=== PATIENT | female | born 1935 | race Caucasian/White ===

== ENCOUNTER 2018-05-09 17:30 | Emergency (ER) | payer OTHER ==
[2018-05-09] MEDS ORDERED: LIDOCAINE 1% MPF 5 ML VIAL ONE (18:18)
--- NOTE | 2018-05-09 18:25 | RAD REPORT ---
EXAM DESCRIPTION: CT - CTHCSPWOC - 05/09/2018 6:15 pm CLINICAL HISTORY: Trauma, head and neck injury. Fall injury;Pain COMPARISON: <Comparisons> TECHNIQUE: Axial 5 mm thick images of the head were obtained. Axial 2 mm thick images of the cervical spine were obtained with sagittal and coronal reconstruction images generated and reviewed. All CT scans are performed using dose optimization technique as appropriate and may include automated exposure control or mA/KV adjustment according to patient size. FINDINGS: CT HEAD WITHOUT CONTRAST: No acute hemorrhage, hydrocephalus or extra-axial collection is identified.Mild generalized brain atr ophy is present with mild periventricular and deep white matter chronic microvascular ischemic change s.No areas of brain edema or midline shift. The paranasal sinuses and mastoids are clear.The calvarium is intact. CT CERVICAL SPINE WITHOUT CONTRAST: No fracture or subluxation.No prevertebral soft tissues swelling is identified. IMPRESSION: No acute intracranial or cervical spine findings.
--- NOTE | 2018-05-09 18:26 | RAD REPORT ---
EXAM DESCRIPTION: CT - CTFB CLINICAL HISTORY: FACIAL PAIN Trauma, facial injury COMPARISON: None TECHNIQUE: Axial 2 mm thick images of the face were obtained with sagittal and coronal reconstructio n images. All CT scans are performed using dose optimization technique as appropriate and may include automated exposure control or mA/KV adjustment according to patient size. FINDINGS: No acute facial bone fracture is seen.The mandible is intact. The globes and orbital contents are grossly unremarkable.The paranasal sinuses and mastoids are clear . IMPRESSION: Negative for facial bone fracture.
[2018-05-09] MEDS ORDERED: TETANUS & DIPHTHERIA TOX,ADULT 0.5 ML VIAL ONE (18:41)
--- NOTE | 2018-05-09 18:54 | EDPHYS ---
Physician Documentation [facility] Name: Yarelis Payton Age: 82 yrs Sex: Female : 1935 Arrival Date: 05/09/2018 Time: 17:33 Bed 14 Private MD: Ye Self R ED Physician Luis Enriquez HPI: 05/09 18:10 This 82 yrs old Female presents to ER via Wheelchair with complaints of [place]. 18:10 Trauma demographics: Location of Injury: [place]. Mechanism of pm1 injury: Fall: and struck sand, [place] and stepped in hole in the sand. Associated injuries: The patient sustained injury to the head, abrasion, contusion, to bridge of nose, right hand, laceration. Onset: The symptoms/episode began/occurred just prior to arrival. The patient has not experienced similar symptoms in the past. The patient has not recently seen a physician. [place] and [place] stepped in a hole causing her to trip and land on her face and right hand on the sand. Patient had a bloody nose right after the fall that was controlled with pressure. Patient with laceration to right hand. Historical: - Allergies: 17:47 Bactrim; aj1 17:47 Codeine; aj1 17:47 Iodine; aj1 17:47 PENICILLINS; aj1 17:47 Sudafed; aj1 17:47 Talwin; aj1 17:47 trovafloxacin mesylate; aj1 - Home Meds: 17:47 glyburide-metformin 5-500 mg Oral tab 2 tabs 2 times per day [Active]; Humulin 70/30 aj1 100 unit/mL (70-30) Sub-Q susp 25 units twice a day [Active]; Lipitor 10 mg Oral tab 1 tab once daily [Active]; metoprolol tartrate 50 mg Oral tab 1 tab 2 times per day [Active]; ramipril 2.5 mg Oral cap 1 cap once daily [Active]; Symbicort 80-4.5 mcg/actuation inhalation HFAA 2 puffs daily [Active]; venlafaxine 75 mg Oral tr24 1 tab once daily [Active]; Xarelto 20 mg Oral tab 1 tab once daily [Active]; - PMHx: 17:47 Atrial Fib; COPD; Diabetes - IDDM; Hypertension; aj1 - Immunization history:: Flu vaccine is up to date. - Social history:: Smoking status: Patient/guardian denies using tobacco, the patient reports quitting approximately 20 years ago. - Ebola Screening: : Patient denies travel to an Ebola-affected area in the 21 days before illness onset. ROS: 18:10 Constitutional: Negative for fever, chills, and weight loss, Eyes: Negative for injury, pm1 pain, redness, and discharge. 18:10 Neck: Negative for injury, pain, and swelling, Cardiovascular: Negative for chest pain, palpitations, and edema, Respiratory: Negative for shortness of breath, cough, wheezing, and pleuritic chest pain, Abdomen/GI: Negative for abdominal pain, nausea, vomiting, diarrhea, and constipation, Back: Negative for injury and pain. 18:10 : Negative for injury, bleeding, discharge, and swelling. 18:10 Neuro: Negative for headache, weakness, numbness, tingling, and seizure. 18:10 ENT: Positive for Nose bleed that has resolved, Negative for drainage from ear(s), ear pain, sore throat. 18:10 MS/extremity: Positive for laceration, of the medial aspect of proximal phalanx of right little finger, Negative for decreased range of motion, deformity. 18:10 Skin: Positive for laceration(s), as noted above. abrasion to bridge of nose. Exam: 18:10 Constitutional: This is a well developed, well nourished patient who is awake, alert, pm1 and in no acute distress. 18:10 Eyes: Pupils equal round and reactive to light, extra-ocular motions intact. Lids and lashes normal. Conjunctiva and sclera are non-icteric and not injected. Cornea within normal limits. Periorbital areas with no swelling, redness, or edema. ENT: Nares patent. No nasal discharge, no septal abnormalities noted. Tympanic membranes are normal and external auditory canals are clear. Oropharynx with no redness, swelling, or masses, exudates, or evidence of obstruction, uvula midline. Mucous membranes moist. Neck: Trachea midline, no thyromegaly or masses palpated, and no cervical lymphadenopathy. Supple, full range of motion without nuchal rigidity, or vertebral point tenderness. No Meningismus. Chest/axilla: Normal chest wall appearance and motion. Nontender with no deformity. No lesions are appreciated. Cardiovascular: Regular rate and rhythm with a normal S1 and S2. No gallops, murmurs, or rubs. Normal PMI, no JVD. No pulse deficits. Respiratory: Lungs have equal breath sounds bilaterally, clear to auscultation and percussion. No rales, rhonchi or wheezes noted. No increased work of breathing, no retractions or nasal flaring. Abdomen/GI: Soft, non-tender, with normal bowel sounds. No distension or tympany. No guarding or rebound. No evidence of tenderness throughout. Back: No spinal tenderness. No costovertebral tenderness. Full range of motion. 18:10 Head/face: Noted is no obvious of injury or deformity except abrasion(s), of the bridge of nose, contusion, that is superficial, of the nose. 18:10 Skin: Appearance: normal except for affected area, injury, 2 cm skin tear to medial aspect of right 5th proximal phalanx . 18:10 Neuro: Orientation: is normal, Mentation: is normal, Cranial nerves: CN II- XII are normal as tested, Cerebellar function: normal finger to nose testing, Motor: moves all fours, strength is normal, strength is 5/5 in all extremities, Sensation: is normal, no obvious gross deficits, Gait: is steady, at a normal pace, without difficulty. Vital Signs: 17:49 BP 139 / 70; Pulse 64; Resp 18; Temp 97.9(O); Pulse Ox 95% on R/A; Weight 84.37 kg (R); aj1 Height 5 ft. 2 in. (157.48 cm) (R); Pain 3/10; 19:19 BP 134 / 66; Pulse 66; Resp 18; Pulse Ox 97% on R/A; kr2 17:49 Body Mass Index 34.02 (84.37 kg, 157.48 cm) aj1 MDM: 17:52 Patient medically screened. pm1 18:51 Data reviewed: vital signs. Data interpreted: Pulse oximetry: on room air is 95 %. pm1 Interpretation: normal. Counseling: I had a detailed discussion with the patient and/or guardian regarding: the historical points, exam findings, and any diagnostic results supporting the discharge/admit diagnosis, radiology results, the need for outpatient follow up, to return to the emergency department if symptoms worsen or persist or if there are any questions or concerns that arise at home. 18:58 ED course: No tenderness or pain present to right 1st digit or metacarpal. pm1 19:00 ED course: Dermabond and suturing not performed due to skin tear's small size and pm1 possible saltwater exposure. Will dress the wound and cover the patient with doxycycline . 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 Exp: kr2 06/17/2020. Lot #: [id number]. } Route: IM; Site: right deltoid; 19:17 Follow up: Response: No adverse reaction kr2 18:49 Not Given (Physician Discretion; Skin tear, no laceration): Lidocaine (1 %) 55 ml 5 ml pm1 Infiltration once; to bedside Disposition: 05/10 07:11 Co-signature as Attending Physician, Luis Enriquez MD. rn Disposition: 05/09/18 18:53 Discharged to Home. Impression: Abrasion of nose, Contusion of nose, Unspecified superficial injury of right hand - skin tear. - Condition is Stable. - Discharge Instructions: Abrasion, Contusion, Head Injury, Adult, Skin Tear Care. - Prescriptions for Doxycycline Hyclate 100 mg Oral Tablet - take 1 tablet by ORAL route every 12 hours; 20 tablet. - Medication Reconciliation Form, Thank You Letter, Antibiotic Education form. - Follow up: Emergency Department; When: As needed; Reason: Worsening of condition. Follow up: Ye Self MD; When: 2 - 3 days; Reason: Recheck today's complaints, Continuance of care, Re-evaluation by your physician. - Problem is new. - Symptoms have improved. Signatures: Dispatcher [employer] EDJeniffer Sandoval, RN RN aj1 Luis Enriquez MD MD rn Marinas, Patrick, JUNIOR RECRUITER JUNIOR RECRUITER pm1 Gila Dumont RN RN kr2 Corrections: (The following items were deleted from the chart) 05/09 18:53 18:50 Dermabond ordered. pm1 pm1 19:18 18:05 Sutures, Prolene ordered. pm1 kr2 19:23 18:53 05/09/2018 18:53 Discharged to Home. Impression: Abrasion of nose; Contusion of kr2 nose; Unspecified superficial injury of right hand - skin tear. Condition is Stable. Forms are Medication Reconciliation Form, Thank You Letter, Antibiotic Education, Prescription Opioid Use. Follow up: Emergency Department; When: As needed; Reason: Worsening of condition. Follow up: Ye Self; When: 2 - 3 days; Reason: Recheck today's complaints, Continuance of care, Re-evaluation by your physician. Problem is new. Symptoms have improved. pm1
--- NOTE | 2018-05-09 18:54 | ER ---
Nurse's Notes [facility] Name: Yarelis Payton Age: 82 yrs Sex: Female : 1935 Arrival Date: 05/09/2018 Time: 17:33 Bed 14 Private MD: Ye Self R Diagnosis: Abrasion of nose;Contusion of nose;Unspecified superficial injury of right hand-skin tear Presentation: 05/09 17:41 Presenting complaint: Patient states: "I was walking out to the water to yell at my aj1 grandson and I fell in a hole and hit the ground" Reports pain to nose and right hand. Denies LOC, denies vomiting. States that her nose was bleeding after her fall, but it has stopped now. Abrasion noted to bridge of patient's nose. Laceration noted to right hand Patient takes Xarelto and aspirin for her heart. Transition of care: patient was not received from another setting of care. Onset of symptoms was May 09, 2018. Risk Assessment: Do you want to hurt yourself or someone else? Patient reports no desire to harm self or others. Initial Sepsis Screen: Does the patient meet any 2 criteria? No. Patient's initial sepsis screen is negative. Does the patient have a suspected source of infection? No. Patient's initial sepsis screen is negative. Care prior to arrival: None. 17:41 Method Of Arrival: Wheelchair aj1 17:41 Acuity: FROY 3 aj1 Triage Assessment: 17:47 General: Appears in no apparent distress. uncomfortable, Behavior is calm, cooperative, aj1 appropriate for age. Pain: Complains of pain in nose and right hand Pain currently is 3 out of 10 on a pain scale. EENT: Reports nose bleed that has now resolved. Neuro: Level of Consciousness is awake, alert, obeys commands. Cardiovascular: Patient's skin is warm and dry. Respiratory: Airway is patent Respiratory effort is even, unlabored, Respiratory pattern is regular, symmetrical. GI: No signs and/or symptoms were reported involving the gastrointestinal system. Derm: Skin is pink, warm \\T\\ dry. normal. Injury Description: Abrasion sustained to nose Laceration sustained to right hand. Historical: - Allergies: 17:47 Bactrim; aj1 17:47 Codeine; aj1 17:47 Iodine; aj1 17:47 PENICILLINS; aj1 17:47 Sudafed; aj1 17:47 Talwin; aj1 17:47 trovafloxacin mesylate; aj1 - Home Meds: 17:47 glyburide-metformin 5-500 mg Oral tab 2 tabs 2 times per day [Active]; Humulin 70/30 aj1 100 unit/mL (70-30) Sub-Q susp 25 units twice a day [Active]; Lipitor 10 mg Oral tab 1 tab once daily [Active]; metoprolol tartrate 50 mg Oral tab 1 tab 2 times per day [Active]; ramipril 2.5 mg Oral cap 1 cap once daily [Active]; Symbicort 80-4.5 mcg/actuation inhalation HFAA 2 puffs daily [Active]; venlafaxine 75 mg Oral tr24 1 tab once daily [Active]; Xarelto 20 mg Oral tab 1 tab once daily [Active]; - PMHx: 17:47 Atrial Fib; COPD; Diabetes - IDDM; Hypertension; aj1 - Immunization history:: Flu vaccine is up to date. - Social history:: Smoking status: Patient/guardian denies using tobacco, the patient reports quitting approximately 20 years ago. - Ebola Screening: : Patient denies travel to an Ebola-affected area in the 21 days before illness onset. Screenin:57 Abuse screen: Denies threats or abuse. Denies injuries from another. Nutritional kr2 screening: No deficits noted. Tuberculosis screening: No symptoms or risk factors identified. Fall Risk None identified. Assessment: 18:40 General: Appears in no apparent distress. comfortable, well groomed, well developed, kr2 well nourished, Behavior is calm, cooperative, appropriate for age. Pain: Complains of pain in right hand and face and nose Pain does not radiate. Pain currently is 2 out of 10 on a pain scale. Quality of pain is described as aching, tender. Neuro: Level of Consciousness is awake, alert, obeys commands, Oriented to person, place, time, situation, Appropriate for age. Cardiovascular: Capillary refill < 3 seconds in bilateral fingers Patient's skin is warm and dry. Respiratory: Airway is patent Respiratory effort is even, unlabored, Respiratory pattern is regular, symmetrical. GI: Abdomen is flat, non-distended. EENT: Oral mucosa is moist. Derm: Skin is healthy with good turgor. Musculoskeletal: Circulation, motion, and sensation intact. Injury Description: skin tear to right hand, cleansed with Hibiclens and normal saline, dried, left open to air for provider to evaluate. 19:15 Reassessment: Patient appears in no apparent distress at this time. Patient and/or kr2 family updated on plan of care and expected duration. Pain level reassessed. Patient is alert, oriented x 3, equal unlabored respirations, skin warm/dry/pink. Antibiotic ointment applied to skin tear to right hand, covered with bandage Patient denies pain at this time. Vital Signs: 17:49 BP 139 / 70; Pulse 64; Resp 18; Temp 97.9(O); Pulse Ox 95% on R/A; Weight 84.37 kg (R); aj1 Height 5 ft. 2 in. (157.48 cm) (R); Pain 3/10; 19:19 BP 134 / 66; Pulse 66; Resp 18; Pulse Ox 97% on R/A; kr2 17:49 Body Mass Index 34.02 (84.37 kg, 157.48 cm) aj1 ED Course: 17:33 Patient arrived in ED. sb2 17:34 Ye Self MD is Private Physician. sb2 17:46 Triage completed. aj1 17:49 Arm band placed on Patient placed in an exam room. aj1 17:52 Sp Robledo NP is PHCP. pm1 17:52 Luis Enriquez MD is Attending Physician. pm1 18:05 Gila Dumont, [place] is Primary Nurse. kr2 18:15 CT Facial Bones W/O Con: No contrast In Process Unspecified. EDMS 18:15 CT Head C Spine In Process Unspecified. EDMS 18:17 CT completed. Patient tolerated procedure well. Patient moved back from CT. bq 18:26 Hand Right 3 View XRAY In Process Unspecified. EDMS 18:40 Patient has correct armband on for positive identification. Bed in low position. Call kr2 light in reach. Side rails up X 1. Pulse ox on. NIBP on. Door closed. Warm blanket given. Head of bed elevated. 18:51 Ye Self MD is Referral Physician. pm1 18:59 No provider procedures requiring assistance completed. Patient did not have IV access kr2 during this emergency room visit. 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 Exp: kr2 06/17/2020. Lot #: [id number]. } Route: IM; Site: right deltoid; 19:17 Follow up: Response: No adverse reaction kr2 18:49 Not Given (Physician Discretion; Skin tear, no laceration): Lidocaine (1 %) 55 ml 5 ml pm1 Infiltration once; to bedside Outcome: 18:53 Discharge ordered by MD. pm1 19:18 Discharged to home via wheelchair, with family. kr2 19:18 Condition: good 19:18 Discharge instructions given to patient, family, Instructed on discharge instructions, follow up and referral plans. medication usage, wound care, Demonstrated understanding of instructions, follow-up care, medications, wound care, Prescriptions given X 1. 19:23 Patient left the ED. kr2 Signatures: Dispatcher [employer] EDMS Jeniffer Stewart RN RN aj1 Martina Castro Patrick, PIPE LINE WALKER PIPE LINE WALKER pm1 Gila Dumont RN RN kr2 Radha Daily sb2 Corrections: (The following items were deleted from the chart) 17:50 17:41 Presenting complaint: Patient states: "I was walking out to the water to yell at aj1 my grandson and I fell in a hole and hit the ground" Reports pain to nose and right hand. Denies LOC, denies vomiting. States that her nose was bleeding after her fall, but it has stopped now. Abrasion noted to bridge of patient's nose. Patient takes Xarelto and aspirin for her heart. aj1 19:22 19:18 Discharge instructions given to patient, family, Instructed on discharge kr2 instructions, follow up and referral plans. medication usage, Demonstrated understanding of instructions, follow-up care, medications, Prescriptions given X 1, kr2
--- NOTE | 2018-05-09 18:55 | RAD REPORT ---
EXAM DESCRIPTION: RAD - Hand Right 3 View - 05/09/2018 6:26 pm CLINICAL HISTORY: laceration;Pain Trauma, fall COMPARISON: None FINDINGS: Diffuse osteopenia is seen. Soft tissue laceration is seen along the fifth metacarpal. Que stionable areas of cortical irregularity involving the base of the distal phalanx of the first digit noted which could indicate subtle fracture. Correlation with clinical point tenderness in this locati on is advised.
[2018-05-09 19:31] VITALS: TEMP 97.9
[2018-05-09 19:32] VITALS: BP 134/66; O2SAT 97
== END 2018-05-09 19:23 | disposition home or self-care (01) ==
LOC: ER 17:30
DX: S00.31XA Abrasion of nose, initial encounter (principal); W01.0XXA Fall on same level from slipping, tripping and stumbling without subsequent striking against object, initial encounter; Y93.01 Activity, walking, marching and hiking; Y92.832 Beach as the place of occurrence of the external cause; S00.33XA Contusion of nose, initial encounter; S61.411A Laceration without foreign body of right hand, initial encounter; Z88.6 Allergy status to analgesic agent; Z88.0 Allergy status to penicillin; Z88.8 Allergy status to other drugs, medicaments and biological substances; Z91.048 Other nonmedicinal substance allergy status; I48.91 Unspecified atrial fibrillation; Z79.01 Long term (current) use of anticoagulants; E11.9 Type 2 diabetes mellitus without complications; Z79.4 Long term (current) use of insulin; I10 Essential (primary) hypertension; Z23 Encounter for immunization
CPT/HCPCS: 70450; 70486; 72125; 76377; 90714; 99284

== ENCOUNTER 2019-09-13 15:15 | Emergency (ER) | payer OTHER ==
[2019-09-13] MEDS ORDERED: DERMABOND SKIN ADHESIVE TOP ONE (15:56)
[2019-09-13] MEDS ORDERED: TETANUS & DIPHTHERIA TOX,ADULT 0.5 ML VIAL ONE (16:07)
--- NOTE | 2019-09-13 16:54 | RAD REPORT ---
EXAM DESCRIPTION: CT - Head C Spine Cap Wo Con - 09/13/2019 4:33 pm TECHNIQUE: Computed axial tomography of the head and cervical spine was obtained. Coronal and sagitt al reconstruction was performed Computed axial tomography of the chest, abdomen and pelvis was obtained. Contrast was not requested. All CT scans are performed using dose optimization technique as appropriate and may include automated exposure control or mA/KV adjustment according to patient size. CLINICAL HISTORY: Head and neck injury with chest and abdominal pain status post fall COMPARISON: 2018 CT head and neck FINDINGS: An intracranial bleed is not seen. The ventricles are normal in caliber. An extra-axial fluid collection is not noted. . Fluid within the sinuses/mastoids is not seen. A cervical fracture is not seen. No dislocation is noted. The evaluation of mediastinum, laurence, vessels, solid organs and bowel are limited secondary to the lac k of contrast administration. A mediastinal hematoma is not noted. A pleural effusion is not seen. A lung contusion is not present. The liver,spleen, pancreas, adrenals,kidneys and bladder do not demonstrate a traumatic injury A 5 centimeter cystic mass is present within the region of the left kidney. Normal appearing left agata al tissue is not noted. Small right renal cystic masses are nonspecific without IV contrast. Small lucency within the right aspect of the manubrium nonspecific An umbilical hernia contains fat IMPRESSION: 1. No acute intracranial abnormality is seen. 2. A cervical fracture is not visualized. If the patient continues have symptoms to suggest intracran ial/spinal cord pathology MRI be recommended 3. No traumatic abnormality involving the chest/abdomen/pelvis.
--- NOTE | 2019-09-13 17:31 | EDPHYS ---
Physician Documentation [facility] Name: Yarelis Payton Age: 84 yrs Sex: Female : 1935 Arrival Date: 09/13/2019 Time: 15:19 Bed 20 Private MD: Ye Self R ED Physician Huber Valero HPI: 09/13 16:24 This 84 yrs old Female presents to ER via Ambulatory with complaints of Fall pm1 Injury. 16:48 Details of fall: The patient fell from a height, Step stool, patient's foot was 1 foot pm1 off the ground, and struck wooden furniture, a potato bin. Onset: The symptoms/episode began/occurred 1 hour(s) ago. Associated injuries: The patient sustained left hand, skin tears, right flank, abrasion, contusion, neck, pain. Patient was getting down from changing a light bulb and was stepping down a step stool. Lost her balance and fell on the right side of her back. Denies hitting her head. No headache. No nausea or vomiting. Has left sided neck pain to trapezius present. . Historical: - Allergies: 15:34 Bactrim; hb 15:34 Codeine; hb 15:34 Iodine; hb 15:34 PENICILLINS; hb 15:34 Sudafed; hb 15:34 Talwin; hb 15:34 trovafloxacin mesylate; hb - PMHx: 15:34 Atrial Fib; COPD; Diabetes - IDDM; Hypertension; hb - Immunization history:: Adult Immunizations up to date. - Social history:: Smoking status: Patient/guardian denies using tobacco. - Immunization history: Last tetanus immunization: < 5 years ago. - Ebola Screening: : No symptoms or risks identified at this time. ROS: 16:24 Constitutional: Negative for fever, chills, and weight loss, Eyes: Negative for injury, pm1 pain, redness, and discharge, ENT: Negative for injury, pain, and discharge, Cardiovascular: Negative for chest pain, palpitations, and edema. 16:24 Respiratory: Negative for shortness of breath, cough, wheezing, and pleuritic chest pain, Abdomen/GI: Negative for abdominal pain, nausea, vomiting, diarrhea, and constipation. 16:24 : Negative for injury, bleeding, discharge, and swelling, MS/Extremity: Negative for injury and deformity. 16:24 Neuro: Negative for headache, weakness, numbness, tingling, and seizure. 16:24 Neck: Positive for of the left trapezius, Negative for bony tenderness. 16:24 Back: Positive for flank pain, on the right. 16:24 Skin: Positive for skin tear to left hand. Exam: 16:24 Constitutional: This is a well developed, well nourished patient who is awake, alert, pm1 and in no acute distress. Head/Face: Normocephalic, atraumatic. Eyes: Pupils equal round and reactive to light, extra-ocular motions intact. Lids and lashes normal. Conjunctiva and sclera are non-icteric and not injected. Cornea within normal limits. Periorbital areas with no swelling, redness, or edema. ENT: Nares patent. No nasal discharge, no septal abnormalities noted. Tympanic membranes are normal and external auditory canals are clear. Oropharynx with no redness, swelling, or masses, exudates, or evidence of obstruction, uvula midline. Mucous membranes moist. 16:24 Chest/axilla: Normal chest wall appearance and motion. Nontender with no deformity. No lesions are appreciated. Cardiovascular: Regular rate and rhythm with a normal S1 and S2. No gallops, murmurs, or rubs. Normal PMI, no JVD. No pulse deficits. Respiratory: Lungs have equal breath sounds bilaterally, clear to auscultation and percussion. No rales, rhonchi or wheezes noted. No increased work of breathing, no retractions or nasal flaring. Abdomen/GI: Soft, non-tender, with normal bowel sounds. No distension or tympany. No guarding or rebound. No evidence of tenderness throughout. 16:24 Neck: External neck: tenderness, of the left trapezius, C-spine: vertebral tenderness, is not appreciated, Lymph nodes: no appreciated lymphadenopathy. 16:24 Back: normal spinal alignment noted, vertebral tenderness, is not appreciated, focal tenderness and abrasions to right posterior lower rib. 16:24 Skin: Appearance: normal except for affected area, abrasion to right lower back and skin tear to left hand, medial aspect . 16:24 Neuro: Orientation: is normal, Motor: is normal, moves all fours, Sensation: is normal, no obvious gross deficits, Gait: is steady, at a normal pace, without difficulty. Vital Signs: 15:34 BP 154 / 56; Pulse 63; Resp 16; Temp 97.8; Pulse Ox 100% on R/A; Weight 90.72 kg; hb Height 5 ft. 2 in. (157.48 cm); Pain 6/10; 17:47 BP 149 / 65; Pulse 64; Resp 17 S; Pulse Ox 100% on R/A; ca1 15:34 Body Mass Index 36.58 (90.72 kg, 157.48 cm) hb Kevin Coma Score: 15:45 Eye Response: spontaneous(4). Verbal Response: oriented(5). Motor Response: obeys ca1 commands(6). Total: 15. Trauma Score (Adult): 15:45 Eye Response: spontaneous(1); Verbal Response: oriented(1); Motor Response: obeys ca1 commands(2); Systolic BP: > 89 mm Hg(4); Respiratory Rate: 10 to 29 per min(4); Johnson Score: 15; Trauma Score: 12 Laceration: 16:23 Wound Repair of 5cm ( 2.0in ) subcutaneous laceration to Left hand. Skin tear. Distal pm1 neuro/vascular/tendon intact. Wound prep: Extensive cleansing with hibiclenz by me, Wound irrigation with saline by me, Wound explored extensively, Copious irrigation. Skin closed with thin layer Adhesive skin closure using Dermabond. Dressed with 4x4's. Patient tolerated well. MDM: 15:42 Patient medically screened. pm1 17:14 Data reviewed: vital signs. Data interpreted: Pulse oximetry: on room air is 100 %. pm1 Interpretation: normal. 17:25 Counseling: I had a detailed discussion with the patient and/or guardian regarding: the pm1 historical points, exam findings, and any diagnostic results supporting the discharge/admit diagnosis, radiology results, the need for outpatient follow up, to return to the emergency department if symptoms worsen or persist or if there are any questions or concerns that arise at home. 17:25 ED course: Patient offered pain medications in ER and for prescription. 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 Exp: ca1 03/04/2021. Lot #: [id number]. } Route: IM; Site: left deltoid; Disposition: 18:49 Co-signature as Attending Physician, Huber Valero MD I agree with the assessment and barber plan of care. Disposition: 09/13/19 17:27 Discharged to Home. Impression: Contusion of right back wall of thorax, Laceration without foreign body of left hand, Strain of muscle, fascia and tendon at neck level, Abrasion of right back wall of thorax, Abrasion of lower back and pelvis, Slipping, tripping and stumbling without falling due to stepping from one level to another. - Condition is Stable. - Discharge Instructions: Abrasion, Contusion, Tissue Adhesive Wound Care, Fall Prevention in the Home. - Medication Reconciliation Form, Thank You Letter, Antibiotic Education, Prescription Opioid Use form. - Follow up: Emergency Department; When: As needed; Reason: Worsening of condition. Follow up: Private Physician; When: 2 - 3 days; Reason: Recheck today's complaints, Continuance of care, Re-evaluation by your physician. - Problem is new. - Symptoms have improved. Signatures: Dispatcher [employer] EDMS Huber Valero MD MD cha Marinas, Patrick, CAPACITY PLANNER CAPACITY PLANNER pm1 Mayelin Anderson, [place] RN Marquita Don RN RN ca1 Corrections: (The following items were deleted from the chart) 17:48 17:27 09/13/2019 17:27 Discharged to Home. Impression: Contusion of right back wall of ca1 thorax; Laceration without foreign body of left hand; Strain of muscle, fascia and tendon at neck level; Abrasion of right back wall of thorax; Abrasion of lower back and pelvis; Slipping, tripping and stumbling without falling due to stepping from one level to another. Condition is Stable. Forms are Medication Reconciliation Form, Thank You Letter, Antibiotic Education, Prescription Opioid Use. Follow up: Emergency Department; When: As needed; Reason: Worsening of condition. Follow up: Private Physician; When: 2 - 3 days; Reason: Recheck today's complaints, Continuance of care, Re-evaluation by your physician. Problem is new. Symptoms have improved. pm1
--- NOTE | 2019-09-13 17:31 | ER ---
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 Abrasion noted to right mid back, skin tear to left palm. No active bleeding noted. Denies other injuries. Negative LOC. Care prior to arrival: None. 15:31 Method Of Arrival: Ambulatory hb 15:31 Acuity: FROY 3 ca1 15:45 Mechanism of Injury: Fall from ladder approximately 2 feet. Trauma event details: ca1 Injury occurred in the [facility], Injury occurred: at home. Injury occurred: September 13, 2019 Injury occurred at: 14:30. 15:45 Risk Assessment: Do you want to hurt yourself or someone else? Patient reports no ca1 desire to harm self or others. 15:45 Transition of care: patient was not received from another setting of care. Onset of ca1 symptoms was September 13, 2019. Initial Sepsis Screen: Does the patient meet any 2 criteria? No. Patient's initial sepsis screen is negative. Does the patient have a suspected source of infection? No. Patient's initial sepsis screen is negative. Trauma Activation: Not Applicable Physician: ED Physician; Name: ; Notified At: ; Arrived At: Physician: General Surgeon; Name: ; Notified At: ; Arrived At: Physician: Radiology; Name: ; Notified At: ; Arrived At: Physician: Respiratory; Name: ; Notified At: ; Arrived At: Physician: Lab; Name: ; Notified At: ; Arrived At: Historical: - Allergies: 15:34 Bactrim; hb 15:34 Codeine; hb 15:34 Iodine; hb 15:34 PENICILLINS; hb 15:34 Sudafed; hb 15:34 Talwin; hb 15:34 trovafloxacin mesylate; hb - PMHx: 15:34 Atrial Fib; COPD; Diabetes - IDDM; Hypertension; hb - Immunization history:: Adult Immunizations up to date. - Social history:: Smoking status: Patient/guardian denies using tobacco. - Immunization history: Last tetanus immunization: < 5 years ago. - Ebola Screening: : No symptoms or risks identified at this time. Screenin:45 Abuse screen: Denies threats or abuse. Denies injuries from another. Nutritional ca1 screening: No deficits noted. Tuberculosis screening: No symptoms or risk factors identified. Fall Risk Fall in past 12 months (25 points). Ambulatory Aid- Crutches/Cane/Walker (15 pts). Mental Status- Overestimates/Forgets Limitations (15 pts.). Total Posada Fall Scale indicates High Risk Score (45 or more points). Fall prevention measures have been instituted. Side Rails Up X 2 Family Present and informed to notify staff if the need to leave the bedside As available patient and family educated on Fall Prevention Program and Strategies. Primary Survey: 15:45 NO uncontrolled hemorrhage observed. A: Breathing/Chest: Respiratory pattern: regular, ca1 Respiratory effort: spontaneous, unlabored, Breath sounds: clear, bilaterally. Chest inspection: symmetrical rise and fall of the chest. Circulation: Heart tones present. Pulses: palpable bilateral radial, brachial, femoral, popliteal, posterior tibial and and dorsalis pedis arteries.. Skin color: pink, Skin temperature: warm, dry. Disability Alert. Exposure/Environment: All clothing and personal items were removed. Exposure/Environment: All clothing and personal items were removed. Forensic evidence collection is not deemed to be indicated at this time. Items placed in patient belonging bag. There is no evidence of uncontrolled external bleeding. No obvious injuries are noted at this time. A warming method has been applied: A warm blanket has been provided to the patient. 17:11 Reassessment Airway Airway Patent Breathing/Chest Respiratory pattern Regular ca1 Respiratory effort Spontaneous Unlabored Breath sounds Clear Chest inspection Symmetrical Circulation Heart tones Present Pulses Palpable Color [place] Temperature Warm Dry Disability Alert. Assessment: 15:45 General: Appears in no apparent distress. comfortable, Behavior is calm, cooperative, ca1 appropriate for age. Pain: Complains of pain in left hand Pain currently is 5 out of 10 on a pain scale. Neuro: Level of Consciousness is awake, alert, obeys commands, Oriented to person, place, time, Appropriate for age none Gait is steady. Cardiovascular: Heart tones S1 S2 present Capillary refill < 3 seconds Patient's skin is warm and dry. Respiratory: Airway is patent Respiratory effort is even, unlabored, Respiratory pattern is regular, symmetrical, Breath sounds are clear bilaterally. GI: Abdomen is round non-distended, Bowel sounds present X 4 quads. Abd is soft and non tender X 4 quads. : No deficits noted. No signs and/or symptoms were reported regarding the genitourinary system. EENT: No signs and/or symptoms were reported regarding the EENT system. Derm: Skin is fragile, Skin is pink, warm \T\ dry. Musculoskeletal: Circulation, motion, and sensation intact. Capillary refill < 3 seconds, Range of motion: intact in all extremities. Injury Description: Laceration sustained to medial aspect of left hand is clean, superficial, 2.6 to 7.5 cm long, not bleeding, was sustained 30-60 minutes ago. a small amount of bleeding noted at this time. 16:30 Reassessment: Patient appears in no apparent distress at this time. Patient is alert, ca1 oriented x 3, equal unlabored respirations, skin warm/dry/pink. 17:47 Reassessment: Patient appears in no apparent distress at this time. Patient is alert, ca1 oriented x 3, equal unlabored respirations, skin warm/dry/pink. Vital Signs: 15:34 BP 154 / 56; Pulse 63; Resp 16; Temp 97.8; Pulse Ox 100% on R/A; Weight 90.72 kg; hb Height 5 ft. 2 in. (157.48 cm); Pain 6/10; 17:47 BP 149 / 65; Pulse 64; Resp 17 S; Pulse Ox 100% on R/A; ca1 15:34 Body Mass Index 36.58 (90.72 kg, 157.48 cm) hb [place] Coma Score: 15:45 Eye Response: spontaneous(4). Verbal Response: oriented(5). Motor Response: obeys ca1 commands(6). Total: 15. Trauma Score (Adult): 15:45 Eye Response: spontaneous(1); Verbal Response: oriented(1); Motor Response: obeys ca1 commands(2); Systolic BP: > 89 mm Hg(4); Respiratory Rate: 10 to 29 per min(4); Kevin Score: 15; Trauma Score: 12 ED Course: 15:19 Patient arrived in ED. mr 15:20 Ye Self MD is Private Physician. mr 15:34 Triage completed. hb 15:34 Arm band placed on. hb 15:39 Marquita Don RN is Primary Nurse. ca1 15:40 Sp Robledo NP is PHCP. pm1 15:40 Huber Valero MD is Attending Physician. pm1 15:45 Patient has correct armband on for positive identification. Bed in low position. Call ca1 light in reach. Side rails up X 1. Pulse ox on. NIBP on. Warm blanket given. 15:45 Patient maintains SpO2 saturation greater than 95% on room air. ca1 15:45 Thermoregulation: warm blanket given to patient. ca1 16:30 Assist provider with laceration repair on medial aspect of left hand that was between ca1 2.6 to 7.5 cm using Dermabond. Set up tray. Performed by Sp Robledo NP Patient tolerated well. 17:48 Patient did not have IV access during this emergency room visit. ca1 Administered Medications: 16:13 Drug: Tetanus-Diphtheria Toxoid Adult 0.5 ml {Health Therapist: [employer] Exp: ca1 03/04/2021. Lot #: [id number]. } Route: IM; Site: left deltoid; Output: 17:10 Urine: 0ml; Total: 0ml. ca1 Outcome: 17:27 Discharge ordered by MD. pm1 17:48 Discharged to home ambulatory, with significant other. ca1 17:48 Condition: stable 17:48 Discharge instructions given to patient, Instructed on discharge instructions, follow up and referral plans. wound care, Demonstrated understanding of instructions, follow-up care, wound care. 17:48 Patient's length of stay was not longer than 2 hours. ca1 17:48 Patient left the ED. ca1 Signatures: Suzi Liriano Sp Robledo, PIOTR TERRA COTTA SETTER pm1 Mayelin Anderson RN RN Marquita Don RN RN ca1 Corrections: (The following items were deleted from the chart) 16:04 15:31 Acuity: FROY 4 hb ca1
[2019-09-13 18:34] VITALS: TEMP 97.8; O2SAT 100
[2019-09-13 18:36] VITALS: BP 149/65
== END 2019-09-13 17:48 | disposition home or self-care (01) ==
LOC: ER 15:15
PROC: 0JQK0ZZ Repair Left Hand Subcutaneous Tissue and Fascia, Open Approach (ICD-10-PCS; principal; 2019-09-13)
DX: S61.412A Laceration without foreign body of left hand, initial encounter (principal); S16.1XXA Strain of muscle, fascia and tendon at neck level, initial encounter; S30.810A Abrasion of lower back and pelvis, initial encounter; W17.89XA Other fall from one level to another, initial encounter; Y93.89 Activity, other specified; Y92.9 Unspecified place or not applicable; I10 Essential (primary) hypertension; Z23 Encounter for immunization; Z88.0 Allergy status to penicillin; Z88.1 Allergy status to other antibiotic agents; Z88.5 Allergy status to narcotic agent; Z88.8 Allergy status to other drugs, medicaments and biological substances
CPT/HCPCS: 70450; 71250; 72125; 90471; 90714; 99284

== ENCOUNTER 2020-10-05 13:44 | Observation (INO) | payer OTHER ==
--- NOTE | 2020-10-05 14:27 | RAD REPORT ---
EXAM DESCRIPTION: CT - Head C Spine Mpr Wo Con - 10/05/2020 1:59 pm CLINICAL HISTORY: Head and neck injury status post fall. Head and neck pain COMPARISON: 2018 TECHNIQUE: Computed axial tomography of the head and cervical spine was obtained. Sagittal and coronal reconstruction was performed. All CT scans are performed using dose optimization technique as appropriate and may include automated exposure control or mA/KV adjustment according to patient size. FINDINGS: Left frontal scalp hematoma. No underlying skull fracture An intracranial bleed is not seen. The ventricles are normal in caliber. An extra-axial fluid collect ion is not noted.Fluid within the visualized sinuses and mastoids is not seen A cervical fracture is not visualized. No dislocation is noted. IMPRESSION: No acute intracranial abnormality is seen. A cervical fracture is not visualized. If the patient continues to have symptoms to suggest intracra nial /spinal cord pathology then MRI would be recommended
--- NOTE | 2020-10-05 14:30 | RAD REPORT ---
EXAM DESCRIPTION: RAD -Hand Left 3 View - 10/05/2020 2:02 pm CLINICAL HISTORY: Left hand pain status post injury FINDINGS: No fracture or dislocation is seen. Laceration involves the region of the metacarpals. A 6 by 1 millimeter radiopaque structure within th e dorsal soft tissue may represent a foreign body
--- NOTE | 2020-10-05 15:14 | ER ---
Nurse's Notes [facility] Name: Yarelis Payton Age: 85 yrs Sex: Female : 1935 Arrival Date: 10/05/2020 Time: 13:49 Bed 16 Private MD: Diagnosis: Laceration of extensor muscle, fascia and tendon of left middle finger at wrist and hand level Presentation: 10/05 13:49 Chief complaint: Patient states: tripped and fell. Pt states "My feet just got caught aa5 and I fell onto my knees and hit my forehead on the floor, I also had a glass jar on my left hand". Pt c/o pain to forehead and left hand. Pt takes Xarelto. 13:49 Care prior to arrival: Dressing to left hand. Mechanism of Injury: Fall from standing aa5 position. Trauma event details: Injury occurred in the [facility], Injury occurred: at home. Injury occurred: October 05, 2020. 13:49 Acuity: FROY 2 aa5 13:49 Method Of Arrival: EMS: [facility] aa5 13:49 Onset of symptoms was October 05, 2020. aa5 13:49 Coronavirus screen: Client denies travel out of the [place] in the last 14 days. At this aa5 time, the client does not indicate any symptoms associated with coronavirus-19. Ebola Screen: Patient negative for fever greater than or equal to 101.5 degrees Fahrenheit, and additional compatible Ebola Virus Disease symptoms. Initial Sepsis Screen: Does the patient meet any 2 criteria? No. Patient's initial sepsis screen is negative. Does the patient have a suspected source of infection? No. Patient's initial sepsis screen is negative. Risk Assessment: Do you want to hurt yourself or someone else? Patient reports no desire to harm self or others. Trauma Activation: Alert Physician: ED Physician; Name: ; Notified At: ; Arrived At: Physician: General Surgeon; Name: ; Notified At: ; Arrived At: Physician: Radiology; Name: ; Notified At: ; Arrived At: Physician: Respiratory; Name: ; Notified At: ; Arrived At: Physician: Lab; Name: ; Notified At: ; Arrived At: Historical: - Allergies: 13:50 Bactrim; aa5 13:50 Codeine; aa5 13:50 Iodine; aa5 13:50 PENICILLINS; aa5 13:50 Sudafed; aa5 13:50 Talwin; aa5 13:50 trovafloxacin mesylate; aa5 - PMHx: 13:50 Atrial Fib; COPD; Diabetes - IDDM; Hypertension; aa5 - Immunization history:: Last tetanus immunization: unknown. - Social history:: Smoking status: Patient denies any tobacco usage or history of. Screenin:30 Abuse screen: Denies threats or abuse. Nutritional screening: No deficits noted. aa5 Tuberculosis screening: No symptoms or risk factors identified. 15:00 Fall Risk Fall in past 12 months (25 points). IV access (20 points). Total [place] Fall aa5 Scale indicates High Risk Score (45 or more points). Fall prevention measures have been instituted. Side Rails Up X 2 Placed Close to Nursing Station. Primary Survey: 13:49 NO uncontrolled hemorrhage observed. aa5 13:49 A: The patient is alert. Airway: patent. Breathing/Chest: Chest inspection: symmetrical aa5 rise and fall of the chest. Circulation: Skin color: pink. Disability Alert. Exposure/Environment: A warming method has been applied: A warm blanket has been provided to the patient. 14:10 Reassessment Airway Airway Patent Breathing/Chest Respiratory pattern Regular aa5 Respiratory effort Spontaneous Unlabored Chest inspection Symmetrical Circulation Color [place] Disability Alert. Assessment: 14:00 General: Appears comfortable, Behavior is calm, cooperative. Pain: Complains of pain in aa5 left hand and forehead Pain currently is 8 out of 10 on a pain scale. Neuro: Level of Consciousness is awake, alert, obeys commands, Oriented to person, place, time, situation. Cardiovascular: Patient's skin is warm and dry. Respiratory: Airway is patent Respiratory effort is even, unlabored, Respiratory pattern is regular, symmetrical. GI: Abdomen is round non-distended, Abd is soft and non tender X 4 quads. : No signs and/or symptoms were reported regarding the genitourinary system. EENT: No signs and/or symptoms were reported regarding the EENT system. Derm: Skin is pink, warm \\T\\ dry. Musculoskeletal: no range of motion noted to left middle finger secondary to extensor tendon laceration (per PA). Laceration that is approximately 2 in long noted to top of hand, 2 other superficial laceration that are 1in each noted to top of hand. 15:00 Reassessment: Patient is alert, oriented x 3, equal unlabored respirations, skin aa5 warm/dry/pink. 15:45 Reassessment: Dr. Hutton (hospitalist) at bedside. . aa5 15:45 Reassessment: Patient is alert, oriented x 3, equal unlabored respirations, skin aa5 warm/dry/pink. 16:00 Reassessment: FB from left hand removed by PA. aa5 16:30 Reassessment: Patient is alert, oriented x 3, equal unlabored respirations, skin aa5 warm/dry/pink. 17:30 Reassessment: Pt resting in bed with eyes closed, respirations even and unlabored. . aa5 18:00 Reassessment: Moderate bleeding noted to laceration to top of left hand, dressing aa5 changed with gauze, Kerlix, and coban. PA was notified of findings. . 18:30 Reassessment: Patient is alert, oriented x 3, equal unlabored respirations, skin aa5 warm/dry/pink. Pt assisted to restroom, pt voided without difficulties. . Vital Signs: 13:49 BP 161 / 57; Pulse 75; Resp 16 S; Temp 98.4(O); Pulse Ox 97% on R/A; Pain 8/10; aa5 14:00 BP 162 / 63; Pulse 60; Resp 16 S; Pulse Ox 98% on R/A; aa5 15:00 BP 160 / 64; Pulse 60; Resp 16 S; Temp 97.8(O); Pulse Ox 97% on R/A; aa5 16:00 BP 161 / 61; Pulse 63; Resp 16 S; Pulse Ox 96% on R/A; aa5 17:00 BP 170 / 57; Pulse 65; Resp 16 S; Pulse Ox 96% on R/A; aa5 18:00 BP 158 / 66; Pulse 65; Resp 18; Temp 98.0(O); Pulse Ox 96% on R/A; aa5 [place] Coma Score: 18:00 Eye Response: spontaneous(4). Verbal Response: oriented(5). Motor Response: obeys aa5 commands(6). Total: 15. Trauma Score (Adult): 14:00 Eye Response: spontaneous(1); Verbal Response: oriented(1); Motor Response: obeys aa5 commands(2); Systolic BP: > 89 mm Hg(4); Respiratory Rate: 10 to 29 per min(4); Kevin Score: 15; Trauma Score: 12 15:00 Eye Response: spontaneous(1); Verbal Response: oriented(1); Motor Response: obeys aa5 commands(2); Systolic BP: > 89 mm Hg(4); Respiratory Rate: 10 to 29 per min(4); [place] Score: 15; Trauma Score: 12 16:00 Eye Response: spontaneous(1); Verbal Response: oriented(1); Motor Response: obeys aa5 commands(2); Systolic BP: > 89 mm Hg(4); Respiratory Rate: 10 to 29 per min(4); [place] Score: 15; Trauma Score: 12 17:00 Eye Response: spontaneous(1); Verbal Response: oriented(1); Motor Response: obeys aa5 commands(2); Systolic BP: > 89 mm Hg(4); Respiratory Rate: 10 to 29 per min(4); [place] Score: 15; Trauma Score: 12 18:00 Eye Response: spontaneous(1); Verbal Response: oriented(1); Motor Response: obeys aa5 commands(2); Systolic BP: > 89 mm Hg(4); Respiratory Rate: 10 to 29 per min(4); Kevin Score: 15; Trauma Score: 12 ED Course: 13:49 Patient arrived in ED. aa5 13:49 Arm band placed on. aa5 13:49 Patient has correct armband on for positive identification. aa5 13:50 Michael Gallego PA is PHCP. jr8 13:50 Luc Danielle MD is Attending Physician. jr8 13:53 Triage completed. aa5 13:54 Miracle Collazo, [place] is Primary Nurse. aa5 13:55 Patient maintains SpO2 saturation greater than 95% on room air. Thermoregulation: warm aa5 blanket given to patient. 13:59 CT Head C Spine In Process Unspecified. EDMS 14:03 Hand Left 3 View XRAY In Process Unspecified. EDMS 15:00 Initial lab(s) drawn, by me, sent to lab. Inserted saline lock: 20 gauge in right dh3 antecubital area, using aseptic technique. Blood collected. 15:12 Nicolas Hutton DO is Hospitalizing Provider. jr8 19:05 Report given to MO Logan. 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 Exp: aa5 01/13/2022. Lot #: [id number]. } Route: IM; Site: right deltoid; 15:30 Follow up: Response: No adverse reaction aa5 15:40 Drug: Ancef 1 grams Route: IVPB; Site: right antecubital; aa5 16:00 Follow up: Response: No adverse reaction aa5 16:00 Drug: Lidocaine (1 %) 5 mg {Note: administered to left hand by PA for FB removal.} aa5 Route: Infiltration; Outcome: 15:13 Decision to Hospitalize by Provider. jr8 23:01 Admitted to Med/surg accompanied by tech, family with patient, room 212, with chart, sg Report called to MO Cleary 23:01 Condition: stable 23:01 Instructed on the need for admit, safety practices, Demonstrated understanding of instructions. 23:29 Patient left the ED. sg Signatures: Dispatcher [employer] EDMS Tommie Brown RN RN sg Miracle Collazo RN RN aa5 Michael Gallego PA PA 8 Serena Gonzales 3 Corrections: (The following items were deleted from the chart) 20:03 14:00 Musculoskeletal: no range of motion noted to left middle finger secondary to aa5 extensor tendon laceration (per PA). aa5 20:04 14:30 Fall Risk Fall in past 12 months (25 points). IV access (20 points). Total [place] aa5 Fall Scale indicates High Risk Score (45 or more points). Fall prevention measures have been instituted. Side Rails Up X 2 Placed Close to Nursing Station aa5
--- NOTE | 2020-10-05 15:15 | EDPHYS ---
Physician Documentation [facility] Name: Yarelis Payton Age: 85 yrs Sex: Female : 1935 Arrival Date: 10/05/2020 Time: 13:49 Bed 16 Private MD: ED Physician Luc Danielle HPI: 10/05 14:18 This 85 yrs old Female presents to ER via EMS with complaints of Fall Injury. jr8 14:18 Details of fall: The patient fell from an upright position, while standing. Onset: The jr8 symptoms/episode began/occurred acutely, today. Associated injuries: The patient sustained injury to the head, left hand, right leg and left leg. Severity of symptoms: At their worst the symptoms were moderate, in the emergency department the symptoms are unchanged. The patient has not experienced similar symptoms in the past. The patient has not recently seen a physician. Patient stated that she was holding a glass jar and tripped while walking. Landed on both knees and hit head on floor. Denies LOC. Stated that the glass broke causing laceration to dorsal hand left side resulting in inability to extend third digit . Historical: - Allergies: 13:50 Bactrim; aa5 13:50 Codeine; aa5 13:50 Iodine; aa5 13:50 PENICILLINS; aa5 13:50 Sudafed; aa5 13:50 Talwin; aa5 13:50 trovafloxacin mesylate; aa5 - PMHx: 13:50 Atrial Fib; COPD; Diabetes - IDDM; Hypertension; aa5 - Immunization history:: Last tetanus immunization: unknown. - Social history:: Smoking status: Patient denies any tobacco usage or history of. ROS: 14:18 Eyes: Negative for injury, pain, redness, and discharge, ENT: Negative for injury, jr8 pain, and discharge, Neck: Negative for injury, pain, and swelling, Cardiovascular: Negative for chest pain, palpitations, and edema, Respiratory: Negative for shortness of breath, cough, wheezing, and pleuritic chest pain, Abdomen/GI: Negative for abdominal pain, nausea, vomiting, diarrhea, and constipation, Back: Negative for injury and pain, Neuro: Negative for headache, weakness, numbness, tingling, and seizure. 14:18 MS/extremity: Positive for laceration, pain, of the left hand, positive for bruising to bilateral knees. 14:18 Skin: Positive for ecchymosis, hematoma, of the forehead. Exam: 14:18 Constitutional: This is a well developed, well nourished patient who is awake, alert, jr8 and in no acute distress. 14:18 Eyes: Pupils equal round and reactive to light, extra-ocular motions intact. Lids and lashes normal. Conjunctiva and sclera are non-icteric and not injected. Cornea within normal limits. Periorbital areas with no swelling, redness, or edema. ENT: Nares patent. No nasal discharge, no septal abnormalities noted. Tympanic membranes are normal and external auditory canals are clear. Oropharynx with no redness, swelling, or masses, exudates, or evidence of obstruction, uvula midline. Mucous membranes moist. Neck: Trachea midline, no thyromegaly or masses palpated, and no cervical lymphadenopathy. Supple, full range of motion without nuchal rigidity, or vertebral point tenderness. No Meningismus. Chest/axilla: Normal chest wall appearance and motion. Nontender with no deformity. No lesions are appreciated. Cardiovascular: Regular rate and rhythm with a normal S1 and S2. No gallops, murmurs, or rubs. Normal PMI, no JVD. No pulse deficits. Respiratory: Lungs have equal breath sounds bilaterally, clear to auscultation and percussion. No rales, rhonchi or wheezes noted. No increased work of breathing, no retractions or nasal flaring. Abdomen/GI: Soft, non-tender, with normal bowel sounds. No distension or tympany. No guarding or rebound. No evidence of tenderness throughout. Back: No spinal tenderness. No costovertebral tenderness. Full range of motion. Skin: Warm, dry with normal turgor. Normal color with no rashes, no lesions, and no evidence of cellulitis. Neuro: Awake and alert, GCS 15, oriented to person, place, time, and situation. Cranial nerves II-XII grossly intact. Motor strength 5/5 in all extremities. Sensory grossly intact. 14:18 Head/face: Noted is hematoma, that is moderate, of the left forehead. 14:18 Musculoskeletal/extremity: Extremities: grossly normal except: noted in the left hand: patient has approximately 5 cm laceration to dorsal hand over third metacarpal region. Tendon exposed. Patient unable to passively extend third digit, noted in the right knee: ecchymosis, negative for d/c ROM, noted in the left knee: ecchymosis, negative for decreased ROM . Vital Signs: 13:49 BP 161 / 57; Pulse 75; Resp 16 S; Temp 98.4(O); Pulse Ox 97% on R/A; Pain 8/10; aa5 14:00 BP 162 / 63; Pulse 60; Resp 16 S; Pulse Ox 98% on R/A; aa5 15:00 BP 160 / 64; Pulse 60; Resp 16 S; Temp 97.8(O); Pulse Ox 97% on R/A; aa5 16:00 BP 161 / 61; Pulse 63; Resp 16 S; Pulse Ox 96% on R/A; aa5 17:00 BP 170 / 57; Pulse 65; Resp 16 S; Pulse Ox 96% on R/A; aa5 18:00 BP 158 / 66; Pulse 65; Resp 18; Temp 98.0(O); Pulse Ox 96% on R/A; aa5 [place] Coma Score: 18:00 Eye Response: spontaneous(4). Verbal Response: oriented(5). Motor Response: obeys aa5 commands(6). Total: 15. Trauma Score (Adult): 14:00 Eye Response: spontaneous(1); Verbal Response: oriented(1); Motor Response: obeys aa5 commands(2); Systolic BP: > 89 mm Hg(4); Respiratory Rate: 10 to 29 per min(4); Kevin Score: 15; Trauma Score: 12 15:00 Eye Response: spontaneous(1); Verbal Response: oriented(1); Motor Response: obeys aa5 commands(2); Systolic BP: > 89 mm Hg(4); Respiratory Rate: 10 to 29 per min(4); Kevin Score: 15; Trauma Score: 12 16:00 Eye Response: spontaneous(1); Verbal Response: oriented(1); Motor Response: obeys aa5 commands(2); Systolic BP: > 89 mm Hg(4); Respiratory Rate: 10 to 29 per min(4); Kevin Score: 15; Trauma Score: 12 17:00 Eye Response: spontaneous(1); Verbal Response: oriented(1); Motor Response: obeys aa5 commands(2); Systolic BP: > 89 mm Hg(4); Respiratory Rate: 10 to 29 per min(4); [place] Score: 15; Trauma Score: 12 18:00 Eye Response: spontaneous(1); Verbal Response: oriented(1); Motor Response: obeys aa5 commands(2); Systolic BP: > 89 mm Hg(4); Respiratory Rate: 10 to 29 per min(4); Kevin Score: 15; Trauma Score: 12 MDM: 13:51 Patient medically screened. [facility] 15:10 Data reviewed: vital signs, nurses notes, lab test result(s), radiologic studies, CT jr scan, plain films. Data interpreted: Pulse oximetry: on room air is 97 %. Interpretation: normal. Counseling: I had a detailed discussion with the patient and/or guardian regarding: the historical points, exam findings, and any diagnostic results supporting the discharge/admit diagnosis, lab results, radiology results, the need for further work-up and treatment in the hospital. ED course: spoke with Dr. Harris about patients injury. Wants to bring her to surgery in the AM for wash out and tendon repair. 10/05 14:38 Order name: CBC with Diff; Complete Time: 15:32 [facility] 10/05 14:38 Order name: Basic Metabolic Panel; Complete Time: 15:32 [facility] 10/05 14:38 Order name: Protime (+inr); Complete Time: 15:32 [facility] 10/05 14:38 Order name: Ptt, Activated; Complete Time: 15:32 [facility] 10/05 19:16 Order name: Glucose, Ancillary Testing; Complete Time: 19:31 [facility] 10/05 13:50 Order name: Hand Left 3 View XRAY; Complete Time: 14:31 [facility] 10/05 13:54 Order name: CT Head C Spine; Complete Time: 14:30 8 10/05 21:15 Order name: [facility] 10/05 22:21 Order name: SARS-COV-2 RT PCR; Complete Time: 16:41 [facility] 10/05 14:38 Order name: IV; Complete Time: 15:03 Administered Medications: 15:10 Drug: Tetanus-Diphtheria Toxoid Adult 0.5 ml {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 Exp: aa5 01/13/2022. Lot #: [id number]. } Route: IM; Site: right deltoid; 15:30 Follow up: Response: No adverse reaction aa5 15:40 Drug: Ancef 1 grams Route: IVPB; Site: right antecubital; aa5 16:00 Follow up: Response: No adverse reaction aa5 16:00 Drug: Lidocaine (1 %) 5 mg {Note: administered to left hand by PA for FB removal.} aa5 Route: Infiltration; Disposition: 10/06 06:11 Co-signature as Attending Physician, Luc Danielle MD I agree with the assessment and kdr plan of care. Disposition: 10/05/20 15:13 Hospitalization ordered by Nicolas Hutton for Observation. Preliminary diagnosis is Laceration of extensor muscle, fascia and tendon of left middle finger at wrist and hand level. - Bed requested for Telemetry/MedSurg (observation). - Status is Observation. sg - Condition is Stable. - Problem is new. - Symptoms have improved. Signatures: Dispatcher [employer] EDNJ Tommie Brown, RN RN Luc Danielle MD MD [facility] Miracle Collazo RN RN [facility] Michael Gallego PA PA jr8 Elisa Machado, RN RN cg Corrections: (The following items were deleted from the chart) 10/05 13:57 13:51 C Spine Wo Con+CT.RAD.BRZ ordered. EDNJ EDNJ 20:22 15:13 Hospitalization Ordered by Nicolas Hutton DO for Observation. Preliminary cg diagnosis is Laceration of extensor muscle, fascia and tendon of left middle finger at wrist and hand level. Bed requested for Telemetry/MedSurg (observation). Status is Observation. Condition is Stable. Problem is new. Symptoms have improved. jr8 23:29 20:22 10/05/2020 15:13 Hospitalization Ordered by Nicolas Hutton DO for Observation. sg Preliminary diagnosis is Laceration of extensor muscle, fascia and tendon of left middle finger at wrist and hand level. Bed requested for Telemetry/MedSurg (observation). Status is Observation. Condition is Stable. Problem is new. Symptoms have improved. cg
[2020-10-05 15:18] LABS: Absolute Lymphocytes (CBC) 2.5 K/uL (0.7-4.9); Basophils % 0.4 % (0-1.3); Hematocrit 45.4 % (36.0-45.0); Lymphocytes % 20.8 % (15.3-44.8); MPV 8.4 fL (7.6-11.3); RBC Red Blood Cell Count 4.91 M/uL (3.86-4.86)
[2020-10-05] MEDS ORDERED: LIDOCAINE 1% MPF 5 ML VIAL ONE (15:21)
[2020-10-05 15:22] LABS: Protime INR 1.59
[2020-10-05] MEDS ORDERED: TETANUS & DIPHTHERIA TOX,ADULT 0.5 ML VIAL ONE (15:22)
[2020-10-05 15:29] LABS: Potassium 4.4 mmol/L (3.5-5.1)
[2020-10-05] MEDS ORDERED: CEFAZOLIN/SWI 1gm 1 GM/10 ML SYR ONE (15:59)
--- NOTE | 2020-10-05 16:13 | P.HP ---
Certification for Inpatient Patient admitted to: Observation With expected LOS: <2 Midnights Patient will require the following post-hospital care: None Practitioner: I am a practitioner with admitting privileges, knowledge of patient current condition, hospital course, and medical plan of care. Services: Services provided to patient in accordance with Admission requirements found in Title 42 Section 412.3 of the Code of Federal Regulations Patient History Date of Service: 10/05/20 Primary Care Provider: Dr. Self Reason for admission: Fall History of Present Illness: 85-year-old female with history of AFib on chronic anti coagulation therapy, diabetes, hypertension and COPD. Patient presented after a fall. She was walking in her home when she slipped. Apparently her slippers got caught on the floor. She landed and hit her head. She also suffered the laceration to the left hand. Patient denies any syncopal episode, chest pain or shortness of breath prior to the fall. Patient came to the ER for further evaluation. In the ER patient was evaluated. White count 12.12, hemoglobin 15. INR 1.5. Sodium 143, potassium 4.4. BN of 17, creatinine 0.9 with a GFR 58. Glucose 189. CT head shows a left frontal scalp hematoma. No fracture noted. X-ray of the hand shows a laceration to the region of the metacarpals. 6 x 1 mm form body noted to the dorsal soft tissue area. Patient was stabilize in the emergency room. Patient admitted for further evaluation. ER physician spoke to plastic surgery who will see the patient. Patient appears stable. No pain noted. Patient takes Xarelto for atrial fibrillation. Allergies amoxicillin trihydrate [From Amoxil] Allergy (Mild, Verified 08/09/13 17:51) Hives/Rash codeine Allergy (Mild, Verified 08/09/13 17:51) Hives/Rash iodine Allergy (Mild, Verified 08/09/13 17:51) Hives sulfamethoxazole [From Bactrim] Allergy (Mild, Verified 08/09/13 17:51) Hives/Rash trimethoprim [From Bactrim] Allergy (Mild, Verified 08/09/13 17:51) Hives/Rash alatrofloxacin mesylate [From Trovan] Allergy (Unknown, Verified 08/09/13 17:51) unknown pseudoephedrine HCl [From Actifed] Allergy (Unknown, Verified 08/09/13 17:51) unknown triprolidine HCl [From Actifed] Allergy (Unknown, Verified 08/09/13 17:51) unknown trovafloxacin mesylate [From Trovan] Allergy (Unknown, Verified 08/09/13 17:51) unknown Penicillins Allergy (Verified 06/05/17 22:23) Itching pentazocine lactate [From Talwin] Allergy (Verified 06/05/17 21:27) Unknown Actifed Cold-Mark Allergy (Uncoded 11/03/15 16:40) Unknown codeine sulfate Allergy (Uncoded 11/03/15 16:40) Unknown Iodine-Iodine Con Allergy (Uncoded 11/03/15 16:40) Unknown sulfam Allergy (Uncoded 01/01/17 15:31) Unknown Home Medications: Venlafaxine HCl *Xr* [Effexor XR*] 75 mg PO DAILY 08/09/13 Atorvastatin Calcium [Lipitor*] 10 mg PO DAILY 06/05/17 Budesonide/Formoterol Fumarate [Symbicort 80-4.5 Mcg Inhaler] 2 puff IH DAILY 06/05/17 Metoprolol Tartrate [Lopressor*] 50 mg PO BID 06/05/17 Rivaroxaban [Xarelto] 20 mg PO DAILY 06/05/17 ramipriL [Altace*] 2.5 mg PO DAILY 06/05/17 Ciprofloxacin HCl [Cipro 500 MG Tablet] 500 mg PO BID #14 tab 06/06/17 Insulin 70/30 NPH/Reg Human [Novolin 70/30*] 20 unit SQ BID #1 ml 06/06/17 - Past Medical/Surgical History Diabetic: Yes -: HTN -: DM -: Depression -: Atrial fibrillation Chronic anti coagulation therapy -: COPD -: Cholecystectomy -: Left Thoracotomy x3 secondary to fungal infection Psychosocial/ Personal History: Patient is - Family History Family History: Reviewed- Non-Contributory - Social History Smoking Status: Never smoker Alcohol use: No CD- Drugs: No Caffeine use: Yes Place of Residence: Home Review of Systems General: As per HPI Eyes: Unremarkable ENT: Unremarkable Respiratory: Unremarkable Cardiovascular: Unremarkable Gastrointestinal: Unremarkable Genitourinary: Unremarkable Musculoskeletal: As per HPI Integumentary: As per HPI Neurological: Unremarkable Lymphatics: Unremarkable Physical Examination - Physical Exam General: Alert, In no apparent distress, Oriented x3, Cooperative HEENT: Other (Patient has a large hematoma to the left frontal region.) Neck: Supple Respiratory: Clear to auscultation bilaterally, Normal air movement Cardiovascular: Normal pulses, Regular rate/rhythm Gastrointestinal: Normal bowel sounds, Soft and benign, Non-distended, No masses, No rebound, No guarding Integumentary: Other (Laceration noted to the left hand. 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 ER physician spoke to plastic surgery who plans for surgery tomorrow. I and D with closure with tendon repair is planned. Will keep the patient NPO after midnight. Will hold Xarelto at this time. Will provide SCD for DVT prophylaxis. A restart home medication. Will provide medication for pain. Anticipate discharge within the next 24-48 hr pending plastic surgery evaluation and treatment. Left frontal scalp hematoma: No fracture noted. Will apply ice as needed Atrial fibrillation on chronic anti coagulation therapy: Hold Xarelto. Restart rate control medication. Hypertension: Obtain and restart home medication Diabetes mellitus type 2: Obtain and restart home medication. Sliding scale in place. Monitor Accu-Cheks. COPD: Obtain and restart home medication Discharge Plan: Home Plan to discharge in: 48 Hours - Advance Directives Does patient have a Living Will: No Does patient have a Durable POA for Healthcare: No - Code Status/Comfort Care Code Status Assessed: Yes (Patient is full code) Time Spent Managing Pts Care (In Minutes): 55
[2020-10-05] MEDS ORDERED: ACETAMINOPHEN 500 MG TAB PO PRN (20:42)
[2020-10-05] MEDS ORDERED: IPRATROPIUM 200 PUFF/12.9 GM INH IH PRN (20:42)
[2020-10-05] MEDS ORDERED: TRAMADOL HCL 50 MG TAB PO PRN (20:42)
[2020-10-05] MEDS ORDERED: ONDANSETRON 4 MG/2 ML VIAL IV PRN (20:42)
[2020-10-05] MEDS: DULERA 100/5 (MOMETASONE/FORMOTEROL) INHALER IH SCH (21:00)
[2020-10-05] MEDS: INSULIN -REGULAR HUMAN 50 UNIT/0.5 ML ML SQ SCH (21:00)
[2020-10-06] MEDS: METOPROLOL TAR 25 MG TAB PO SCH ×2 (00:06→05:17)
[2020-10-06] MEDS: INSULIN -REGULAR HUMAN 50 UNIT/0.5 ML ML SQ SCH ×4 (00:07→16:30)
[2020-10-06 01:23] VITALS: BMI 29.9
[2020-10-06 06:06] LABS: Absolute Lymphocytes (CBC) 4.5 K/uL (0.7-4.9); Basophils % 0.7 % (0-1.3); Hematocrit 41.3 % (36.0-45.0); Lymphocytes % 35.5 % (15.3-44.8); MPV 8.6 fL (7.6-11.3); RBC Red Blood Cell Count 4.39 M/uL (3.86-4.86)
[2020-10-06 06:15] LABS: Magnesium 2.2 mg/dL (1.8-2.4); Potassium 4.1 mmol/L (3.5-5.1)
[2020-10-06] MEDS ORDERED: NA CHLORIDE 0.9% 1,000 ML ONE ×2 (08:27→11:43)
[2020-10-06] MEDS ORDERED: INSULIN -REGULAR HUMAN 50 UNIT/0.5 ML ML ONE (08:37)
[2020-10-06] MEDS: DULERA 100/5 (MOMETASONE/FORMOTEROL) INHALER IH SCH (09:00)
[2020-10-06] MEDS ORDERED: propofoL 200 MG/20 ML VIAL IV ONE (10:17)
[2020-10-06] MEDS ORDERED: FENTANYL CITR 100 MCG/2 ML ONE (10:17)
[2020-10-06] MEDS ORDERED: LIDOCAINE 2% MPF 5 ML VIAL ONE (10:18)
[2020-10-06] MEDS ORDERED: ONDANSETRON 4 MG/2 ML VIAL ONE (10:19)
[2020-10-06] MEDS ORDERED: CLINDAMYCIN INJ 150 MG in NA CHLORIDE 0.9% 50 ML IV ONE (10:30)
[2020-10-06] MEDS ORDERED: EPHEDRINE SULF 50 MG/ML VIAL ONE (11:01)
[2020-10-06] MEDS ORDERED: D50W 25 GM/50 ML SYRINGE IV PRN (11:05)
[2020-10-06] MEDS ORDERED: GLUCAGON 1 MG/VIAL IM PRN (11:05)
--- NOTE | 2020-10-06 11:05 | P.PN ---
Subjective Date of Service: 10/06/20 Primary Care Provider: Dr. Self Chief Complaint: Fall Subjective: Improving Physical Examination - Vital Signs Temperature: 98 F Blood Pressure: 164/72 Pulse: 89 Respirations: 20 Pulse Ox (%): 97 - Physical Exam General: Alert HEENT: Other (Ecchymoses to the face noted. Left frontal hematoma) Respiratory: Clear to auscultation bilaterally Cardiovascular: Normal pulses, Regular rate/rhythm Gastrointestinal: Normal bowel sounds Integumentary: Other (Bandage to the left hand noted) Neurological: Normal speech, Normal strength at 5/5 x4 extr, Normal tone - Studies Laboratory Data (last 24 hrs) 10/05/20 15:00: PT 18.6 H, INR 1.59, APTT 34.6 10/05/20 15:00: Sodium 143, Potassium 4.4, BUN 17, Creatinine 0.92, Glucose 189 H 10/05/20 15:00: WBC 12.2 H, Hgb 15.0, Hct 45.4 H, Plt Count 292 Medications List Reviewed: Yes Assessment & Plan Discharge Plan: Home Plan to discharge in: 24 Hours Physician Review Additional Text: Impression: Fall leading to left hand laceration with records administrator tendon involvement of the 3rd finger with foreign body to the dorsal aspect of soft tissue Left frontal scalp hematoma Atrial fibrillation on chronic anti coagulation therapy Hypertension Diabetes mellitus type 2 COPD Plan: Fall leading to left hand laceration with records administrator tendon involvement of the 3rd finger with foreign body to the dorsal aspect of soft tissue: Await evaluation by surgery. Await recommendations. Possible discharge today if area cleaned and closed. Will reassess after surgery. Left frontal scalp hematoma: No fracture noted. Will apply ice as needed Atrial fibrillation on chronic anti coagulation therapy: Hold Xarelto. Restart rate control medication. Hypertension: Restart home medication Diabetes mellitus type 2: Sliding scale in place. Monitor Accu-Cheks. COPD: Restart home medication Time Spent Managing Pts Care (In Minutes): 55
[2020-10-06] MEDS: MORPHINE 4 MG/ML SYR ONE ×2 (11:43→11:48)
[2020-10-06] MEDS: FENTANYL CITR 100 MCG/2 ML ONE ×4 (12:00→12:18)
[2020-10-06] MEDS ORDERED: MORPHINE 4 MG/ML SYR ONE (12:08)
--- NOTE | 2020-10-06 12:17 | OP ---
Surgeon: Kirk Harris MD Preoperative Diagnosis: Open wound of the left hand. Postoperative Diagnoses: Open wound of the left hand with laceration of extensor tendons, index and middle. Procedure Performed: Debridement of skin and subcutaneous tissue, simple closure, 4 cm and 8 cm wound, repair of the middle and index splint. Anesthesia: General. Procedure In Detail: After satisfactory induction of general anesthesia, the arm was prepped with Hibiclens, dry sterile drapes applied in usual manner. The arm was elevated, exsanguinated with an Esmarch. Tourniquet was inflated to 250 mmHg. Hand was placed on the Roto Lock table. The patient had a laceration over the middle finger, index finger metacarpal dorsally and was extended distally. The laceration was completely transected and extensor tendon at the MCP joint. There was also laceration of the tendon to the index as well. This was 90%. The patient also has 2 laceration over the thenar first metacarpal area. Those two incision made in the dorsum. The wound was explored. There was no significant pathology to the tendon. Then, the patient underwent core tendon repair with 4-0 Prolene. Core sutures were placed in each tendon and then epitendon repair of 4-0 Prolene. After this was done, tourniquet released. Electrocautery used for hemostasis. The wound had been lavaged with 1 L of Betadine solution. Closed with vertical mattress simple sutures of 4-0 Prolene. Dressed with Xeroform, 2 inch Jewels, Kerlix, and a splint holding the wrist in 10 degrees of dorsiflexion, MCP, PIP, and DIP 0. The patient tolerated the procedure well and returned to Recovery. MAYA/MERLE Voice ID: [id number] Report ID: [id number] JULISSA
[2020-10-06] MEDS: METOPROLOL TAR 50 MG TAB PO SCH ×2 (13:47→17:08)
--- NOTE | 2020-10-06 16:20 | P.DS ---
Admission Date: 10/05/20 Discharge Date: 10/06/20 Primary Care Provider: Dr. Self Disposition: ROUTINE DISCHARGE Discharge Condition: GOOD Reason for Admission: Fall Consultations: Plastic surgery-Dr. Harris Procedures: Surgery: Surgeon: Kirk Harris MD Preoperative Diagnosis: Open wound of the left hand. Postoperative Diagnoses: Open wound of the left hand with laceration of extensor tendons, index and middle. Procedure Performed: Debridement of skin and subcutaneous tissue, simple closure, 4 cm and 8 cm wound, repair of the middle and index splint. Impression: Fall leading to left hand laceration with facilities specialist tendon involvement of the 3rd finger with foreign body to the dorsal aspect of soft tissue, status post debridement of skin/subcutaneous tissue, simple closure, 4 cm x 8 cm wound, repair of index/middle tendon Left frontal scalp hematoma Atrial fibrillation on chronic anti coagulation therapy Hypertension Diabetes mellitus type 2 COPD Brief History of Present Illness: 85-year-old female with history of AFib on chronic anti coagulation therapy, diabetes, hypertension and COPD. Patient presented after a fall. She was walking in her home when she slipped. Apparently her slippers got caught on the floor. She landed and hit her head. She also suffered the laceration to the left hand. Patient denies any syncopal episode, chest pain or shortness of breath prior to the fall. Patient came to the ER for further evaluation. In the ER patient was evaluated. White count 12.12, hemoglobin 15. INR 1.5. Sodium 143, potassium 4.4. BN of 17, creatinine 0.9 with a GFR 58. Glucose 189. CT head shows a left frontal scalp hematoma. No fracture noted. X-ray of the hand shows a laceration to the region of the metacarpals. 6 x 1 mm form body noted to the dorsal soft tissue area. Patient was stabilize in the emergency room. Patient admitted for further evaluation. ER physician spoke to plastic surgery who will see the patient. Patient appears stable. No pain noted. Patient takes Xarelto for atrial fibrillation. Hospital Course: Patient presented with a fall leading to left hand laceration with facilities specialist tendon involvement of the 3rd finger with foreign body to the dorsal aspect of soft tissue. Patient was seen and evaluated by plastic surgery. Plastic surgery performed debridement of skin/subcutaneous tissue, simple closure, 4 cm x 8 cm wound, repair of index/middle tendon. Patient currently in a splint. Patient tolerated procedure well. Patient will be discharged home. Patient will continue with antibiotic therapy-clindamycin as recommended by plastic surgery. Patient will follow up with plastic surgery on Friday to follow up her care. Patient with left frontal scalp hematoma. This appears stable. Patient may apply ice to help with swelling. Patient with history of atrial fibrillation on chronic anti coagulation therapy, hypertension, diabetes mellitus type 2, and COPD. At discharge she will continue with her home medications. This includes metoprolol, lisinopril, and Xarelto. Recommend follow up with her PCP in 1 week to follow up this hospitalization. Vital Signs/Physical Exam: Temp Pulse Resp BP Pulse Ox 97.5 F 136 H 20 120/65 94 10/06/20 13:00 10/06/20 13:00 10/06/20 13:00 10/06/20 13:00 10/06/20 13:00 General: Alert, In no apparent distress, Oriented x3, Cooperative HEENT: Atraumatic Neck: Supple Respiratory: Clear to auscultation bilaterally, Normal air movement Cardiovascular: Normal pulses, Regular rate/rhythm Gastrointestinal: Normal bowel sounds, Soft and benign, Non-distended Integumentary: Other (Splint to the left hand. ecchymoses to the face) Neurological: Normal speech, Normal strength at 5/5 x4 extr, Normal tone Laboratory Data at Discharge: WBC 12.5 K/uL (4.3-10.9) H 10/06/20 05:04 Hgb 13.6 g/dL (12.0-15.0) 10/06/20 05:04 Hct 41.3 % (36.0-45.0) 10/06/20 05:04 Plt Count 268 K/uL (152-406) 10/06/20 05:04 PT 18.6 SECONDS (9.5-12.5) H 10/05/20 15:00 INR 1.59 10/05/20 15:00 APTT 34.6 SECONDS (24.3-36.9) 10/05/20 15:00 Sodium 141 mmol/L (136-145) 10/06/20 05:04 Potassium 4.1 mmol/L (3.5-5.1) 10/06/20 05:04 BUN 15 mg/dL (7-18) 10/06/20 05:04 Creatinine 0.87 mg/dL (0.55-1.3) 10/06/20 05:04 Glucose 261 mg/dL (74-106) H 10/06/20 05:04 Magnesium 2.2 mg/dL (1.8-2.4) 10/06/20 05:04 Home Medications: Atorvastatin Calcium 10 mg PO BEDTIME 10/06/20 Insulin 70/30 NPH/Reg Human [Novolin 70/30*] 23 unit SQ BID 10/06/20 Metoprolol Tartrate 50 mg PO BID 10/06/20 Rivaroxaban [Xarelto] 20 mg PO DAILY 10/06/20 Venlafaxine HCl [Venlafaxine HCl ER] 75 mg PO DAILY 10/06/20 lisinopriL [Lisinopril] 5 mg PO DAILY 10/06/20 Patient Discharge Instructions: Patient presented with a fall leading to left hand laceration with facilities specialist tendon involvement of the 3rd finger with foreign body to the dorsal aspect of soft tissue. Patient was seen and evaluated by plastic surgery. Plastic surgery performed debridement of skin/subcutaneous tissue, simple closure, 4 cm x 8 cm wound, repair of index/middle tendon. Patient currently in a splint. Patient tolerated procedure well. Patient will be discharged home. Patient will continue with antibiotic therapy-clindamycin as recommended by plastic surgery. Patient will follow up with plastic surgery on Friday to follow up her care. Patient with left frontal scalp hematoma. This appears stable. Patient may apply ice to help with swelling. Patient with history of atrial fibrillation on chronic anti coagulation therapy, hypertension, diabetes mellitus type 2, and COPD. At discharge she will continue with her home medications. Recommend follow up with her PCP in 1 week to follow up this hospitalization. Diet: ADA Activity: Fall precautions Followup: Ye Self MD [Primary Care Provider] - Time spent managing pt's care (in minutes): 55
[2020-10-06 17:41] VITALS: O2SAT 92
[2020-10-06] MEDS ORDERED: D50W 25 GM/50 ML VIAL IV PRN (18:00)
[2020-10-06 18:02] VITALS: BP 128/56; TEMP 98.5
[2020-10-06] MEDS ORDERED: ATORVASTATIN 10 MG TAB PO SCH (21:00)
[2020-10-06] MEDS ORDERED: INSULIN 70/30 100 UNITS/ML SQ SCH (21:00)
[2020-10-07] MEDS ORDERED: VENLAFAXINE HCL XR 75 MG CAP PO SCH (09:00)
[2020-10-07] MEDS ORDERED: lisinopriL 5 MG TAB PO SCH (09:00)
--- NOTE | 2020-10-09 11:30 | EKG ---
Test Date: 2020-10-06 Test Time: 08:08:45 [facility] Room Service Supervisor: JARRED MEASUREMENT RESULTS: Intervals: Rate: 71 IA: 146 QRSD: 106 QT: 410 QTc: 445 Thornton: P: 61 IA: 146 QRS: -12 T: 86 INTERPRETIVE STATEMENTS: Sinus rhythm with premature atrial complexes Incomplete left bundle branch block Borderline ECG Compared to ECG 06/05/2017 06:38:57 Atrial premature complex(es) now present Electronically Signed On 10-09-20 11:27:31 EXECUTIVE DIRECTOR OF NURSING by Dewey Gerard
== END 2020-10-06 18:31 | disposition home or self-care (01) ==
LOC: ER 13:44 → ERHOLD 16:01 → 2ND 20:53
PROVIDERS: ADMIT Family Medicine; ATTEND Family Medicine
PROC: 0HQGXZZ Repair Left Hand Skin, External Approach (ICD-10-PCS; principal; 2020-10-05)
PROC: 0LQ80ZZ Repair Left Hand Tendon, Open Approach (ICD-10-PCS; 2020-10-05)
PROC: 0LQ80ZZ Repair Left Hand Tendon, Open Approach (ICD-10-PCS; 2020-10-05)
DX: S61.422A Laceration with foreign body of left hand, initial encounter (principal); S66.323A Laceration of extensor muscle, fascia and tendon of left middle finger at wrist and hand level, initial encounter; S00.83XA Contusion of other part of head, initial encounter; W01.0XXA Fall on same level from slipping, tripping and stumbling without subsequent striking against object, initial encounter; Y92.009 Unspecified place in unspecified non-institutional (private) residence as the place of occurrence of the external cause; Z20.822 Contact with and (suspected) exposure to COVID-19; I48.91 Unspecified atrial fibrillation; Z79.01 Long term (current) use of anticoagulants; I10 Essential (primary) hypertension; E11.9 Type 2 diabetes mellitus without complications; J44.9 Chronic obstructive pulmonary disease, unspecified; Z23 Encounter for immunization; F32.9 Major depressive disorder, single episode, unspecified
CPT/HCPCS: 85025 ×2; 80048 ×2; 36415; 83735; 85610; 82947 ×7; 85730; 70450; 72125; 73130; 90471; 90714; 96374; 99285; 12004; 26410 ×2; U0003; J2704; J3010 ×2; J0690; J7030 ×2; J2405 ×2; 93005; G0378; G0390; J7606

== ENCOUNTER 2020-10-12 07:56 | Day surgery (SDC) | payer OTHER ==
[2020-10-11 15:52] LABS: Basophils % 0.7 % (0-1.3); Hematocrit 38.5 % (36.0-45.0); Lymphocytes % 29.8 % (15.3-44.8); MPV 8.2 fL (7.6-11.3); RBC Red Blood Cell Count 4.15 M/uL (3.86-4.86)
[2020-10-12] MEDS ORDERED: propofoL 200 MG/20 ML VIAL IV ONE (08:24)
[2020-10-12] MEDS ORDERED: FENTANYL CITR 100 MCG/2 ML ONE (08:24)
[2020-10-12] MEDS ORDERED: LIDOCAINE 2% MPF 5 ML VIAL ONE (08:25)
[2020-10-12] MEDS ORDERED: ONDANSETRON 4 MG/2 ML VIAL ONE (08:25)
[2020-10-12] MEDS ORDERED: NA CHLORIDE 0.9% 1,000 ML ONE (08:36)
[2020-10-12] MEDS ORDERED: BSS OPTHALMIC SOL 15 ML BOT OPTH ONE (09:21)
[2020-10-12] MEDS: CLINDAMYCIN INJ 300 MG in NA CHLORIDE 0.9% 50 ML IV ONE ×2 (09:22→09:41)
[2020-10-12] MEDS ORDERED: LIDOCAINE 1% W/EPI 1:100,000 10 ML VIAL ONE (09:22)
[2020-10-12] MEDS ORDERED: EPHEDRINE SULF 50 MG/ML VIAL ONE (09:26)
[2020-10-12 10:17] VITALS: TEMP 97.2
[2020-10-12] MEDS ORDERED: ACETAMINOPHEN 325 MG TABLET ONE (10:45)
[2020-10-12 12:07] VITALS: BP 139/53; O2SAT 95
--- NOTE | 2020-10-16 07:40 | OP ---
Surgeon: Kirk Harris MD Preoperative Diagnosis: Hematoma of the left forehead. Postoperative Diagnosis: Hematoma of the left forehead. Procedure Performed: Evacuation of hematoma. Anesthesia: General. Description Of Procedure: After satisfactory induction of general anesthesia, 1% lidocaine with epin ephrine was used to infiltrate the left forehead hematoma and face. Dry sterile drapes were applied in the usual manner. A scalpel was used to make incision transversely and hematoma was evacuated and curette was used, irrigated with saline solution. Electrocautery was used for hemostasis. There we re really no significant bleeders at this time. The wound was closed with 4-0 Prolene vertical mattr esses that extended down to the soft tissue to close the space. Dressed with Xeroform, 4 x 4 ta pe. The patient tolerated procedure well and returned to recovery. MAYA/MERLE Voice ID: [id number] Report ID: [id number]
== END 2020-10-12 11:24 | disposition home health service (06) ==
LOC: OR 07:56
PROVIDERS: ATTEND Specialist
PROC: 0J910ZZ Drainage of Face Subcutaneous Tissue and Fascia, Open Approach (ICD-10-PCS; principal; 2020-10-12 09:00)
DX: S00.83XA Contusion of other part of head, initial encounter (principal)
CPT/HCPCS: 85025; 36415; 82947 ×2; 10140; J2704; J3010; J7030; J2405

== ENCOUNTER 2021-04-28 17:27 | Emergency (ER) | payer OTHER ==
--- NOTE | 2021-04-28 19:59 | ER ---
Nurse's Notes [facility] Name: Yarelis Payton Age: 85 yrs Sex: Female : 1935 Arrival Date: 04/28/2021 Time: 17:29 Bed 28 Private MD: Ye Self R Diagnosis: Dermatitis, unspecified;Impetigo Presentation: 04/28 18:24 Chief complaint: Patient states: Right sided facial rash, left arm, right abdomen rash iw fri. Coronavirus screen: Client denies travel out of the [place] in the last 14 days. At this time, the client does not indicate any symptoms associated with coronavirus-19. Ebola Screen: No symptoms or risks identified at this time. Risk Assessment: Do you want to hurt yourself or someone else? Patient reports no desire to harm self or others. Onset of symptoms was April 25, 2021. 18:24 Method Of Arrival: Wheelchair iw 18:24 Acuity: FROY 3 iw 18:25 Initial Sepsis Screen: Does the patient meet any 2 criteria? No. Patient's initial iw sepsis screen is negative. Does the patient have a suspected source of infection? No. Patient's initial sepsis screen is negative. Triage Assessment: 20:00 General: Appears in no apparent distress. Behavior is calm, cooperative, appropriate ea for age. Pain: Denies pain. Neuro: Level of Consciousness is awake, alert, obeys commands, Oriented to person, place, time. Cardiovascular: Patient's skin is warm and dry. Respiratory: Airway is patent Respiratory effort is even, unlabored, Respiratory pattern is regular, symmetrical. Derm: Skin is pink, warm \T\ dry. Rash noted that is on left eye and nose and right eye and left arm and abdomen and face. Historical: - Allergies: 18:25 Bactrim; iw 18:25 Codeine; iw 18:25 Iodine; iw 18:25 PENICILLINS; iw 18:25 Sudafed; iw 18:25 Talwin; iw 18:25 trovafloxacin mesylate; iw - PMHx: 18:25 Atrial Fib; Hypertension; Diabetes - IDDM; COPD; iw - Immunization history:: Client reports having NOT received the Covid vaccine. - Social history:: Smoking status: Patient denies any tobacco usage or history of. - Family history:: not pertinent. Screenin:44 Abuse screen: Denies threats or abuse. Nutritional screening: No deficits noted. ea Tuberculosis screening: No symptoms or risk factors identified. Fall Risk None identified. Vital Signs: 18:25 BP 101 / 59; Pulse 65; Resp 16; Temp 98; Pulse Ox 98% ; Height 5 ft. 2 in. (157.48 cm); ED Course: 17:29 Patient arrived in ED. mr 17:29 Ye Self MD is Private Physician. mr 18:25 Triage completed. iw 18:25 Arm band placed on. iw 19:37 Huber Valero MD is Attending Physician. barber 19:44 Wandy Gunn, [place] is Primary Nurse. ea 19:44 Patient has correct armband on for positive identification. ea 19:58 Ye Self MD is Referral Physician. barber 20:20 No provider procedures requiring assistance completed. Patient did not have IV access ea during this emergency room visit. Administered Medications: 20:19 Drug: Benadryl (diphenhydrAMINE) 50 mg Route: PO; ea 20:21 Follow up: Response: No adverse reaction ea 20:19 Drug: Pepcid (famotidine) 40 mg Route: PO; ea 20:22 Follow up: Response: No adverse reaction ea 20:19 Drug: predniSONE 60 mg Route: PO; ea 20:22 Follow up: Response: No adverse reaction ea 20:19 Drug: Bactroban (mupirocin) Ointment 2 % 1 application Route: Topical; Site: affected ea area; 20:22 Follow up: Response: No adverse reaction ea 20:19 Drug: KeFLEX (cephalexin) 500 mg Route: PO; ea 20:22 Follow up: Response: No adverse reaction ea Outcome: 19:59 Discharge ordered by . barber 20:20 Discharged to home ambulatory, with family. ea 20:20 Condition: stable 20:20 Discharge instructions given to patient, Instructed on discharge instructions, follow up and referral plans. medication usage, Demonstrated understanding of instructions, follow-up care, medications, Prescriptions given X 4. 20:22 Patient left the ED. ea Signatures: Huber Valero MD MD cha Rivera, Mary mr Williams, Irene, RN RN Wandy Gunn RN RN ea Corrections: (The following items were deleted from the chart) 18:26 18:24 Acuity: FROY 4 iw iw
--- NOTE | 2021-04-28 19:59 | EDPHYS ---
Physician Documentation [facility] Name: Yarelis Payton Age: 85 yrs Sex: Female : 1935 Arrival Date: 04/28/2021 Time: 17:29 Bed 28 Private MD: Ye Self R ED Physician Huber Valero HPI: 04/28 19:50 This 85 yrs old Female presents to ER via Wheelchair with complaints of Rash, barber Facial Swelling. 19:50 The patient's rash thought to be caused by Dermatitis Contact allergy. The rash is barber located on the face, abdomen and left arm. The rash can be described as diffuse, erythematous. Onset: The symptoms/episode began/occurred 1 week(s) ago. Associated signs and symptoms: Pertinent positives: burning sensation, itching, Pain. Severity of symptoms: At their worst the symptoms were mild in the emergency department the symptoms are unchanged. The patient has not experienced similar symptoms in the past. Historical: - Allergies: 18:25 Bactrim; iw 18:25 Codeine; iw 18:25 Iodine; iw 18:25 PENICILLINS; iw 18:25 Sudafed; iw 18:25 Talwin; iw 18:25 trovafloxacin mesylate; iw - PMHx: 18:25 Atrial Fib; Hypertension; Diabetes - IDDM; COPD; iw - Immunization history:: Client reports having NOT received the Covid vaccine. - Social history:: Smoking status: Patient denies any tobacco usage or history of. - Family history:: not pertinent. ROS: 19:50 Constitutional: Negative for fever, chills, and weight loss, Eyes: Negative for injury, barber pain, redness, and discharge, ENT: Negative for injury, pain, and discharge, Neck: Negative for injury, pain, and swelling, Cardiovascular: Negative for chest pain, palpitations, and edema, Respiratory: Negative for shortness of breath, cough, wheezing, and pleuritic chest pain, Abdomen/GI: Negative for abdominal pain, nausea, vomiting, diarrhea, and constipation, Back: Negative for injury and pain, : Negative for injury, bleeding, discharge, and swelling, Neuro: Negative for headache, weakness, numbness, tingling, and seizure, Psych: Negative for depression, anxiety, suicide ideation, homicidal ideation, and hallucinations, Allergy/Immunology: Negative for hives, rash, and allergies, Endocrine: Negative for neck swelling, polydipsia, polyuria, polyphagia, and marked weight changes, Hematologic/Lymphatic: Negative for swollen nodes, abnormal bleeding, and unusual bruising. 19:50 MS/extremity: Positive for erythema, pain, rash, swelling, tenderness, of the face, abdomen and left arm. Exam: 19:50 Constitutional: This is a well developed, well nourished patient who is awake, alert, barber and in no acute distress. Eyes: Pupils equal round and reactive to light, extra-ocular motions intact. Lids and lashes normal. Conjunctiva and sclera are non-icteric and not injected. Cornea within normal limits. Periorbital areas with no swelling, redness, or edema. ENT: Nares patent. No nasal discharge, no septal abnormalities noted. Tympanic membranes are normal and external auditory canals are clear. Oropharynx with no redness, swelling, or masses, exudates, or evidence of obstruction, uvula midline. Mucous membranes moist. Neck: Trachea midline, no thyromegaly or masses palpated, and no cervical lymphadenopathy. Supple, full range of motion without nuchal rigidity, or vertebral point tenderness. No Meningismus. Chest/axilla: Normal chest wall appearance and motion. Nontender with no deformity. No lesions are appreciated. Cardiovascular: Regular rate and rhythm with a normal S1 and S2. No gallops, murmurs, or rubs. Normal PMI, no JVD. No pulse deficits. Respiratory: Lungs have equal breath sounds bilaterally, clear to auscultation and percussion. No rales, rhonchi or wheezes noted. No increased work of breathing, no retractions or nasal flaring. Abdomen/GI: Soft, non-tender, with normal bowel sounds. No distension or tympany. No guarding or rebound. No evidence of tenderness throughout. Back: No spinal tenderness. No costovertebral tenderness. Full range of motion. Female : Normal external genitalia. MS/ Extremity: Pulses equal, no cyanosis. Neurovascular intact. Full, normal range of motion. Neuro: Awake and alert, GCS 15, oriented to person, place, time, and situation. Cranial nerves II-XII grossly intact. Motor strength 5/5 in all extremities. Sensory grossly intact. Cerebellar exam normal. Normal gait. Psych: Awake, alert, with orientation to person, place and time. Behavior, mood, and affect are within normal limits. 19:50 Head/face: Noted is rash, swelling, tenderness, that is moderate, of the right eye, nose and left eye. 19:50 Musculoskeletal/extremity: ROM: no acute changes, intact in all extremities, full active range of motion, full passive range of motion, Circulation is intact in all extremities. Sensation intact. Compartment Syndrome exam of affected extremity: is normal. no pain, no numbness, no tingling, no sensation deficit, no palor, no weak pulses, DVT Exam: negative Homans' sign noted on exam, no appreciated bluish discoloration, pain, swelling, tenderness, erythema, increased warmth, that is mild, of the face, abdomen and left arm. Vital Signs: 18:25 BP 101 / 59; Pulse 65; Resp 16; Temp 98; Pulse Ox 98% ; Height 5 ft. 2 in. (157.48 cm); iw MDM: 19:37 Patient medically screened. [facility] 19:56 Differential diagnosis: impetigo, allergic reaction. Data reviewed: vital signs, nurses barber notes. Data interpreted: monitoring engineer: rate is 65 beats/min, rhythm is regular, Pulse oximetry: on room air is 98 %. Counseling: I had a detailed discussion with the patient and/or guardian regarding: the historical points, exam findings, and any diagnostic results supporting the discharge/admit diagnosis, lab results. 04/28 19:49 Order name: Ice pack; Complete Time: 20:22 barber Administered Medications: 20:19 Drug: Benadryl (diphenhydrAMINE) 50 mg Route: PO; ea 20:21 Follow up: Response: No adverse reaction ea 20:19 Drug: Pepcid (famotidine) 40 mg Route: PO; ea 20:22 Follow up: Response: No adverse reaction ea 20:19 Drug: predniSONE 60 mg Route: PO; ea 20:22 Follow up: Response: No adverse reaction ea 20:19 Drug: Bactroban (mupirocin) Ointment 2 % 1 application Route: Topical; Site: affected ea area; 20:22 Follow up: Response: No adverse reaction ea 20:19 Drug: KeFLEX (cephalexin) 500 mg Route: PO; ea 20:22 Follow up: Response: No adverse reaction ea Disposition Summary: 04/28/21 19:59 Discharge Ordered Location: Home [facility] Problem: new [facility] Symptoms: have improved [facility] Condition: Stable [facility] Diagnosis - Dermatitis, unspecified barber - Impetigo barber Followup: [facility] - With: Ye Self MD - When: 2 - 3 days - Reason: Recheck today's complaints, Continuance of care, Re-evaluation by your physician Discharge Instructions: - Discharge Summary Sheet [facility] - Contact Dermatitis barber - Rash, Adult barber - Rash, Adult, [id number] barber - Contact Dermatitis, [id number]-nl-[id number] barber - Impetigo, Adult [facility] Forms: - Medication Reconciliation Form [facility] - Thank You Letter [facility] - Antibiotic Education [facility] - Prescription Opioid Use [facility] Prescriptions: - Centany 2 % Topical ointment - apply 1 application by TOPICAL route 3 times per day; 30 gram; Refills: 0, [facility] Product Selection Permitted - Benadryl 25 mg Oral Capsule - take 2 capsule by ORAL route every 6 hours As needed; 40 tablet; Refills: 0, [facility] Product Selection Permitted - Pepcid 20 mg Oral Tablet - take 1 tablet by ORAL route every 12 hours for 10 days; 20 tablet; Refills: 0, [facility] Product Selection Permitted - Prednisone 20 mg Oral Tablet - take 2 tablets by ORAL route once daily for 5 days; 10 tablet; Refills: 0, [facility] Product Selection Permitted Signatures: Huber Valero MD MD cha Williams, Irene, RN RN Wandy Mora RN RN vera
[2021-04-28 20:27] VITALS: BP 101/59; TEMP 98; O2SAT 98
[2021-04-28] MEDS ORDERED: DIPHENHYDRAMINE 25 MG TAB/CAP ONE (20:28)
[2021-04-28] MEDS ORDERED: CEPHALEXIN 250 MG CAP ONE (20:29)
[2021-04-28] MEDS ORDERED: MUPIROCIN 2% OINT 22GM TUBE TOP ONE (20:29)
[2021-04-28] MEDS ORDERED: FAMOTIDINE 20 MG TAB ONE (20:29)
== END 2021-04-28 20:22 | disposition home or self-care (01) ==
LOC: ER 17:27
DX: L30.9 Dermatitis, unspecified (principal); L01.00 Impetigo, unspecified; I10 Essential (primary) hypertension; E11.9 Type 2 diabetes mellitus without complications; I48.91 Unspecified atrial fibrillation; Z88.0 Allergy status to penicillin; Z88.1 Allergy status to other antibiotic agents; Z88.5 Allergy status to narcotic agent; Z88.8 Allergy status to other drugs, medicaments and biological substances; Z91.048 Other nonmedicinal substance allergy status
CPT/HCPCS: 99283

== ENCOUNTER 2021-06-05 22:27 | Emergency (ER) | payer OTHER ==
--- NOTE | 2021-06-05 22:45 | ER ---
Nurse's Notes [facility] [place] [place] Name: Yarelis Payton Age: 85 yrs Sex: Female : 1935 Arrival Date: 06/05/2021 Time: 22:31 Bed Waiting Private MD: Diagnosis: Bitten by cat;Cellulitis of right upper limb-Hand Presentation: 06/05 22:41 Chief complaint: Patient states: Right hand pain. Pt was bit by her cat. Coronavirus kg screen: Vaccine status: Patient reports receiving the 1st dose of the Covid vaccine. Date December 31, 2020 Terry \Jan Stewart Client denies travel out of the [place] in the last 14 days. At this time, the client does not indicate any symptoms associated with coronavirus-19. Ebola Screen: Patient negative for fever greater than or equal to 101.5 degrees Fahrenheit, and additional compatible Ebola Virus Disease symptoms Patient denies exposure to infectious person. Patient denies travel to an Ebola-affected area in the 21 days before illness onset. Initial Sepsis Screen: Does the patient meet any 2 criteria? No. Patient's initial sepsis screen is negative. Does the patient have a suspected source of infection? No. Patient's initial sepsis screen is negative. Risk Assessment: Do you want to hurt yourself or someone else? Patient reports no desire to harm self or others. Onset of symptoms was June 04, 2021. 22:41 Method Of Arrival: Ambulatory kg 22:41 Acuity: FROY 4 kg Triage Assessment: 22:44 Bite description: bite sustained to left arm by a cat, animal information: Appearance: kg appeared well, is from animal, vaccination(s) is current, was sustained 2 days ago. Animal status: known and can be quarantined. General: Appears in no apparent distress. Behavior is calm, cooperative, appropriate for age, quiet. Pain: Complains of pain in right wrist and right hand. Historical: - Allergies: 22:44 Bactrim; kg 22:44 Codeine; kg 22:44 Iodine; kg 22:44 PENICILLINS; kg 22:44 Sudafed; kg 22:44 Talwin; kg 22:44 trovafloxacin mesylate; kg - Home Meds: 22:44 metoprolol tartrate 50 mg Oral tab 1 tab 2 times per day [Active]; Humulin 70/30 100 kg unit/mL (70-30) Sub-Q susp 25 units twice a day [Active]; venlafaxine 75 mg Oral tr24 1 tab once daily [Active]; Lipitor 10 mg Oral tab 1 tab once daily [Active]; Xarelto 20 mg Oral tab 1 tab once daily [Active]; lisinopril 5 mg Oral tab 1 tab once daily [Active]; - PMHx: 22:44 Atrial Fib; COPD; Diabetes - IDDM; Hypertension; kg - PSHx: 22:44 Cholecystectomy; kg - Immunization history:: Adult Immunizations up to date, Client reports receiving the Terry \T\ Terry single-dose vaccine. Date received December 31, 2020. - Social history:: Smoking status: Patient denies any tobacco usage or history of. - Family history:: not pertinent. - Hospitalizations: : No recent hospitalization is reported. Screenin:49 Abuse screen: Denies threats or abuse. Denies injuries from another. Nutritional kg screening: No deficits noted. Tuberculosis screening: No symptoms or risk factors identified. Fall Risk None identified. Assessment: 22:50 Derm: Skin is intact, is thin, Skin is red. kg Vital Signs: 22:41 BP 129 / 79; Pulse 103; Resp 20; Temp 98.3(O); Pulse Ox 96% on R/A; Pain 6/10; kg ED Course: 22:31 Patient arrived in ED. wm 22:32 Luis Enriquez MD is Attending Physician. rn 22:44 Triage completed. kg 22:44 Arm band placed on left wrist. kg 22:49 Patient has correct armband on for positive identification. kg 22:49 No provider procedures requiring assistance completed. Patient did not have IV access kg during this emergency room visit. Administered Medications: 22:55 Drug: Doxycycline 100 mg Route: PO; kg 22:57 Follow up: Response: No adverse reaction kg 22:56 Drug: Clindamycin 300 mg Route: PO; kg 22:58 Follow up: Response: No adverse reaction kg Outcome: 22:45 Discharge ordered by . rn 22:49 Discharged to home ambulatory. kg 22:49 Condition: good 22:49 Discharge instructions given to patient, family, Instructed on discharge instructions, follow up and referral plans. Demonstrated understanding of instructions, follow-up care, medications, Prescriptions given X 2. 22:58 Patient left the ED. kg Signatures: Luis Enriquez MD MD rn Graham, Kristen, RN RN Abi Salter
--- NOTE | 2021-06-05 22:45 | EDPHYS ---
Physician Documentation [facility] Name: Yarelis Payton Age: 85 yrs Sex: Female : 1935 Arrival Date: 06/05/2021 Time: 22:31 Bed Waiting Private MD: ED Physician Luis Enriquez HPI: 06/05 22:40 This 85 yrs old Female presents to ER via Unassigned with complaints of Cat rn Bite. 22:40 by a cat, while playing, at home. Onset: The symptoms/episode began/occurred yesterday. rn Animal information: Animal's vaccinations are up to date. Secondary to the bite the patient reports multiple puncture wounds. Associated signs and symptoms: Pertinent positives: erythema at site, tenderness, Pertinent negatives: fever, fluctuance, motor deficit, numbness distal to wound. Severity of symptoms: At their worst the symptoms were mild, in the emergency department the symptoms are unchanged. The patient has not experienced similar symptoms in the past. The patient has not recently seen a physician. Patient reports bitten by own cat last night. Reports redness and warmth to the location of the bite. Does not feel any foreign bodies. Location of bite is right hypothenar eminence. Historical: - Allergies: 22:44 Bactrim; kg 22:44 Codeine; kg 22:44 Iodine; kg 22:44 PENICILLINS; kg 22:44 Sudafed; kg 22:44 Talwin; kg 22:44 trovafloxacin mesylate; kg - Home Meds: 22:44 metoprolol tartrate 50 mg Oral tab 1 tab 2 times per day [Active]; Humulin 70/30 100 kg unit/mL (70-30) Sub-Q susp 25 units twice a day [Active]; venlafaxine 75 mg Oral tr24 1 tab once daily [Active]; Lipitor 10 mg Oral tab 1 tab once daily [Active]; Xarelto 20 mg Oral tab 1 tab once daily [Active]; lisinopril 5 mg Oral tab 1 tab once daily [Active]; - PMHx: 22:44 Atrial Fib; COPD; Diabetes - IDDM; Hypertension; kg - PSHx: 22:44 Cholecystectomy; kg - Immunization history:: Adult Immunizations up to date, Client reports receiving the Terry \T\ Terry single-dose vaccine. Date received December 31, 2020. - Social history:: Smoking status: Patient denies any tobacco usage or history of. - Family history:: not pertinent. - Hospitalizations: : No recent hospitalization is reported. ROS: 22:40 Constitutional: Negative for fever, chills, and weight loss, Cardiovascular: Negative rn for chest pain, palpitations, and edema, Respiratory: Negative for shortness of breath, cough, wheezing, and pleuritic chest pain, MS/Extremity: Positive for cat bite to right hand Skin: Positive redness at location of bite on right hand Exam: 22:40 Constitutional: This is a well developed, well nourished patient who is awake, alert, rn and in no acute distress. Cardiovascular: Regular rate and rhythm. No pulse deficits. MS/ Extremity: Pulses equal, no cyanosis. Neurovascular intact. Full, normal range of motion. Equal circumference. Right hypothenar eminence with erythema and warmth surrounding multiple puncture wounds. No fluctuance. Erythema reaches level of wrist. No signs of lymphangitis or proximal erythema/tenderness. No drainage from puncture wounds. No lacerations. Vital Signs: 22:41 BP 129 / 79; Pulse 103; Resp 20; Temp 98.3(O); Pulse Ox 96% on R/A; Pain 6/10; kg MDM: 22:40 Differential diagnosis: cellulitis, Puncture wound with secondary signs of cellulitis. rn Data reviewed: vital signs, nurses notes, and as a result, I will discharge patient. Counseling: I had a detailed discussion with the patient and/or guardian regarding: the historical points, exam findings, and any diagnostic results supporting the discharge/admit diagnosis, the need for outpatient follow up, to return to the emergency department if symptoms worsen or persist or if there are any questions or concerns that arise at home. Special discussion: I discussed with the patient/guardian in detail that at this point there is no indication for admission to the hospital. It is understood, however, that if the symptoms persist or worsen the patient needs to return immediately for re-evaluation. 22:40 Special discussion: Based on the history and exam findings, there is no indication for rn further emergent testing or inpatient evaluation. I discussed with the patient/guardian the need to see the primary care provider for further evaluation of the symptoms. 22:45 Patient medically screened. rn 22:48 ED course: Patient with allergy to penicillins as well as Bactrim.. rn Administered Medications: 22:55 Drug: Doxycycline 100 mg Route: PO; kg 22:57 Follow up: Response: No adverse reaction kg 22:56 Drug: Clindamycin 300 mg Route: PO; kg 22:58 Follow up: Response: No adverse reaction kg Disposition Summary: 06/05/21 22:45 Discharge Ordered Location: Home rn Problem: new rn Symptoms: are unchanged rn Condition: Stable rn Diagnosis - Bitten by cat rn - Cellulitis of right upper limb - Hand rn Followup: rn - With: Private Physician - When: 2 - 3 days - Reason: Recheck today's complaints, Re-evaluation by your physician Discharge Instructions: - Discharge Summary Sheet rn - Cellulitis, Adult rn - Animal Bite, Adult rn Forms: - Medication Reconciliation Form rn - Thank You Letter rn - 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
[2021-06-05 23:13] VITALS: BP 129/79; TEMP 98.3; O2SAT 96
[2021-06-05] MEDS ORDERED: DOXYCYCLINE 100 MG CAP PO ONE (23:18)
== END 2021-06-05 22:58 | disposition home or self-care (01) ==
LOC: ER 22:27
DX: L03.113 Cellulitis of right upper limb (principal); W55.01XA Bitten by cat, initial encounter; Y93.89 Activity, other specified; Y92.009 Unspecified place in unspecified non-institutional (private) residence as the place of occurrence of the external cause; Z79.01 Long term (current) use of anticoagulants; Z79.4 Long term (current) use of insulin; Z88.0 Allergy status to penicillin; Z88.1 Allergy status to other antibiotic agents; Z88.5 Allergy status to narcotic agent; Z88.8 Allergy status to other drugs, medicaments and biological substances; E11.9 Type 2 diabetes mellitus without complications; I10 Essential (primary) hypertension; I48.91 Unspecified atrial fibrillation
CPT/HCPCS: 99283

== ENCOUNTER 2021-11-14 09:43 | Inpatient (IN) | payer OTHER ==
[2021-11-14 10:19] LABS: Absolute Lymphocytes (CBC) 4.3 K/uL (0.7-4.9); Hematocrit 50.2 % (36.0-45.0); Lymphocytes % 37.6 % (15.3-44.8); MPV 7.9 fL (7.6-11.3); RBC Red Blood Cell Count 5.36 M/uL (3.86-4.86)
[2021-11-14 10:25] LABS: Protime INR 0.93
[2021-11-14 10:51] LABS: Albumin 3.1 g/dL (3.4-5.0); Bilirubin Direct 0.3 mg/dL (0-0.2); Bilirubin Total 0.8 mg/dL (0.2-1.0); Magnesium 2.2 mg/dL (1.8-2.4); Potassium 4.3 mmol/L (3.5-5.1); Protein, Total 7.8 g/dL (6.4-8.2); Troponin High Sensitivity 40.9 pg/mL (<58.9)
[2021-11-14] MEDS ORDERED: NA CHLORIDE 0.9% 1,000 ML ONE (11:13)
[2021-11-14] MEDS ORDERED: INSULIN -REGULAR HUMAN 50 UNIT/0.5 ML ML ONE (11:13)
--- NOTE | 2021-11-14 11:20 | EDPHYS ---
Physician Documentation [facility] Name: Yarelis Payton Age: 86 yrs Sex: Female : 1935 Arrival Date: 11/14/2021 Time: 09:46 Bed 14 Private MD: ED Physician Luc Danielle HPI: 11/14 10:06 This 86 yrs old Female presents to ER via EMS with complaints of General Weakness. kdr 10:06 The patient was found down on the floor in his home this morning by his oceanic sciences professor. Is kdr unknown how long the patient had been there. He was noted to be unresponsive. He remains unresponsive in the ED however he resists eye opening symmetrically. There may be a small contusion to the left frontal area. He may also have a small skin tear on his right elbow. There is no other evidence of trauma at this time.. Onset: The symptoms/episode began/occurred at an unknown time. Severity of symptoms: At their worst the symptoms were incapacitating in the emergency department the symptoms are unchanged. It is unknown whether or not the patient has had similar symptoms in the past. The patient has not recently seen a physician. Historical: - Allergies: 09:48 Bactrim; ll1 09:48 Codeine; ll1 09:48 Iodine; ll1 09:48 PENICILLINS; ll1 09:48 Sudafed; ll1 09:48 Talwin; ll1 09:48 trovafloxacin mesylate; ll1 - PMHx: 09:48 Atrial Fib; Diabetes - IDDM; COPD; Hypertension; bladder CA; Myocardial infarction; ll1 - PSHx: 09:48 Cholecystectomy; ll1 - Immunization history:: Client reports receiving the 1st dose of the Covid vaccine. - Social history:: Smoking status: Patient/guardian denies using tobacco, the patient reports quitting approximately 20 years ago. ROS: 10:06 Constitutional: Patient's poorly responsive and unable to give a history or review of kdr system Eyes: Negative for injury, pain, redness, and discharge. 10:06 Unable to obtain ROS due to altered mental status, baseline dementia, patient being uncooperative. Exam: 10:05 ECG was reviewed by the Attending Physician. kdr 10:06 Constitutional: This is a well developed, well nourished patient who is awake, alert, kdr and in no acute distress. Head/Face: Normocephalic, atraumatic. 10:06 Eyes: The patient resists eye opening. 10:06 Neck: Exam negative for 10:06 Chest/axilla: Exam negative for 10:06 Cardiovascular: Heart sounds: murmur, systolic, grade 3 over 6. 10:06 Respiratory: Exam negative for 10:06 Abdomen/GI: Exam negative for 10:06 Musculoskeletal/extremity: Extremities: Swelling to both lower extremities from the knee down. It appears chronic. Vital Signs: 09:46 BP 125 / 66; Pulse 119; Resp 16; Temp 97.0; Pulse Ox 98% on R/A; Pain 0/10; ll1 10:08 Pulse 106; ll1 11:00 BP 123 / 81; Pulse 99; Resp 18; Pulse Ox 99% ; ll1 11:53 Weight 61.5 kg; ll1 12:36 BP 134 / 63; Pulse 87; Resp 17; Pulse Ox 96% on R/A; ll1 13:08 BP 111 / 63; Pulse 106; Resp 16; Temp 97.6; Pulse Ox 95% ; ll1 MDM: 10:06 Data reviewed: vital signs, nurses notes, lab test result(s), radiologic studies. kdr 11:19 Patient medically screened. kdr 11/14 09:56 Order name: Basic Metabolic Panel [facility] 11/14 09:56 Order name: CBC with Diff; Complete Time: 11:03 [facility] 11/14 09:56 Order name: LFT's 1 11/14 09:56 Order name: Magnesium 1 11/14 09:56 Order name: NT PRO-BNP [facility] 11/14 09:56 Order name: PT-INR; Complete Time: 11:03 [facility] 11/14 09:56 Order name: Troponin HS; Complete Time: 11:03 [facility] 11/14 09:56 Order name: Basic Metabolic Panel; Complete Time: 11:03 [facility] 11/14 09:56 Order name: Liver (Hepatic) Function; Complete Time: 11:03 [facility] 11/14 09:56 Order name: Magnesium; Complete Time: 11:03 [facility] 11/14 09:56 Order name: NT PRO-BNP; Complete Time: 11:03 [facility] 11/14 11:11 Order name: SARS-COV-2 RT PCR (Document "Date of Onset" if Symptomatic) 11/14 11:12 Order name: SARS-COV-2 RT PCR [facility] 11/14 12:43 Order name: Basic Metabolic Panel [facility] 11/14 12:43 Order name: Basic Metabolic Panel [facility] 11/14 12:43 Order name: Basic Metabolic Panel [facility] 11/14 12:43 Order name: Basic Metabolic Panel [facility] 11/14 12:43 Order name: Comprehensive Metabolic Panel [facility] 11/14 12:43 Order name: Comprehensive Metabolic Panel [facility] 11/14 12:43 Order name: Magnesium [facility] 11/14 12:43 Order name: Magnesium [facility] 11/14 12:43 Order name: Magnesium [facility] 11/14 12:43 Order name: CBC with Automated Diff [facility] 11/14 12:43 Order name: CBC with Automated Diff [facility] 11/14 12:43 Order name: Magnesium [facility] 11/14 12:45 Order name: Urinalysis W/Microscopic [facility] 11/14 12:45 Order name: UR CREAT [facility] 11/14 12:45 Order name: UR SODIUM [facility] 11/14 12:52 Order name: Glucose, Ancillary Testing [facility] 11/14 13:41 Order name: Glucose, Ancillary Testing [facility] 11/14 09:56 Order name: XRAY Chest (1 view); Complete Time: 12:29 11/14 09:56 Order name: EKG; Complete Time: 09:56 [facility] 11/14 09:56 Order name: Cardiac monitoring; Complete Time: 10:08 [facility] 11/14 09:56 Order name: EKG - Nurse/Tech; Complete Time: 10:08 11/14 09:56 Order name: IV Saline Lock; Complete Time: 09:56 11/14 09:56 Order name: Labs collected and sent; Complete Time: 09:56 [facility] 11/14 09:56 Order name: O2 Per Protocol; Complete Time: 09:56 [facility] 11/14 09:56 Order name: O2 Sat Monitoring; Complete Time: 09:56 [facility] 11/14 12:43 Order name: 60g Consistent Carbohydrate (ADA 1800/1999) [facility] 11/14 12:45 Order name: CONS Physician Consult [facility] 11/14 12:51 Order name: Occupational Therapy Consult [facility] 11/14 12:51 Order name: Physical Therapy Consult [facility] EC:05 Rate is 105 beats/min. Rhythm is regular, Sinus tachycardia with No ectopy. Left axis kdr deviation noted. SC interval is normal. QRS interval is normal. QT interval is normal. No Q waves. Clinical impression: NSR w/ Non-specific ST/T Changes and Sinus tachycardia. Administered Medications: 11:18 Drug: Insulin Regular Human 10 units {Co-Signature: cb5 (Effie Leonard RN).} Route: ll1 IVP; Site: left antecubital; 13:13 Follow up: Response: No adverse reaction [facility] 11:19 Drug: NS 0.9% 1000 ml Route: IV; Rate: 125 ml/hr; Site: left antecubital; [facility] 13:17 Follow up: IV Status: Infusion continued upon admission; IV Intake: 200ml [facility] 11:36 Drug: Insulin Drip - (Insulin Regular Human 100 units, NS 0.9% 100 ml) {Co-Signature: 1 cb5 (Effie Leonard RN).} Route: IV; Rate: calculated rate; Site: left antecubital; 13:18 Follow up: Response: No adverse reaction; IV Status: Infusion continued upon admission; [facility] IV Intake: 12ml 11:44 Drug: Zofran (Ondansetron) 4 mg Route: IVP; Site: left antecubital; [facility] 13:16 Follow up: Response: No adverse reaction [facility] Disposition Summary: 11/14/21 11:19 Hospitalization Ordered Hospitalization Status: Inpatient Admission kdr Provider: Della Puentes Location: Intensive Care Unit kdr Condition: Fair kdr Problem: new kdr Symptoms: have improved kdr Bed/Room Type: Standard kdr Room Assignment: 5-(11/14/21 13:05) bd Diagnosis - Diabetic ketoacidosis, weakness, weight loss, hyperglycemia kdr Forms: - Medication Reconciliation Form kdr - SBAR form kdr Signatures: Dispatcher [employer] EDMS Bea Leon bd Luc Danielle MD MD kdr Meera Sanders RN RN ll1 Effie Leonard RN cb5 Corrections: (The following items were deleted from the chart) 13:05 11:19 kdr bd
--- NOTE | 2021-11-14 11:20 | ER ---
Nurse's Notes [facility] Name: Yarelis Payton Age: 86 yrs Sex: Female : 1935 Arrival Date: 11/14/2021 Time: 09:46 Bed 14 Private MD: Diagnosis: Diabetic ketoacidosis, weakness, weight loss, hyperglycemia Presentation: 11/14 09:46 Chief complaint: Patient states: Weak, tired, fatigue, no appetite for 3 days. No ll1 fever. Noticed blood in her urine today. EMS states: Fingerstick 431, HR 131-110. Coronavirus screen: Client denies travel out of the [place] in the last 14 days. fatigue, Client presents with at least one sign or symptom that may indicate coronavirus-19. Standard/surgical mask placed on the client. Ebola Screen: Patient denies travel to an Ebola-affected area in the 21 days before illness onset. Initial Sepsis Screen: Does the patient meet any 2 criteria? HR > 90 bpm. No. Patient's initial sepsis screen is negative. Does the patient have a suspected source of infection? No. Patient's initial sepsis screen is negative. Risk Assessment: Do you want to hurt yourself or someone else? Patient reports no desire to harm self or others. Onset of symptoms was November 12, 2021. 09:46 Method Of Arrival: EMS: [facility] ll1 09:46 Acuity: FROY 3 ll1 Triage Assessment: 09:50 General: Appears ill, Behavior is calm, cooperative, appropriate for age. Pain: Denies ll1 pain. Neuro: Reports weakness. : Reports blood in urine. Historical: - Allergies: 09:48 Bactrim; ll1 09:48 Codeine; ll1 09:48 Iodine; ll1 09:48 PENICILLINS; ll1 09:48 Sudafed; ll1 09:48 Talwin; ll1 09:48 trovafloxacin mesylate; ll1 - PMHx: 09:48 Atrial Fib; Diabetes - IDDM; COPD; Hypertension; bladder CA; Myocardial infarction; ll1 - PSHx: 09:48 Cholecystectomy; ll1 - Immunization history:: Client reports receiving the 1st dose of the Covid vaccine. - Social history:: Smoking status: Patient/guardian denies using tobacco, the patient reports quitting approximately 20 years ago. Screenin:31 Abuse screen: Denies threats or abuse. Nutritional screening: No deficits noted. ll1 Tuberculosis screening: No symptoms or risk factors identified. Fall Risk IV access (20 points). Gait- Weak (10 pts.). Total Posada Fall Scale indicates Low Risk Score (25-44 pts). Fall prevention measures have been instituted. Side Rails Up X 2 Placed close to Nursing Station Frequent Obs/Assesments occuring Family Present and informed to notify staff if they need to leave bedside As available Patient and Family Educated on Fall Prevention Program and strategies. Assessment: 10:50 Reassessment: No changes from previously documented assessment. Patient and/or family ll1 updated on plan of care and expected duration. Pain level reassessed. Patient is alert, oriented x 3, equal unlabored respirations, skin warm/dry/pink. 11:50 Reassessment: No changes from previously documented assessment. Patient and/or family ll1 updated on plan of care and expected duration. Pain level reassessed. Patient is alert, oriented x 3, equal unlabored respirations, skin warm/dry/pink. 12:50 Reassessment: No changes from previously documented assessment. Patient and/or family ll1 updated on plan of care and expected duration. Pain level reassessed. Patient is alert, oriented x 3, equal unlabored respirations, skin warm/dry/pink. Vital Signs: 09:46 BP 125 / 66; Pulse 119; Resp 16; Temp 97.0; Pulse Ox 98% on R/A; Pain 0/10; ll1 10:08 Pulse 106; ll1 11:00 BP 123 / 81; Pulse 99; Resp 18; Pulse Ox 99% ; ll1 11:53 Weight 61.5 kg; ll1 12:36 BP 134 / 63; Pulse 87; Resp 17; Pulse Ox 96% on R/A; ll1 13:08 BP 111 / 63; Pulse 106; Resp 16; Temp 97.6; Pulse Ox 95% ; ll1 ED Course: 09:46 Patient arrived in ED. ll1 09:48 Triage completed. ll1 09:50 Arm band placed on Patient placed in an exam room, on a stretcher. ll1 09:58 Luc Danielle MD is Attending Physician. kdr 10:08 Meera Sanders RN is Primary Nurse. ll1 10:09 EKG completed in triage. Results shown to MD. ll1 10:25 Initial lab(s) drawn, by me, sent to lab. EKG done, by ED staff. Inserted saline lock: kv1 20 gauge in left antecubital area, using aseptic technique. 10:31 Patient has correct armband on for positive identification. Bed in low position. Call 1 light in reach. Side rails up X 1. radiation monitor on. Pulse ox on. NIBP on. 10:48 XRAY Chest (1 view) In Process Unspecified. EDMS 10:53 Notified ED physician of a critical lab result(s). CO2 12, glucose 443. ll1 11:18 Della Puentes MD is Hospitalizing Provider. kdr 12:40 Fingerstick 284. Insulin drip decreased by half to 3 units/hr. ll1 13:14 No provider procedures requiring assistance completed. Patient admitted, IV remains in ll1 place. 13:43 Fingerstick 204. Insulin decreased to 1.5 units/hr. ll1 Administered Medications: 11:18 Drug: Insulin Regular Human 10 units {Co-Signature: [email or web address] (Effie Leonard RN).} Route: ll1 IVP; Site: left antecubital; 13:13 Follow up: Response: No adverse reaction [facility] 11:19 Drug: NS 0.9% 1000 ml Route: IV; Rate: 125 ml/hr; Site: left antecubital; 1 13:17 Follow up: IV Status: Infusion continued upon admission; IV Intake: 200ml [facility] 11:36 Drug: Insulin Drip - (Insulin Regular Human 100 units, NS 0.9% 100 ml) {Co-Signature: [facility] cb5 (Effie Leonard RN).} Route: IV; Rate: calculated rate; Site: left antecubital; 13:18 Follow up: Response: No adverse reaction; IV Status: Infusion continued upon admission; [facility] IV Intake: 12ml 11:44 Drug: Zofran (Ondansetron) 4 mg Route: IVP; Site: left antecubital; [facility] 13:16 Follow up: Response: No adverse reaction [facility] Intake: 13:17 IV: 200ml; Total: 200ml. 1 13:18 IV: 12ml; Total: 212ml. [facility] Outcome: 11:19 Decision to Hospitalize by Provider. kdr 13:15 Admitted to ICU accompanied by nurse, family with patient, via stretcher, room ICU 5, ll1 Report called to MO Stacy in ICU 13:15 Condition: stable 13:15 Instructed on the need for admit. 14:10 Patient left the ED. ll1 Signatures: Dispatcher [employer] EDMS Luc Danielle MD MD kdr Meera Sanders RN RN ll1 Curtis Oh RN cb5
[2021-11-14] MEDS ORDERED: ONDANSETRON 4 MG/2 ML VIAL ONE (11:43)
[2021-11-14] MEDS ORDERED: INSULIN -REGULAR HUMAN 100 UNIT in NA CHLORIDE 0.9% 100 ML IV SCH ×2 (12:00→12:45)
--- NOTE | 2021-11-14 12:22 | RAD REPORT ---
EXAM DESCRIPTION: Landy Single View11/14/2021 10:48 am CLINICAL HISTORY: Weakness COMPARISON: 2017 FINDINGS: Mild haziness lateral right upper lobe. Main lungs appear clear of acute infiltrate. Heart is normal size IMPRESSION: Mild haziness lateral right upper lobe. This may represent confluence of ribs and vessel s or a mild infiltrate. PA and lateral chest series recommended
[2021-11-14] MEDS ORDERED: MORPHINE 2 MG/ML SYR IV PRN (12:37)
[2021-11-14] MEDS ORDERED: ALBUTEROL 2.5 MG/3 ML NEB SOL NEB PRN (12:37)
[2021-11-14] MEDS ORDERED: ONDANSETRON 4 MG/2 ML VIAL IV PRN (12:37)
--- NOTE | 2021-11-14 12:51 | P.HP ---
Certification for Inpatient With expected LOS: >2 Midnights Patient will require the following post-hospital care: None Practitioner: I am a practitioner with admitting privileges, knowledge of patient current condition, hospital course, and medical plan of care. Services: Services provided to patient in accordance with Admission requirements found in Title 42 Section 412.3 of the Code of Federal Regulations Patient History Date of Service: 11/14/21 Reason for admission: Weakness History of Present Illness: 86-year-old female with past medical history of hypertension, diabetes mellituspresumed type I, atrial fibrillation on chronic anticoagulation with Xarelto, presented after being brought in by son and spouse due to patient poor responsiveness since the last 3 days. Patient was reported to be lethargic since the last 3 days. Patient initially on arrival in the ED was poorly responsive. She was noted with elevated glucose of 443 with anion gap. She has been admitted for DKA. Patient was started on insulin drip with IV fluid boluses. Her mental status has significantly improved now. She is able to recall history. She states she has been getting progressively weak and tired and has been sleeping mainly for the last 3 days. She states she has not been able to tolerate any p.o. intake. She denies any nausea vomiting prior to arrival in the ED and states she only vomiting the ED after she was swabbed for Covid. She states she has received 1 dose of anti-Covid vaccine. She denies any cough fever or chills. She denies any abdominal pain or diarrhea. She is unable to tell what dose of insulin she takes or what type of insulin. She states she does not check her sugar regularly but spouse have checked her sugar prior to ER visit and it was greater than 400. Allergies amoxicillin trihydrate [From Amoxil] Allergy (Mild, Verified 10/12/20 08:58) Hives/Rash codeine Allergy (Mild, Verified 10/12/20 08:58) Hives/Rash iodine Allergy (Mild, Verified 10/12/20 08:58) Hives sulfamethoxazole [From Bactrim] Allergy (Mild, Verified 10/12/20 08:58) Hives/Rash trimethoprim [From Bactrim] Allergy (Mild, Verified 10/12/20 08:58) Hives/Rash alatrofloxacin mesylate [From Trovan] Allergy (Unknown, Verified 10/12/20 08:58) unknown pseudoephedrine HCl [From Actifed] Allergy (Unknown, Verified 10/12/20 08:58) unknown triprolidine HCl [From Actifed] Allergy (Unknown, Verified 10/12/20 08:58) unknown trovafloxacin mesylate [From Trovan] Allergy (Unknown, Verified 10/12/20 08:58) unknown adhesive tape Allergy (Verified 10/12/20 08:58) Rash Penicillins Allergy (Verified 10/12/20 08:58) Itching pentazocine lactate [From Talwin] Allergy (Verified 10/12/20 08:58) Hives Home Medications: Atorvastatin Calcium 10 mg PO BEDTIME 10/06/20 Insulin 70/30 NPH/Reg Human [Novolin 70/30*] 23 unit SQ BID 10/06/20 Metoprolol Tartrate 50 mg PO BID 10/06/20 Rivaroxaban [Xarelto] 20 mg PO DAILY 10/06/20 Venlafaxine HCl [Venlafaxine HCl ER] 75 mg PO DAILY 10/06/20 lisinopriL [Lisinopril] 5 mg PO DAILY 10/06/20 - Past Medical/Surgical History Diabetic: Yes -: HTN -: DM -: Depression -: Atrial fibrillation Chronic anti coagulation therapy -: COPD -: Cholecystectomy -: Left Thoracotomy x3 secondary to fungal infection Psychosocial/ Personal History: Patient is - Social History Smoking Status: Former smoker Smoking therapy provided: No Patient receptive to therapy: No Alcohol use: No CD- Drugs: No Caffeine use: Yes Place of Residence: Home Review of Systems 10-point ROS is otherwise unremarkable Physical Examination - Physical Exam General: Alert, In no apparent distress, Oriented x3, Cooperative, Other HEENT: Atraumatic, Normocephalic, PERRLA Neck: 2+ carotid pulse no bruit, JVD not distended Respiratory: Clear to auscultation bilaterally, Normal air movement Cardiovascular: Regular rate/rhythm, Normal S1 S2, Edema Gastrointestinal: Normal bowel sounds, Soft and benign, Non-distended Musculoskeletal: No clubbing, No swelling Neurological: Normal speech, Normal strength at 5/5 x4 extr, Normal tone - Studies Laboratory Data (last 24 hrs) 11/14/21 10:01: PT 10.7, INR 0.93 11/14/21 10:01: WBC 11.50 H, Hgb 16.4 H, Hct 50.2 H, Plt Count 442 H 11/14/21 10:01: Sodium 130 L, Potassium 4.3, BUN 27 H, Creatinine 1.67 H, Glucose 443 H*, Magnesium 2.2, Total Bilirubin 0.8, AST 12 L, ALT 13, Alkaline Phosphatase 118 H Assessment and Plan - Advance Directives Does patient have a Living Will: No Does patient have a Durable POA for Healthcare: No Physician Review: Patient Assessed, Agree with Above Assessment and Plan Physician Review Additional Text: EKG shows sinus tachycardia at 150 bpm, Impression/plan DKA History of atrial fibrillationin sinus rhythm now Chronic anticoagulation Hypertension Diabetes mellitus History of COPD History of bladder cancer Plan We will admit to the ICU We will initiate DKA protocol Obtain UA to rule out associated UTI Follow COVID screen Unclear etiology of acute DKA onset, suspect medication nonadherence If negative infectious work-up, will readdress need for insulin adherence again Follow BMP Q 40 anion gap closed Will need to start patient on long-acting insulin after anion gap closes DVT prophylaxis with Xarelto Advance directivefull code Time Spent Managing Pts Care (In Minutes): 65
[2021-11-14] MEDS: NACHLORIDE 0.45% 1,000 ML IV SCH ×2 (13:00→23:00)
[2021-11-14 14:04] LABS: Potassium 4.6 mmol/L (3.5-5.1)
[2021-11-14 14:21] VITALS: O2SAT 95
[2021-11-14] MEDS: D5.45NS W/KCL 20MEQ 1,000 ML IV SCH ×3 (16:07→23:36)
[2021-11-14 19:45] LABS: Potassium 4.2 mmol/L (3.5-5.1)
[2021-11-14] MEDS: ATORVASTATIN 10 MG TAB PO SCH (21:00)
[2021-11-14] MEDS: METOPROLOL TAR 50 MG TAB PO SCH (21:00)
[2021-11-14 21:29] LABS: Potassium 4.5 mmol/L (3.5-5.1)
[2021-11-14] MEDS ORDERED: D50W 25 GM/50 ML SYRINGE IV PRN (23:59)
[2021-11-14] MEDS ORDERED: GLUCAGON 1 MG/VIAL IM PRN (23:59)
[2021-11-15] MEDS: INSULIN 70/30 100 UNITS/ML SQ SCH ×3 (00:37→16:27)
[2021-11-15] MEDS ORDERED: NA CHLORIDE 0.9% 1,000 ML IV SCH (01:00)
[2021-11-15 05:02] LABS: Absolute Lymphocytes (CBC) 3.9 K/uL (0.7-4.9); Hematocrit 44.9 % (36.0-45.0); Lymphocytes % 34.6 % (15.3-44.8); MPV 7.5 fL (7.6-11.3); RBC Red Blood Cell Count 4.88 M/uL (3.86-4.86)
[2021-11-15 05:20] LABS: Albumin 2.7 g/dL (3.4-5.0); Bilirubin Total 0.5 mg/dL (0.2-1.0); Magnesium 2.1 mg/dL (1.8-2.4); Potassium 4.4 mmol/L (3.5-5.1); Protein, Total 6.6 g/dL (6.4-8.2)
--- NOTE | 2021-11-15 05:58 | P.CNS ---
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 She was noted to be lethargic w/ poor po intake over the past 3 days. Found to be in DKA, admitted to the ICU & received IV fluids & insulin. She is referred to Nephrology for BAKARI. Allergies amoxicillin trihydrate [From Amoxil] Allergy (Mild, Verified 10/12/20 08:58) Hives/Rash codeine Allergy (Mild, Verified 10/12/20 08:58) Hives/Rash iodine Allergy (Mild, Verified 10/12/20 08:58) Hives sulfamethoxazole [From Bactrim] Allergy (Mild, Verified 10/12/20 08:58) Hives/Rash trimethoprim [From Bactrim] Allergy (Mild, Verified 10/12/20 08:58) Hives/Rash alatrofloxacin mesylate [From Trovan] Allergy (Unknown, Verified 10/12/20 08:58) unknown pseudoephedrine HCl [From Actifed] Allergy (Unknown, Verified 10/12/20 08:58) unknown triprolidine HCl [From Actifed] Allergy (Unknown, Verified 10/12/20 08:58) unknown trovafloxacin mesylate [From Trovan] Allergy (Unknown, Verified 10/12/20 08:58) unknown adhesive tape Allergy (Verified 10/12/20 08:58) Rash Penicillins Allergy (Verified 10/12/20 08:58) Itching pentazocine lactate [From Talwin] Allergy (Verified 10/12/20 08:58) Hives Home Medications: Atorvastatin Calcium 10 mg PO BEDTIME 10/06/20 Insulin 70/30 NPH/Reg Human [Novolin 70/30*] 23 unit SQ BID 10/06/20 Metoprolol Tartrate 50 mg PO BID 10/06/20 Rivaroxaban [Xarelto] 20 mg PO DAILY 10/06/20 Venlafaxine HCl [Venlafaxine HCl ER] 75 mg PO DAILY 10/06/20 lisinopriL [Lisinopril] 5 mg PO DAILY 10/06/20 - Past Medical/Surgical History Diabetic: Yes -: HTN -: DM -: Depression -: Atrial fibrillation Chronic anti coagulation therapy -: COPD -: Cholecystectomy -: Left Thoracotomy x3 secondary to fungal infection Psychosocial/ Personal History: Patient is - Social History Smoking Status: Never smoker Alcohol use: No CD- Drugs: No Caffeine use: Yes Place of Residence: Home Review of Systems General: Weakness Eyes: Unremarkable ENT: Unremarkable Respiratory: Unremarkable Cardiovascular: Unremarkable Gastrointestinal: Other (poor po intake) Genitourinary: Unremarkable Musculoskeletal: Unremarkable Integumentary: Unremarkable Neurological: Weakness, Unremarkable (Lethargy) Lymphatics: Unremarkable Physical Examination Temp Pulse Resp BP Pulse Ox 97.6 F 85 15 112/48 L 95 11/15/21 04:00 11/15/21 05:00 11/15/21 05:00 11/15/21 05:00 11/15/21 05:00 General: In no apparent distress, Other (chronically ill-appearing) HEENT: Atraumatic, Normocephalic Neck: Supple, JVD not distended Respiratory: Normal air movement, Other (symmetric chest expansion) Cardiovascular: No rubs, No murmurs Gastrointestinal: Soft and benign, No guarding Musculoskeletal: No clubbing Integumentary: No warmth Neurological: Normal speech, Normal tone Lymphatics: No axilla or inguinal lymphadenopathy Urinary: Other (no bladder distention) External genitalia: Deferred Rectal: Deferred Laboratory Data (last 24 hrs) 11/14/21 10:01: PT 10.7, INR 0.93 11/14/21 10:01: WBC 11.50 H, Hgb 16.4 H, Hct 50.2 H, Plt Count 442 H 11/14/21 10:01: Sodium 130 L, Potassium 4.3, BUN 27 H, Creatinine 1.67 H, Glucose 443 H*, Magnesium 2.2, Total Bilirubin 0.8, AST 12 L, ALT 13, Alkaline Phosphatase 118 H 11/14/21 06:00: Sodium Cancelled, Potassium Cancelled, BUN Cancelled, Creatinine Cancelled, Glucose Cancelled Conclusions/Impression: # BAKARI 2/2 prerenal state SCr 1.7 on adm, improved to 1.4 today F/u urinalysis, urine chem, random UPCR Monitor renal panel # 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
[2021-11-15 06:20] LABS: Phosphorus 1.9 mg/dL (2.5-4.9)
[2021-11-15] MEDS: INSULIN -REGULAR HUMAN 50 UNIT/0.5 ML ML SQ SCH ×4 (08:49→20:12)
[2021-11-15] MEDS: VENLAFAXINE HCL XR 75 MG CAP PO SCH (08:50)
[2021-11-15] MEDS: lisinopriL 5 MG TAB PO SCH (08:50)
[2021-11-15] MEDS: METOPROLOL TAR 50 MG TAB PO SCH ×2 (08:51→20:11)
[2021-11-15] MEDS: RIVAROXABAN 20 MG TABLET PO SCH (08:51)
--- NOTE | 2021-11-15 09:23 | P.PN ---
Subjective Date of Service: 11/15/21 Chief Complaint: Weakness Subjective: No new changes, No C/O voiced (Still feels weak Anion gap is closed Awaiting on dose of insulin Elevated globin A1c of 12.4 noted) Physical Examination - Vital Signs Temperature: 97.6 F Blood Pressure: 117/50 Pulse: 101 Respirations: 17 Pulse Ox (%): 96 - Studies Laboratory Data (last 24 hrs) 11/14/21 10:01: PT 10.7, INR 0.93 11/14/21 10:01: WBC 11.50 H, Hgb 16.4 H, Hct 50.2 H, Plt Count 442 H 11/14/21 10:01: Sodium 130 L, Potassium 4.3, BUN 27 H, Creatinine 1.67 H, Glucose 443 H*, Magnesium 2.2, Total Bilirubin 0.8, AST 12 L, ALT 13, Alkaline Phosphatase 118 H 11/14/21 06:00: Sodium Cancelled, Potassium Cancelled, BUN Cancelled, Creatinine Cancelled, Glucose Cancelled Assessment And Plan Plan to discharge in: 24 Hours - Code Status/Comfort Care Code Status: Full Code Physician Review: Patient Assessed, Agree with Above Assessment and Plan Physician Review Additional Text: Physical examination Elderly female, calm, conversant HEENTpinprick reactive to light struck extraocular motor movement intact Neckno JVD no carotid bruit Respiratorygood air entry, no crepitation CardiovascularS1-S2 rate and rhythm regular, nontachycardic GIfull abdomen, bowel sounds positive Extremitiesno pedal edema no calf tenderness Neuropatient is alert oriented and conversant Impression/plan DKA History of atrial fibrillationin sinus rhythm now Chronic anticoagulation Hypertension Diabetes mellitus History of COPD History of bladder cancer Plan Resolved DKA with close anion gap now Restarted on insulin 70/30 15 units twice daily We will adjust insulin when patient able to bring home medications Randell elevated hemoglobin A1c of 12.4 suggest patient was likely not adherent with her insulin doses sent recurrent DKA Need for medication adherence discussed Patient still with acute, we consult PT and OT Transfer to regular floor today We will consult case management for possible need for rehab DVT prophylaxis with Xarelto Advance directivefull code 11/15/21 09:21
[2021-11-15] MEDS: POTASS/SODIUM PHOSPHATE 1 PKT POWD.PACK PO SCH ×2 (11:16→14:39)
[2021-11-15 13:20] LABS: Urine Appearance TURBID (Clear); Urine Blood 1+ (Negative); Urine Color YELLOW (Yellow); Urine Glucose 3+ (Negative); Urine Protein TRACE (Negative); Urine Protein/Creatinine Ratio 1.23 ratio (<0.15)
[2021-11-15 13:41] LABS: Urine Bilirubin NEGATIVE (Negative)
[2021-11-15 13:45] LABS: Urine Bacteria LOADED /HPF (<20)
[2021-11-15] MEDS ORDERED: PROMETHAZINE INJ 25 MG/ML AMP IM PRN (15:53)
[2021-11-15] MEDS ORDERED: ALBUTEROL 2.5 MG/3 ML NEB SOL NEB PRN (18:00)
[2021-11-15] MEDS: ATORVASTATIN 10 MG TAB PO SCH (20:17)
[2021-11-16 05:37] LABS: Magnesium 2.2 mg/dL (1.8-2.4)
--- NOTE | 2021-11-16 06:11 | P.PN ---
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
[2021-11-16 06:35] VITALS: BMI 24.6
[2021-11-16] MEDS: INSULIN 70/30 100 UNITS/ML SQ SCH (07:51)
[2021-11-16] MEDS: INSULIN -REGULAR HUMAN 50 UNIT/0.5 ML ML SQ SCH ×2 (07:52→11:52)
[2021-11-16] MEDS: RIVAROXABAN 20 MG TABLET PO SCH (08:00)
[2021-11-16] MEDS: METOPROLOL TAR 50 MG TAB PO SCH (08:04)
[2021-11-16] MEDS: lisinopriL 5 MG TAB PO SCH (08:05)
[2021-11-16] MEDS: VENLAFAXINE HCL XR 75 MG CAP PO SCH (08:05)
[2021-11-16] MEDS ORDERED: SIMETHICONE 80 MG TAB PO ONE (09:45)
[2021-11-16] MEDS ORDERED: NA CHLORIDE 0.9% 1,000 ML IV SCH (11:25)
--- NOTE | 2021-11-16 12:02 | P.DS ---
Admission Date: 11/14/21 Discharge Date: 11/16/21 Disposition: TRANSFER TO INPATIENT REHAB Discharge Condition: FAIR Reason for Admission: Weakness Brief History of Present Illness: 86-year-old female with past medical history of hypertension, diabetes mellituspresumed type I, atrial fibrillation on chronic anticoagulation with Xarelto, presented after being brought in by son and spouse due to patient poor responsiveness since the last 3 days. Patient was reported to be lethargic since the last 3 days. Patient initially on arrival in the ED was poorly responsive. She was noted with elevated glucose of 443 with anion gap. She has been admitted for DKA. Patient was started on insulin drip with IV fluid boluses. Her mental status has significantly improved now. She is able to recall history. She states she has been getting progressively weak and tired and has been sleeping mainly for the last 3 days. She states she has not been able to tolerate any p.o. intake. She denies any nausea vomiting prior to arrival in the ED and states she only vomiting the ED after she was swabbed for Covid. She states she has received 1 dose of anti-Covid vaccine. She denies any cough fever or chills. She denies any abdominal pain or diarrhea. She is unable to tell what dose of insulin she takes or what type of insulin. She states she does not check her sugar regularly but spouse have checked her sugar prior to ER visit and it was greater than 400. Hospital Course: Patient was admitted with DKA and profound weakness. She was also noted with acute kidney injury which resolved. She was treated in the ICU with initial insulin drip but anion gap quickly resolved within a few hours of admission. Glucose level remained controlled with insulin 70/30 50 units twice daily. Her hemoglobin A1c was noted elevated at 12.4. Patient inability to know her type of insulin already to [facility] even though she states she admits that it is a safe as well as hemoglobin A A1c level suggests noncompliance with her insulin 70/30 23 units twice daily. Patient was noted with borderline low blood pressure i with restart of her metoprolol and her metoprolol lisinopril has been held. She was also noted to be markedly free. She was evaluated by physical therapy and agreeable to go to acute rehab for now. Continue her glucose checks. An insulin home dosage has been restarted. We restart her metoprolol at a lower than home dose if elevated blood pressure in the future Physical examination Elderly female, calm, conversant HEENT sarah,eomi Neckno JVD no carotid bruit Respiratorygood air entry, no crepitation CardiovascularS1-S2 rate and rhythm regular, nontachycardic GIfull abdomen, bowel sounds positive Extremitiesno pedal edema no calf tenderness Neuropatient is alert oriented and conversant Vital Signs/Physical Exam: Temp Pulse Resp BP Pulse Ox 96.9 F 69 15 115/43 L 98 11/16/21 11:25 11/16/21 11:25 11/16/21 11:25 11/16/21 11:25 11/16/21 11:25 Laboratory Data at Discharge: WBC 11.30 K/uL (4.3-10.9) H 11/15/21 04:49 Hgb 15.1 g/dL (12.0-15.0) H 11/15/21 04:49 Hct 44.9 % (36.0-45.0) 11/15/21 04:49 Plt Count 387 K/uL (152-406) 11/15/21 04:49 PT 10.7 SECONDS (9.5-12.5) 11/14/21 10:01 INR 0.93 11/14/21 10:01 Sodium 136 mmol/L (136-145) 11/16/21 04:40 Potassium 4.0 mmol/L (3.5-5.1) 11/16/21 04:40 BUN 18 mg/dL (7-18) 11/16/21 04:40 Creatinine 1.18 mg/dL (0.55-1.3) 11/16/21 04:40 Glucose 257 mg/dL (74-106) H 11/16/21 04:40 Phosphorus Cancelled 11/15/21 06:08 Magnesium 2.2 mg/dL (1.8-2.4) 11/16/21 04:40 Total Bilirubin 0.5 mg/dL (0.2-1.0) 11/15/21 04:49 AST 15 U/L (15-37) 11/15/21 04:49 ALT 12 U/L (12-78) 11/15/21 04:49 Alkaline Phosphatase 103 U/L (45-117) 11/15/21 04:49 Home Medications: Atorvastatin Calcium 10 mg PO BEDTIME 10/06/20 Insulin 70/30 NPH/Reg Human [Novolin 70/30*] 23 unit SQ BID 10/06/20 Rivaroxaban [Xarelto] 20 mg PO DAILY 10/06/20 Venlafaxine HCl [Venlafaxine HCl ER] 75 mg PO DAILY 10/06/20 Simethicone 80 mg PO TID 4 Days #12 tab.chew 11/16/21 New Medications: Simethicone 80 mg PO TID 4 Days #12 tab.chew Diet: ADA Activity: Ad pawan Followup: NONE,NONE [Primary Care Provider] - 1 Week (PCP) Physician Review: Patient Assessed, Agree with Above Assessment and Plan Time spent managing pt's care (in minutes): 35
[2021-11-16 17:50] VITALS: BP 115/43; TEMP 96.9
== END 2021-11-16 04:40 | DRG 638 ==
LOC: ER 09:43 → ERHOLD 12:40 → 3RD-ICU 13:15
PROVIDERS: ADMIT Internal Medicine; ATTEND Internal Medicine
DX: E10.10 Type 1 diabetes mellitus with ketoacidosis without coma (principal); N17.9 Acute kidney failure, unspecified; I48.91 Unspecified atrial fibrillation; I12.9 Hypertensive chronic kidney disease with stage 1 through stage 4 chronic kidney disease, or unspecified chronic kidney disease; N18.31 Chronic kidney disease, stage 3a; E10.22 Type 1 diabetes mellitus with diabetic chronic kidney disease; E83.39 Other disorders of phosphorus metabolism; I95.1 Orthostatic hypotension; J44.9 Chronic obstructive pulmonary disease, unspecified; S00.83XA Contusion of other part of head, initial encounter; S51.011A Laceration without foreign body of right elbow, initial encounter; I25.2 Old myocardial infarction; W18.30XA Fall on same level, unspecified, initial encounter; Z88.5 Allergy status to narcotic agent; Z79.4 Long term (current) use of insulin; Z88.0 Allergy status to penicillin; Z88.1 Allergy status to other antibiotic agents; Z88.8 Allergy status to other drugs, medicaments and biological substances; Z85.51 Personal history of malignant neoplasm of bladder; Z90.49 Acquired absence of other specified parts of digestive tract; Z79.899 Other long term (current) drug therapy; Z87.891 Personal history of nicotine dependence; Z79.01 Long term (current) use of anticoagulants; Z20.822 Contact with and (suspected) exposure to COVID-19
CPT/HCPCS: 36415; 71045; 80048; 80053; 80076; 81001; 82570; 82947; 83036; 83735; 83880; 83935; 84100; 84132; 84156; 84300; 84484; 85025; 85610; 87077; 87086; 87088; 87186; 93005; 96365; 96366; 96375; 97112; 97116; 97161; 97165; 97530; 99285; J1815; J2405; J7030; U0003

== ENCOUNTER 2021-11-16 11:03 | Inpatient (IN) | payer OTHER ==
--- NOTE | 2021-11-16 13:57 | R.PREADM ---
PRE-ADMISSION SCREENING FORM SCREENING DATE AND TIME 11/16/2021 11:17 (HOTEL CASINO FLOORPERSON) ANTICIPATED REHAB ADMISSION DATE 11/18/2021 REFERRING FACILITY Acute care hospital REFERRAL DATE AND TIME 11/15/2021 11:17 (HOTEL CASINO FLOORPERSON) REFERRAL OFFICE PHONE REFERRAL ROOM# ICU ACUTE ADMIT DATE 11/14/2021 Previous Rehabilitation(s): No. 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 Reyes Kuo M.D. MR# [id number] NAME JOJO PLATT ADDRESS [phone] PHONE [facility] [id number] DATE OF 1935 AGE 86 SSN# [id number] GENDER female MARITAL STATUS PREF. LANGUAGE (IF NON-MONGOLIAN) Ivorian ADMIT FROM 02 - [facility] PRE-HOSPITAL LIVING SETTING 01 - Home (private home/apt. board/care, assisted living, chcf, transitional living) HOME TYPE AND DETAILS Type of home: single family house # of steps to enter the residence: 0 # of levels in the residence: 1 # of steps within the residence: 0 PRE-HOSPITAL LIVING WITH Family/Relatives FAMILY SUPPORT Yes PRIMARY FAMILY CONTACT NAME RYAN PLATT PRIMARY FAMILY CONTACT PHONE PRIMARY FAMILY CONTACT RELATIONSHIP Spouse PHONE PRIMARY FAMILY CONTACT ON ADM.? no IS PRIMARY FAMILY CONTACT AUTH. REP.? no 1ST EMERGENCY CONTACT RYAN PLATT 1ST CONTACT PHONE 1ST CONTACT RELATIONSHIP Spouse PHONE 1ST CONTACT ON ADM. no IS 1ST CONTACT AUTH. REP.? no PHONE 2ND CONTACT ON ADM.? no PATIENT EMPLOYMENT STATUS Retired (for age) PATIENT EMPLOYER No Employer PAYOR INFORMATION: 1ST PAYOR NAME MEDICARE 1ST PAYOR PHONE 1ST PAYOR INJURY/ILLNESS DUE TO ACCIDENT? No ANOTHER DEMOCRAT RESPONSIBLE? No PRIMARY REHAB/ACUTE DIAGNOSIS: DKA, WEAKNESS ONSET DATE 11/14/2021 REHAB IMPAIRMENT CATEGORY (FARHEEN): 20 Miscellaneous (Misc) does NOT meet 60% rule PRIMARY DIAGNOSIS-RELATED SURGERIES: N/A INTERVENTIONS: - A-Fib monitor for complications Vitals will be monitored regularly and medications administered as indicated by Physician - HYPERTENSION Blood pressure will be regularly assessed and medications administered as per physician recommendatio ns. - COPD Educate pt on use of incentive spirometer and deep breathing exercises Monitory O2 saturation and other vitals Supplemental O2 as inidicated - Diabetes Monitor blood glucose levels and administer medication as indicated by Physician Diet will be customized to manage diabetic needs. - Weakness Daily therapy services to enhance patient's functional strength and abilities. RISK FOR COMPLICATIONS: - HYPERTENSION WEAKNESS - DIABETIC COMPLICATIONS Regular monitoring and management of blood glucose levels. DKA pt will receive a specialized diet to help manage blood glucose levels - UTI Monitor for frequency, burning, discomfort, or incontinence Physician medical management as warranted - DVT Medications will be administered as per MD PTT and INR will be monitored to effectively mitigate risk for development of DVT or PE while here. Mobility training and regular exercise - Skin Breakdown Nursing will assess skin daily using assessment tool and will place on Skin Breakdown Precautions as Indicated per protocol - Falls Patient will be evaluated for Fall Precautions and will be placed on Fall Precautions as indicated pe r protocol. Educated pt on fall prevention strategies to reduce/eliminate fall risk - Pneumonia pt will be instructed on use of and be encouraged to use incentive spirometry regular OOB activity and exercise to reduce risk SUMMARY OF ACUTE HOSPITALIZATION: Pt. is a 86 yo Right-handed female. On 11/14/2021 she was admitted to Acute care hospital with diagnosis DKA, WEAKNESS. Her impairment category is Debility 16 - Debility (16). Pre-morbidly, Pt. was independent/mod-I in Locomotion, Safety Awareness, Social Cognition, and Balanc e; and she had good Transfers Control, Sphincter Control, Self-Care, and Communication. Currently, she has deficits of Locomotion, Safety Awareness, Social Cognition, Balance, Transfers Con trol, Sphincter Control, Self-Care, Communication, and Endurance. Pt. is now referred to [facility] for acute in-patient rehabilitation in order to maximize patient's functional independence in activities of daily living, strength, ROM, and mobi lity. Patient has realistic goal of being discharged at assistance level 7-Ind to reside at Home with Fami ly/Relatives. PAST MEDICAL HISTORY HTN DM DEPRESSION AFIB COPD PAST SURGICAL HISTORY: CHOLECYSTECTOMY left thoracotomy x3 secondary to fungal infection MEDICATION ALLERGIES: AMOXICILLIN CODEINE Iodine sulfamethoxazole trimethoprim alatroflozacin pseudoephedrine triprolidine trovafloxacin adhesive tape pentazocine lactate ENVIRONMENTAL ALLERGIES: - Substance Allergies None Known - Other Allergies None Known CODE STATUS: Full code WEIGHT/HEIGHT/BMI: WEIGHT 134 lbs HEIGHT 5' 2" BMI 24.5 DIET: - Diet Type Regular - Diet - Solid Texture Regular - Diet - Liquid Texture Regular - Tube Feed N/A REVIEW OF SYSTEMS: - Gen Alert and awake Lying in bed No apparent distress Oriented to: person, time, and place - Vital Signs Temperature: 96.9 F SBP/DBP: 127/49 Pulse: 73 Resp: 19 Vital signs stable, afebrile - CVS RRR VITAL SIGNS Temperature: 96.9 F (11/16/21) SBP/DBP: 127/49 Pulse: 73 Resp: 19 Vital signs stable, afebrile MEDICATIONS/TREATMENT: Other- See attached MAR (Medication Administration Record). CURRENT SPHINCTER CONTROL: Pre-hospital bladder status: unspecified # of bladder accidents in the last 7 days prior to screenin Pre-hospital bowel status: unspecified # of bowel accidents in the last 7 days prior to screenin Last Bowel Movement Date: 11/16/2021 CURRENT LOCOMOTION STATUS: distance walked gait w/fww 50 feet DETAILED CURRENT FUNCTIONAL STATUS: - Bladder accident frequency: 7-Ind - No accidents in the past 7 days - Bowel accident frequency: 7-Ind - No accidents in the past 7 days - Walking score based on distance walked: 0(N/A) - Wheelchair score based on distance traveled: 0(N/A) QI SCORES: - Self-Care A. Eating 04-Supervision or touching assistance B. Oral hygiene 03-Partial/moderate assistance C. Toileting hygiene 03-Partial/moderate assistance E. Shower/bathe self 03-Partial/moderate assistance F. Upper body dressing 03-Partial/moderate assistance G. Lower body dressing 03-Partial/moderate assistance H. Putting on/taking off footwear 88-Not attempted due to medical condition or safety concerns - Mobility A. Roll left and right 03-Partial/moderate assistance B. Sit to lying 03-Partial/moderate assistance C. Lying to sitting on side of bed 03-Partial/moderate assistance D. Sit to stand 03-Partial/moderate assistance E. Chair/otg-gf-ctxgt transfer 03-Partial/moderate assistance F. Toilet transfer 03-Partial/moderate assistance G. Car transfer 88-Not attempted due to medical condition or safety concerns I. Walk 10 feet 03-Partial/moderate assistance J. Walk 50 feet with two turns 88-Not attempted due to medical condition or safety concerns K. Walk 150 feet 88-Not attempted due to medical condition or safety concerns L. Walking 10 feet on uneven surfaces 88-Not attempted due to medical condition or safety concerns M. 1 step (curb) 88-Not attempted due to medical condition or safety concerns N. 4 steps 88-Not attempted due to medical condition or safety concerns O. 12 steps 88-Not attempted due to medical condition or safety concerns P. Picking up object 88-Not attempted due to medical condition or safety concerns R. Wheel 50 feet with two turns S. Wheel 150 feet 88-Not attempted due to medical condition or safety concerns - Bladder and Bowel Bladder continence Bowel continence - Endurance Fair - Balance Fair - Safety Awareness Fair CURRENT FUNC. DEFICITS: Self-Care, Mobility, Endurance, Balance, and Safety Awareness CURRENT / PREVIOUS ASSISTIVE DEVICES: Rolling Walker HISTORY OF FALLS. HAS THE PATIENT HAD TWO OR MORE FALLS IN THE PAST YEAR OR ANY FALL WITH INJURY IN T HE PAST YEAR?: No PRIOR SURGERY. DID THE PATIENT HAVE MAJOR SURGERY DURING THE 100 DAYS PRIOR TO ADMISSION?: No THERAPY NOTES FROM ACUTE CARE: Attached. SPECIAL NEEDS: - Safety Concerns Skin breakdown precautions needed due to skin breakdown risk PATIENT NEEDS ACTIVE AND ONGOING THERAPEUTIC INTERVENTION OF MULTIPLE THERAPY DISCIPLINES, INCLUDING: - Dietary and Nutrition Adequate Nutrition. Nutritional Education. Evaluate and Treat. Nutritional Supplements. - Occupational Therapy Cognitive Retraining. Visual Perceptual Training. Evaluate and Treat. ADL Training. Safety Awareness. Patient/Family Education. Transfer Training. - Speech Therapy Cognitive Training. Expressive Language Skills. Memory Strategies. Receptive Language Skills. Speech Intelligibility Training. Evaluate and Treat. - Physical Therapy Mobility Training. Evaluate and Treat. LE Strengthening. Safety Awareness. Gait Training. Transfer Tr aikim. Balance Training. Patient/Family Education. PATIENT NEEDS CLOSE MEDICAL SUPERVISION BY A REHABILITATION PHYSICIAN FOR: Coordination of Treatment Team Medical and Co-Morbidity Management Pain Management Diabetes Management DVT Management PATIENT REQUIRES 24X7 REHAB NURSING FOR MEDICAL AND FUNCTIONAL MGT. OF THE FOLLOWING DEFICITS: Disease Management Medication Management Patient/Family Education Providing Safe Environment ADL's Ambulation Communication Pain Management Bowel and Bladder Management Skin Integrity PATIENT REQUIRES INTENSIVE, COORDINATED INTERDISCIPLINARY APPROACH TO REHAB: Arranging Home Equipment/Services Discharge Planning Family Intervention/Training Fisheries Technician/Case Management PATIENT REHAB POTENTIAL: Harriett PLATT is able and expected to receive 3 hours of individualized therapy daily on at least 5 of elias ry 7 days Harriett Christine prognosis for significant practical improvement within a reasonable period of time appears Good Expected level of measurable improvement will be of a practical value to Harriett GEORGEs functional capaci ty or adaptations to impairments Has a viable Discharge Plan Medically appropriate; condition is sufficiently stable to participate in intensive rehab program DISCHARGE PLAN: - Estimated Length of Stay (days) 13. - Consensus on plan Discharge plan has been discussed with primary caregiver. Patient/Family is in agreement with the gilson n. Primary caregiver is in agreement with the plan. - Patient/Family Goals Return home independently. - Planned Living Setting Upon Discharge Home, to live with Family/Relatives. Transitional Living. RECOMMENDED CARE LEVEL: IRF RECOMMENDATION DETAILS: Recommended Admission to Comprehensive Rehabilitation Program to Increase Functional [place] SCREENER'S COMPLETENESS CONFIRMATION: - Screening Confirmation The patient data collection on this preadmission screening form is finished PHYSICIANS REVIEW AND ADMISSION DETERMINATION Admit - Based on my review of the Pre-Admission Screening results, in my medical judgment and experie nce, I concur with the findings and recommend admission to [facility], as this patient requires an IRF level of care. SIGNATURE PANEL: Rat Exterminator - [electronically] signed by Marie Herman on 11/16/2021 at 12:04 (HOTEL CASINO FLOORPERSON) Rat Exterminator - [electronically] signed by Bereket Aranda PT on 11/16/2021 at 13:53 (HOTEL CASINO FLOORPERSON) Physician Reviewer - [electronically] signed by Dr. Reyes Kuo M.D. on 11/16/2021 at 13:56 (HOTEL CASINO FLOORPERSON )
[2021-11-16] MEDS ORDERED: GLUCAGON 1 MG/VIAL IM PRN ×2 (17:40→17:42)
[2021-11-16] MEDS ORDERED: D50W 25 GM/50 ML SYRINGE IV PRN ×2 (17:40→17:42)
[2021-11-16] MEDS ORDERED: LORAZEPAM 0.5 MG TABLET PO PRN (18:17)
--- NOTE | 2021-11-16 18:19 | PAPE ---
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 Reyes Kuo M.D. ADMISSION DIAGNOSIS: DKA, WEAKNESS with mild confusion and sundowning ONSET DATE 11/14/2021 POST-ADMISSION FUNCTIONAL/MEDICAL STATUS: - Bladder Same accident frequency: 7-Ind - No accidents in the past 7 days - Bowel Same accident frequency: 7-Ind - No accidents in the past 7 days - Walking Same score based on distance walked: 0(N/A) - Wheelchair Same score based on distance traveled: 0(N/A) STATUS CHANGE EVALUATION: No change in Functional or Medical Status is identified compared with Pre-Admission screening. PATIENT NEEDS CLOSE MEDICAL SUPERVISION BY A REHABILITATION PHYSICIAN FOR: Coordination of Treatment Team Medical and Co-Morbidity Management Pain Management Diabetes Management DVT Management PATIENT REQUIRES 24X7 REHAB NURSING FOR MEDICAL AND FUNCTIONAL MGT. OF THE FOLLOWING DEFICITS: Disease Management Medication Management Patient/Family Education Providing Safe Environment ADL's Ambulation Communication Pain Management Bowel and Bladder Management Skin Integrity PATIENT REQUIRES INTENSIVE, COORDINATED INTERDISCIPLINARY APPROACH TO REHAB: Arranging Home Equipment/Services Discharge Planning Family Intervention/Training Director Of Email Marketing/Case Management LIST OF IDENTIFIED AND POTENTIAL PROBLEMS: Alteration in leisure activities Bladder, Incontinence Bowel, Incontinence Infection, Actual or Potential Mobility Impaired Pain, Alteration in Comfort Self Care Deficit Skin Integrity, Actual or Potential Urinary Tract Infection (UTI), Actual or Potential RISK FOR COMPLICATIONS - HYPERTENSION WEAKNESS. - DIABETIC COMPLICATIONS Regular monitoring and management of blood glucose levels. DKA. pt will receive a specialized diet to help manage blood glucose levels. - UTI Monitor for frequency, burning, discomfort, or incontinence. Physician medical management as warrante d. - DVT Medications will be administered as per MD. PTT and INR will be monitored to effectively mitigate ris k for development of DVT or PE while here. Mobility training and regular exercise. - Skin Breakdown Nursing will assess skin daily using assessment tool and will place on Skin Breakdown Precautions as Indicated per protocol. - Falls Patient will be evaluated for Fall Precautions and will be placed on Fall Precautions as indicated pe r protocol. Educated pt on fall prevention strategies to reduce/eliminate fall risk. - Pneumonia pt will be instructed on use of and be encouraged to use incentive spirometry. regular OOB activity a nd exercise to reduce risk. INTERVENTIONS - A-Fib monitor for complications. Vitals will be monitored regularly and medications administered as indicat ed by Physician. - HYPERTENSION Blood pressure will be regularly assessed and medications administered as per physician recommendatio ns. - COPD Educate pt on use of incentive spirometer and deep breathing exercises. Monitory O2 saturation and ot her vitals. Supplemental O2 as inidicated. - Diabetes Monitor blood glucose levels and administer medication as indicated by Physician. Diet will be custom ized to manage diabetic needs. - Weakness Daily therapy services to enhance patient's functional strength and abilities. PATIENT COULD BE AT RISK FOR COMPLICATIONS FROM ADVERSE MEDICAL CONDITIONS DUE TO HIS/HER COMORBIDITI ES AND THE RIGORS OF THE INTENSIVE REHABILLITATION PROGRAM. METHODS OR INTERVENTIONS TO AVOID COMPLIC ATIONS INCLUDE: - Deep Vein Thrombosis (DVT) Prophylaxis therapy for prevention . Sequential Compression Device (SCD). TE D Hose. - Infection Clinical staff to assess and manage the signs and symptoms of infection including fever, redness, war mth, etc. - Urinary Tract Infection - Falls Patient will be evaluated for Fall Precautions and will be placed on Fall Precautions as indicated pe r protocol. - Skin Breakdown Nursing will assess skin daily using assessment tool and will place on Skin Breakdown Precautions as indicated per protocol. - Pain Clinical staff may employ non-medication methods such as massage, distraction, decrease stimulus, etc . as needed. Clinical staff will assess patient's pain level every shift per protocol to assess and e nsure pain management effectiveness. Medications will be given and the pain level re-assessed. PRELIMINARY PLAN OF CARE: - Physical Therapy Patient needs Physical Therapy for a daily minimum of 1.5 hours at least 5 out of 7 days, to improve: Mobility, Strengthening, Transfers, Stretching, ROM, Endurance, Ability to manage stairs, Gait, and Balance. - Speech Therapy Patient needs Speech Therapy for a daily minimum of 0.5 hours at least 5 out of 7 days, to improve: S wallowing, Cognition, Language Skills, and Compensatory Strategies. - Rehabilitation Nursing Patient requires 24x7 Rehabilitation Nursing for: Pain Issues, Identifying and preventing risk factor s, Monitoring and reporting current medical conditions, Assisting with ambulation and transfer, Ashley ting with all ADL-s, Teaching patients about disease process and medications, Family teaching, Provid ing safe environment, Bowel and Bladder Issues, Skin Integrity, and Medication Management. Patient needs Director Of Email Marketing and/or Case Management for: Discharge Planning, Arranging Home Equipmen t or Services, and Family Interventions. - Dietary and Nutrition Services Patient needs Dietary and Nutrition Services for: Adequate Nutrition, Nutritional Supplements, and Nu tritional Education. - Occupational Therapy Patient needs Occupational Therapy for a daily minimum of 1.5 hours at least 5 out of 7 days, to impr ove Activities of Daily Living, including: Eating, Grooming, Bathing, Dressing, Toileting, Toilet Tra nsfers, Community Reintegration, Higher functional activities, Adaptive Equipment, Splinting, Househo ld Tasks, and Other activities as determined. QI SCORES: - Self-Care A. Eating 04-Supervision or touching assistance B. Oral hygiene 03-Partial/moderate assistance C. Toileting hygiene 03-Partial/moderate assistance E. Shower/bathe self 03-Partial/moderate assistance F. Upper body dressing 03-Partial/moderate assistance G. Lower body dressing 03-Partial/moderate assistance H. Putting on/taking off footwear 88-Not attempted due to medical condition or safety concerns - Mobility A. Roll left and right 03-Partial/moderate assistance B. Sit to lying 03-Partial/moderate assistance C. Lying to sitting on side of bed 03-Partial/moderate assistance D. Sit to stand 03-Partial/moderate assistance E. Chair/lpt-sp-zspdj transfer 03-Partial/moderate assistance F. Toilet transfer 03-Partial/moderate assistance G. Car transfer 88-Not attempted due to medical condition or safety concerns I. Walk 10 feet 03-Partial/moderate assistance J. Walk 50 feet with two turns 88-Not attempted due to medical condition or safety concerns K. Walk 150 feet 88-Not attempted due to medical condition or safety concerns L. Walking 10 feet on uneven surfaces 88-Not attempted due to medical condition or safety concerns M. 1 step (curb) 88-Not attempted due to medical condition or safety concerns N. 4 steps 88-Not attempted due to medical condition or safety concerns O. 12 steps 88-Not attempted due to medical condition or safety concerns P. Picking up object 88-Not attempted due to medical condition or safety concerns R. Wheel 50 feet with two turns S. Wheel 150 feet 88-Not attempted due to medical condition or safety concerns - Bladder and Bowel Bladder continence Bowel continence - Endurance Fair - Balance Fair - Safety Awareness Fair POTENTIAL FUNCTIONAL GOALS FOR PATIENT TO ACHIEVE BY DISCHARGE: - Safety Precaution Patient will remain free from falls or injury at time of discharge. - Bed Mobility Patient will perform bed mobility at 4-Aarti level of assistance. - Transfers Patient will complete transfers from bed to chair at 4-Aarti level of assistance. - Mobility Patient will ambulate 150 ft with 4-Aarti level of assistance with RW. PATIENT REHAB POTENTIAL Harriett PLATT is able and expected to receive 3 hours of individualized therapy daily on at least 5 of elias ry 7 days Harriett Christine prognosis for significant practical improvement within a reasonable period of time appears Good Expected level of measurable improvement will be of a practical value to Harriett PLATT's functional capaci ty or adaptations to impairments Has a viable Discharge Plan Medically appropriate; condition is sufficiently stable to participate in intensive rehab program DISCHARGE PLAN: - Estimated Length of Stay (days) 13. - Consensus on plan Discharge plan has been discussed with primary caregiver. Patient/Family is in agreement with the gilson n. Primary caregiver is in agreement with the plan. - Patient/Family Goals Return home independently. - Planned Living Setting Upon Discharge Home, to live with Family/Relatives. Transitional Living. CONCLUSION ON REHABILITATION NECESSITY: I have evaluated patient's pre-admission functional status and, comparing it to the patient's post-ad mission functional status now, I conclude that the pre-admission assessment was accurate. Patient's c ondition on admission supports the medical necessity of admission to IRF. It is safe to proceed with patient's therapy program. Xarelto 20 mg daily. 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
[2021-11-16 18:25] VITALS: BMI 26.1
[2021-11-16] MEDS ORDERED: ONDANSETRON 4 MG (ODT) TAB PO PRN (18:25)
[2021-11-16] MEDS: ATORVASTATIN 10 MG TAB PO SCH ×2 (19:52→21:00)
[2021-11-16] MEDS: DOCUSATE NA/SENNA CONC 1 TAB PO PRN (19:52)
[2021-11-16] MEDS: SODIUM CHLORIDE 0.9% 10ML INJ IV SCH (19:52)
[2021-11-16] MEDS: SIMETHICONE 80 MG TAB PO SCH ×2 (19:52→21:00)
[2021-11-16] MEDS: MELATONIN 3 MG TABLET PO PRN (19:53)
[2021-11-16 20:36] LABS: Urine Appearance TURBID (Clear); Urine Bilirubin NEGATIVE (Negative); Urine Blood 2+ (Negative); Urine Color YELLOW (Yellow); Urine Glucose TRACE (Negative); Urine Protein 1+ (Negative); Urine Specific Gravity 1.015 (1.005-1.030)
[2021-11-16 20:43] LABS: Urine Bacteria >50 /HPF (<20); Urine Mucus 2+ /HPF (NONE SEEN); Urine RBC TNTC /HPF (NONE SEEN)
[2021-11-16] MEDS: INSULIN -REGULAR HUMAN 50 UNIT/0.5 ML ML SQ SCH (21:00)
[2021-11-17 04:14] LABS: Absolute Lymphocytes (CBC) 3.3 K/uL (0.7-4.9); Hematocrit 43.9 % (36.0-45.0); MPV 7.9 fL (7.6-11.3); RBC Red Blood Cell Count 4.72 M/uL (3.86-4.86)
[2021-11-17 04:37] LABS: Albumin 2.7 g/dL (3.4-5.0); Potassium 3.8 mmol/L (3.5-5.1); Prealbumin 12.8 mg/dL (20-40)
[2021-11-17] MEDS ORDERED: INSULIN 70/30 100 UNITS/ML SQ SCH (07:30)
[2021-11-17] MEDS: SODIUM CHLORIDE 0.9% 10ML INJ IV SCH ×2 (08:00→20:00)
[2021-11-17] MEDS: VENLAFAXINE HCL XR 75 MG CAP PO SCH (08:24)
[2021-11-17] MEDS: SIMETHICONE 80 MG TAB PO SCH ×3 (08:24→20:09)
[2021-11-17] MEDS: INSULIN -REGULAR HUMAN 50 UNIT/0.5 ML ML SQ SCH ×4 (08:25→20:11)
[2021-11-17] MEDS ORDERED: D50W 25 GM/50 ML SYRINGE IV PRN (16:19)
[2021-11-17] MEDS ORDERED: GLUCAGON 1 MG/VIAL IM PRN (16:19)
[2021-11-17] MEDS: RIVAROXABAN 20 MG TABLET PO SCH (16:32)
[2021-11-17] MEDS: TRAMADOL HCL 50 MG TAB PO PRN ×2 (16:32→23:42)
[2021-11-17] MEDS ORDERED: HUMALOG MIX 75/25 100 UNITS/ML SQ SCH ×2 (17:00)
[2021-11-17] MEDS: ATORVASTATIN 10 MG TAB PO SCH (20:09)
[2021-11-17] MEDS: CRANBERRY FRUIT EXTRACT 400 MG CAP PO SCH (20:09)
--- NOTE | 2021-11-18 02:35 | PN ---
Date of Progress Note: 11/17/2021 Chief Complaint: Acute kidney injury on chronic kidney,, severe deconditioning. History Of Present Illness: The patient was transferred to rehab floor. The patient has been follow ed for acute kidney injury due to prerenal state. Renal function has gradually improved in response to adequate hydration. Blood pressure has been stable. The patient has underlying history of chroni c kidney disease stage 2 + 3a with history of bladder cancer. Baseline serum creatinine level is 0.8 -1.0, GFR ranging from 53-73. The patient has history of orthostatic hypotension and diuretics were stopped and vasodilators were stopped as well. Review of Systems: The patient is feeling better today. Physical Examination: Lungs: Diminished breath sounds at bases. Heart: S1, S2. Abdomen: Soft, benign. Extremities: Slight edema. Impression And Plan: 1.Wwmnb-yx-ucxspiy kidney injury. Monitor electrolytes and renal panel. Monitor urine output. Ced id nephrotoxic medication. The patient cannot take nonsteroidal antiinflammatory medication. 2.Chronic kidney disease stage 2 + 3a and history of bladder cancer. The patient may need a Urology followup. Monitor urine output. 3.Orthostatic hypotension. The patient may be a candidate for midodrine. Avoid vasodilators. Brooke tor blood pressure closely. 4.Diabetes mellitus with renal manifestation. Monitor proteinuria. The patient has history of hypo albuminemia and plan is to check serum protein electrophoresis and urine protein electrophoresis. 5.Hypophosphatemia. Advance diet. Recommend Dietary consult. Continue to replete as needed. EB/MODL Voice ID: [id number] Report ID: [id number]
[2021-11-18 04:21] LABS: Albumin 2.4 g/dL (3.4-5.0); Potassium 3.7 mmol/L (3.5-5.1)
[2021-11-18] MEDS ORDERED: HUMALOG MIX 75/25 100 UNITS/ML SQ SCH (08:00)
[2021-11-18] MEDS: VENLAFAXINE HCL XR 75 MG CAP PO SCH (08:05)
[2021-11-18] MEDS: INSULIN -REGULAR HUMAN 50 UNIT/0.5 ML ML SQ SCH ×4 (08:05→19:16)
[2021-11-18] MEDS: SIMETHICONE 80 MG TAB PO SCH ×3 (08:07→19:16)
[2021-11-18] MEDS: CRANBERRY FRUIT EXTRACT 400 MG CAP PO SCH ×2 (08:07→19:16)
[2021-11-18] MEDS: SODIUM CHLORIDE 0.9% 10ML INJ IV SCH (08:07)
--- NOTE | 2021-11-18 10:08 | RAD REPORT ---
EXAM DESCRIPTION: US - Renal Ultrasound-Complete - 11/18/2021 7:56 am CLINICAL HISTORY: Acute renal insufficiency COMPARISON: 2016 ct FINDINGS: The right kidney measures cm with a borderline increased echotexture. Several cysts. The largest measures 1.7 centimeters. No hydronephrosis Left kidney is markedly atrophic. Normal tissue is not visualized. 5.2 x 1.9 centimeter isoechoic structure is present within the posterior aspect of the bladder IMPRESSION: Small right renal cysts Atrophic left kidney 5.2 x 1.9 centimeter isoechoic structure within the bladder. A similar abnormality is present on the 2016 cat scan. This could indicate that this represents a benign mass. Another consideration is that this represented a blood clot on the prior exam and a mass on the current exam. Direct visualization may be helpful for further evaluation
[2021-11-18] MEDS: HUMALOG MIX 75/25 100 UNITS/ML SQ SCH (16:51)
[2021-11-18] MEDS: RIVAROXABAN 20 MG TABLET PO SCH (17:27)
[2021-11-18] MEDS: ATORVASTATIN 10 MG TAB PO SCH (19:16)
--- NOTE | 2021-11-19 00:06 | PN ---
Date of Progress Note: 11/18/2021 Chief Complaint: Acute on chronic kidney injury, severe deconditioning. History Of Present Illness: The patient was transferred to the rehab floor. The patient has been fo llowed for acute kidney injury due to prerenal state. Renal function has gradually improved in respo nse to adequate hydration. Blood pressure has been stable. The patient has underlying chronic kidne y disease stage 2/3A, with history of bladder cancer. Baseline creatinine level is 0.8 to 1.0. The patient has history of orthostatic hypotension, and diuretics were stopped and vasodilators were stop ped because of orthostatic hypotension. Review of Systems: The patient denies chest pain, palpitation. Physical Examination: Lungs: Diminished breath sounds at bases. Heart: S1, S2. Abdomen: Soft, benign. Extremities: Slight edema. Impression And Plan: 1.Acute on chronic kidney injury. Monitor electrolytes and renal panel. Monitor urine output. Ced id nephrotoxic medication. The patient will have Urology consultation. The patient was found to hav e bladder mass, and she has history of bladder cancer. I discussed at length with daughter at the [facility], the patient will follow up with urologist. During this hospitalization, I will request Urolog y consultation. 2.Chronic kidney disease stage 2/3 with history of bladder cancer. Urology consultation is requeste d. 3.Orthostatic hypotension. The patient may be a candidate for midodrine. Monitor blood pressure. 4.Diabetes mellitus with renal manifestation. Re-evaluate. 5.Proteinuria. The patient has history of hypoalbuminemia. Plan is to check serum protein electrop horesis and urine protein electrophoresis. 6.Hypophosphatemia. Advance p.o. intake and continue replacement as needed. EB/MODL Voice ID: [id number] Report ID: [id number]
[2021-11-19] MEDS: INSULIN -REGULAR HUMAN 50 UNIT/0.5 ML ML SQ SCH ×4 (07:01→19:24)
[2021-11-19 07:17] LABS: Albumin 2.2 g/dL (3.4-5.0); Phosphorus 2.7 mg/dL (2.5-4.9); Potassium 3.7 mmol/L (3.5-5.1)
[2021-11-19] MEDS: VENLAFAXINE HCL XR 75 MG CAP PO SCH (08:26)
[2021-11-19] MEDS: CRANBERRY FRUIT EXTRACT 400 MG CAP PO SCH ×2 (08:26→19:23)
[2021-11-19] MEDS: SIMETHICONE 80 MG TAB PO SCH ×2 (08:26→14:00)
[2021-11-19] MEDS: HUMALOG MIX 75/25 100 UNITS/ML SQ SCH ×2 (09:05→17:37)
[2021-11-19] MEDS ORDERED: SIMETHICONE 80 MG TAB PO PRN (14:17)
[2021-11-19] MEDS: RIVAROXABAN 20 MG TABLET PO SCH (17:09)
--- NOTE | 2021-11-19 18:21 | R.PN ---
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 SUBJECTIVE: Pt denied any depression. Pt denied any Shortness of Breath. CBC with differential is normal. Glucose 203 to 392, prelabumin 12.8. Covid-19 testing is negative. U A is 3+ esterase, bacteria > 50, 3+ esterase. VITAL SIGNS Temperature: 97.4 F SBP/DBP: 135/62 Pulse: 84 Resp: 18 MEDICATION ALLERGIES: AMOXICILLIN CODEINE Iodine sulfamethoxazole trimethoprim alatroflozacin pseudoephedrine triprolidine trovafloxacin adhesive tape pentazocine lactate ENVIRONMENTAL ALLERGIES: - Substance Allergies None Known - Other Allergies None Known NURSING: - Shower allowing shower ACTIVITIES OOB only with supervision THERAPIES: - Dietary and Nutrition Adequate Nutrition. Nutritional Education. Evaluate and Treat. Nutritional Supplements. - Occupational Therapy Cognitive Retraining. Visual Perceptual Training. Evaluate and Treat. ADL Training. Safety Awareness. Patient/Family Education. Transfer Training. - Speech Therapy Cognitive Training. Expressive Language Skills. Memory Strategies. Receptive Language Skills. Speech Intelligibility Training. Evaluate and Treat. - Physical Therapy Mobility Training. Evaluate and Treat. LE Strengthening. Safety Awareness. Gait Training. Transfer Tr aining. Balance Training. Patient/Family Education. PHYSICAL EXAM - Gen Alert and awake Lying in bed No apparent distress Oriented to: person, time, and place - Skin No skin breakdown. Normacephalic - Eyes No abnormalities - ENMT No abnormalities - Neck No abnormalities - CVS RRR - Chest No abnormalities - Resp Clear to auscultation - Abd + bowel sounds - GI Soft No abnormalities - No abnormalities - Ext Mild bilateral lower extremity edema. - MSK 4/5 weakness in both lower extremities. - Neuro No focal deficits ASSESSMENT: Pt. is a 86 yo Right-handed female.On 11/14/2021 she was admitted to Acute care hospital with diagnos is DKA, WEAKNESS with mild confusion and sundowning.Her impairment category is Debility 16 - Debilit y (16).Pre-morbidly, Pt. was independent/mod-I in Locomotion, Safety Awareness, Social Cognition, and Balance; and she had good Transfers Control, Sphincter Control, Self-Care, and Communication.Current ly, she has deficits of Locomotion, Safety Awareness, Social Cognition, Balance, Transfers Control, S phincter Control, Self-Care, Communication, and Endurance.Pt. is now [facility] to [facility] for acute in-patient rehabilitation in order to maximize patient's functional independe nce in activities of daily living, strength, ROM, and mobility.- Rehab Goal Patient has realistic goal of being discharged at assistance level 7-Ind to reside at Home with Fami ly/Relatives. She is mildly confused on arrival to the unit, consistent with sundowning. My had Ativan 0.5 mg as ne eded.MDM/PLAN: - Physical Therapy Weakness - to improve, our physical therapists will perform initial evaluation of pt's status upon ad mission and devise an individualized program for Aquatic Therapy, Neuromuscular Reeducation, and Stre ngthening Poor balance - to improve, our physical therapists will perform initial evaluation of pt's status upo n admission and devise an individualized program for Balance Training Inability to transfer - to improve, our physical therapists will perform initial evaluation of pt's s tatus upon admission and devise an individualized program for Bed mobility Need in caregiver upon discharge - to improve, our physical therapists will perform initial evaluatio n of pt's status upon admission and devise an individualized program for Caregiver Training Poor endurance - to improve, our physical therapists will perform initial evaluation of pt's status u robert admission and devise an individualized program for Endurance Training Gait dysfunction - to improve, our physical therapists will perform initial evaluation of pt's status upon admission and devise an individualized program for Gait Training, and Wheel Chair mobility Need for home safety evaluation - to improve, our physical therapists will perform initial evaluation of pt's status upon admission and devise an individualized program for Home Evaluation New precaution - to improve, our physical therapists will perform initial evaluation of pt's status u robert admission and devise an individualized program for Patient precaution education Edema - to improve, our physical therapists will perform initial evaluation of pt's status upon admis jayesh and devise an individualized program for Elevation Training, and Lymphedema Therapy - Occupational Therapy Weakness - to improve, our occupation therapists will perform initial evaluation of pt's status upon admission and devise an individualized program for Aquatic Therapy, Balance, Endurance, UE ROM, and U E strengthening ADL deficits - to improve, our occupation therapists will perform initial evaluation of pt's status u robert admission and devise an individualized program for Bathing, Bed mobility, Community Reintegration , Cooking, Dressing, Eating, Fine Motor Skills, Grooming, Homemaking, Kitchen Mobility, Laundry, Kirsty ent Education, Safety Awareness, Splinting - Positioning, Transfers(Toilet, Tub, Shower), and Wheel C hair Management Need for dog daycare provider - to improve, our occupation therapists will perform initial evaluation of pt's s tatus upon admission and devise an individualized program for Caregiver Training Cognitive deficits - to improve, our occupation therapists will perform initial evaluation of pt's st atus upon admission and devise an individualized program for Cognition - orientation - Other See attached MAR (Medication Administration Record) - Diet Type Continue Regular - Diet - Liquid Texture Continue Regular - Tube Feed Continue N/A - Diet - Solid Texture Continue Regular - Shower allowing shower - Balance for Weakness - Bed mobility for ADL deficits FUNCTIONAL STATUS: UPDATED AT WEEKLY TEAM CONFERENCE - Bladder Same accident frequency: 7-Ind - No accidents in the past 7 days - Bowel Same accident frequency: 7-Ind - No accidents in the past 7 days - Walking Same score based on distance walked: 0(N/A) - Wheelchair Same score based on distance traveled: 0(N/A) FUNCTIONAL STATUS: - Self-Care A. Eating Ind B. Grooming sup C. Bathing Aarti D. Dressing - Upper sup E. Dressing - Lower Aarti F. Toileting iN - Sphincter Control G. Bladder control Ind H. Bowel control Ni - Transfers Control I. Bed/Chair/Wheelchair Aarti J. Toilet Aarti K. Tub/Shower modA - Locomotion L. Walk/Wheelchair (B) Aarti M. Stairs modA - Communication N. Comprehension (B) Ind O. Expression (B) sup - Social Cognition P. Social Interaction Ind Q. Problem Solving sup R. Memory sup - Endurance Fair - Balance Good - Safety Awareness Fair QI SCORES: - Self-Care A. Eating 04-Supervision or touching assistance B. Oral hygiene 03-Partial/moderate assistance C. Toileting hygiene 03-Partial/moderate assistance E. Shower/bathe self 03-Partial/moderate assistance F. Upper body dressing 03-Partial/moderate assistance G. Lower body dressing 03-Partial/moderate assistance H. Putting on/taking off footwear 88-Not attempted due to medical condition or safety concerns - Mobility A. Roll left and right 03-Partial/moderate assistance B. Sit to lying 03-Partial/moderate assistance C. Lying to sitting on side of bed 03-Partial/moderate assistance D. Sit to stand 03-Partial/moderate assistance E. Chair/ovs-dk-qhczb transfer 03-Partial/moderate assistance F. Toilet transfer 03-Partial/moderate assistance G. Car transfer 88-Not attempted due to medical condition or safety concerns I. Walk 10 feet 03-Partial/moderate assistance J. Walk 50 feet with two turns 88-Not attempted due to medical condition or safety concerns K. Walk 150 feet 88-Not attempted due to medical condition or safety concerns L. Walking 10 feet on uneven surfaces 88-Not attempted due to medical condition or safety concerns M. 1 step (curb) 88-Not attempted due to medical condition or safety concerns N. 4 steps 88-Not attempted due to medical condition or safety concerns O. 12 steps 88-Not attempted due to medical condition or safety concerns P. Picking up object 88-Not attempted due to medical condition or safety concerns R. Wheel 50 feet with two turns S. Wheel 150 feet 88-Not attempted due to medical condition or safety concerns - Bladder and Bowel Bladder continence Bowel continence - Endurance Fair - Balance Fair - Safety Awareness Fair CURRENT [facility]. 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
--- NOTE | 2021-11-19 18:35 | R.HP ---
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 board/care, assisted living, intermediate, transitional living) PRE-HOSPITAL LIVING WITH Family/Relatives ENCOUNTER PHYSICIAN: Dr. Reyes Kuo M.D. 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 is a 86 yo Right-handed female. On 11/14/2021 she was [facility] with diagnosis DKA, WEAKNESS with mild confusio n and sundowning. Her impairment category is Debility 16 - Debility (16). Pre-morbidly, Pt. was independent/mod-I in Locomotion, Safety Awareness, Social Cognition, and Balanc e; and she had good Transfers Control, Sphincter Control, Self-Care, and Communication. Currently, she has deficits of Locomotion, Safety Awareness, Social Cognition, Balance, Transfers Con trol, Sphincter Control, Self-Care, Communication, and Endurance. Pt. is now referred to [facility] for acute in-patient rehabilitation in order to maximize patient's functional independence in activities of daily living, strength, ROM, and mobi lity. Patient has realistic goal of being discharged at assistance level 7-Ind to reside at Home with Fami ly/Relatives. She is mildly confused on arrival to the unit, consistent with sundowning. My had Ativan 0.5 mg as ne eded. MEDICATION ALLERGIES: AMOXICILLIN CODEINE Iodine sulfamethoxazole trimethoprim alatroflozacin pseudoephedrine triprolidine trovafloxacin adhesive tape pentazocine lactate ENVIRONMENTAL ALLERGIES: - Substance Allergies None Known - Other Allergies None Known PAST MEDICAL HISTORY: HTN DM DEPRESSION AFIB COPD PAST SURGICAL HISTORY: CHOLECYSTECTOMY left thoracotomy x3 secondary to fungal infection SOCIAL HISTORY: - Home Living Family/Relatives REVIEW OF SYSTEMS: - Gen No Chills Fatigue No Fever - Eyes No Double Vision No itchiness - ENMT No Difficulty Swallowing - CVS No Chest Discomfort No Chest Pain Fatigue No Weight Gain - Resp No Cough No Shortness of Breath - GI Continent No Abdominal Pain No Constipation No Diarrhea - Continent No Kidney Pain No Painful Urination No Urinary Urgency - MSK No Joint Pain Muscle Cramps Stiffness - Skin No Itching No Rash No Suspicious Lesions - Neuro Coordination Difficulty Difficulty with Concentration Memory Loss No Seizures Weakness - Psych No Anxiety No Depression No HIV Exposure No Persistent Infections No Seasonal Allergies - Endo No Cold/Heat Intolerance No Excessive Hunger No Excessive Thirst No Excessive Urination PHYSICAL EXAM - Gen Alert and awake Lying in bed No apparent distress Oriented to: person, time, and place - Skin No skin breakdown. Normacephalic - Eyes No abnormalities - ENMT No abnormalities - Neck No abnormalities - CVS RRR - Chest No abnormalities - Resp Clear to auscultation - Abd + bowel sounds - GI Soft No abnormalities - No abnormalities - Ext Mild bilateral lower extremity edema. - MSK 4/5 weakness in both lower extremities. - Neuro No focal deficits VITAL SIGNS Temperature: 96.9 F (11/16/21) SBP/DBP: 127/49 Pulse: 73 Resp: 19 NURSING: - Shower allowing shower ACTIVITIES OOB only with supervision QI SCORES: - Self-Care A. Eating 04-Supervision or touching assistance B. Oral hygiene 03-Partial/moderate assistance C. Toileting hygiene 03-Partial/moderate assistance E. Shower/bathe self 03-Partial/moderate assistance F. Upper body dressing 03-Partial/moderate assistance G. Lower body dressing 03-Partial/moderate assistance H. Putting on/taking off footwear 88-Not attempted due to medical condition or safety concerns - Mobility A. Roll left and right 03-Partial/moderate assistance B. Sit to lying 03-Partial/moderate assistance C. Lying to sitting on side of bed 03-Partial/moderate assistance D. Sit to stand 03-Partial/moderate assistance E. Chair/kij-gt-qnwnn transfer 03-Partial/moderate assistance F. Toilet transfer 03-Partial/moderate assistance G. Car transfer 88-Not attempted due to medical condition or safety concerns I. Walk 10 feet 03-Partial/moderate assistance J. Walk 50 feet with two turns 88-Not attempted due to medical condition or safety concerns K. Walk 150 feet 88-Not attempted due to medical condition or safety concerns L. Walking 10 feet on uneven surfaces 88-Not attempted due to medical condition or safety concerns M. 1 step (curb) 88-Not attempted due to medical condition or safety concerns N. 4 steps 88-Not attempted due to medical condition or safety concerns O. 12 steps 88-Not attempted due to medical condition or safety concerns P. Picking up object 88-Not attempted due to medical condition or safety concerns R. Wheel 50 feet with two turns S. Wheel 150 feet 88-Not attempted due to medical condition or safety concerns - Bladder and Bowel Bladder continence Bowel continence - Endurance Fair - Balance Fair - Safety Awareness Fair CURRENT FUNC. DEFICITS: Self-Care, Mobility, Endurance, Balance, and Safety Awareness MEDICATIONS: - Other See attached MAR (Medication Administration Record) ASSESSMENT: Pt. is a 86 yo Right-handed female.On 11/14/2021 she was admitted to [facility] hospital with diagnos is DKA, WEAKNESS with mild confusion and sundowning.Her impairment category is Debility 16 - Debilit y (16).Pre-morbidly, Pt. was independent/mod-I in Locomotion, Safety Awareness, Social Cognition, and Balance; and she had good Transfers Control, Sphincter Control, Self-Care, and Communication.Current ly, she has deficits of Locomotion, Safety Awareness, Social Cognition, Balance, Transfers Control, S phincter Control, Self-Care, Communication, and Endurance.Pt. is now referred to [facility] for acute in-patient rehabilitation in order to maximize patient's functional independe nce in activities of daily living, strength, ROM, and mobility.- Rehab Goal Patient has realistic goal of being discharged at assistance level 7-Ind to reside at Home with Fami ly/Relatives. - Physical Therapy Weakness - to improve, our physical therapists will perform initial evaluation of pt's status upon a dmission and devise an individualized program for Aquatic Therapy, Neuromuscular Reeducation, and Str engthening Poor balance - to improve, our physical therapists will perform initial evaluation of pt's status up on admission and devise an individualized program for Balance Training Inability to transfer - to improve, our physical therapists will perform initial evaluation of pt's status upon admission and devise an individualized program for Bed mobility Need in caregiver upon discharge - to improve, our physical therapists will perform initial evaluati on of pt's status upon admission and devise an individualized program for Caregiver Training Poor endurance - to improve, our physical therapists will perform initial evaluation of pt's status upon admission and devise an individualized program for Endurance Training Gait dysfunction - to improve, our physical therapists will perform initial evaluation of pt's statu s upon admission and devise an individualized program for Gait Training, and Wheel Chair mobility Need for home safety evaluation - to improve, our physical therapists will perform initial evaluatio n of pt's status upon admission and devise an individualized program for Home Evaluation New precaution - to improve, our physical therapists will perform initial evaluation of pt's status upon admission and devise an individualized program for Patient precaution education Edema - to improve, our physical therapists will perform initial evaluation of pt's status upon admi ssion and devise an individualized program for Elevation Training, and Lymphedema Therapy - Occupational Therapy Weakness - to improve, our occupation therapists will perform initial evaluation of pt's status upon admission and devise an individualized program for Aquatic Therapy, Balance, Endurance, UE ROM, and UE strengthening ADL deficits - to improve, our occupation therapists will perform initial evaluation of pt's status upon admission and devise an individualized program for Bathing, Bed mobility, Community Reintegratio n, Cooking, Dressing, Eating, Fine Motor Skills, Grooming, Homemaking, Kitchen Mobility, Laundry, Pat ient Education, Safety Awareness, Splinting - Positioning, Transfers(Toilet, Tub, Shower), and Wheel Chair Management Need for patient care provider - to improve, our occupation therapists will perform initial evaluation of pt's status upon admission and devise an individualized program for Caregiver Training Cognitive deficits - to improve, our occupation therapists will perform initial evaluation of pt's s tatus upon admission and devise an individualized program for Cognition - orientation - Balance for Weakness - Bed mobility for ADL deficits MEDICAL PLAN: - Diet Type Start Regular - Diet - Liquid Texture Start Regular - Tube Feed Start N/A - Other See attached MAR (Medication Administration Record) - Diet - Solid Texture Regular - Shower shower DISCHARGE PLAN: - Estimated Length of Stay (days) 13. - Consensus on plan Discharge plan has been discussed with primary caregiver. Patient/Family is in agreement with the gilson n. Primary caregiver is in agreement with the plan. - Patient/Family Goals Return home independently. - Planned Living Setting Upon Discharge Home, to live with Family/Relatives. Transitional Living. 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
[2021-11-19] MEDS: ATORVASTATIN 10 MG TAB PO SCH (19:23)
[2021-11-19] MEDS: DOCUSATE NA/SENNA CONC 1 TAB PO PRN (19:23)
[2021-11-19] MEDS: MELATONIN 3 MG TABLET PO PRN (19:24)
--- NOTE | 2021-11-20 03:11 | PN ---
Date of Progress Note: 11/19/2021 Chief Complaint: Gmghj-ji-ktfczvq kidney injury, severe that is transitioning. History Of Present Illness: The patient was transferred to the rehab. The patient has been followed for acute kidney injury due to prerenal state and nonoliguric ATN. Renal function has gradually imp roved with hydration. Blood pressure has been stable. 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 Baseline creatinine level is from 0.8-1.0. The stacy ent has history of orthostatic hypotension and all diuretics and vasodilators were stopped in view of orthostatic hypotension. Review of Systems: Denies fever and chills. Physical Examination: Lungs: Clear to auscultation bilaterally. Heart: S1, S2. Abdomen: Soft, benign. Extremities: Slight edema. Impression And Plan: 1.Rfjye-xz-kthihnz kidney injury. Monitor electrolytes and renal panel. Monitor urine output. Ced id nephrotoxic medication. The patient will have Urology consultation. The patient was found to hav e bladder mass. She has a history of bladder cancer. I discussed with the patient and with her damaria g hter. Urology consultation requested will be made during this admission. Urologist will see the pat ient tomorrow. 2.Orthostatic hypotension. The patient may be a candidate for midodrine. Monitor blood pressure. 3.Diabetes mellitus with renal manifestation. Re-evaluate proteinuria and angiotensin receptor emanuel when blood pressure is stable and renal function is at b aseline. MARTITA/MERLE Voice ID: [id number] Report ID: [id number]
[2021-11-20] MEDS: INSULIN -REGULAR HUMAN 50 UNIT/0.5 ML ML SQ SCH ×4 (07:30→20:04)
[2021-11-20] MEDS: CRANBERRY FRUIT EXTRACT 400 MG CAP PO SCH ×2 (08:10→20:03)
[2021-11-20] MEDS: VENLAFAXINE HCL XR 75 MG CAP PO SCH (08:11)
[2021-11-20] MEDS: HUMALOG MIX 75/25 100 UNITS/ML SQ SCH ×2 (08:52→17:24)
[2021-11-20] MEDS ORDERED: GLUCAGON 1 MG/VIAL IM PRN ×2 (13:50→13:58)
[2021-11-20] MEDS ORDERED: D50W 25 GM/50 ML SYRINGE IV PRN ×2 (13:50→13:58)
[2021-11-20] MEDS ORDERED: INSULIN LISPRO 100 UNIT/1 ML SQ SCH (17:00)
[2021-11-20] MEDS: RIVAROXABAN 20 MG TABLET PO SCH (17:19)
[2021-11-20] MEDS: INSULIN LISPRO 100 UNIT/1 ML SQ SCH (17:22)
--- NOTE | 2021-11-20 17:44 | R.PN ---
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 SUBJECTIVE: Pt denied any depression. Pt denied any Shortness of Breath. CBC with differential is normal. Glucose 319 to 398. Added Humalog 6 units TID with meals. prelabumin 12.8. Covid-19 testing is negative. UA is 3+ esterase, bacteria > 50, 3+ esterase. Ambulated 500' with modified independence using a rolling walker. Up and down 15 steps using bilatera l handrails and supervision. Speech/language/swallowing education was given. VITAL SIGNS Temperature: 97.8 F SBP/DBP: 127/56 Pulse: 87 Resp: 16 MEDICATION ALLERGIES: AMOXICILLIN CODEINE Iodine sulfamethoxazole trimethoprim alatroflozacin pseudoephedrine triprolidine trovafloxacin adhesive tape pentazocine lactate ENVIRONMENTAL ALLERGIES: - Substance Allergies None Known - Other Allergies None Known NURSING: - Shower allowing shower ACTIVITIES OOB only with supervision THERAPIES: - Dietary and Nutrition Adequate Nutrition. Nutritional Education. Evaluate and Treat. Nutritional Supplements. - Occupational Therapy Cognitive Retraining. Visual Perceptual Training. Evaluate and Treat. ADL Training. Safety Awareness. Patient/Family Education. Transfer Training. - Speech Therapy Cognitive Training. Expressive Language Skills. Memory Strategies. Receptive Language Skills. Speech Intelligibility Training. Evaluate and Treat. - Physical Therapy Mobility Training. Evaluate and Treat. LE Strengthening. Safety Awareness. Gait Training. Transfer Tr narendra. Balance Training. Patient/Family Education. PHYSICAL EXAM - Gen Alert and awake Lying in bed No apparent distress Oriented to: person, time, and place - Skin No skin breakdown. Normacephalic - Eyes No abnormalities - ENMT No abnormalities - Neck No abnormalities - CVS RRR - Chest No abnormalities - Resp Clear to auscultation - Abd + bowel sounds - GI Soft No abnormalities - No abnormalities - Ext Mild bilateral lower extremity edema. - MSK 4/5 weakness in both lower extremities. - Neuro No focal deficits ASSESSMENT: Pt. is a 86 yo Right-handed female.On 11/14/2021 she was admitted to Acute care hospital with diagnos is DKA, WEAKNESS with mild confusion and sundowning.Her impairment category is Debility 16 - Debilit y (16).Pre-morbidly, Pt. was independent/mod-I in Locomotion, Safety Awareness, Social Cognition, and Balance; and she had good Transfers Control, Sphincter Control, Self-Care, and Communication.Current ly, she has deficits of Locomotion, Safety Awareness, Social Cognition, Balance, Transfers Control, S phincter Control, Self-Care, Communication, and Endurance.Pt. is now referred to [facility] for acute in-patient rehabilitation in order to maximize patient's functional independe nce in activities of daily living, strength, ROM, and mobility.- Rehab Goal Patient has realistic goal of being discharged at assistance level 7-Ind to reside at Home with Fami ly/Relatives. She is mildly confused on arrival to the unit, consistent with sundowning. My had Ativan 0.5 mg as ne eded.MDM/PLAN: - Physical Therapy Weakness - to improve, our physical therapists will perform initial evaluation of pt's status upon a dmission and devise an individualized program for Aquatic Therapy, Neuromuscular Reeducation, and Str engthening Poor balance - to improve, our physical therapists will perform initial evaluation of pt's status up on admission and devise an individualized program for Balance Training Inability to transfer - to improve, our physical therapists will perform initial evaluation of pt's status upon admission and devise an individualized program for Bed mobility Need in caregiver upon discharge - to improve, our physical therapists will perform initial evaluati on of pt's status upon admission and devise an individualized program for Caregiver Training Poor endurance - to improve, our physical therapists will perform initial evaluation of pt's status upon admission and devise an individualized program for Endurance Training Gait dysfunction - to improve, our physical therapists will perform initial evaluation of pt's statu s upon admission and devise an individualized program for Gait Training, and Wheel Chair mobility Need for home safety evaluation - to improve, our physical therapists will perform initial evaluatio n of pt's status upon admission and devise an individualized program for Home Evaluation New precaution - to improve, our physical therapists will perform initial evaluation of pt's status upon admission and devise an individualized program for Patient precaution education Edema - to improve, our physical therapists will perform initial evaluation of pt's status upon admi ssion and devise an individualized program for Elevation Training, and Lymphedema Therapy - Occupational Therapy Weakness - to improve, our occupation therapists will perform initial evaluation of pt's status upon admission and devise an individualized program for Aquatic Therapy, Balance, Endurance, UE ROM, and UE strengthening ADL deficits - to improve, our occupation therapists will perform initial evaluation of pt's status upon admission and devise an individualized program for Bathing, Bed mobility, Community Reintegratio n, Cooking, Dressing, Eating, Fine Motor Skills, Grooming, Homemaking, Kitchen Mobility, Laundry, Pat ient Education, Safety Awareness, Splinting - Positioning, Transfers(Toilet, Tub, Shower), and Wheel Chair Management 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 - to improve, our occupation therapists will perform initial evaluation of pt's status upon admission and devise an individualized program for Caregiver Training Cognitive deficits - to improve, our occupation therapists will perform initial evaluation of pt's s tatus upon admission and devise an individualized program for Cognition - orientation - Other See attached MAR (Medication Administration Record) - Diet Type Continue Regular - Diet - Liquid Texture Continue Regular - Tube Feed Continue N/A - Diet - Solid Texture Continue Regular - Shower allowing shower - Balance for Weakness - Bed mobility for ADL deficits FUNCTIONAL STATUS: UPDATED AT WEEKLY TEAM CONFERENCE - Bladder Same accident frequency: 7-Ind - No accidents in the past 7 days - Bowel Same accident frequency: 7-Ind - No accidents in the past 7 days - Walking Same score based on distance walked: 0(N/A) - Wheelchair Same score based on distance traveled: 0(N/A) FUNCTIONAL STATUS: - Self-Care A. Eating Ind B. Grooming sup C. Bathing Aarti D. Dressing - Upper sup E. Dressing - Lower Aarti F. Toileting Ni - Sphincter Control G. Bladder control Ind H. Bowel control Ni - Transfers Control I. Bed/Chair/Wheelchair Aarti J. Toilet Aarti K. Tub/Shower modA - Locomotion L. Walk/Wheelchair (B) Aarti M. Stairs modA - Communication N. Comprehension (B) Ind O. Expression (B) sup - Social Cognition P. Social Interaction Ind Q. Problem Solving sup R. Memory sup - Endurance Fair - Balance Good - Safety Awareness Fair QI SCORES: - Self-Care A. Eating 04-Supervision or touching assistance B. Oral hygiene 03-Partial/moderate assistance C. Toileting hygiene 03-Partial/moderate assistance E. Shower/bathe self 03-Partial/moderate assistance F. Upper body dressing 03-Partial/moderate assistance G. Lower body dressing 03-Partial/moderate assistance H. Putting on/taking off footwear 88-Not attempted due to medical condition or safety concerns - Mobility A. Roll left and right 03-Partial/moderate assistance B. Sit to lying 03-Partial/moderate assistance C. Lying to sitting on side of bed 03-Partial/moderate assistance D. Sit to stand 03-Partial/moderate assistance E. Chair/pjk-nl-xsoum transfer 03-Partial/moderate assistance F. Toilet transfer 03-Partial/moderate assistance G. Car transfer 88-Not attempted due to medical condition or safety concerns I. Walk 10 feet 03-Partial/moderate assistance J. Walk 50 feet with two turns 88-Not attempted due to medical condition or safety concerns K. Walk 150 feet 88-Not attempted due to medical condition or safety concerns L. Walking 10 feet on uneven surfaces 88-Not attempted due to medical condition or safety concerns M. 1 step (curb) 88-Not attempted due to medical condition or safety concerns N. 4 steps 88-Not attempted due to medical condition or safety concerns O. 12 steps 88-Not attempted due to medical condition or safety concerns P. Picking up object 88-Not attempted due to medical condition or safety concerns R. Wheel 50 feet with two turns S. Wheel 150 feet 88-Not attempted due to medical condition or safety concerns - Bladder and Bowel Bladder continence Bowel continence - Endurance Fair - Balance Fair - Safety Awareness Fair CURRENT [facility]. 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
[2021-11-20] MEDS: ATORVASTATIN 10 MG TAB PO SCH (20:03)
[2021-11-21 04:45] LABS: Absolute Lymphocytes (CBC) 3.5 K/uL (0.7-4.9); Hematocrit 38.1 % (36.0-45.0); Lymphocytes % 33.8 % (15.3-44.8); MPV 7.2 fL (7.6-11.3); RBC Red Blood Cell Count 4.19 M/uL (3.86-4.86)
[2021-11-21] MEDS: CRANBERRY FRUIT EXTRACT 400 MG CAP PO SCH ×2 (08:16→19:28)
[2021-11-21] MEDS: VENLAFAXINE HCL XR 75 MG CAP PO SCH (08:16)
[2021-11-21] MEDS: INSULIN LISPRO 100 UNIT/1 ML SQ SCH ×3 (08:17→17:02)
[2021-11-21] MEDS: INSULIN -REGULAR HUMAN 50 UNIT/0.5 ML ML SQ SCH ×4 (08:17→20:08)
[2021-11-21] MEDS: HUMALOG MIX 75/25 100 UNITS/ML SQ SCH ×2 (08:18→17:00)
--- NOTE | 2021-11-21 11:50 | PN ---
Date of Progress Note: 11/21/2021 Subjective: The patient was admitted with deconditioning, acute kidney injury. Kidney function has been normalized. Physical Examination: Vital Signs: Blood pressure 131/74, pulse of 65, afebrile. Chest: Clear to auscultation. Heart: S1, S2. Regular. Abdomen: Soft, nontender. Extremity: No edema. Neurologic: Alert. No focality. Laboratory Data: Sodium 142, potassium 3.7, bicarb 30, BUN 15, creatinine 0.7, calcium 8.7, phosphor us 2.7, albumin 2.2. H and H 13.1/38.1. Current Medications: The patient on include atorvastatin, Xarelto, Zofran, simethicone, insulin, nena atonin, tramadol. Assessment And Plan: 1.Acute kidney injury secondary to prerenal, recovered, resolved. 2.Bladder mass with history of bladder cancer. We will follow up with Urology. 3.Orthostatic hypotension, resolved. 4.Diabetes, stable. TOM/MERLE Voice ID: [id number] Report ID: [id number]
[2021-11-21] MEDS ORDERED: BENZONATATE 100 MG CAP PO PRN (13:35)
[2021-11-21] MEDS ORDERED: GUAIFENESIN/DM 5 ML UCUP PO PRN (13:36)
--- NOTE | 2021-11-21 14:30 | RAD REPORT ---
EXAM DESCRIPTION: RAD - Chest Single View - 11/21/2021 2:24 pm CLINICAL HISTORY: Comparison from the chest xray done on 11/14/21 Chest pain. COMPARISON: Chest Single View dated 11/14/2021; Chest Single View dated 06/05/2017; Chest Pa And Lat (2 Views) dated 02/20/2017; CHEST SINGLE VIEW dated 11/03/2015 FINDINGS: Portable technique limits examination quality. The lungs are mildly emphysematous but grossly clear. The heart is normal in size. No displaced fract ures. IMPRESSION: Mild COPD.
[2021-11-21] MEDS: RIVAROXABAN 20 MG TABLET PO SCH (17:01)
--- NOTE | 2021-11-21 19:24 | R.PN ---
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 SUBJECTIVE: Pt denied any depression. Pt denied any Shortness of Breath. CBC with differential is normal. Glucose 209 to 291. Added Humalog 6 units TID with meals. prelabumin 12.8. Covid-19 testing is negative. UA is 3+ esterase, bacteria > 50, 3+ esterase. Ambulated 500' with modified independence using a rolling walker. Up and down 15 steps using bilatera l handrails and modified independence. Short term memory tasks done with 85% accuracy. Chest x-ray today shows mild COPD. VITAL SIGNS Temperature: 97.4 F SBP/DBP: 90 to 131/52 to 74 Pulse: 65 to 101 Resp: 15 MEDICATION ALLERGIES: AMOXICILLIN CODEINE Iodine sulfamethoxazole trimethoprim alatroflozacin pseudoephedrine triprolidine trovafloxacin adhesive tape pentazocine lactate ENVIRONMENTAL ALLERGIES: - Substance Allergies None Known - Other Allergies None Known NURSING: - Shower allowing shower ACTIVITIES OOB only with supervision THERAPIES: - Dietary and Nutrition Adequate Nutrition. Nutritional Education. Evaluate and Treat. Nutritional Supplements. - Occupational Therapy Cognitive Retraining. Visual Perceptual Training. Evaluate and Treat. ADL Training. Safety Awareness. Patient/Family Education. Transfer Training. - Speech Therapy Cognitive Training. Expressive Language Skills. Memory Strategies. Receptive Language Skills. Speech Intelligibility Training. Evaluate and Treat. - Physical Therapy Mobility Training. Evaluate and Treat. LE Strengthening. Safety Awareness. Gait Training. Transfer Tr aining. Balance Training. Patient/Family Education. PHYSICAL EXAM - Gen Alert and awake Lying in bed No apparent distress Oriented to: person, time, and place - Skin No skin breakdown. Normacephalic - Eyes No abnormalities - ENMT No abnormalities - Neck No abnormalities - CVS RRR - Chest No abnormalities - Resp Clear to auscultation - Abd + bowel sounds - GI Soft No abnormalities - No abnormalities - Ext Mild bilateral lower extremity edema. - MSK 4/5 weakness in both lower extremities. - Neuro No focal deficits ASSESSMENT: Pt. is a 86 yo Right-handed female.On 11/14/2021 she was admitted to [facility] with diagnos is DKA, WEAKNESS with mild confusion and sundowning.Her impairment category is Debility 16 - Debilit y (16).Pre-morbidly, Pt. was independent/mod-I in Locomotion, Safety Awareness, Social Cognition, and Balance; and she had good Transfers Control, Sphincter Control, Self-Care, and Communication.Current ly, she has deficits of Locomotion, Safety Awareness, Social Cognition, Balance, Transfers Control, S phincter Control, Self-Care, Communication, and Endurance.Pt. is now referred to [facility] for acute in-patient rehabilitation in order to maximize patient's functional independe nce in activities of daily living, strength, ROM, and mobility.- Rehab Goal Patient has realistic goal of being discharged at assistance level 7-Ind to reside at Home with Fami ly/Relatives. She is mildly confused on arrival to the unit, consistent with sundowning. My had Ativan 0.5 mg as ne eded.MDM/PLAN: - Physical Therapy Weakness - to improve, our physical therapists will perform initial evaluation of pt's status upon a dmission and devise an individualized program for Aquatic Therapy, Neuromuscular Reeducation, and Str engthening Poor balance - to improve, our physical therapists will perform initial evaluation of pt's status up on admission and devise an individualized program for Balance Training Inability to transfer - to improve, our physical therapists will perform initial evaluation of pt's status upon admission and devise an individualized program for Bed mobility Need in caregiver upon discharge - to improve, our physical therapists will perform initial evaluati on of pt's status upon admission and devise an individualized program for Caregiver Training Poor endurance - to improve, our physical therapists will perform initial evaluation of pt's status upon admission and devise an individualized program for Endurance Training Gait dysfunction - to improve, our physical therapists will perform initial evaluation of pt's statu s upon admission and devise an individualized program for Gait Training, and Wheel Chair mobility Need for home safety evaluation - to improve, our physical therapists will perform initial evaluatio n of pt's status upon admission and devise an individualized program for Home Evaluation New precaution - to improve, our physical therapists will perform initial evaluation of pt's status upon admission and devise an individualized program for Patient precaution education Edema - to improve, our physical therapists will perform initial evaluation of pt's status upon admi ssion and devise an individualized program for Elevation Training, and Lymphedema Therapy - Occupational Therapy Weakness - to improve, our occupation therapists will perform initial evaluation of pt's status upon admission and devise an individualized program for Aquatic Therapy, Balance, Endurance, UE ROM, and UE strengthening ADL deficits - to improve, our occupation therapists will perform initial evaluation of pt's status upon admission and devise an individualized program for Bathing, Bed mobility, Community Reintegratio n, Cooking, Dressing, Eating, Fine Motor Skills, Grooming, Homemaking, Kitchen Mobility, Laundry, Pat ient Education, Safety Awareness, Splinting - Positioning, Transfers(Toilet, Tub, Shower), and Wheel Chair Management Need for customer care specialist - to improve, our occupation therapists will perform initial evaluation of pt's status upon admission and devise an individualized program for Caregiver Training Cognitive deficits - to improve, our occupation therapists will perform initial evaluation of pt's s tatus upon admission and devise an individualized program for Cognition - orientation - Other See attached MAR (Medication Administration Record) - Diet Type Continue Regular - Diet - Liquid Texture Continue Regular - Tube Feed Continue N/A - Diet - Solid Texture Continue Regular - Shower allowing shower - Balance for Weakness - Bed mobility for ADL deficits FUNCTIONAL STATUS: UPDATED AT WEEKLY TEAM CONFERENCE - Bladder Same accident frequency: 7-Ind - No accidents in the past 7 days - Bowel Same accident frequency: 7-Ind - No accidents in the past 7 days - Walking Same score based on distance walked: 0(N/A) - Wheelchair Same score based on distance traveled: 0(N/A) FUNCTIONAL STATUS: - Self-Care A. Eating Ind B. Grooming sup C. Bathing Aarti D. Dressing - Upper sup E. Dressing - Lower Aarti F. Toileting Ni - Sphincter Control G. Bladder control Ind H. Bowel control Ni - Transfers Control I. Bed/Chair/Wheelchair Aarti J. Toilet Aarti K. Tub/Shower modA - Locomotion L. Walk/Wheelchair (B) Aarti M. Stairs modA - Communication N. Comprehension (B) Ind O. Expression (B) sup - Social Cognition P. Social Interaction Ind Q. Problem Solving sup R. Memory sup - Endurance Fair - Balance Good - Safety Awareness Fair QI SCORES: - Self-Care A. Eating 04-Supervision or touching assistance B. Oral hygiene 03-Partial/moderate assistance C. Toileting hygiene 03-Partial/moderate assistance E. Shower/bathe self 03-Partial/moderate assistance F. Upper body dressing 03-Partial/moderate assistance G. Lower body dressing 03-Partial/moderate assistance H. Putting on/taking off footwear 88-Not attempted due to medical condition or safety concerns - Mobility A. Roll left and right 03-Partial/moderate assistance B. Sit to lying 03-Partial/moderate assistance C. Lying to sitting on side of bed 03-Partial/moderate assistance D. Sit to stand 03-Partial/moderate assistance E. Chair/[id number]-hr-[id number] transfer 03-Partial/moderate assistance F. Toilet transfer 03-Partial/moderate assistance G. Car transfer 88-Not attempted due to medical condition or safety concerns I. Walk 10 feet 03-Partial/moderate assistance J. Walk 50 feet with two turns 88-Not attempted due to medical condition or safety concerns K. Walk 150 feet 88-Not attempted due to medical condition or safety concerns L. Walking 10 feet on uneven surfaces 88-Not attempted due to medical condition or safety concerns M. 1 step (curb) 88-Not attempted due to medical condition or safety concerns N. 4 steps 88-Not attempted due to medical condition or safety concerns O. 12 steps 88-Not attempted due to medical condition or safety concerns P. Picking up object 88-Not attempted due to medical condition or safety concerns R. Wheel 50 feet with two turns S. Wheel 150 feet 88-Not attempted due to medical condition or safety concerns - Bladder and Bowel Bladder continence Bowel continence - Endurance Fair - Balance Fair - Safety Awareness Fair [facility]IC[facility]: Self-Care, Mobility, Endurance, Balance, and Safety Awareness SIGNATURE PANEL: (ANESTHESIOLOGIST ASSISTANT CERTIFIED)
[2021-11-21] MEDS: ATORVASTATIN 10 MG TAB PO SCH (19:28)
[2021-11-21 22:44] LABS: Albumin, (SPE) 2.9 g/dL (3.8-4.8); Alpha-1-Globulins 0.3 g/dL (0.2-0.3); Alpha-2-Globulins 0.9 g/dL (0.5-0.9); Gamma Globulins 0.8 g/dL (0.8-1.7); INTERPRETATION REPORT
[2021-11-22 06:50] LABS: Hematocrit 39.4 % (36.0-45.0); Lymphocytes % 39.2 % (15.3-44.8); MPV 7.3 fL (7.6-11.3); RBC Red Blood Cell Count 4.19 M/uL (3.86-4.86)
[2021-11-22 07:10] LABS: Albumin 2.4 g/dL (3.4-5.0); Magnesium 2.1 mg/dL (1.8-2.4); Phosphorus 2.9 mg/dL (2.5-4.9); Potassium 3.9 mmol/L (3.5-5.1); Prealbumin 12.8 mg/dL (20-40)
[2021-11-22] MEDS: INSULIN -REGULAR HUMAN 50 UNIT/0.5 ML ML SQ SCH ×4 (07:59→18:59)
[2021-11-22] MEDS: HUMALOG MIX 75/25 100 UNITS/ML SQ SCH ×2 (08:00→17:11)
[2021-11-22] MEDS: INSULIN LISPRO 100 UNIT/1 ML SQ SCH ×3 (08:01→17:07)
[2021-11-22] MEDS: CRANBERRY FRUIT EXTRACT 400 MG CAP PO SCH ×2 (08:18→18:59)
[2021-11-22] MEDS: VENLAFAXINE HCL XR 75 MG CAP PO SCH (08:18)
[2021-11-22] MEDS: RIVAROXABAN 20 MG TABLET PO SCH (17:07)
--- NOTE | 2021-11-22 18:04 | R.PN ---
PROGRESS NOTES ENCOUNTER DATE AND TIME: 11/22/2021 17:57 (PRESS SHOP SUPERVISOR) NAME JOJO PLATT DATE OF : 1935 DATE OF ADMISSION: 11/16/2021 18:10 (PRESS SHOP SUPERVISOR) DKA, WEAKNESS with mild confusion and sundowningCHIEF COMPLAINT: DKA, debility and mild confusion. SUBJECTIVE: Pt denied any depression. Pt denied any Shortness of Breath. CBC with differential is essential normal. Glucose 126 to 340. Added Humalog 6 units TID with meals. prelabumin 12.8. Covid-19 testing is negative. UA is 3+ esterase, bacteria > 50, 3+ esterase. Ambulated 1000' with modified independence using a rolling walker. Up and down 20 steps using bilater al handrails and modified independence. Short term memory tasks done with 75% accuracy. Chest x-ray today shows mild COPD. VITAL SIGNS Temperature: 97.0 F SBP/DBP: 98 to 141/56 to 63 Pulse: 72 to 111 Resp: 15 MEDICATION ALLERGIES: AMOXICILLIN CODEINE Iodine sulfamethoxazole trimethoprim alatroflozacin pseudoephedrine triprolidine trovafloxacin adhesive tape pentazocine lactate ENVIRONMENTAL ALLERGIES: - Substance Allergies None Known - Other Allergies None Known NURSING: - Shower allowing shower ACTIVITIES OOB only with supervision THERAPIES: - Dietary and Nutrition Adequate Nutrition. Nutritional Education. Evaluate and Treat. Nutritional Supplements. - Occupational Therapy Cognitive Retraining. Visual Perceptual Training. Evaluate and Treat. ADL Training. Safety Awareness. Patient/Family Education. Transfer Training. - Speech Therapy Cognitive Training. Expressive Language Skills. Memory Strategies. Receptive Language Skills. Speech Intelligibility Training. Evaluate and Treat. - Physical Therapy Mobility Training. Evaluate and Treat. LE Strengthening. Safety Awareness. Gait Training. Transfer Tr aining. Balance Training. Patient/Family Education. PHYSICAL EXAM - Gen Alert and awake Lying in bed No apparent distress Oriented to: person, time, and place - Skin No skin breakdown. Normacephalic - Eyes No abnormalities - ENMT No abnormalities - Neck No abnormalities - CVS RRR - Chest No abnormalities - Resp Clear to auscultation - Abd + bowel sounds - GI Soft No abnormalities - No abnormalities - Ext Mild bilateral lower extremity edema. - MSK 4/5 weakness in both lower extremities. - Neuro No focal deficits ASSESSMENT: Pt. is a 86 yo Right-handed female.On 11/14/2021 she was admitted to [facility] with diagnos is DKA, WEAKNESS with mild confusion and sundowning.Her impairment category is Debility 16 - Debilit y (16).Pre-morbidly, Pt. was independent/mod-I in Locomotion, Safety Awareness, Social Cognition, and Balance; and she had good Transfers Control, Sphincter Control, Self-Care, and Communication.Current ly, she has deficits of Locomotion, Safety Awareness, Social Cognition, Balance, Transfers Control, S phincter Control, Self-Care, Communication, and Endurance.Pt. is now referred to [facility] for acute in-patient rehabilitation in order to maximize patient's functional independe nce in activities of daily living, strength, ROM, and mobility.- Rehab Goal Patient has realistic goal of being discharged at assistance level 7-Ind to reside at Home with Fami ly/Relatives. She is mildly confused on arrival to the unit, consistent with sundowning. My had Ativan 0.5 mg as ne eded.MDM/PLAN: - Physical Therapy Weakness - to improve, our physical therapists will perform initial evaluation of pt's status upon a dmission and devise an individualized program for Aquatic Therapy, Neuromuscular Reeducation, and Str engthening Poor balance - to improve, our physical therapists will perform initial evaluation of pt's status up on admission and devise an individualized program for Balance Training Inability to transfer - to improve, our physical therapists will perform initial evaluation of pt's status upon admission and devise an individualized program for Bed mobility Need in caregiver upon discharge - to improve, our physical therapists will perform initial evaluati on of pt's status upon admission and devise an individualized program for Caregiver Training Poor endurance - to improve, our physical therapists will perform initial evaluation of pt's status upon admission and devise an individualized program for Endurance Training Gait dysfunction - to improve, our physical therapists will perform initial evaluation of pt's statu s upon admission and devise an individualized program for Gait Training, and Wheel Chair mobility Need for home safety evaluation - to improve, our physical therapists will perform initial evaluatio n of pt's status upon admission and devise an individualized program for Home Evaluation New precaution - to improve, our physical therapists will perform initial evaluation of pt's status upon admission and devise an individualized program for Patient precaution education Edema - to improve, our physical therapists will perform initial evaluation of pt's status upon admi ssion and devise an individualized program for Elevation Training, and Lymphedema Therapy - Occupational Therapy Weakness - to improve, our occupation therapists will perform initial evaluation of pt's status upon admission and devise an individualized program for Aquatic Therapy, Balance, Endurance, UE ROM, and UE strengthening ADL deficits - to improve, our occupation therapists will perform initial evaluation of pt's status upon admission and devise an individualized program for Bathing, Bed mobility, Community Reintegratio n, Cooking, Dressing, Eating, Fine Motor Skills, Grooming, Homemaking, Kitchen Mobility, Laundry, Pat ient Education, Safety Awareness, Splinting - Positioning, Transfers(Toilet, Tub, Shower), and Wheel Chair Management Need for career resource specialist - to improve, our occupation therapists will perform initial evaluation of pt's status upon admission and devise an individualized program for Caregiver Training Cognitive deficits - to improve, our occupation therapists will perform initial evaluation of pt's s tatus upon admission and devise an individualized program for Cognition - orientation - Other See attached MAR (Medication Administration Record) - Diet Type Continue Regular - Diet - Liquid Texture Continue Regular - Tube Feed Continue N/A - Diet - Solid Texture Continue Regular - Shower allowing shower - Balance for Weakness - Bed mobility for ADL deficits FUNCTIONAL STATUS: UPDATED AT WEEKLY TEAM CONFERENCE - Bladder Same accident frequency: 7-Ind - No accidents in the past 7 days - Bowel Same accident frequency: 7-Ind - No accidents in the past 7 days - Walking Same score based on distance walked: 0(N/A) - Wheelchair Same score based on distance traveled: 0(N/A) FUNCTIONAL STATUS: - Self-Care A. Eating Ind B. Grooming sup C. Bathing Aarti D. Dressing - Upper sup E. Dressing - Lower Aarti F. Toileting Ni - Sphincter Control G. Bladder control Ind H. Bowel control Ni - Transfers Control I. Bed/Chair/Wheelchair Aarti J. Toilet Aarti K. Tub/Shower modA - Locomotion L. Walk/Wheelchair (B) Aarti M. Stairs modA - Communication N. Comprehension (B) Ind O. Expression (B) sup - Social Cognition P. Social Interaction Ind Q. Problem Solving sup R. Memory sup - Endurance Fair - Balance Good - Safety Awareness Fair QI SCORES: - Self-Care A. Eating 04-Supervision or touching assistance B. Oral hygiene 03-Partial/moderate assistance C. Toileting hygiene 03-Partial/moderate assistance E. Shower/bathe self 03-Partial/moderate assistance F. Upper body dressing 03-Partial/moderate assistance G. Lower body dressing 03-Partial/moderate assistance H. Putting on/taking off footwear 88-Not attempted due to medical condition or safety concerns - Mobility A. Roll left and right 03-Partial/moderate assistance B. Sit to lying 03-Partial/moderate assistance C. Lying to sitting on side of bed 03-Partial/moderate assistance D. Sit to stand 03-Partial/moderate assistance E. Chair/[id number]-[id number] transfer 03-Partial/moderate assistance F. Toilet transfer 03-Partial/moderate assistance G. Car transfer 88-Not attempted due to medical condition or safety concerns I. Walk 10 feet 03-Partial/moderate assistance J. Walk 50 feet with two turns 88-Not attempted due to medical condition or safety concerns K. Walk 150 feet 88-Not attempted due to medical condition or safety concerns L. Walking 10 feet on uneven surfaces 88-Not attempted due to medical condition or safety concerns M. 1 step (curb) 88-Not attempted due to medical condition or safety concerns N. 4 steps 88-Not attempted due to medical condition or safety concerns O. 12 steps 88-Not attempted due to medical condition or safety concerns P. Picking up object 88-Not attempted due to medical condition or safety concerns R. Wheel 50 feet with two turns S. Wheel 150 feet 88-Not attempted due to medical condition or safety concerns - Bladder and Bowel Bladder continence Bowel continence - Endurance Fair - Balance Fair - Safety Awareness Fair [facility] DEFICITS: Self-Care, Mobility, Endurance, Balance, and Safety Awareness SIGNATURE PANEL: (PRESS [employer] SUPERVISOR)
[2021-11-22] MEDS: ATORVASTATIN 10 MG TAB PO SCH (18:59)
--- NOTE | 2021-11-23 06:15 | P.PN ---
Subjective Date of Service: 11/24/21 Subjective: Other (no new complaints.) Physical Examination - Vital Signs Temperature: 97.6 F Blood Pressure: 120/62 Pulse: 85 Respirations: 18 Pulse Ox (%): 98 - Physical Exam General: Alert, In no apparent distress HEENT: Atraumatic, Normocephalic Neck: Supple, JVD not distended Respiratory: Other (Symmetric chest expansion) Cardiovascular: No rubs, No murmurs Gastrointestinal: Soft and benign, No guarding Musculoskeletal: No clubbing Integumentary: No warmth Neurological: Normal speech, Normal tone Urinary: Other (nno bladder distention) External genitalia: Deferred Rectal: Deferred - Studies Laboratory Data (last 24 hrs) 11/22/21 06:13: Sodium 139, Potassium 3.9, BUN 15, Creatinine 0.96, Glucose 340 H, Phosphorus 2.9, Magnesium 2.1 11/22/21 06:13: WBC 7.50 D, Hgb 13.1, Hct 39.4, Plt Count 374 Assessment And Plan - Plan # 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 F/u w/ Urology as outpt. Baseline SCr 0.8-1.0 (equiv eGFR 53-73 ml/min) as of Sep 2020 Monitor renal panel # Orthostatic hypotension 2/2 hypovolemia Resolved, monitor # DM1 c/b DKA DKA resolved Insulin dosing per primary team # Parker Parada # Dispo For dc to home on 11/25
[2021-11-23] MEDS: CRANBERRY FRUIT EXTRACT 400 MG CAP PO SCH ×2 (08:43→20:15)
[2021-11-23] MEDS: VENLAFAXINE HCL XR 75 MG CAP PO SCH (08:43)
[2021-11-23] MEDS: INSULIN LISPRO 100 UNIT/1 ML SQ SCH ×3 (08:44→18:27)
[2021-11-23] MEDS: INSULIN -REGULAR HUMAN 50 UNIT/0.5 ML ML SQ SCH ×4 (08:46→20:26)
[2021-11-23] MEDS: HUMALOG MIX 75/25 100 UNITS/ML SQ SCH ×2 (08:48→18:28)
--- NOTE | 2021-11-23 09:46 | P.RH.PN ---
Estimated Length of Stay: 9 Expected Discharge Date: 11/25/21 Discharge Disposition Plan: Home Family Support: Yes Shampoo Assistant Goal: Mobility, Transfers, Self Care Vital Signs: Last Vital Signs Temp 97.6 F 11/23/21 07:39 Pulse 76 11/23/21 07:39 Resp 16 11/23/21 07:39 BP 115/58 L 11/23/21 07:39 Pulse Ox 93 11/23/21 07:39 Laboratory: Laboratory Last Values WBC 7.50 K/uL (4.3-10.9) D 11/22/21 06:13 RBC 4.19 M/uL (3.86-4.86) 11/22/21 06:13 Hgb 13.1 g/dL (12.0-15.0) 11/22/21 06:13 Hct 39.4 % (36.0-45.0) 11/22/21 06:13 MCV 93.9 fL (80-100) D 11/22/21 06:13 MCH 31.3 pg (27.0-35.0) 11/22/21 06:13 MCHC 33.4 g/dL (32.0-36.0) 11/22/21 06:13 RDW 14.4 % (12.1-15.2) 11/22/21 06:13 Plt Count 374 K/uL (152-406) 11/22/21 06:13 MPV 7.3 fL (7.6-11.3) L 11/22/21 06:13 Neutrophils % 42.5 % (41.7-73.7) 11/22/21 06:13 Lymphocytes % 39.2 % (15.3-44.8) 11/22/21 06:13 Monocytes % 14.7 % (3.3-12.3) H 11/22/21 06:13 Eosinophils % 3.0 % (0-4.4) 11/22/21 06:13 Basophils % 0.6 % (0-1.3) 11/22/21 06:13 Absolute Neutrophils 3.2 K/uL (1.8-8.0) 11/22/21 06:13 Absolute Lymphocytes 3.0 K/uL (0.7-4.9) 11/22/21 06:13 Absolute Monocytes 1.1 K/uL (0.1-1.3) 11/22/21 06:13 Absolute Eosinophils 0.2 K/uL (0-0.5) 11/22/21 06:13 Absolute Basophils 0.0 K/uL (0-0.5) 11/22/21 06:13 Sodium 139 mmol/L (136-145) 11/22/21 06:13 Potassium 3.9 mmol/L (3.5-5.1) 11/22/21 06:13 Chloride 105 mmol/L (98-107) 11/22/21 06:13 Carbon Dioxide 32 mmol/L (21-32) 11/22/21 06:13 BUN 15 mg/dL (7-18) 11/22/21 06:13 Creatinine 0.96 mg/dL (0.55-1.3) 11/22/21 06:13 Estimated GFR 55 mL/min (=/>90) L 11/22/21 06:13 Glucose 340 mg/dL (74-106) H 11/22/21 06:13 POC Glucose 336 mg/dL (65-120) H 11/23/21 07:26 Calcium 8.9 mg/dL (8.5-10.1) 11/22/21 06:13 Phosphorus 2.9 mg/dL (2.5-4.9) 11/22/21 06:13 Magnesium 2.1 mg/dL (1.8-2.4) 11/22/21 06:13 Total Protein 5.6 g/dL (6.1-8.1) L 11/18/21 03:17 Albumin 2.4 g/dL (3.4-5.0) L 11/22/21 06:13 Prealbumin 12.8 mg/dL (20-40) L 11/22/21 06:13 Lmmgz-8-Tuwhqpzaa 0.3 g/dL (0.2-0.3) 11/18/21 03:17 Rajqv-2-Zvjtggcky 0.9 g/dL (0.5-0.9) 11/18/21 03:17 Gamma Globulins 0.8 g/dL (0.8-1.7) 11/18/21 03:17 M-Blaise Report 11/18/21 03:17 M-Blaise 2 KEY FILER 11/18/21 03:17 Abnorm Protein Band 3 KEY FILER 11/18/21 03:17 PEP Interpretation Report H 11/18/21 03:17 Urine Color Yellow (Yellow) 11/16/21 19:30 Urine Appearance Turbid (Clear) 11/16/21 19: Urine pH 6.0 (5.0-7.0) 11/16/21 19:30 Ur Specific [place] 1.015 (1.005-1.030) 11/16/21 19:30 Glucose (UA)(Auto) Trace (Negative) 11/16/21 19: Urine Ketones Negative (Negative) 11/16/21 19: Urine Blood 2+ (Negative) H 11/16/21 19: Urine Nitrite Negative (Negative) 11/16/21: Urine Bilirubin Negative (Negative) 11/16/21: Urine Urobilinogen 1.0 mg/dL (0.2-1.0) 11/16/21 19:30 Ur Leukocyte Esterase 3+ (Negative) H 11/16/21 19:30 Urine RBC Tntc /HPF (NONE SEEN) H 11/16/21 19:30 Urine WBC Tntc /HPF (<5) H 11/16/21 19:30 Ur Squamous Epith Cells 5-10 /HPF (NONE SEEN) H 11/16/21 19:30 Urine Bacteria >50 /HPF (<20) H 11/16/21 19:30 Urine Mucus 2+ /HPF (NONE SEEN) 11/16/21 19:30 Urine Culture Reflexed Not needed 11/16/21 19:30 Urine Total Protein 1+ (Negative) H 11/16/21 19:30 SARS-CoV-2 Rap RNA(RT-PCR) Cancelled 11/23/21 06:15 SARS-CoV-2 Rap RNA(RT-PCR) Negative (NEGATIVE) 11/23/21 06:15 Weight: 142 lb 11.2 oz Wound Present: No Closed Surgical Incision Present: No Negative Pressure Wound Therapy Present: No Physician Update: Labs reviewed and are stable. She is independent with trans fers and up and down 20 steps with independence. She will be discharged home on friday. Functional Improvement: Patient presents with excellent motivation towards therapy and always strives to push herself further than the pervious day. Patient has met all short/ intermediate goals with the exception of car transfers. Summary: Patient's care plan and intermediate goals have been reviewed and revised as necessary. Please see the Rehabilitation Signature page for all necessary signatures.
[2021-11-23] MEDS: RIVAROXABAN 20 MG TABLET PO SCH (17:07)
[2021-11-23] MEDS: ATORVASTATIN 10 MG TAB PO SCH (20:15)
[2021-11-23] MEDS: MELATONIN 3 MG TABLET PO PRN (20:15)
[2021-11-23] MEDS: DOCUSATE NA/SENNA CONC 1 TAB PO PRN (20:16)
[2021-11-24 06:14] LABS: MPV 6.9 fL (7.6-11.3); RBC Red Blood Cell Count 4.07 M/uL (3.86-4.86)
[2021-11-24 06:21] LABS: Albumin 2.3 g/dL (3.4-5.0); Magnesium 2.2 mg/dL (1.8-2.4); Phosphorus 3.9 mg/dL (2.5-4.9)
[2021-11-24 07:08] LABS: Blood Morphology Comment NOT SEEN (NOT SEEN); Platelet Estimate ADEQ; Platelets, Giant FEW; Toxic Granulation 2+
[2021-11-24] MEDS: CRANBERRY FRUIT EXTRACT 400 MG CAP PO SCH ×2 (07:49→18:48)
[2021-11-24] MEDS: VENLAFAXINE HCL XR 75 MG CAP PO SCH (07:49)
[2021-11-24] MEDS: INSULIN LISPRO 100 UNIT/1 ML SQ SCH ×3 (07:50→16:53)
[2021-11-24] MEDS: INSULIN -REGULAR HUMAN 50 UNIT/0.5 ML ML SQ SCH ×4 (07:51→19:59)
[2021-11-24] MEDS: HUMALOG MIX 75/25 100 UNITS/ML SQ SCH ×2 (07:54→16:52)
[2021-11-24] MEDS: RIVAROXABAN 20 MG TABLET PO SCH (16:54)
[2021-11-24] MEDS: ATORVASTATIN 10 MG TAB PO SCH (18:48)
[2021-11-25 07:26] VITALS: BP 138/71; TEMP 98
[2021-11-25] MEDS: HUMALOG MIX 75/25 100 UNITS/ML SQ SCH (08:00)
[2021-11-25] MEDS: CRANBERRY FRUIT EXTRACT 400 MG CAP PO SCH (08:40)
[2021-11-25] MEDS: INSULIN -REGULAR HUMAN 50 UNIT/0.5 ML ML SQ SCH (08:41)
[2021-11-25] MEDS: INSULIN LISPRO 100 UNIT/1 ML SQ SCH (08:41)
[2021-11-25] MEDS: VENLAFAXINE HCL XR 75 MG CAP PO SCH (08:41)
== END 2021-11-25 10:00 | disposition home health service (06) | DRG 948 ==
LOC: 5TH 16:35
PROVIDERS: ADMIT Psychiatry & Neurology Neurology with Special Qualifications in Child Neurology; ATTEND Psychiatry & Neurology Neurology with Special Qualifications in Child Neurology
DX: R53.81 Other malaise (principal); N17.9 Acute kidney failure, unspecified; I12.9 Hypertensive chronic kidney disease with stage 1 through stage 4 chronic kidney disease, or unspecified chronic kidney disease; E10.22 Type 1 diabetes mellitus with diabetic chronic kidney disease; N18.31 Chronic kidney disease, stage 3a; N32.89 Other specified disorders of bladder; I95.1 Orthostatic hypotension; Z85.51 Personal history of malignant neoplasm of bladder; Z20.822 Contact with and (suspected) exposure to COVID-19
CPT/HCPCS: 36415; 71045; 76770; 80048; 80069; 81001; 82040; 82947; 83735; 84100; 84134; 84165; 85025; 87077; 87086; 87088; 87186; 92523; 97110; 97116; 97161; 97165; 97530; 97542; J1815; U0003

== ENCOUNTER 2022-06-05 12:28 | Emergency (ER) | payer OTHER ==
[2022-06-05 13:12] LABS: Urine Blood Trace-intact (Negative); Urine Glucose Negative (Negative); Urine Protein Negative (Negative); Urine Specific Gravity <=1.005 (1.005-1.030); Urine pH 5.5 (5.0-7.0)
[2022-06-05] MEDS ORDERED: NA CHLORIDE 0.9% 500 ML ONE (13:16)
[2022-06-05 13:43] LABS: Absolute Lymphocytes (CBC) 3.2 K/uL (0.7-4.9); Hematocrit 44.4 % (36.0-45.0); Lymphocytes % 30.5 % (15.3-44.8); MCV 89.9 fL (80-100); MPV 7.8 fL (7.6-11.3); RBC Red Blood Cell Count 4.94 M/uL (3.86-4.86)
[2022-06-05 14:00] LABS: Albumin 3.3 g/dL (3.4-5.0); Bilirubin Total 0.5 mg/dL (0.2-1.0); Potassium 4.1 mmol/L (3.5-5.1); Protein, Total 6.9 g/dL (6.4-8.2); Troponin High Sensitivity 14.5 pg/mL (<58.9)
[2022-06-05] MEDS ORDERED: INSULIN -REGULAR HUMAN 50 UNIT/0.5 ML ML ONE (14:42)
[2022-06-05 17:54] LABS: Potassium 3.9 mmol/L (3.5-5.1)
--- NOTE | 2022-06-05 17:55 | RAD REPORT ---
EXAM DESCRIPTION: CT - Head Brain Wo Cont - 06/05/2022 5:43 pm CLINICAL HISTORY: ams Headache, drowsiness COMPARISON: Facial Bones W/ Mpr dated 05/09/2018; Head Brain Wo Cont dated 06/05/2017 TECHNIQUE: All CT scans are performed using dose optimization technique as appropriate and may inclu de automated exposure control or mA/KV adjustment according to patient size. FINDINGS: No intracranial hemorrhage, hydrocephalus or extra-axial fluid collection.Mild periventric ular chronic microvascular ischemic changes are present.No areas of brain edema or evidence of midlin e shift. The paranasal sinuses and mastoids are clear. The calvarium is intact. IMPRESSION: No acute intracranial abnormality.
--- NOTE | 2022-06-05 18:17 | EDPHYS ---
Physician Documentation [facility] Name: Yarelis Payton Age: 86 yrs Sex: Female : 1935 Arrival Date: 06/05/2022 Time: 12:32 Bed 26 Private MD: ED Physician Jaya Beltrán HPI: 06/05 18:15 This 86 yrs old Female presents to ER via EMS with complaints of HYPERGLYCEMIA. jmm 18:15 Onset: The symptoms/episode began/occurred gradually. This is an 86-year-old female jmm with history of atrial fibrillation, bladder cancer, COPD, diabetes mellitus, hypertension that presents emergency department with complaints of increased urinary frequency over the past week. Patient measured her blood glucose earlier today and stated that it was high. Patient also states having hallucination in which she saw 5 dogs in her kitchen. Patient denies vomiting, abdominal pain, chest pain, shortness of breath.. Historical: - Allergies: 12:42 Bactrim; eh3 12:42 Codeine; eh3 12:42 Iodine; eh3 12:42 PENICILLINS; eh3 12:42 Sudafed; eh3 12:42 Talwin; eh3 12:42 trovafloxacin mesylate; eh3 - Home Meds: 12:42 glyburide-metformin 5-500 mg Oral tab 2 tabs 2 times per day [Active]; Humulin 70/30 eh3 100 unit/mL (70-30) Sub-Q susp 25 units twice a day [Active]; Lipitor 10 mg Oral tab 1 tab once daily [Active]; lisinopril 5 mg Oral tab 1 tab once daily [Active]; metoprolol tartrate 50 mg Oral tab 1 tab 2 times per day [Active]; ramipril 2.5 mg Oral cap 1 cap once daily [Active]; Symbicort 80-4.5 mcg/actuation inhalation HFAA 2 puffs daily [Active]; venlafaxine 75 mg Oral tr24 1 tab once daily [Active]; Xarelto 20 mg Oral tab 1 tab once daily [Active]; - PMHx: 12:42 Atrial Fib; Bladder CA; COPD; Diabetes - IDDM; Hypertension; Myocardial infarction; eh3 - PSHx: 12:42 Cholecystectomy; eh3 - Immunization history:: Adult Immunizations up to date. - Social history:: Smoking status: Patient denies any tobacco usage or history of. Patient/guardian denies using alcohol. ROS: 18:15 Constitutional: Negative for fever, chills, and weight loss, Cardiovascular: Negative [facility] for chest pain, palpitations, and edema, Respiratory: Negative for shortness of breath, cough, wheezing, and pleuritic chest pain. 18:15 : Positive for urinary symptoms. 18:15 All other systems are negative. Exam: 18:15 Constitutional: This is a well developed, well nourished patient who is awake, alert, jmm and in no acute distress. Head/Face: atraumatic. Eyes: EOMI, no conjunctival erythema appreciated ENT: Moist Mucus Membranes Neck: Trachea midline, Supple Chest/axilla: Normal chest wall appearance and motion. Cardiovascular: Regular rate and rhythm. No edema appreciated Respiratory: Normal respirations, no respiratory distress appreciated Abdomen/GI: Non distended Back: Normal ROM Skin: General appearance color normal MS/ Extremity: Moves all extremities, no obvious deformities appreciated, no edema noted to the lower extremities Neuro: Awake and alert Psych: Behavior is normal, Mood is normal, Patient is cooperative and pleasant Vital Signs: 12:33 BP 132 / 66; Pulse 92; Resp 18; Pulse Ox 92% on R/A; Weight 64.86 kg; Height 5 ft. 3 eh3 in. (160.02 cm); Pain 0/10; 13:30 BP 133 / 67; Pulse 81; Resp 20; Pulse Ox 93% on R/A; Pain 0/10; eh3 14:30 BP 121 / 84; Pulse 88; Resp 18; Pulse Ox 93% on R/A; Pain 0/10; eh3 15:30 BP 153 / 77; Pulse 95; Resp 20; Pulse Ox 94% on R/A; Pain 0/10; eh3 16:30 BP 135 / 53; Pulse 87; Resp 21; Pulse Ox 94% on R/A; Pain 0/10; eh3 12:33 Body Mass Index 25.33 (64.86 kg, 160.02 cm) eh3 MDM: 12:38 Patient medically screened. [facility] 18:13 Data reviewed: vital signs, nurses notes. Counseling: I had a detailed discussion with [facility] the patient and/or guardian regarding: the historical points, exam findings, and any diagnostic results supporting the discharge/admit diagnosis, lab results, radiology results, the need for outpatient follow up, to return to the emergency department if symptoms worsen or persist or if there are any questions or concerns that arise at home. 06/05 12:34 Order name: CBC with Diff; Complete Time: 14:02 [facility] 06/05 12:34 Order name: CMP; Complete Time: 14:02 [facility] 06/05 12:34 Order name: Lipase; Complete Time: 14:02 [facility] 06/05 12:34 Order name: Troponin High Sensitivity; Complete Time: 14:02 [facility] 06/05 12:44 Order name: Glucose, Ancillary Testing; Complete Time: 12:44 [facility] 06/05 13:12 Order name: Urine Dipstick-Ancillary; Complete Time: 13:12 [facility] 06/05 12:34 Order name: IV Saline Lock; Complete Time: 13:24 [facility] 06/05 12:34 Order name: Labs collected and sent; Complete Time: 13:25 [facility] 06/05 16:25 Order name: BMP; Complete Time: 18:29 [facility] 06/05 16:52 Order name: Glucose, Ancillary Testing; Complete Time: 16:57 [facility] 06/05 16:56 Order name: Head Brain Wo Cont; Complete Time: 18:00 [facility] 06/05 12:34 Order name: Urine Dipstick-Ancillary (obtain specimen); Complete Time: 13:10 [facility] 06/05 17:05 Order name: Labs - recollect needed: recollect green top; Complete Time: 17:33 bd Administered Medications: 13:25 Drug: NS 0.9% 500 ml Route: IV; Rate: bolus; Site: left antecubital; 3 16:10 Follow up: IV Status: Completed infusion; IV Intake: 500ml [place] 14:30 Drug: Insulin Regular Human 10 units {Co-Signature: ld1 (Sarah Enciso RN).} Route: eh3 IVP; Site: left antecubital; 18:30 Follow up: Response: Marked relief of symptoms; Blood sugar is lowered 3 Disposition: 23:07 Co-signature as Attending Physician, Jaya Beltrán DO I agree with the assessment and ms3 plan of care. Disposition Summary: 06/05/22 18:16 Discharge Ordered Location: Home [facility] Condition: Stable [facility] Diagnosis - UTI/ Urinary tract infection, site not specified jmm - Hyperglycemia, unspecified [facility] Followup: m - With: Private Physician - When: 1 - 2 days - Reason: Recheck today's complaints, Continuance of care, Re-evaluation by your physician Discharge Instructions: - Discharge Summary Sheet jmm - Dysuria jmm - Hyperglycemia jmm - Urinary Tract Infection, Adult [facility] Forms: - Medication Reconciliation Form [facility] - Thank You Letter jmm - Antibiotic Education jmm - Prescription Opioid Use [facility] Prescriptions: - Macrobid 100 mg Oral Capsule - take 1 capsule by ORAL route every 12 hours for 7 days; 14 capsule; Refills: 0, jmm Product Selection Permitted Signatures: Dispatcher [employer] Bea Arreaga Joel, PA PA m Jaya Beltrán DO DO ms3 Luz Maria Caldwell, RN RN eh3 Sarah Enciso RN ld1
--- NOTE | 2022-06-05 18:17 | ER ---
Nurse's Notes [facility] Name: Yarelis Payton Age: 86 yrs Sex: Female : 1935 Arrival Date: 06/05/2022 Time: 12:32 Bed 26 Private MD: Diagnosis: UTI/ Urinary tract infection, site not specified;Hyperglycemia, unspecified Presentation: 06/05 12:33 Chief complaint: EMS states: blood glucose read HIGH this morning, also HIGH for EMS. eh3 Coronavirus screen: Vaccine status: Patient reports receiving the 2nd dose of the covid vaccine. Ebola Screen: No symptoms or risks identified at this time. Initial Sepsis Screen: Does the patient meet any 2 criteria? No. Patient's initial sepsis screen is negative. Does the patient have a suspected source of infection? No. Patient's initial sepsis screen is negative. Risk Assessment: Do you want to hurt yourself or someone else? Patient reports no desire to harm self or others. Onset of symptoms was June 05, 2022. 12:33 Method Of Arrival: EMS: [facility] 12:33 Acuity: FROY 3 eh3 Triage Assessment: 12:42 General: Appears in no apparent distress. comfortable, Behavior is calm, cooperative, eh3 appropriate for age. Pain: Denies pain. Neuro: Level of Consciousness is awake, alert, obeys commands, Oriented to person, place, time, situation. Cardiovascular: Capillary refill < 3 seconds Patient's skin is warm and dry. Respiratory: Airway is patent Respiratory effort is even, unlabored. GI: No signs and/or symptoms were reported involving the gastrointestinal system. : No signs and/or symptoms were reported regarding the genitourinary system. Derm: No signs and/or symptoms reported regarding the dermatologic system. Musculoskeletal: Circulation, motion, and sensation intact. Range of motion: intact in all extremities. Historical: - Allergies: 12:42 Bactrim; eh3 12:42 Codeine; eh3 12:42 Iodine; eh3 12:42 PENICILLINS; eh3 12:42 Sudafed; eh3 12:42 Talwin; eh3 12:42 trovafloxacin mesylate; eh3 - Home Meds: 12:42 glyburide-metformin 5-500 mg Oral tab 2 tabs 2 times per day [Active]; Humulin 70/30 eh3 100 unit/mL (70-30) Sub-Q susp 25 units twice a day [Active]; Lipitor 10 mg Oral tab 1 tab once daily [Active]; lisinopril 5 mg Oral tab 1 tab once daily [Active]; metoprolol tartrate 50 mg Oral tab 1 tab 2 times per day [Active]; ramipril 2.5 mg Oral cap 1 cap once daily [Active]; Symbicort 80-4.5 mcg/actuation inhalation HFAA 2 puffs daily [Active]; venlafaxine 75 mg Oral tr24 1 tab once daily [Active]; Xarelto 20 mg Oral tab 1 tab once daily [Active]; - PMHx: 12:42 Atrial Fib; Bladder CA; COPD; Diabetes - IDDM; Hypertension; Myocardial infarction; eh3 - PSHx: 12:42 Cholecystectomy; eh3 - Immunization history:: Adult Immunizations up to date. - Social history:: Smoking status: Patient denies any tobacco usage or history of. Patient/guardian denies using alcohol. Screenin:26 Abuse screen: Denies threats or abuse. Denies injuries from another. Nutritional eh3 screening: No deficits noted. Tuberculosis screening: No symptoms or risk factors identified. Fall Risk Secondary diagnosis (15 points) IV access (20 points). Ambulatory Aid- None/Bed Rest/Nurse Assist (0 pts). Gait- Normal/Bed Rest/Wheelchair (0 pts) Mental Status- Total Posada Fall Scale indicates Low Risk Score (25-44 pts). Fall prevention measures have been instituted. Side Rails Up X 2 Placed close to Nursing Station Frequent Obs/Assesments occuring Family Present and informed to notify staff if they need to leave bedside As available Patient and Family Educated on Fall Prevention Program and strategies. Assessment: 13:26 Reassessment: No changes from previously documented assessment. Patient is alert, eh3 oriented x 3, equal unlabored respirations, skin warm/dry/pink. See triage assessment. 14:30 Reassessment: Patient and/or family updated on plan of care and expected duration. Pain eh3 level reassessed. Patient is alert, oriented x 3, equal unlabored respirations, skin warm/dry/pink. Patient denies pain at this time. 14:58 Reassessment: - Dominguez Payton - phone number: [phone]. . ld1 15:30 Reassessment: Patient and/or family updated on plan of care and expected duration. Pain eh3 level reassessed. Patient is alert, oriented x 3, equal unlabored respirations, skin warm/dry/pink. 16:30 Reassessment: Patient and/or family updated on plan of care and expected duration. Pain eh3 level reassessed. Patient is alert, oriented x 3, equal unlabored respirations, skin warm/dry/pink. Pt mentioned seeing a little girl outside of the room. Pt describes a little girl wearing a purple dress with long brown hair; also describes seeing a green thread hanging from corner of doorway, moving around in the wind. Reoriented that there is not a little girl or a green thread visible in this area. Vital Signs: 12:33 BP 132 / 66; Pulse 92; Resp 18; Pulse Ox 92% on R/A; Weight 64.86 kg; Height 5 ft. 3 eh3 in. (160.02 cm); Pain 0/10; 13:30 BP 133 / 67; Pulse 81; Resp 20; Pulse Ox 93% on R/A; Pain 0/10; eh3 14:30 BP 121 / 84; Pulse 88; Resp 18; Pulse Ox 93% on R/A; Pain 0/10; eh3 15:30 BP 153 / 77; Pulse 95; Resp 20; Pulse Ox 94% on R/A; Pain 0/10; eh3 16:30 BP 135 / 53; Pulse 87; Resp 21; Pulse Ox 94% on R/A; Pain 0/10; eh3 12:33 Body Mass Index 25.33 (64.86 kg, 160.02 cm) 3 ED Course: 12:32 Patient arrived in ED. 3 12:33 Luz Maria aCldwell, [place] is Primary Nurse. 3 12:34 Jack Celaya PA is PHCP. [facility] 12:34 Jaya Beltrán DO is Attending Physician. [facility] 12:42 Triage completed. 3 12:42 Arm band placed on left wrist. eh3 13:26 Patient has correct armband on for positive identification. Bed in low position. Call [facility] light in reach. Side rails up X2. Client placed on continuous cardiac and pulse oximetry monitoring. NIBP monitoring applied. Door closed. Noise minimized. Lights dimmed. Warm blanket given. 13:26 Inserted saline lock: 22 gauge in left antecubital area, using aseptic technique. Blood eh3 collected. 17:34 No provider procedures requiring assistance completed. IV discontinued, intact, eh3 bleeding controlled, No redness/swelling at site. Pressure dressing applied. 17:45 Head Brain Wo Cont In Process Unspecified. EDMS Administered Medications: 13:25 Drug: NS 0.9% 500 ml Route: IV; Rate: bolus; Site: left antecubital; eh3 16:10 Follow up: IV Status: Completed infusion; IV Intake: 500ml eh3 14:30 Drug: Insulin Regular Human 10 units {Co-Signature: ld1 (Sarah Enciso RN).} Route: eh3 IVP; Site: left antecubital; 18:30 Follow up: Response: Marked relief of symptoms; Blood sugar is lowered eh3 Medication: 13:26 VIS not applicable for this client. eh3 Intake: 16:10 IV: 500ml; Total: 500ml. eh3 Outcome: 18:16 Discharge ordered by . [facility] 18:31 Discharged to home ambulatory, with significant other. eh3 18:31 Condition: stable 18:31 Discharge instructions given to patient, Instructed on discharge instructions, follow up and referral plans. medication usage, Demonstrated understanding of instructions, follow-up care, medications. 18:40 Patient left the ED. eh3 Signatures: Dispatcher [employer] EDMS Jack Celaya PA PA jmm Dibbern, Lauren, RN RN ld1 Luz Maria Caldwell RN RN 3 Sarah Enciso RN ld1 Corrections: (The following items were deleted from the chart) 17:35 17:30 BP 115 / 69; Pulse 60bpm; Resp 18bpm; Pulse Ox 100% RA; Pain 0/10; eh3 eh3
[2022-06-05 19:44] VITALS: O2SAT 94
[2022-06-05 19:46] VITALS: BP 135/53
== END 2022-06-05 18:40 | disposition home or self-care (01) ==
LOC: ER 12:28
DX: N39.0 Urinary tract infection, site not specified (principal); E11.65 Type 2 diabetes mellitus with hyperglycemia; I10 Essential (primary) hypertension; I48.91 Unspecified atrial fibrillation; Z79.4 Long term (current) use of insulin; Z79.01 Long term (current) use of anticoagulants; Z85.51 Personal history of malignant neoplasm of bladder
CPT/HCPCS: 96361; 85025; 80048; 36415; 82947 ×2; 81003; 84484; 83690; 80053; 70450; 96374; 99284; J1815; J7040

== ENCOUNTER 2022-06-26 14:11 | Inpatient (IN) | payer OTHER ==
[2022-06-26] MEDS ORDERED: LEVALBUTEROL 1.25 MG/3 ML NEB ONE (14:20)
[2022-06-26] MEDS ORDERED: MAGNESIUM SULFATE 1 gm IVPB 1 GM/100 ML BAG IV ONE (14:20)
[2022-06-26] MEDS ORDERED: METHYLPREDNISOLONE 125 MG INJ ONE (14:20)
[2022-06-26 14:38] LABS: Hematocrit 45.9 % (36.0-45.0); MCV 92.6 fL (80-100); MPV 7.3 fL (7.6-11.3); RBC Red Blood Cell Count 4.95 M/uL (3.86-4.86)
[2022-06-26 14:42] LABS: Protime INR 0.96
[2022-06-26 14:55] LABS: Albumin 3.3 g/dL (3.4-5.0); Bilirubin Total 0.4 mg/dL (0.2-1.0); Potassium 4.1 mmol/L (3.5-5.1); Protein, Total 7.6 g/dL (6.4-8.2)
[2022-06-26] MEDS ORDERED: NA CHLORIDE 0.9% 250 ML ONE (15:21)
[2022-06-26] MEDS ORDERED: AZITHROMYCIN 500 MG INJ IVPB ONE (15:21)
[2022-06-26] MEDS ORDERED: CEFTRIAXONE 1000 MG/VIAL ONE (15:21)
[2022-06-26] MEDS ORDERED: NA CHLORIDE 0.9% 50 ML ONE (15:21)
--- NOTE | 2022-06-26 15:23 | RAD REPORT ---
EXAM DESCRIPTION: [place] Single View06/26/2022 3:03 pm CLINICAL HISTORY: Shortness of breath COMPARISON: October 2021 FINDINGS: The lungs appear clear of acute infiltrate. The heart is normal size IMPRESSION: No acute abnormalities displayed
[2022-06-26] MEDS ORDERED: NA CHLORIDE 0.9% 1,000 ML ONE (16:17)
--- NOTE | 2022-06-26 16:18 | ER ---
Nurse's Notes [facility] Name: Yarelis Payton Age: 86 yrs Sex: Female : 1935 Arrival Date: 06/26/2022 Time: 14:15 Bed 2 Private MD: Diagnosis: COPD/ Chronic obstructive pulmonary disease with (acute) exacerbation;Hypoxemia;Dehydration Presentation: 06/26 14:10 Chief complaint: Patient states: SOB and Chest pain that started at 11am this morning. mb8 Coronavirus screen: Vaccine status: Patient reports receiving the 2nd dose of the covid vaccine. Ebola Screen: Patient negative for fever greater than or equal to 101.5 degrees Fahrenheit, and additional compatible Ebola Virus Disease symptoms Patient denies exposure to infectious person. Patient denies travel to an Ebola-affected area in the 21 days before illness onset. Initial Sepsis Screen: Does the patient meet any 2 criteria? RR > 20 per min. HR > 90 bpm. Does the patient have a suspected source of infection? No. Patient's initial sepsis screen is negative. Risk Assessment: Do you want to hurt yourself or someone else? Patient reports no desire to harm self or others. Onset of symptoms was June 26, 2022 at 11:00. 14:10 Method Of Arrival: EMS mb8 14:10 Acuity: FROY 2 mb8 Triage Assessment: 20:06 General: Appears in no apparent distress. Behavior is calm, cooperative. Neuro: Level kd3 of Consciousness is awake, alert, obeys commands, Oriented to person, place, time, situation. Respiratory: Airway is patent Trachea midline Respiratory effort is even, unlabored, Respiratory pattern is regular, symmetrical. Historical: - Allergies: 14:37 Bactrim; mb8 14:37 Codeine; mb8 14:37 Iodine; mb8 14:37 PENICILLINS; mb8 14:37 Sudafed; mb8 14:37 Talwin; mb8 14:37 trovafloxacin mesylate; mb8 - Home Meds: 20:07 Xarelto 20 mg Oral tab 1 tab once daily [Active]; Lipitor 10 mg Oral tab 1 tab once kd3 daily [Active]; lisinopril 5 mg Oral tab 1 tab once daily [Active]; glyburide-metformin 5-500 mg Oral tab 2 tabs 2 times per day [Active]; ramipril 2.5 mg Oral cap 1 cap once daily [Active]; Humulin 70/30 100 unit/mL (70-30) Sub-Q susp 25 units twice a day [Active]; metoprolol tartrate 50 mg Oral tab 1 tab 2 times per day [Active]; Symbicort 80-4.5 mcg/actuation inhalation HFAA 2 puffs daily [Active]; venlafaxine 75 mg Oral tr24 1 tab once daily [Active]; - PMHx: 14:37 Atrial Fib; Bladder CA; COPD; Diabetes - IDDM; Hypertension; Myocardial infarction; mb8 - PSHx: 14:37 Cholecystectomy; mb8 - Immunization history:: Adult Immunizations up to date. - Social history:: Smoking status: Patient/guardian denies using tobacco. - Family history:: not pertinent. - Hospitalizations: : No recent hospitalization is reported. Screenin:40 Abuse screen: Denies threats or abuse. Denies injuries from another. Nutritional mb8 screening: No deficits noted. Tuberculosis screening: No symptoms or risk factors identified. Fall Risk No fall in past 12 months (0 pts). Secondary diagnosis (15 points) IV access (20 points). Ambulatory Aid- None/Bed Rest/Nurse Assist (0 pts). Gait- Weak (10 pts.). Mental Status- Oriented to own ability (0 pts). Total Posada Fall Scale indicates Low Risk Score (25-44 pts). Fall prevention measures have been instituted. Side Rails Up X 2 As available Patient and Family Educated on Fall Prevention Program and strategies. Assessment: 14:38 Pain: Denies pain. Cardiovascular: Rhythm is sinus tachycardia. Respiratory: Reports mb8 shortness of breath air hunger labored breathing Airway is patent Respiratory effort is labored, with retractions, Respiratory pattern is tachypnea Breath sounds with wheezes bilaterally. Onset: The symptoms/episode began/occurred this morning. 16:26 Reassessment: Patient and/or family updated on plan of care and expected duration. Pain mb8 level reassessed. Patient is alert, oriented x 3, equal unlabored respirations, skin warm/dry/pink. Patient states feeling better. 17:35 Reassessment: Patient and/or family updated on plan of care and expected duration. Pain mb8 level reassessed. Patient is alert, oriented x 3, equal unlabored respirations, skin warm/dry/pink. Patient states feeling better. Patient states symptoms have improved. 18:51 Reassessment: Patient and/or family updated on plan of care and expected duration. Pain mb8 level reassessed. Patient is alert, oriented x 3, equal unlabored respirations, skin warm/dry/pink. Vital Signs: 14:10 BP 191 / 96; Pulse 135; Resp 34; Temp 97.6(O); Pulse Ox 95% ; Weight 73.5 kg; mb8 14:25 BP 171 / 67; Pulse 124; Resp 28; Pulse Ox 91% on 6 lpm NC; mb8 14:40 BP 120 / 57; Pulse 123; Resp 28; Pulse Ox 93% on 6 lpm NC; mb8 15:12 BP 110 / 61; Pulse 116; Resp 26; Pulse Ox 90% on R/A; mb8 16:00 BP 121 / 51; Pulse 108; Resp 26; Pulse Ox 91% 6 lpm ; Pain 0/10; mb8 16:23 BP 125 / 99; Pulse 100; Resp 25; Temp 97.9; Pulse Ox 95% on R/A; mb8 17:34 BP 110 / 52; Pulse 95; Resp 25; Temp 97.5; Pulse Ox 95% on 6 lpm NC; Pain 0/10; mb8 18:50 BP 119 / 57; Pulse 97; Resp 22; Pulse Ox 92% on 6 lpm NC; Pain 0/10; mb8 Vitals: 17:34 Cardiac Rhythm Assessment Sinus rhythm. mb8 18:51 Cardiac Rhythm Assessment Sinus rhythm. mb8 ED Course: 14:10 Arm band placed on. mb8 14:15 Patient arrived in ED. iw 14:15 Luis Enriquez MD is Attending Physician. rn 14:15 Patient has correct armband on for positive identification. Placed in gown. Bed in low mb8 position. Side rails up X 1. Side rails up X2. Client placed on continuous cardiac and pulse oximetry monitoring. NIBP monitoring applied. compliance monitor on. Door closed. Noise minimized. Warm blanket given. 14:18 True Whel[place], [place] is Primary Nurse. mb8 14:20 First set of blood cultures drawn by ut. Inserted saline lock: 22 gauge in right mb8 antecubital area, using aseptic technique. Blood collected. 14:36 Triage completed. mb8 14:41 No provider procedures requiring assistance completed. mb8 14:59 Flu Sent. kc6 14:59 SARS-COV-2 RT PCR (Document "Date of Onset" if Symptomatic) Sent. kc6 14:59 BNP Sent. kc6 15:03 Chest Single View XRAY In Process Unspecified. EDMS 15:45 Second set of blood cultures drawn by me. Inserted saline lock: 24 gauge in left wrist, dh3 using aseptic technique. Blood collected. 16:17 Christoph Enriquez MD is Hospitalizing Provider. rn 20:07 Patient admitted, IV remains in place. kd3 Administered Medications: 14:23 Drug: SOLU-Medrol (methylPrednisoLONE) 125 mg Route: IVP; Site: right antecubital; mb8 15:51 Follow up: Response: No adverse reaction mb8 14:23 Drug: Xopenex (levalbuterol) (3) 1.25 mg Route: Inhalation; mb8 15:51 Follow up: Response: No adverse reaction mb8 14:23 Drug: Magnesium Sulfate 1 grams Route: IVPB; Infused Over: 1 hrs; Site: right mb8 antecubital; 15:51 Follow up: Response: No adverse reaction; IV Status: Completed infusion mb8 15:50 Drug: Zithromax (azithromycin) 500 mg Route: IVPB; Infused Over: 1 hrs; Site: right mb8 antecubital; 16:50 Follow up: Response: No adverse reaction; IV Status: Completed infusion mb8 15:51 Drug: Rocephin (cefTRIAXone) 1 grams Route: IV; Rate: calculated rate; Site: right mb8 antecubital; 16:21 Follow up: Response: No adverse reaction; IV Status: Completed infusion mb8 16:21 Drug: NS 0.9% 1000 ml Route: IV; Rate: 1000 ml; Site: right antecubital; mb8 17:00 Follow up: Response: No adverse reaction; IV Status: Completed infusion mb8 Medication: 20:08 VIS not applicable for this client. kd3 Outcome: 16:17 Decision to Hospitalize by Provider. rn 20:06 Admitted to Med/surg room 201, with oxygen, Report called to 2nd floor kd3 20:06 Condition: stable 20:06 Discharge instructions given to patient, Instructed on the need for admit, Demonstrated understanding of instructions. 20:35 Patient left the ED. kd3 Signatures: Dispatcher [employer] Adilene Mendez RN RN iw Nieto, Roman, MD MD rn Herrera, Deanna 3 Brook Acosta RN RN kd3 Nakia Umanzor 6 True Whelan RN RN mb8 Corrections: (The following items were deleted from the chart) 14:40 14:37 BP 171 / 67; Pulse 124bpm; Resp 28bpm; Pulse Ox 91% 6 lpm Nasal Cannula; mb8 mb8 16:23 14:10 BP 191 / 96; Pulse 135bpm; Resp 34bpm; Pulse Ox 95%; mb8 mb8
--- NOTE | 2022-06-26 16:18 | EDPHYS ---
Physician Documentation [facility] Name: Yarelis Payton Age: 86 yrs Sex: Female : 1935 Arrival Date: 06/26/2022 Time: 14:15 Bed 2 Private MD: ED Physician Luis Enriquez HPI: 06/26 16:12 This 86 yrs old Female presents to ER via EMS with complaints of dyspnea. rn 16:12 The patient has shortness of breath at rest, with light activity. Onset: The rn symptoms/episode began/occurred today. Duration: The symptoms are continuous. The patient's shortness of breath is aggravated by exertion, light activity, talking, is alleviated by nothing. Associated signs and symptoms: Pertinent positives: non-productive cough, Pertinent negatives: chest pain, fever, hemoptysis. Severity of symptoms: At their worst the symptoms were moderate in the emergency department the symptoms have improved. The patient has experienced similar episodes in the past. The patient has not recently seen a physician. Historical: - Allergies: 14:37 Bactrim; mb8 14:37 Codeine; mb8 14:37 Iodine; mb8 14:37 PENICILLINS; mb8 14:37 Sudafed; mb8 14:37 Talwin; mb8 14:37 trovafloxacin mesylate; mb8 - Home Meds: 20:07 Xarelto 20 mg Oral tab 1 tab once daily [Active]; Lipitor 10 mg Oral tab 1 tab once kd3 daily [Active]; lisinopril 5 mg Oral tab 1 tab once daily [Active]; glyburide-metformin 5-500 mg Oral tab 2 tabs 2 times per day [Active]; ramipril 2.5 mg Oral cap 1 cap once daily [Active]; Humulin 70/30 100 unit/mL (70-30) Sub-Q susp 25 units twice a day [Active]; metoprolol tartrate 50 mg Oral tab 1 tab 2 times per day [Active]; Symbicort 80-4.5 mcg/actuation inhalation HFAA 2 puffs daily [Active]; venlafaxine 75 mg Oral tr24 1 tab once daily [Active]; - PMHx: 14:37 Atrial Fib; Bladder CA; COPD; Diabetes - IDDM; Hypertension; Myocardial infarction; mb8 - PSHx: 14:37 Cholecystectomy; mb8 - Immunization history:: Adult Immunizations up to date. - Social history:: Smoking status: Patient/guardian denies using tobacco. - Family history:: not pertinent. - Hospitalizations: : No recent hospitalization is reported. ROS: 16:12 Constitutional: Negative for fever, chills, and weight loss, Eyes: Negative for injury, rn pain, redness, and discharge, Neck: Negative for injury, pain, and swelling, Cardiovascular: Negative for chest pain, palpitations, and edema, Respiratory: + sob and cough Abdomen/GI: Negative for abdominal pain, nausea, vomiting, diarrhea, and constipation, Back: Negative for injury and pain, MS/Extremity: Negative for injury and deformity, Skin: Negative for injury, rash, and discoloration, Neuro: Negative for headache, weakness, numbness, tingling, and seizure. Exam: 16:12 Constitutional: This is a well developed, well nourished patient who is awake, alert, rn moderate tachypnea Head/Face: Normocephalic, atraumatic. ENT: no stridor Cardiovascular: Tachycardic, regular. No pulse deficits. Respiratory: + moderate tachypnea with end-expiratory wheezing, no retractions Abdomen/GI: Soft, non-tender Skin: Warm, dry MS/ Extremity: Pulses equal, no cyanosis. Neuro: Awake and alert, GCS 15 17:28 ECG was reviewed by the Attending Physician. rn Vital Signs: 14:10 BP 191 / 96; Pulse 135; Resp 34; Temp 97.6(O); Pulse Ox 95% ; Weight 73.5 kg; mb8 14:25 BP 171 / 67; Pulse 124; Resp 28; Pulse Ox 91% on 6 lpm NC; mb8 14:40 BP 120 / 57; Pulse 123; Resp 28; Pulse Ox 93% on 6 lpm NC; mb8 15:12 BP 110 / 61; Pulse 116; Resp 26; Pulse Ox 90% on R/A; mb8 16:00 BP 121 / 51; Pulse 108; Resp 26; Pulse Ox 91% 6 lpm ; Pain 0/10; mb8 16:23 BP 125 / 99; Pulse 100; Resp 25; Temp 97.9; Pulse Ox 95% on R/A; mb8 17:34 BP 110 / 52; Pulse 95; Resp 25; Temp 97.5; Pulse Ox 95% on 6 lpm NC; Pain 0/10; mb8 18:50 BP 119 / 57; Pulse 97; Resp 22; Pulse Ox 92% on 6 lpm NC; Pain 0/10; mb8 MDM: 14:15 Patient medically screened. rn 16:16 Differential diagnosis: Anemia Anxiety Reaction CHF exacerbation, Chronic Obstructive rn Pulmonary Disease pneumonia, Pneumothorax pulmonary edema, Pulmonary Embolism. Data reviewed: vital signs, nurses notes, lab test result(s), EKG, radiologic studies, plain films, and as a result, I will admit patient. Counseling: I had a detailed discussion with the patient and/or guardian regarding: the historical points, exam findings, and any diagnostic results supporting the discharge/admit diagnosis, lab results, radiology results, the need for further work-up and treatment in the hospital. Response to treatment: the patient's symptoms have markedly improved after treatment, and as a result, I will admit patient. Admission orders: after a detailed discussion of the patient's condition and case, the admit orders are written by me. ED course: Pt without clear source of infection at this time, marked improvement in symptoms but still requiring oxygen. Fluids ordered for elevated lactate, but no signs of shock at this point. Will admit to hospitalist service for further care. . 06/26 14:16 Order name: Blood Culture Adult (2) rn 06/26 14:16 Order name: CBC with Diff; Complete Time: 16:31 06/26 14:16 Order name: CMP; Complete Time: 15:10 06/26 14:16 Order name: Lactate; Complete Time: 16:15 06/26 14:16 Order name: Protime (+inr); Complete Time: 15:10 rn 06/26 14:16 Order name: Ptt, Activated; Complete Time: 15:10 06/26 14:17 Order name: BNP; Complete Time: 15:10 06/26 14:17 Order name: SARS-COV-2 RT PCR (Document "Date of Onset" if Symptomatic); Complete Time: rn 16:04 06/26 14:17 Order name: Flu; Complete Time: 15:30 rn 06/26 16:25 Order name: CBC Smear Scan; Complete Time: 16:31 EDMD 06/26 17:42 Order name: Urine Microscopic Only la1 06/26 18:15 Order name: Procalcitonin [facility] 06/26 18:18 Order name: ABG: room air [facility] 06/26 18:55 Order name: Lactate Sepsis 2 HR Follow-up [facility] 06/26 14:16 Order name: Chest Single View XRAY; Complete Time: 15:30 rn 06/26 14:16 Order name: Accucheck; Complete Time: 14:59 rn 06/26 14:16 Order name: Cardiac monitoring; Complete Time: 14:20 rn 06/26 14:16 Order name: EKG - Nurse/Tech; Complete Time: 14:29 rn 06/26 14:16 Order name: IV Saline Lock - Large Bore; Complete Time: 14:20 rn 06/26 14:16 Order name: Labs collected and sent; Complete Time: 14:21 rn 06/26 14:16 Order name: O2 Per Protocol; Complete Time: 14:20 rn 06/26 18:15 Order name: Chest Wo Con CT [facility] 06/26 18:59 Order name: CT [facility] 06/26 14:16 Order name: O2 Sat Monitoring; Complete Time: 14:21 rn 06/26 17:42 Order name: Urine Dipstick-Ancillary (obtain specimen); Complete Time: 18:53 la1 EC: Rate is 131 beats/min. Rhythm is regular. QRS [place] is Normal. OR interval is normal. rn QRS interval is normal. QT interval is normal. No Q waves. T waves are Normal. No ST changes noted. Clinical impression: Sinus tachycardia. Interpreted by me. Reviewed by me. Administered Medications: 14:23 Drug: SOLU-Medrol (methylPrednisoLONE) 125 mg Route: IVP; Site: right antecubital; mb8 15:51 Follow up: Response: No adverse reaction mb8 14:23 Drug: Xopenex (levalbuterol) (3) 1.25 mg Route: Inhalation; mb8 15:51 Follow up: Response: No adverse reaction mb8 14:23 Drug: Magnesium Sulfate 1 grams Route: IVPB; Infused Over: 1 hrs; Site: right mb8 antecubital; 15:51 Follow up: Response: No adverse reaction; IV Status: Completed infusion mb8 15:50 Drug: Zithromax (azithromycin) 500 mg Route: IVPB; Infused Over: 1 hrs; Site: right mb8 antecubital; 16:50 Follow up: Response: No adverse reaction; IV Status: Completed infusion mb8 15:51 Drug: Rocephin (cefTRIAXone) 1 grams Route: IV; Rate: calculated rate; Site: right mb8 antecubital; 16:21 Follow up: Response: No adverse reaction; IV Status: Completed infusion mb8 16:21 Drug: NS 0.9% 1000 ml Route: IV; Rate: 1000 ml; Site: right antecubital; mb8 17:00 Follow up: Response: No adverse reaction; IV Status: Completed infusion mb8 Disposition Summary: 06/26/22 16:17 Hospitalization Ordered Hospitalization Status: Inpatient Admission rn Provider: Christoph Enriquez rn Location: Telemetry/MedSurg (Inpatient) rn Condition: Stable rn Problem: an acute exacerbation rn Symptoms: have improved rn Bed/Room Type: Standard rn Room Assignment: 201(06/26/22 20:01) cg Diagnosis - COPD/ Chronic obstructive pulmonary disease with (acute) exacerbation rn - Hypoxemia rn - Dehydration rn Forms: - Medication Reconciliation Form rn - SBAR form rn Signatures: Dispatcher [employer] EDMD Luis Enriquez MD MD rn Attema, Lee, CLIENT APPLICATION SUPPORT SPECIALIST-C CLIENT APPLICATION SUPPORT SPECIALIST-Cla1 Elisa Machado, RN RN cg Brook Acosta RN RN kd3 True Whelan RN RN mb8 Corrections: (The following items were deleted from the chart) 16:14 15:35 Chest For PE Angio+CT.RAD.BRZ ordered. EDMD EDMD 20:01 16:17 rn cg
[2022-06-26 16:25] LABS: Blood Morphology Comment NOT SEEN (NOT SEEN); Platelet Estimate ADEQ; White Blood Cell Scan OK (OK)
--- NOTE | 2022-06-26 18:38 | P.HP ---
Certification for Inpatient Patient admitted to: Inpatient With expected LOS: >2 Midnights Patient will require the following post-hospital care: None Practitioner: I am a practitioner with admitting privileges, knowledge of patient current condition, hospital course, and medical plan of care. Services: Services provided to patient in accordance with Admission requirements found in Title 42 Section 412.3 of the Code of Federal Regulations Patient History Date of Service: 06/26/22 Reason for admission: COPD exacerbation History of Present Illness: 86-year-old female with history of atrial fibrillation on chronic anticoagulation therapy, COPD, diabetes mellitus type 2insulin-dependent, hypertension and CAD presented to the emergency department for chest pain, shortness of breath. She reports her symptoms began today, she felt like she could not take a deep breath and was having tightness in her chest. She is evaluated in the emergency department her labs were significant for leukocytosis with white blood cell count of 20 hemoglobin 15.2 hematocrit 45.9 initial high- sensitivity troponin negative lactic acid 3.5 she was noted to be mildly hypoxic on room air with room air saturations of 90%, ABG is ordered and pending, chest x-ray is nondiagnostic patient denies any fever, chills, urinary symptoms. Urinalysis ordered and pending, patient has SIRS criteria present including leukocytosis, tachycardia, tachypnea is afebrile but no source of infection has been identified. Patient denies any known use of recent steroids. CT chest wi thout contrast ordered to further evaluate for possible pneumonia and urinalysis pending to rule out UTI. ROS is otherwise negative. Patient was treated with steroids, nebulizer treatments in the ED her breathing has improved. She has been compliant with her Xarelto. Will admit for further evaluation and management of suspected COPD exacerbation Allergies amoxicillin trihydrate [From Amoxil] Allergy (Mild, Verified 10/12/20 08:58) Hives/Rash codeine Allergy (Mild, Verified 10/12/20 08:58) Hives/Rash iodine Allergy (Mild, Verified 10/12/20 08:58) Hives sulfamethoxazole [From Bactrim] Allergy (Mild, Verified 10/12/20 08:58) Hives/Rash trimethoprim [From Bactrim] Allergy (Mild, Verified 10/12/20 08:58) Hives/Rash alatrofloxacin mesylate [From Trovan] Allergy (Unknown, Verified 10/12/20 08:58) unknown pseudoephedrine HCl [From Actifed] Allergy (Unknown, Verified 10/12/20 08:58) unknown triprolidine HCl [From Actifed] Allergy (Unknown, Verified 10/12/20 08:58) unknown trovafloxacin mesylate [From Trovan] Allergy (Unknown, Verified 10/12/20 08:58) unknown adhesive tape Allergy (Verified 10/12/20 08:58) Rash Penicillins Allergy (Verified 10/12/20 08:58) Itching pentazocine lactate [From Talwin] Allergy (Verified 10/12/20 08:58) Hives Home Medications: Atorvastatin Calcium 10 mg PO BEDTIME 10/06/20 Rivaroxaban [Xarelto] 20 mg PO DAILY 10/06/20 Venlafaxine HCl [Venlafaxine HCl ER] 75 mg PO DAILY 10/06/20 Lorazepam [Ativan] 0.5 mg PO BEDTIME PRN 11/16/21 Melatonin [Melatonin*] 3 mg PO BEDTIME 11/16/21 Ondansetron [Zofran (Odt)*] 4 mg PO Q4H PRN 11/16/21 Sennosides/Docusate Sodium [Senna-Docusate Sodium Tablet] 2 tab PO BEDTIME PRN 11/16/21 Simethicone 80 mg PO TID 4 Days #12 tab.chew 11/16/21 Tramadol HCl [Ultram] 50 mg PO Q4HP PRN 11/16/21 Benzonatate [Tessalon Perle*] 100 mg PO TID PRN #90 cap 11/23/21 Cranberry Fruit Extract 400 mg PO BID cap 11/23/21 Docusate/Senna [Senokot-S*] 2 tab PO BEDTIME PRN #60 tab 11/23/21 Guaif/Dm [Robitussin Dm*] 5 ml PO Q6H PRN ucup 11/23/21 Insulin Lispro [Humalog*] 8 unit SQ TIDWM #10 ml 11/23/21 Insulis Lispro MIX 75/25 [Humalog Mix 75/25*] 14 units SQ BIDWM #1 vial 11/23/21 - Past Medical/Surgical History Diabetic: Yes -: HTN -: DM -: Depression -: Atrial fibrillation Chronic anti coagulation therapy -: COPD -: Cholecystectomy -: Left Thoracotomy x3 secondary to fungal infection Psychosocial/ Personal History: Patient is - Family History Father -: Heart disease - Social History Smoking Status: Former smoker Alcohol use: No CD- Drugs: No Caffeine use: Yes Place of Residence: Home Review of Systems 10-point ROS is otherwise unremarkable Respiratory: Cough, Shortness of Breath, Wheezing, As per HPI Cardiovascular: Chest Pain Physical Examination - Physical Exam General: Alert, In no apparent distress, Oriented x3 HEENT: Atraumatic, PERRLA, Mucous membr. moist/pink, EOMI, Sclerae nonicteric Neck: Supple, 2+ carotid pulse no bruit, No LAD, Without JVD or thyroid abnormality Respiratory: Diminished, Expiratory wheezes Cardiovascular: Regular rate/rhythm, Normal S1 S2 Gastrointestinal: Normal bowel sounds, No tenderness Musculoskeletal: No tenderness Integumentary: No rashes Neurological: Normal gait, Normal speech, Normal strength at 5/5 x4 extr, Normal tone, Normal affect Lymphatics: No axilla or inguinal lymphadenopathy - Studies Laboratory Data (last 24 hrs) 06/26/22 14:27: PT 10.5, INR 0.96, APTT 30.2 06/26/22 14:27: Sodium 140, Potassium 4.1, BUN 16, Creatinine 1.08, Glucose 231 H, Total Bilirubin 0.4, AST 16, ALT 16, Alkaline Phosphatase 113 06/26/22 14:27: WBC 20.00 H, Hgb 15.2 H, Hct 45.9 H, Plt Count 489 H Microbiology Data (last 24 hrs): 06/26/22 14:56 Nasopharnyx Influenza Type A Antigen Screen - Final 06/26/22 14:56 Nasopharnyx Influenza Type B Antigen Screen - Final Assessment and Plan - Plan Assessment: Acute hypoxic respiratory failure secondary to COPD with exacerbation SIRS criteria Atrial fibrillation on chronic anticoagulation therapy Diabetes mellitus type 2insulin-dependent with hyperglycemia Hypertension History of CAD Plan: Acute hypoxic respiratory failure secondary to COPD with exacerbation: Pulmonology consult in place continue with steroids, nebulizer treatments, incentive spirometry, supplemental oxygen as needed, daily with saturations. CT chest pending to rule out infectious process/pneumonia, given significant leukocytosis we will continue with antibiotics at this time RocephinZithromax. Appreciate further input from pulmonology. SIRS criteria: Heart rate greater than 90, white blood cell count greater than 12, respiratory rate greater than 20 although no source of infection has been i dentified. Urinalysis pending as well as CT chest to rule out pneumonia. Patient was given antibiotics lactate was obtained which was 3.5 patient was given IV fluids. Will obtain repeat lactate. Atrial fibrillation on chronic anticoagulation therapy: Monitor on telemetry, continue Xarelto and other home medications once verified. Diabetes mellitus type 2insulin-dependent with hyperglycemia: ACH S Accu-Chek, sliding scale insulin therapy, A1c in the morning. Hypertension: Continue home medications once verified. History of CAD: Continue home medications once verified. DVT PPX:Continue xarelto Code Status:Full Discharge Plan: Home Plan to discharge in: 48 Hours - Advance Directives Does patient have a Living Will: No Does patient have a Durable POA for Healthcare: No - Code Status/Comfort Care Code Status Assessed: Yes (Full code) Critical Care: No Time Spent Managing Pts Care (In Minutes): 70
[2022-06-26 18:45] LABS: Blood Gas Oxyhemoglobin 91.3 % (94-97); Blood O2 Saturation 91.3 % (92-98.5)
--- NOTE | 2022-06-26 18:58 | RAD REPORT ---
EXAM DESCRIPTION: CT - Thorax Wo Con - 06/26/2022 6:42 pm CLINICAL HISTORY: sob COMPARISON: none TECHNIQUE: Computed axial tomography of the chest was obtained. Contrast was not requested. All CT scans are performed using dose optimization technique as appropriate and may include automated exposure control or mA/KV adjustment according to patient size. FINDINGS: The evaluation of mediastinum, laurence and vessels is limited secondary to lack of IV contras t administration. Mild to moderate centrilobular emphysema. 18 millimeter subpleural opacity right upper lobe. Mild chronic appearing interstitial lung opacities left lung. No mediastinal or hilar lymphadenopathy is seen. A pleural effusion is not present. No pericardial effusion. Coronary arterial calcifications. Left renal cyst only partially included in the field of view IMPRESSION: 18 millimeter right upper lobe subpleural opacity may represent an area of inflammation, infection or mass. It is recommended that patient have a followup CT chest 3 months for re-evaluatio n. Alternatively, PET scan could obtained Mild to moderate COPD
[2022-06-26] MEDS ORDERED: ALBUTEROL 2.5 MG/3 ML NEB SOL NEB PRN (20:41)
[2022-06-26] MEDS ORDERED: ONDANSETRON 4 MG/2 ML VIAL IV PRN (20:41)
[2022-06-26] MEDS ORDERED: ACETAMINOPHEN 500 MG TAB PO PRN (20:41)
[2022-06-26] MEDS ORDERED: BENZONATATE 100 MG CAP PO PRN (20:41)
[2022-06-26] MEDS: IPRATROPIUM BROM 0.5MG/2.5ML NEB SCH (21:00)
[2022-06-26] MEDS: NA CHLORIDE 0.9% 1,000 ML IV SCH (21:32)
[2022-06-26] MEDS: INSULIN -REGULAR HUMAN 50 UNIT/0.5 ML ML SQ SCH (21:33)
[2022-06-26 23:49] VITALS: BMI 25.3
[2022-06-27] MEDS: IPRATROPIUM BROM 0.5MG/2.5ML NEB SCH ×4 (01:10→20:00)
[2022-06-27 05:30] LABS: Specific Gravity 1.016 (1.005-1.030); Urine Bilirubin NEGATIVE (Negative); Urine Blood Negative (Negative); Urine Clarity Clear (Clear); Urine Color Light-Yellow (Yellow); Urine Glucose 4+ (Over) (Negative); Urine Protein NEGATIVE (Negative); Urine RBC <5 /HPF (None Seen); Urine Urobilinogen Normal (Normal); Urine WBC Clump Rare /HPF (None Seen)
[2022-06-27 05:49] LABS: Absolute Lymphocytes (CBC) 1.3 K/uL (0.7-4.9); Hematocrit 35.8 % (36.0-45.0); Lymphocytes % 5.1 % (15.3-44.8); MCV 91.7 fL (80-100); MPV 7.4 fL (7.6-11.3); RBC Red Blood Cell Count 3.91 M/uL (3.86-4.86)
--- NOTE | 2022-06-27 05:56 | P.PN ---
Date of Service: 06/27/22
[2022-06-27 06:56] LABS: Blood Morphology Comment NOT SEEN (NOT SEEN); Platelet Estimate ADEQ; White Blood Cell Scan OK (OK)
[2022-06-27] MEDS ORDERED: INFLUENZA VACCINE (for 6+ mo) 0.5 ML DOSE IMVAC ONE (08:00)
[2022-06-27 08:15] LABS: Albumin 2.5 g/dL (3.4-5.0); Bilirubin Total 0.4 mg/dL (0.2-1.0); Magnesium 2.3 mg/dL (1.8-2.4); Potassium 4.7 mmol/L (3.5-5.1); Protein, Total 6.1 g/dL (6.4-8.2); Thyroid Stimulating Hormone 0.268 uIU/mL (0.360-3.740); Troponin High Sensitivity 6.8 pg/mL (<58.9)
[2022-06-27] MEDS: NA CHLORIDE 0.9% 1,000 ML IV SCH ×2 (08:19→08:20)
[2022-06-27] MEDS: INSULIN -REGULAR HUMAN 50 UNIT/0.5 ML ML SQ SCH ×4 (08:19→21:31)
--- NOTE | 2022-06-27 08:29 | EKG ---
Test Date: 2022-06-26 Test Time: 14:29:05 Senior Risk Manager: BLAIR MEASUREMENT RESULTS: Intervals: Rate: 131 MS: 152 QRSD: 100 QT: 298 QTc: 440 [place]: P: 72 MS: 152 QRS: -29 T: 89 INTERPRETIVE STATEMENTS: Sinus tachycardia with fusion complexes Nonspecific ST and T wave abnormality Abnormal ECG Compared to ECG 11/14/2021 10:04:59 Fusion complex(es) now present Left-axis deviation no longer present Myocardial infarct finding no longer present Possible ischemia no longer present ST (T wave) deviation still present Electronically Signed On 06-27-22 08:26:42 CDT by Dewey Gerard
[2022-06-27] MEDS ORDERED: CEFTRIAXONE 1,000 MG in NA CHLORIDE 0.9% 50 ML IVPB SCH (09:00)
[2022-06-27] MEDS ORDERED: levoFLOXacin 500 MG TAB PO SCH (09:00)
[2022-06-27] MEDS ORDERED: predniSONE 20 MG TAB PO SCH (09:00)
[2022-06-27] MEDS ORDERED: AZITHROMYCIN IV 500 MG in NA CHLORIDE 0.9% 250 ML IVPB SCH (09:00)
[2022-06-27] MEDS ORDERED: DIPHENHYDRAMINE 25 MG TAB/CAP PO ONE (10:08)
--- NOTE | 2022-06-27 12:47 | P.CNS ---
Date of Consult: 06/27/22 Reason for Consult: COPD exacerbation Chief Complaint: COPD exacerbation History of Present Illness: Patient is 86 years of age with metabolic syndrome, atrial fibrillation and COPD from the emergency room started complaining of acute onset of shortness of chary ath chest tightness she was hypoxic on room air and was admitted to the hospital currently is doing better denies any fever chills cough or sputum.. Patient does not use any bronchodilators or oxygen at home. Patient quit smoking a long time ago Allergies amoxicillin trihydrate [From Amoxil] Allergy (Mild, Verified 10/12/20 08:58) Hives/Rash codeine Allergy (Mild, Verified 10/12/20 08:58) Hives/Rash iodine Allergy (Mild, Verified 10/12/20 08:58) Hives sulfamethoxazole [From Bactrim] Allergy (Mild, Verified 10/12/20 08:58) Hives/Rash trimethoprim [From Bactrim] Allergy (Mild, Verified 10/12/20 08:58) Hives/Rash alatrofloxacin mesylate [From Trovan] Allergy (Unknown, Verified 10/12/20 08:58) unknown pseudoephedrine HCl [From Actifed] Allergy (Unknown, Verified 10/12/20 08:58) unknown triprolidine HCl [From Actifed] Allergy (Unknown, Verified 10/12/20 08:58) unknown trovafloxacin mesylate [From Trovan] Allergy (Unknown, Verified 10/12/20 08:58) unknown adhesive tape Allergy (Verified 10/12/20 08:58) Rash Penicillins Allergy (Verified 10/12/20 08:58) Itching pentazocine lactate [From Talwin] Allergy (Verified 10/12/20 08:58) Hives Home Medications: Atorvastatin Calcium 10 mg PO BEDTIME 10/06/20 Rivaroxaban [Xarelto] 20 mg PO DAILY 10/06/20 Venlafaxine HCl [Venlafaxine HCl ER] 75 mg PO DAILY 10/06/20 Lorazepam [Ativan] 0.5 mg PO BEDTIME PRN 11/16/21 Melatonin [Melatonin*] 3 mg PO BEDTIME 11/16/21 Ondansetron [Zofran (Odt)*] 4 mg PO Q4H PRN 11/16/21 Sennosides/Docusate Sodium [Senna-Docusate Sodium Tablet] 2 tab PO BEDTIME PRN 11/16/21 Simethicone 80 mg PO TID 4 Days #12 tab.chew 11/16/21 Tramadol HCl [Ultram] 50 mg PO Q4HP PRN 11/16/21 Benzonatate [Tessalon Perle*] 100 mg PO TID PRN #90 cap 11/23/21 Cranberry Fruit Extract 400 mg PO BID cap 11/23/21 Docusate/Senna [Senokot-S*] 2 tab PO BEDTIME PRN #60 tab 11/23/21 Guaif/Dm [Robitussin Dm*] 5 ml PO Q6H PRN ucup 11/23/21 Insulin Lispro [Humalog*] 8 unit SQ TIDWM #10 ml 11/23/21 Insulis Lispro MIX 75/25 [Humalog Mix 75/25*] 14 units SQ BIDWM #1 vial 11/23/21 - Past Medical/Surgical History Diabetic: Yes -: HTN -: DM -: Depression -: Atrial fibrillation Chronic anti coagulation therapy -: COPD -: Cholecystectomy -: Left Thoracotomy x3 secondary to fungal infection Psychosocial/ Personal History: Patient is - Family History Father Medical History: Heart disease - Social History Smoking Status: Never smoker Alcohol use: No CD- Drugs: No Caffeine use: Yes Place of Residence: Home Review of Systems 10-point ROS is otherwise unremarkable Physical Examination Temp Pulse Resp BP Pulse Ox 98.0 F 70 18 120/50 L 100 06/27/22 11:35 06/27/22 11:35 06/27/22 11:35 06/27/22 11:35 06/27/22 11:35 General: Alert, In no apparent distress, Oriented x3 Respiratory: Clear to auscultation bilaterally Cardiovascular: No edema, Regular rate/rhythm, Normal S1 S2 Gastrointestinal: Normal bowel sounds, Soft and benign Laboratory Data (last 24 hrs) 06/26/22 14:27: PT 10.5, INR 0.96, APTT 30.2 06/26/22 14:27: Sodium 140, Potassium 4.1, BUN 16, Creatinine 1.08, Glucose 231 H, Total Bilirubin 0.4, AST 16, ALT 16, Alkaline Phosphatase 113 06/26/22 14:27: WBC 20.00 H, Hgb 15.2 H, Hct 45.9 H, Plt Count 489 H - Problems (1) COPD with exacerbation Current Visit: Yes Status: Acute Plan: Patient is 86 years of age admitted with acute onset of respiratory distress presumed COPD exacerbation. Patient was hypoxic on admission is doing much better. CT scan shows some interstitial changes consistent with obstructive airways disease. She has never had any history of obstructive airways disease. Plan to discharge patient on low-dose prednisone and doxycycline CT scan does show some COPD changes (2) Lung mass Current Visit: Yes Status: Acute Plan: CT scan shows a right upper lobe peripheral opacity and needs a follow-up in about 3 months
[2022-06-27] MEDS ORDERED: DEXTROSE 10%-WATER 500 ML IV BAG IV PRN (16:31)
[2022-06-27] MEDS ORDERED: HUMALOG MIX 75/25 100 UNITS/ML SQ SCH (17:00)
[2022-06-27] MEDS ORDERED: RIVAROXABAN 15 MG TABLET PO SCH (17:00)
[2022-06-27] MEDS ORDERED: D50W 25 GM/50 ML SYRINGE IV PRN (17:00)
[2022-06-27] MEDS ORDERED: GLUCAGON 1 MG/VIAL IM PRN (17:00)
[2022-06-27] MEDS: predniSONE 10 MG TAB PO SCH (21:31)
[2022-06-27] MEDS: DOXYCYCLINE 100 MG CAP PO SCH (21:31)
[2022-06-28] MEDS: IPRATROPIUM BROM 0.5MG/2.5ML NEB SCH ×2 (01:46→08:15)
[2022-06-28 06:22] LABS: Absolute Lymphocytes (CBC) 1.9 K/uL (0.7-4.9); Lymphocytes % 9.6 % (15.3-44.8); MCV 91.7 fL (80-100); MPV 7.4 fL (7.6-11.3); RBC Red Blood Cell Count 3.93 M/uL (3.86-4.86)
[2022-06-28 06:45] LABS: Albumin 2.6 g/dL (3.4-5.0); Bilirubin Total 0.3 mg/dL (0.2-1.0); Magnesium 2.3 mg/dL (1.8-2.4); Potassium 4.9 mmol/L (3.5-5.1); Protein, Total 6.5 g/dL (6.4-8.2)
[2022-06-28] MEDS ORDERED: GLUCAGON 1 MG/VIAL IM PRN (07:52)
[2022-06-28] MEDS ORDERED: D50W 25 GM/50 ML SYRINGE IV PRN (07:52)
[2022-06-28 08:19] VITALS: BP 141/59; TEMP 97.1
[2022-06-28] MEDS ORDERED: INSULIN 70/30 100 UNITS/ML SQ SCH (09:00)
[2022-06-28] MEDS ORDERED: VENLAFAXINE HCL XR 75 MG CAP PO SCH (09:00)
[2022-06-28] MEDS ORDERED: ASPIRIN EC 81 MG TAB PO SCH (09:00)
[2022-06-28 09:19] VITALS: O2SAT 91
--- NOTE | 2022-06-28 09:31 | P.PN ---
Subjective Date of Service: 06/28/22 Chief Complaint: COPD exacerbation Subjective: Improving (Much better feeling better shortness of breath is improved wants to go home) Review of Systems Respiratory: Cough, Shortness of Breath Physical Examination - Vital Signs Temperature: 97.1 F Blood Pressure: 141/59 Pulse: 85 Respirations: 18 Pulse Ox (%): 96 - Physical Exam General: Alert, Oriented x3 Respiratory: Clear to auscultation bilaterally, Diminished Cardiovascular: No edema, Normal S1 S2 Assessment And Plan - Current Problems (Diagnosis) (1) COPD with exacerbation Current Visit: Yes Status: Acute Plan: Patient is 86 years of age admitted with a presumed COPD exacerbation. There is prior history of smoking no prior history of COPD. Can discharge patient on low-dose prednisone 10 mg once a day inhaled bronchodilator Advair or Symbicort no antibiotics needed follow-up with me in 2 weeks will arrange for an outpatient pulmonary function testing patient's white count is declining (2) Lung mass Current Visit: Yes Status: Acute Plan: CT scan shows a right upper lobe peripheral opacity and needs a follow-up in about 3 months
[2022-06-28] MEDS: DOXYCYCLINE 100 MG CAP PO SCH (09:48)
[2022-06-28] MEDS: INSULIN -REGULAR HUMAN 50 UNIT/0.5 ML ML SQ SCH (09:49)
[2022-06-28] MEDS: predniSONE 10 MG TAB PO SCH (09:49)
--- NOTE | 2022-06-28 17:39 | P.DS ---
Admission Date: 06/26/22 Discharge Date: 06/28/22 Disposition: ROUTINE DISCHARGE Discharge Condition: GOOD Reason for Admission: COPD exacerbation Consultations: Pulmonology - Dr. Cruz Brief History of Present Illness: 86-year-old female with history of atrial fibrillation on chronic anticoagulation therapy, COPD, diabetes mellitus type 2insulin-dependent, hypertension and CAD presented to the emergency department for chest pain, shortness of breath. She reports her symptoms began today, she felt like she could not take a deep breath and was having tightness in her chest. She is evaluated in the emergency department her labs were significant for leukocytosis with white blood cell count of 20 hemoglobin 15.2 hematocrit 45.9 initial high- sensitivity troponin negative lactic acid 3.5 she was noted to be mildly hypoxic on room air with room air saturations of 90%, ABG is ordered and pending, chest x-ray is nondiagnostic patient denies any fever, chills, urinary symptoms. Urinalysis ordered and pending, patient has SIRS criteria present including leukocytosis, tachycardia, tachypnea is afebrile but no source of infection has been identified. Patient denies any known use of recent steroids. CT chest without contrast ordered to further evaluate for possible pneumonia and urinalysis pending to rule out UTI. ROS is otherwise negative. Patient was treated with steroids, nebulizer treatments in the ED her breathing has improved. She has been compliant with her Xarelto. Will admit for further evaluation and management of suspected COPD exacerbation Hospital Course: Problem list Acute hypoxic respiratory failure secondary to COPD with exacerbation Atrial fibrillation on chronic anticoagulation therapy Diabetes mellitus type 2insulin-dependent with hyperglycemia Hypertension History of CAD Patient presented with difficulty breathing / taking a deep breath. Imaging was negative for pneumonia, but did not chronic COPD changes. She was noted to have wheezing on exam and was treated for an acute COPD exacerbation. She has not been formally diagnosed with COPD before, but does have history of smoking in the past. Pulmonology was consulted. Patient was empirically treated with antibiotics. She was weaned off oxygen and reported feeling much better and requesting discharge home. Her white blood cell count was elevated on admission and peaked at 24,000, came down the following day but still remained elevated. Discussed with Pulmonology, and suspect remains this elevated due to amount of steroids she received, as she has clinically significantly improved and remains afebrile. She was deemed stable for discharge home - 7 days of antibiotic (Doxycycline) and 5 more days of prednisone per pulmonology recommendations. Follow up with Dr. Cruz in ~1 week. Patient counselled on steroid use leading to increased glucose levels. Advised to increase her insulin by 2 units, continue checking glucose levels, and continue increasing insulin each day by 2 units until glucose levels are <200 while on steroids.. Plan to go back to regular dosing of insulin once prednisone has been completed. Vital Signs/Physical Exam: Temp Pulse Resp BP Pulse Ox 97.1 F 85 18 141/59 H 96 06/28/22 09:32 06/28/22 09:56 06/28/22 09:32 06/28/22 09:56 06/28/22 09:32 General: Alert, In no apparent distress, Oriented x3, Demented (mild) HEENT: EOMI, Sclerae nonicteric Respiratory: Expiratory wheezes (minimal) Cardiovascular: No edema, Regular rate/rhythm Gastrointestinal: Soft and benign, Non-distended, No tenderness Musculoskeletal: No contractures, No tenderness Integumentary: No rashes, No significant lesion Neurological: Normal speech, Normal strength at 5/5 x4 extr, Normal affect Laboratory Data at Discharge: WBC 20.00 K/uL (4.3-10.9) H 06/28/22 06:11 Hgb 12.0 g/dL (12.0-15.0) 06/28/22 06:11 Hct 36.0 % (36.0-45.0) 06/28/22 06:11 Plt Count 412 K/uL (152-406) H 06/28/22 06:11 PT 10.5 SECONDS (9.5-12.5) 06/26/22 14:27 INR 0.96 06/26/22 14:27 APTT 30.2 SECONDS (24.3-36.9) 06/26/22 14:27 Sodium 141 mmol/L (136-145) 06/28/22 06:11 Potassium 4.9 mmol/L (3.5-5.1) 06/28/22 06:11 BUN 30 mg/dL (7-18) H 06/28/22 06:11 Creatinine 1.19 mg/dL (0.55-1.3) 06/28/22 06:11 Glucose 208 mg/dL (74-106) H 06/28/22 06:11 Magnesium 2.3 mg/dL (1.8-2.4) 06/28/22 06:11 Total Bilirubin 0.3 mg/dL (0.2-1.0) 06/28/22 06:11 AST 9 U/L (15-37) L 06/28/22 06:11 ALT 16 U/L (12-78) 06/28/22 06:11 Alkaline Phosphatase 88 U/L (45-117) 06/28/22 06:11 Home Medications: Aspirin [Aspirin EC 81 MG] 1 tab PO DAILY 06/27/22 Atorvastatin Calcium [Lipitor*] 1 tab PO BID 06/27/22 Insulin / NPH/Reg Human [Novolin *] 25 units SQ BID 06/27/22 Metformin HCl 1 tab PO BID 06/27/22 Metoprolol Tartrate 2 tab PO DAILY 06/27/22 Ramipril 1 tab PO DAILY 06/27/22 Venlafaxine HCl *Xr* [Effexor XR] 1 tab PO DAILY 06/27/22 Albuterol Inhaler [Ventolin Inhaler*] 2 puff IH Q6H PRN 30 Days #1 inh 06/28/22 Doxycycline Hyclate [Vibramycin] 100 mg PO BID 7 Days #14 cap 06/28/22 predniSONE [Deltasone*] 10 mg PO BID 5 Days #10 tab 06/28/22 New Medications: predniSONE [Deltasone*] 10 mg PO BID 5 Days #10 tab Albuterol Inhaler [Ventolin Inhaler*] 2 puff IH Q6H PRN 30 Days #1 inh PRN Reason: Shortness Of Breath Doxycycline Hyclate [Vibramycin] 100 mg PO BID 7 Days #14 cap Physician Discharge Instructions: Patient presented with difficulty breathing / taking a deep breath. Imaging was negative for pneumonia, but did not chronic COPD changes. She was noted to have wheezing on exam and was treated for an acute COPD exacerbation. She has not been formally diagnosed with COPD before, but does have history of smoking in the past. Pulmonology was consulted. Patient was empirically treated with antibiotics. She was weaned off oxygen and reported feeling much better and requesting discharge home. Her white blood cell count was elevated on admission and peaked at 24,000, came down the following day but still remained elevated. Discussed with Pulmonology, and suspect remains this elevated due to amount of steroids she received, as she has clinically significantly improved and remains afebrile. She was deemed stable for discharge home - 7 days of antibiotic (Doxycycline) and 5 more days of prednisone per pulmonology recommendations. Follow up with Dr. Cruz in ~1 week. Patient counselled on steroid use leading to increased glucose levels. Advised to increase her insulin by 2 units, continue checking glucose levels, and continue increasing insulin each day by 2 units until glucose levels are <200 while on steroids.. Plan to go back to regular dosing of insulin once prednisone has been completed. Followup: NONE,NONE [Primary Care Provider] - Time spent managing pt's care (in minutes): 45
== END 2022-06-28 10:20 | disposition home or self-care (01) | DRG 189 ==
LOC: ER 14:11 → ERHOLD 18:16 → 2ND 20:26 → 4TH 06-27 12:48
PROVIDERS: ADMIT Hospitalist; ATTEND Hospitalist
DX: J96.01 Acute respiratory failure with hypoxia (principal); J44.1 Chronic obstructive pulmonary disease with (acute) exacerbation; E11.65 Type 2 diabetes mellitus with hyperglycemia; E86.0 Dehydration; I10 Essential (primary) hypertension; I25.10 Atherosclerotic heart disease of native coronary artery without angina pectoris; R91.8 Other nonspecific abnormal finding of lung field; D72.829 Elevated white blood cell count, unspecified; I48.91 Unspecified atrial fibrillation; F32.A Depression, unspecified; Z20.822 Contact with and (suspected) exposure to COVID-19; I25.2 Old myocardial infarction; Z87.891 Personal history of nicotine dependence; Z79.01 Long term (current) use of anticoagulants; Z79.899 Other long term (current) drug therapy; Z88.0 Allergy status to penicillin; Z88.2 Allergy status to sulfonamides; Z88.8 Allergy status to other drugs, medicaments and biological substances; Z91.048 Other nonmedicinal substance allergy status; Z91.041 Radiographic dye allergy status; Z90.49 Acquired absence of other specified parts of digestive tract; Z82.49 Family history of ischemic heart disease and other diseases of the circulatory system
CPT/HCPCS: 36415; 71045; 71250; 80053; 81001; 82805; 82947; 83036; 83605; 83735; 83880; 84145; 84439; 84443; 84484; 85025; 85610; 85730; 87040; 87086; 87088; 87804; 93005; 94010; 94640; 94760; 96365; 96367; 96375; 99285; J0456; J1815; J2930; J3475; J7030; J7050; J7512; J7614; U0003

== ENCOUNTER 2023-06-10 12:10 | Emergency (ER) | payer OTHER ==
--- OUTSIDE RECORDS SUMMARY | 2023-06-10 12:13 | XMS REPORT | Continuity of Care Document ---
:1935 Author Organization [facility] t Address [address] [address] Care Team Providers Name Role Phone Bin Ochoa Attending Clinician Unavailable Problems This patient has no known problems. Allergies, Adverse Reactions, Alerts This patient has no known allergies or adverse reactions. Medications This patient has no known medications. Procedures This patient has no known procedures. Encounters Start End Encounter Admission Attending Care Care Encounter Source Date/Time Date/Time Type Type Clinicians Facility Department ID 2023-06-10 Outpatient Ochoa, STLMLC STL[facility]C [id number] Common 08:12:01 Bin [id number] [facility] 2023-04-17 Outpatient Ochoa, STLMLC STLMLC [id number] Common 15:09:01 Bin [id number] [facility] 2023-04-11 Outpatient Ochoa, STLMLC STLMLC [id number] Common 10:03:00 Bin [id number] [facility] 2023-04-09 Outpatient Ochoa, STLMLC STLMLC [id number] Common 11:10:01 Bin [id number] [facility] 2023-04-07 Outpatient Ochoa, STLMLC STLMLC [id number] Common 09:45:02 Bin [id number] [facility] 2023-04-03 Outpatient Ochoa, STLMLC STLMLC [id number] Common 14:03:01 Bin [id number] [facility] Results This patient has no known results.
--- NOTE | 2023-06-10 12:40 | ER ---
Nurse's Notes [facility] Name: Yarelis Payton Age: 87 yrs Sex: Female : 1935 Arrival Date: 06/10/2023 Time: 12:10 Bed 13 Private MD: Diagnosis: Tendinitis right tricep proximal belly Presentation: 06/10 12:18 Chief complaint: Patient states: her right arm has been hurting from her shoulder to ap3 her elbow for "quite some time now". patient rates her pain as a 7/10 on the pain scale. patient denies trauma to the area. Coronavirus screen: At this time, the client does not indicate any symptoms associated with coronavirus-19. Ebola Screen: No symptoms or risks identified at this time. Initial Sepsis Screen: Does the patient meet any 2 criteria? No. Patient's initial sepsis screen is negative. Does the patient have a suspected source of infection? No. Patient's initial sepsis screen is negative. Risk Assessment: Do you want to hurt yourself or someone else? Patient reports no desire to harm self or others. Onset of symptoms is unknown. 12:18 Method Of Arrival: Ambulatory ap3 12:18 Acuity: FROY 4 ap3 Triage Assessment: 12:19 General: Appears in no apparent distress. Behavior is calm, cooperative, appropriate ap3 for age. Pain: Complains of pain in right arm Pain currently is 7 out of 10 on a pain scale. Pain began gradually. Neuro: Level of Consciousness is awake, alert, obeys commands, Oriented to person, place, time, situation. Cardiovascular: Patient's skin is warm and dry. Respiratory: Airway is patent Respiratory effort is even, unlabored. Historical: - Allergies: 12:19 Bactrim; ap3 12:19 Codeine; ap3 12:19 Iodine; ap3 12:19 PENICILLINS; ap3 12:19 Sudafed; ap3 12:19 Talwin; ap3 12:19 trovafloxacin mesylate; ap3 - PMHx: 12:19 Atrial Fib; Bladder CA; COPD; Diabetes - IDDM; Hypertension; Myocardial infarction; ap3 - Immunization history:: Client reports receiving the 2nd dose of the Covid vaccine. - Social history:: Smoking status: Patient denies any tobacco usage or history of. Screenin:20 Abuse screen: Denies threats or abuse. Nutritional screening: No deficits noted. ap3 Tuberculosis screening: No symptoms or risk factors identified. 12:25 [facility] ED Fall Risk Assessment (Adult) History of falling in the last 3 months, rs5 including since admission No falls in past 3 months (0 pts) Confusion or Disorientation No (0 pts) Intoxicated or Sedated No (0 pts) Impaired Gait No (0 pts) Mobility Assist Device Used No (0 pt) Altered Elimination No (0 pt) Score/Fall Risk Level 0 - 2 = Low Risk. Assessment: 12:22 General: Appears Behavior is calm, cooperative. rs5 12:22 Pain: Complains of pain in right shoulder Pain radiates to right elbow Pain currently rs5 is 6 out of 10 on a pain scale. Quality of pain is described as aching, Pain began a few weeks ago Is continuous. Neuro: Level of Consciousness is awake, alert, obeys commands, Oriented to person, place, time, situation. Cardiovascular: Heart tones S1 S2 present Rhythm is regular. Respiratory: Airway is patent Respiratory effort is even, unlabored, Respiratory pattern is regular, symmetrical. GI: Abdomen is round non-distended, Abd is soft and non tender X 4 quads. : No signs and/or symptoms were reported regarding the genitourinary system. EENT: No signs and/or symptoms were reported regarding the EENT system. Derm: Skin is pink, warm \\T\\ dry. Musculoskeletal: Range of motion: intact in right arm. Vital Signs: 12:18 BP 146 / 61; Pulse 85; Resp 18; Temp 98.3; Pulse Ox 94% ; Pain 7/10; ap3 12:30 BP 150 / 55; Pulse 82; Resp 17; Temp 98.2(O); Pulse Ox 99% on R/A; rs5 12:18 Pain Scale: Adult ap3 ED Course: 12:12 Patient arrived in ED. mg5 12:17 Tiffany Ochoa MD is Attending Physician. sp3 12:19 Triage completed. ap3 12:20 Arm band placed on left wrist. ap3 12:20 Patient has correct armband on for positive identification. Bed in low position. Call rs5 light in reach. Side rails up X2. Adult w/ patient. 12:49 No provider procedures requiring assistance completed. rs5 12:50 Patient did not have IV access during this emergency room visit. rs5 Administered Medications: No medications were administered Medication: 12:50 VIS not applicable for this client. rs5 Outcome: 12:39 Discharge ordered by . sp3 12:49 Discharged to home ambulatory, with family. rs5 12:49 Condition: stable 12:49 Discharge instructions given to patient, family, Instructed on discharge instructions, follow up and referral plans. medication usage, Demonstrated understanding of instructions, follow-up care, medications, Prescriptions given X 1. 12:54 Patient left the ED. rs5 Signatures: Jessica Ramos RN RN ap3 Tiffany Ochoa MD MD sp3 Charly Servin RN RN rs5 [place] Bundy mg5 Corrections: (The following items were deleted from the chart) 12:19 12:18 Chief complaint: ap3 ap3
--- NOTE | 2023-06-10 12:40 | EDPHYS ---
Physician Documentation [facility] [place], [place] Name: Yarelis Payton Age: 87 yrs Sex: Female : 1935 Arrival Date: 06/10/2023 Time: 12:10 Bed 13 Private MD: ED Physician Tiffany Ochoa HPI: 06/10 12:34 This 87 yrs old Female presents to ER via Ambulatory with complaints of Arm Pain - sp3 Right. 12:34 87-year-old female with a history of distant atrial fibrillation (not currently on any sp3 blood thinners), distant bladder cancer (not on any active treatment), COPD, diabetes, hypertension now presents to the ED with chief complaint right armpit/upper humerus pain that started on Friday. Patient denies any direct trauma and still has full range of motion and use of her right upper extremity. She denies any chest pain, shortness of breath, breast pain, syncope, neck pain, back pain, nausea, vomiting, diarrhea, abdominal pain, or any other signs or symptoms on ROS at this time. Her last mammogram was "several years ago" and was normal. She denies any prior breast cancer history. She denies any weight loss or night sweats.. Historical: - Allergies: 12:19 Bactrim; ap3 12:19 Codeine; ap3 12:19 Iodine; ap3 12:19 PENICILLINS; ap3 12:19 Sudafed; ap3 12:19 Talwin; ap3 12:19 trovafloxacin mesylate; ap3 - PMHx: 12:19 Atrial Fib; Bladder CA; COPD; Diabetes - IDDM; Hypertension; Myocardial infarction; ap3 - Immunization history:: Client reports receiving the 2nd dose of the Covid vaccine. - Social history:: Smoking status: Patient denies any tobacco usage or history of. ROS: 12:35 Constitutional: Negative for fever, chills, and weight loss, Eyes: Negative for injury, sp3 pain, redness, and discharge, ENT: Negative for injury, pain, and discharge, Neck: Negative for injury, pain, and swelling, Cardiovascular: Negative for chest pain, palpitations, and edema, Respiratory: Negative for shortness of breath, cough, wheezing, and pleuritic chest pain, Abdomen/GI: Negative for abdominal pain, nausea, vomiting, diarrhea, and constipation, Back: Negative for injury and pain, Skin: Negative for injury, rash, and discoloration, Neuro: Negative for headache, weakness, numbness, tingling, and seizure, Psych: Negative for depression, anxiety, suicide ideation, homicidal ideation, and hallucinations, Allergy/Immunology: Negative for hives, rash, and allergies, Endocrine: Negative for neck swelling, polydipsia, polyuria, polyphagia, and marked weight changes, Hematologic/Lymphatic: Negative for swollen nodes, abnormal bleeding, and unusual bruising. 12:35 All other systems are negative. Exam: 12:36 Constitutional: This is a well developed, well nourished patient who is awake, alert, sp3 and in no acute distress. Head/Face: Normocephalic, atraumatic. Eyes: Pupils equal round and reactive to light, extra-ocular motions intact. Lids and lashes normal. Conjunctiva and sclera are non-icteric and not injected. Cornea within normal limits. Periorbital areas with no swelling, redness, or edema. Neck: Trachea midline, no thyromegaly or masses palpated, and no cervical lymphadenopathy. Supple, full range of motion without nuchal rigidity, or vertebral point tenderness. No Meningismus. Chest/axilla: Normal chest wall appearance and motion. Nontender with no deformity. No lesions are appreciated. Cardiovascular: Regular rate and rhythm with a normal S1 and S2. No gallops, murmurs, or rubs. Normal PMI, no JVD. No pulse deficits. Respiratory: Lungs have equal breath sounds bilaterally, clear to auscultation and percussion. No rales, rhonchi or wheezes noted. No increased work of breathing, no retractions or nasal flaring. Abdomen/GI: Soft, non-tender, with normal bowel sounds. No distension or tympany. No guarding or rebound. No evidence of tenderness throughout. Back: No spinal tenderness. No costovertebral tenderness. Full range of motion. Skin: Warm, dry with normal turgor. Normal color with no rashes, no lesions, and no evidence of cellulitis. Neuro: Awake and alert, GCS 15, oriented to person, place, time, and situation. Cranial nerves II-XII grossly intact. Motor strength 5/5 in all extremities. Sensory grossly intact. Cerebellar exam normal. Normal gait. Psych: Awake, alert, with orientation to person, place and time. Behavior, mood, and affect are within normal limits. 12:36 Musculoskeletal/extremity: Patient has pain at the triceps insertion site proximally with pain reproducible to palpation there extending into the distal muscle belly. No bony pain. Patient has full range of motion of the right upper extremity. Neurovascularly normal distally as well.. Vital Signs: 12:18 BP 146 / 61; Pulse 85; Resp 18; Temp 98.3; Pulse Ox 94% ; Pain 7/10; ap3 12:30 BP 150 / 55; Pulse 82; Resp 17; Temp 98.2(O); Pulse Ox 99% on R/A; rs5 12:18 Pain Scale: Adult ap3 MDM: 12:34 Patient medically screened. sp3 12:37 Data reviewed: vital signs, nurses notes. ED course: 87-year-old female with PMH above sp3 now with likely tendinitis versus muscle strain of the right posterior tricep muscle. Breast tissue does not appear or have any masses. I have advised patient to get follow-up mammogram since she has not gotten one in some time and she has distant cancer history. I am not highly suspicious for acute coronary syndrome, pulmonary pathology, traumatic events, or any other significant findings. We will start meloxicam on patient for symptomatic control and she is to follow-up with her PCP for the next step of reevaluation and mammogram. If she has not improved, I advised her that she will need imaging. At this time they elect to try conservative treatment with NSAID and follow-up. Imaging was offered but they declined and agreed with my opinion that we can wait at least 1 week after conservative treatment for that route.. Administered Medications: No medications were administered Disposition Summary: 06/10/23 12:39 Discharge Ordered Location: Home sp3 Condition: Stable sp3 Diagnosis - Tendinitis right tricep proximal belly sp3 Followup: sp3 - With: Private Physician - When: Upon discharge from the Emergency Department - Reason: Recheck today's complaints, Continuance of care Discharge Instructions: - Discharge Summary Sheet sp3 - Triceps Tendinitis sp3 Forms: - Medication Reconciliation Form sp3 - Thank You Letter sp3 - Antibiotic Education sp3 - Prescription Opioid Use sp3 - Patient Portal Instructions sp3 - Leadership Thank You Letter sp3 Prescriptions: - meloxicam 7.5 mg Oral tablet - take 1 tablet by ORAL route daily; 20 tablet; Refills: 0, Product Selection sp3 Permitted Signatures: Jessica Ramos RN RN ap3 Tiffany Ochoa MD MD sp3
[2023-06-10 14:05] VITALS: BP 146/61; TEMP 98.3; O2SAT 94
== END 2023-06-10 12:54 | disposition home or self-care (01) ==
LOC: ER 12:10
DX: S46.391A Other injury of muscle, fascia and tendon of triceps, right arm, initial encounter (principal)
CPT/HCPCS: 99283

== ENCOUNTER 2023-07-27 11:08 | Emergency (ER) | payer OTHER ==
--- OUTSIDE RECORDS SUMMARY | 2023-07-27 11:12 | XMS REPORT | Continuity of Care Document ---
:1935 Author Organization [facility] t Address [address] [address] Care Team Providers Name Role Phone Bin Ochoa Attending Clinician Unavailable Problems This patient has no known problems. Allergies, Adverse Reactions, Alerts This patient has no known allergies or adverse reactions. Medications This patient has no known medications. Procedures This patient has no known procedures. Encounters Start End Encounter Admission Attending Care Care Encounter Source Date/Time Date/Time Type Type Clinicians Facility Department ID 2023-07-08 Outpatient Ochoa, STLMLC ST[facility] [id number] Common 10:01:01 Bin [id number] [facility] 2023-06-25 Outpatient Ochoa, STLMLC [facility] [id number] Common 08:38:01 Bin [id number] [facility] 2023-06-10 Outpatient Ochoa, STLMLC STLC [id number] Common 08:12:01 Bin [id number] [facility] 2023-04-17 Outpatient Ochoa, STLMLC ST[facility] [id number] Common 15:09:01 Bin [id number] [facility] 2023-04-11 Outpatient Ochoa, STLMLC ST[facility] [id number] Common 10:03:00 Bin [id number] [facility] 2023-04-09 Outpatient Ochoa, STLMLC [facility] [id number] Common 11:10:01 Bin [id number] [facility] 2023-04-07 Outpatient Ochoa, STLMLC ST[facility] [id number] Common 09:45:02 Bin [id number] [facility] 2023-04-03 Outpatient Ochoa, STLMLC STLC [id number] Common 14:03:01 Bin [id number] [facility] Results This patient has no known results.
[2023-07-27] MEDS ORDERED: TRAMADOL HCL 50 MG TAB ONE (11:54)
--- NOTE | 2023-07-27 12:42 | RAD REPORT ---
EXAM DESCRIPTION: RAD - Humerus Right - 07/27/2023 12:20 pm CLINICAL HISTORY: Right arm pain FINDINGS: No fracture is seen Osteoporosis. No bony lesion noted
--- NOTE | 2023-07-27 12:42 | RAD REPORT ---
EXAM DESCRIPTION: RAD - Shoulder Right 2 View - 07/27/2023 12:20 pm CLINICAL HISTORY: Right shoulder pain FINDINGS: No fracture or dislocation is seen. Mild to moderate narrowing AC joint Calcific density superior to the humeral head may indicate calcific tendinitis Osteoporosis
--- NOTE | 2023-07-27 13:17 | ER ---
Nurse's Notes [facility] Name: Yarelis Payton Age: 87 yrs Sex: Female : 1935 Arrival Date: 07/27/2023 Time: 11:08 Bed DIS3 Private MD: Diagnosis: Calcific tendinitis of left shoulder Presentation: 07/27 11:34 Chief complaint: Right shoulder pain that radiates to right upper back and elbow that hb started approx 1 month ago after doing laundry. Coronavirus screen: At this time, the client does not indicate any symptoms associated with coronavirus-19. Ebola Screen: No symptoms or risks identified at this time. Initial Sepsis Screen: Does the patient meet any 2 criteria? No. Patient's initial sepsis screen is negative. Does the patient have a suspected source of infection? No. Patient's initial sepsis screen is negative. Risk Assessment: Do you want to hurt yourself or someone else? Patient reports no desire to harm self or others. Onset of symptoms was May 2023. 11:34 Method Of Arrival: Wheelchair hb 11:34 Acuity: FROY 4 hb Historical: - Allergies: 11:39 Bactrim; hb 11:39 Codeine; hb 11:39 Iodine; hb 11:39 PENICILLINS; hb 11:39 Sudafed; hb 11:39 Talwin; hb 11:39 trovafloxacin mesylate; hb - PMHx: 11:39 Diabetes - IDDM; Myocardial infarction; Hypertension; COPD; Bladder CA; Atrial Fib; hb - PSHx: 11:39 Cholecystectomy; hb - Immunization history:: Adult Immunizations up to date. - Social history:: Smoking status: Patient denies any tobacco usage or history of. Vital Signs: 11:34 BP 106 / 56; Pulse 89; Resp 18; Temp 97.2(TE); Pulse Ox 99% on R/A; Weight 61.23 kg; hb Height 5 ft. 2 in. ; Pain 10; 11:34 Body Mass Index 24.69 (61.23 kg, 157.48 cm) hb 11:34 Pain Scale: Adult hb ED Course: 11:12 Patient arrived in ED. mg5 11:15 Sharon Harkins PA-C is PHCP. sb4 11:15 Andrey Saldaña MD is Attending Physician. sb4 11:39 Triage completed. hb 11:39 Arm band placed on. hb 12:22 Shoulder Right (2 View) XRAY In Process Unspecified. EDMS 12:22 Humerus Right XRAY In Process Unspecified. EDMS 13:15 Sunday Rich MD is Referral Physician. sb4 Administered Medications: 11:45 Drug: traMADol PO 50 mg PO once Route: PO; hb 12:44 Follow up: Response: No adverse reaction mb9 13:22 Drug: Ondansetron Oral Disintegrating Tablet Oral Disintegrating Tablet 4 mg PO once hb Route: PO; 13:23 Drug: morphine IM 4 mg IM once Route: IM; Site: left deltoid; hb Outcome: 13:16 Discharge ordered by MD. sb4 13:36 Discharged to home via wheelchair, with family, hb 13:36 Condition: stable 13:36 Discharge instructions given to patient, family, Instructed on discharge instructions, follow up and referral plans. medication usage, Demonstrated understanding of instructions, follow-up care, medications, 13:36 Patient left the ED. hb Signatures: Dispatcher [employer] EDMS Mayelin Anderson, RN RN Sharon Juarez, PA-C PA-C sb4 Suzi Brunson RN RN mb9 Jamaica Bundy mg5
--- NOTE | 2023-07-27 13:17 | EDPHYS ---
Physician Documentation [facility] Name: Yarelis Payton Age: 87 yrs Sex: Female : 1935 Arrival Date: 07/27/2023 Time: 11:08 Bed DIS3 Private MD: ED Physician Andrey Saldaña HPI: 07/27 13:27 This 87 yrs old Female presents to ER via Wheelchair with complaints of Arm Pain. sb4 16:45 The patient or guardian complains of pain. The complaints affect the anterior aspect of sb4 right shoulder, posterior aspect of right shoulder and right tricep. Context:. Onset: The symptoms/episode began/occurred 2 month(s) ago. Treatment prior to arrival includes: over the counter medications, Tylenol. Modifying factors: The symptoms are alleviated by OTC meds, remaining still, the symptoms are aggravated by movement. Associated signs and symptoms: The patient has no apparent associated signs or symptoms. The patient has been recently seen at the [facility] Emergency Department, last month, for similar complaints. Historical: - Allergies: 11:39 Bactrim; hb 11:39 Codeine; hb 11:39 Iodine; hb 11:39 PENICILLINS; hb 11:39 Sudafed; hb 11:39 Talwin; hb 11:39 trovafloxacin mesylate; hb - PMHx: 11:39 Diabetes - IDDM; Myocardial infarction; Hypertension; COPD; Bladder CA; Atrial Fib; hb - PSHx: 11:39 Cholecystectomy; hb - Immunization history:: Adult Immunizations up to date. - Social history:: Smoking status: Patient denies any tobacco usage or history of. ROS: 16:45 Constitutional: Negative for fever, chills, and weight loss, sb4 16:45 MS/extremity: Positive for pain, of the right tricep and posterior aspect of right shoulder and anterior aspect of right shoulder, 16:45 All other systems are negative, sb4 Exam: 16:45 Constitutional: This is a well developed, well nourished patient who is awake, alert, sb4 and in no acute distress. 16:45 Musculoskeletal/extremity: ROM: limited active range of motion due to pain, limited passive range of motion due to pain, in the right arm, Circulation is intact in all extremities. Pulses: are normal with no appreciated deficits, Perfusion: the patient is normally perfused throughout, Perfusion: the extremity is normally perfused throughout, Sensation intact. Compartment Syndrome exam of affected extremity: is normal. no numbness, no tingling, no sensation deficit, no palor, no weak pulses, Joints: the right shoulder displays painful range of motion, tenderness, Vital Signs: 11:34 BP 106 / 56; Pulse 89; Resp 18; Temp 97.2(TE); Pulse Ox 99% on R/A; Weight 61.23 kg; hb Height 5 ft. 2 in. ; Pain 10; 11:34 Body Mass Index 24.69 (61.23 kg, 157.48 cm) hb 11:34 Pain Scale: Adult hb MDM: 11:16 Patient medically screened. sb4 16:45 Differential diagnosis: dislocation, closed fracture, contusion, abrasion, tendonitis. sb4 Data reviewed: vital signs, nurses notes, radiologic studies, and as a result, I will discharge patient. Historians other than the Patient: Daughter/Son: son. Care significantly affected by the following chronic conditions: Diabetes, Hypertension, Chronic Obstructive Pulmonary Disease. Counseling: I had a detailed discussion with the patient and/or guardian regarding the historical points, exam findings, and any diagnostic results supporting the discharge/admit diagnosis, radiology results, the need for outpatient follow up, a orthopedic surgeon, to return to the emergency department if symptoms worsen or persist or if there are any questions or concerns that arise at home. 07/27 11:38 Order name: Shoulder Right (2 View) XRAY; Complete Time: 12:43 sb4 07/27 11:38 Order name: Humerus Right XRAY; Complete Time: 12:43 sb4 Administered Medications: 11:45 Drug: traMADol PO 50 mg PO once Route: PO; hb 12:44 Follow up: Response: No adverse reaction mb9 13:22 Drug: Ondansetron Oral Disintegrating Tablet Oral Disintegrating Tablet 4 mg PO once hb Route: PO; 13:23 Drug: morphine IM 4 mg IM once Route: IM; Site: left deltoid; hb Disposition Summary: 07/27/23 13:16 Discharge Ordered Notes: Location: Home sb4 Problem: an ongoing problem sb4 Symptoms: are unchanged sb4 Condition: Stable sb4 Diagnosis - Calcific tendinitis of left shoulder sb4 Followup: sb4 - With: Sunday Rich MD - When: 2 - 3 days - Reason: Further diagnostic work-up, Recheck today's complaints, Re-evaluation by your physician Discharge Instructions: - Discharge Summary Sheet sb4 - Calcific Tendinitis sb4 Forms: - Medication Reconciliation Form sb4 - Thank You Letter sb4 - Antibiotic Education sb4 - Prescription Opioid Use sb4 - Patient Portal Instructions sb4 - Leadership Thank You Letter sb4 Addendum: 07/28/2023 14:14 I was immediately available for consultation during this patient's visit. I did not e c2 personally see the patient or guide the patient's care. . Signatures: Dispatcher [employer] EDMayelin Palm RN RN Sharon Juarez PA-C PALynC sb4 Andrey Saldaña MD MD ec2 Suzi Brunson RN mb9
[2023-07-27] MEDS ORDERED: MORPHINE 4 MG/ML SYR ONE (13:36)
[2023-07-27] MEDS ORDERED: ONDANSETRON 4 MG (ODT) TAB ONE ×2 (13:36→13:37)
[2023-07-27 13:40] VITALS: BP 106/56; TEMP 97.2; O2SAT 99
== END 2023-07-27 13:36 | disposition home or self-care (01) ==
LOC: ER 11:08
DX: M75.31 Calcific tendinitis of right shoulder (principal); Z88.0 Allergy status to penicillin; Z88.1 Allergy status to other antibiotic agents; Z88.2 Allergy status to sulfonamides; Z88.5 Allergy status to narcotic agent; Z88.8 Allergy status to other drugs, medicaments and biological substances; Z91.048 Other nonmedicinal substance allergy status
CPT/HCPCS: 73060; 73030; 96372; 99284; Q0162

== ENCOUNTER 2023-08-04 13:09 | Inpatient (IN) | payer OTHER ==
--- OUTSIDE RECORDS SUMMARY | 2023-08-04 13:13 | XMS REPORT | Continuity of Care Document ---
:1935 Author Organization [facility] t Address [address] [address] Care Team Providers Name Role Phone Bin [...] Department ID 2023-07-08 Outpatient Ochoa, STLMLC STLC [id number] Common 10:01:01 Bin [id number] [facility] 2023-06-25 Outpatient Ochoa, STLMLC STLC [id number] Common 08:38:01 Bin [id number] [facility] 2023-06-10 Outpatient Ochoa, STLMLC STLC [id number] Common 08:12:01 Bin [id number] [facility] 2023-04-17 Outpatient Ochoa, STLMLC STLC [id number] Common 15:09:01 Bin [id number] [facility] 2023-04-11 Outpatient Ochoa, STLMLC STLC [id number] Common 10:03:00 Bin [id number] [facility] 2023-04-09 Outpatient Ochoa, STLMLC STLC [id number] Common 11:10:01 Bin [id number] [facility] 2023-04-07 Outpatient Ochoa, STLMLC STLC [id number] Common 09:45:02 Bin [id number] [facility] 2023-04-03 Outpatient Ochoa, STLMLC STLC [id number] Common 14:03:01 Bin [id number] [facility] Results This patient has no known results.
[2023-08-04 14:31] LABS: Absolute Lymphocytes (CBC) 3.9 K/uL (0.7-4.9); Hematocrit 48.5 % (36.0-45.0); Lymphocytes % 30.5 % (15.3-44.8); MCV 91.3 fL (80-100); MPV 7.7 fL (7.6-11.3); Platelets 447 thou/uL (152-406); RBC Red Blood Cell Count 5.32 M/uL (3.86-4.86)
[2023-08-04] MEDS ORDERED: NA CHLORIDE 0.9% 500 ML ONE (14:38)
[2023-08-04] MEDS ORDERED: MAGNESIUM SULFATE 1 gm IVPB 1 GM/100 ML BAG IV ONE (14:39)
[2023-08-04 14:41] LABS: Protime INR 1.01
--- NOTE | 2023-08-04 15:03 | RAD REPORT ---
EXAM DESCRIPTION: CT - Head C Spine Cap Wo Con - 08/04/2023 1:29 pm CLINICAL HISTORY: fall, head/neck/back/pelvic pain COMPARISON: Head C Spine Cap Wo Con dated 09/13/2019; Thorax Wo Con dated 06/26/2022 TECHNIQUE: Head and cervical spine CT images were obtained without IV contrast. Chest, abdomen, and pelvis CT images were obtained following intravenous administration of 90 mL Isovue-300. Multiplanar reformats were generated and reviewed. All CT scans are performed using dose optimization technique as appropriate and may include automated exposure control or mA/KV adjustment according to patient size. FINDINGS: CT HEAD: No intracranial hemorrhage, mass effect, or edema. No evidence of acute territorial infarct. No midli ne shift or abnormal fluid collection. Periventricular and deep white matter hypodensities are nonspe cific, but suggest chronic small vessel ischemic changes. The ventricles are normal in caliber and co nfiguration for age. Basal cisterns are patent. Mastoid aircells and paranasal sinuses are clear. No acute skull fracture. CT CERVICAL SPINE: No acute cervical spine fracture or subluxation. Vertebral body heights are well maintained. Facet tana ints are normal in alignment. No hyperattenuating canal hematoma. Prevertebral and paraspinous soft t issues are unremarkable. CT CHEST: Three subpleural irregular crescentic masses on the right. At the right apex, the mass measures 3.9 c m in greatest axial extent, and 1.9 cm in thickness. In the lateral right upper lobe, the mass measur es 4.1 cm in greatest craniocaudal extent, and 1.7 cm in thickness. In the right lower lobe posterior ly, the mass measures 3.1 cm in greatest axial extent, and 1.5 cm in thickness. All of these masses d emonstrate adjacent parenchymal reticular opacities, and underlying rib periosteal reactions or early erosions. A 5 millimeter right middle lobe nodule is incidentally noted on axial image 37. No pneumo thorax, pulmonary contusion or pleural fluid collection. No mediastinal hematoma and the aorta and pu lmonary arteries are unremarkable. Mildly prominent mediastinal lymph nodes, largest measuring 1.3 cm in short axis in the pretracheal zone. Evaluation for hilar adenopathy is limited in the absence of IV contrast. . No displaced rib fracture or other significant bony finding. CT ABDOMEN/ PELVIS: No evidence of traumatic injury to solid abdominal viscera. Ovoid solid nodule involving the right ad renal gland measuring 2.3 cm is new since the 06/26/2022 CT of the chest. Atrophic changes of the lef t kidney with cyst containing layering mineralization again seen. Multiple right renal cystic lesions again seen, not well characterized. Gallbladder and biliary tree are unremarkable. No bowel injury o r significant finding. No free air, free fluid or abnormal fat stranding. No urinary bladder abnormal ity. No significant bony finding. IMPRESSION: No evidence of acute traumatic findings. 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 These are new or progressive since the most recent chest CT. Findings may relate to metastatic deposits or mesenter ic hematoma. Solid 2.3 cm nodule involving the right adrenal gland is new since 06/26/2022 as well, concerning for a metastatic deposit. Other incidental findings as above.
[2023-08-04] MEDS ORDERED: METOPROLOL TAR 25 MG TAB ONE ×2 (15:19→16:27)
[2023-08-04] MEDS ORDERED: FENTANYL CITR 100 MCG/2 ML ONE (15:19)
--- NOTE | 2023-08-04 15:38 | RAD REPORT ---
EXAM DESCRIPTION: RAD - Hip Right 2 View - 08/04/2023 2:02 pm CLINICAL HISTORY: PAIN COMPARISON: No comparisons TECHNIQUE: Right hip, AP and frog-leg views. FINDINGS: There is no fracture or dislocation. No acute or destructive bony process seen. Metallic c lips along the lateral aspect of the thigh soft tissues. No other soft tissue abnormality. IMPRESSION: No acute findings of the right hip.
--- NOTE | 2023-08-04 15:42 | RAD REPORT ---
EXAM DESCRIPTION: RAD - Elbow Left 3 View - 08/04/2023 2:02 pm CLINICAL HISTORY: PAIN COMPARISON: No comparisons TECHNIQUE: Left elbow, 3 views. FINDINGS: No definitive fracture is identified. Small lenticular osseous density at the tip of the c oronoid process, favored to be chronic/degenerative in nature. Possibility of a small chip fracture i s considered less likely. No elevated posterior fat pad to suggest an effusion. There is no dislocation or periosteal reaction noted. No foreign body or other soft tissue abnormalit y. IMPRESSION: Small osseous density at the tip of the coronoid process, favored to be chronic/degenera tive in nature, rather than a small chip fracture.
[2023-08-04 15:51] LABS: Troponin High Sensitivity 38.4 pg/mL (<58.9)
[2023-08-04 15:55] LABS: Potassium 4.3 mEq/L (3.5-5.1)
--- NOTE | 2023-08-04 16:12 | RAD REPORT ---
EXAM DESCRIPTION: RAD - Elbow Right 3 View - 08/04/2023 2:02 pm CLINICAL HISTORY: RT ELBOW PAIN COMPARISON: Elbow Left 3 View dated 08/04/2023; Hip Right 2 View dated 08/04/2023; Head C Spine Cap Wo Con dated 08/04/2023 TECHNIQUE: Right elbow, 3 views. FINDINGS: No fracture is identified. No elevated posterior fat pad to suggest an effusion. There is no dislocation or periosteal reaction noted. No foreign body or other soft tissue abnormalit y. IMPRESSION: Negative right elbow examination.
--- NOTE | 2023-08-04 16:30 | EDPHYS ---
Physician Documentation [facility] Name: Yarelis Payton Age: 88 yrs Sex: Female : 1935 Arrival Date: 08/04/2023 Time: 13:09 Bed 16 Private MD: ED Physician Luis Enriquez HPI: 08/04 15:01 This 88 yrs old Female presents to ER via EMS with complaints of Fall Injury, Syncope. rn 15:01 The patient has experienced syncope. rn 15:12 Onset: The symptoms/episode began/occurred today. Duration: This was a single episode. rn Associated injury: Head/face: Neck: Back: Left upper extremity:. The patient has not experienced similar symptoms in the past. Patient reports getting out of bed, thinks passed out because she woke up on the floor. Reports palpitations. History of A-fib. Denies any recent illness. Reports from the fall has headache/neck pain/back pain/left elbow pain. Takes Xarelto.. Historical: - Allergies: 13:24 Bactrim; iw 13:24 Codeine; iw 13:24 Iodine; iw 13:24 PENICILLINS; iw 13:24 Sudafed; iw 13:24 Talwin; iw 13:24 trovafloxacin mesylate; iw - PMHx: 13:24 Bladder CA; Atrial Fib; COPD; Myocardial infarction; Hypertension; Diabetes - IDDM; iw - PSHx: 13:24 Cholecystectomy; iw - Immunization history:: Adult Immunizations unknown. - Social history:: Smoking status: unknown. - Family history:: not pertinent. - Hospitalizations: : No recent hospitalization is reported. ROS: 15:12 Constitutional: Negative for fever, chills, and weight loss, Cardiovascular: Positive rn for palpitations Respiratory: Negative for shortness of breath, cough, wheezing, and pleuritic chest pain, Abdomen/GI: Negative for abdominal pain, nausea, vomiting, diarrhea, and constipation, MS/Extremity: Positive for left elbow pain positive for right hip pain. Skin: Negative for injury, rash, and discoloration, Neuro: Negative for headache, weakness, numbness, tingling, and seizure, Exam: 15:12 Constitutional: This is a well developed, well nourished patient who is awake, alert, rn and in no acute distress. Head/Face: Normocephalic, atraumatic. Eyes: Pupils equal round and reactive to light, extra-ocular motions intact. Neck: No midline cervical tenderness, no swelling Chest/axilla: No crepitus Cardiovascular: Tachycardic, irregular. No pulse deficits. Respiratory: No increased work of breathing, no retractions or nasal flaring. Abdomen/GI: Soft, non-tender Back: No midline cervical tenderness. Mild right-sided thoracic paraspinal tenderness without crepitus. MS/ Extremity: Pulses equal, no cyanosis. Mild painful range of motion bilateral elbows without open wounds. No gross deformities. Mild tenderness right hip without shortening or deformity. Neuro: Awake and alert, GCS 15 Vital Signs: 14:11 BP 101 / 63; Pulse 152; Resp 17; Temp 97.7(O); Pulse Ox 97% on R/A; nj1 14:42 BP 116 / 73; Pulse 130; rn 14:43 BP 116 / 73; Pulse 132; Resp 19; Pulse Ox 98% ; nj1 15:15 BP 160 / 70; Pulse 125; Resp 14; Pulse Ox 95% on R/A; nj1 16:00 BP 127 / 98; Pulse 129; Resp 19; Pulse Ox 97% ; nj1 17:30 BP 157 / 129; Pulse 125; Resp 18; Pulse Ox 98% ; nj1 18:13 BP 188 / 166; Pulse 94; nj1 18:18 BP 135 / 79; Pulse 107; nj1 18:23 BP 125 / 55; Pulse 105; nj1 19:30 BP 120 / 63; Pulse 79; Resp 20; Pulse Ox 100% ; la4 20:00 BP 127 / 50; Pulse 81; Resp 20; Pulse Ox 98% on R/A; la4 Kevin Coma Score: 20:00 Eye Response: spontaneous(4). Motor Response: obeys commands(6). Verbal Response: la4 confused(4). Total: 14. MDM: 13:16 Patient medically screened. rn 16:26 Differential Diagnosis: cardiac arrhythmia, idiopathic syncope, vasovagal episode, rn Atrial fibrillation with rapid ventricular rate. Data reviewed: vital signs, nurses notes, lab test result(s), EKG, radiologic studies, CT scan, plain films, and as a result, I will admit patient. Consideration of Admission/Observation Patient was admitted/placed on observation. Escalation of care including admission/observation considered. Management of patient was discussed with the following: Hospitalist: Will admit patient. I considered the following discharge prescriptions or medication management in the emergency department Medications were administered in the Emergency Department. See MAR. Care significantly affected by the following chronic conditions: Diabetes, Hypertension. Counseling: I had a detailed discussion with the patient and/or guardian regarding the historical points, exam findings, and any diagnostic results supporting the discharge/admit diagnosis, lab results, radiology results, the need for further work-up and treatment in the hospital. Response to treatment: the patient's symptoms have mildly improved after treatment, and as a result, I will admit patient. ED course: Patient with A-fib with rapid ventricular rate, responding to metoprolol, current heart rate still in the 120s, will admit to hospitalist service for further care. CT traumagram negative for acute findings but incidental findings include possible lung cancer versus metastases. Family states no longer on metoprolol or Xarelto for her A-fib for some reason, unknown if patient or physician took her off.. 16:26 ED course: I personally spent 35 minutes engaged in work directly related to the rn individual patient's care. This does not include any time spent performing procedures. The patient has been deemed critically ill because of atrial fibrillation with RVR, heart rate in the 150s, requiring multiple doses of medication, IV fluid resuscitation, and emergent admission.. 08/04 13:17 Order name: CBC with Diff; Complete Time: 15:00 rn 08/04 13:17 Order name: Basic Metabolic Panel; Complete Time: 16:00 rn 08/04 13:17 Order name: Protime (+inr); Complete Time: 15:00 rn 08/04 13:17 Order name: Ptt, Activated; Complete Time: 15:00 rn 08/04 13:17 Order name: Troponin High Sensitivity; Complete Time: 16:00 rn 08/04 13:17 Order name: BNP; Complete Time: 16:00 rn 08/04 16:53 Order name: T4 Free EDWI 08/04 16:53 Order name: Thyroid Stimulating Hormone EDWI 08/04 16:53 Order name: Basic Metabolic Panel EDWI 08/04 16:53 Order name: Basic Metabolic Panel EDWI 08/04 16:53 Order name: Basic Metabolic Panel EDWI 08/04 16:53 Order name: Basic Metabolic Panel EDMS 08/04 16:53 Order name: Basic Metabolic Panel EDMS 08/04 16:53 Order name: Basic Metabolic Panel EDMS 08/04 16:53 Order name: CBC with Automated Diff EDMS 08/04 16:53 Order name: CBC with Automated Diff EDMS 08/04 16:53 Order name: CBC with Automated Diff EDMS 08/04 16:53 Order name: CBC with Automated Diff EDMS 08/04 16:53 Order name: CBC with Automated Diff EDMS 08/04 16:53 Order name: CBC with Automated Diff EDMS 08/04 16:53 Order name: Lipid Profile EDMS 08/04 16:53 Order name: Lipid Profile EDMS 08/04 16:53 Order name: Magnesium EDMS 08/04 16:53 Order name: Magnesium EDMS 08/04 16:53 Order name: Magnesium EDMS 08/04 16:53 Order name: Magnesium EDMS 08/04 16:53 Order name: Magnesium EDMS 08/04 16:53 Order name: Magnesium EDMS 08/04 16:53 Order name: Phosphorus EDMS 08/04 16:53 Order name: Phosphorus EDMS 08/04 16:53 Order name: Phosphorus EDMS 08/04 16:53 Order name: Phosphorus EDMS 08/04 16:53 Order name: Phosphorus EDMS 08/04 16:53 Order name: Phosphorus EDMS 08/04 16:53 Order name: Troponin High Sensitivity EDMS 08/04 16:53 Order name: Troponin High Sensitivity EDMS 08/04 16:53 Order name: Troponin High Sensitivity EDMS 08/04 13:17 Order name: CT Traumagram (Head C Spine CAP wo con); Complete Time: 16:00 rn 08/04 13:17 Order name: XRAY Hip RIGHT 2 view; Complete Time: 16:00 rn 08/04 13:17 Order name: XRAY Elbow LEFT 3 view; Complete Time: 16:00 rn 08/04 13:53 Order name: Elbow Right 3 View; Complete Time: 16:26 EDMS 08/04 16:55 Order name: Echo with Doppler EDMS 08/04 13:17 Order name: EKG; Complete Time: 13:17 rn 08/04 16:53 Order name: CONS Physician Consult EDMS 08/04 13:17 Order name: IV Start; Complete Time: 14:24 rn 08/04 13:17 Order name: EKG - Nurse/Tech; Complete Time: 14:11 rn 08/04 13:17 Order name: Cardiac monitoring; Complete Time: 14:11 rn Administered Medications: 14:30 Drug: NS 0.9% IV 500 ml IV at bolus once Route: IV; Rate: bolus; Site: right forearm; nj1 15:10 Follow up: IV Status: Completed infusion; IV Intake: 500ml nj1 14:30 Drug: Magnesium Sulfate IVPB 1 grams IVPB once over 1 hrs Route: IVPB; Infused Over: 1 nj1 hrs; Site: right forearm; 15:30 Follow up: Response: No adverse reaction; IV Status: Completed infusion; IV Intake: nj1 100ml 15:15 Drug: Metoprolol PO 25 mg PO once Route: PO; nj1 16:00 Follow up: Response: No adverse reaction nj1 15:17 Drug: fentaNYL (PF) IVP 50 mcg IVP once Route: IVP; Site: right forearm; nj1 16:00 Follow up: Response: No adverse reaction; Pain is decreased nj1 16:19 Drug: Metoprolol PO 25 mg PO once Route: PO; nj1 18:29 Follow up: Response: No adverse reaction nj1 18:13 Drug: Metoprolol IVP 5 mg IVP every 5 minutes; Hold for SBP < 100 or HR < 60. 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 Total time: 35 minutes rn Signatures: Dispatcher AndreyHoBrittany Knott RN RN mw Williams, Irene, RN RN iw Nieto, Roman, MD MD rn Jaco, Norma, RN RN nj1 Corrections: (The following items were deleted from the chart) 19:39 16:28 rn mw
--- NOTE | 2023-08-04 16:30 | ER ---
Nurse's Notes [facility] Name: Yarelis Payton Age: 88 yrs Sex: Female : 1935 Arrival Date: 08/04/2023 Time: 13:09 Bed 16 Private MD: Diagnosis: Persistent atrial fibrillation-with RVR;Syncope;Fall on same level, unspecified Presentation: 08/04 13:23 Chief complaint: EMS states: fall from bed, pt does not remember the fall , c/o hip iw pain and elbow pain A\T\OX 3 on arrival , HR was 48-148 bpm. Coronavirus screen: At this time, the client does not indicate any symptoms associated with coronavirus-19. Ebola Screen: Patient negative for fever greater than or equal to 101.5 degrees Fahrenheit, and additional compatible Ebola Virus Disease symptoms Patient denies exposure to infectious person. Patient denies travel to an Ebola-affected area in the 21 days before illness onset. No symptoms or risks identified at this time. Initial Sepsis Screen: Does the patient meet any 2 criteria? No. Patient's initial sepsis screen is negative. Does the patient have a suspected source of infection? No. Patient's initial sepsis screen is negative. Risk Assessment: Do you want to hurt yourself or someone else? Patient reports no desire to harm self or others. 13:23 Method Of Arrival: EMS: [facility] iw 13:24 Onset of symptoms was August 04, 2023. iw 13:24 Acuity: FROY 2 iw Historical: - Allergies: 13:24 Bactrim; iw 13:24 Codeine; iw 13:24 Iodine; iw 13:24 PENICILLINS; iw 13:24 Sudafed; iw 13:24 Talwin; iw 13:24 trovafloxacin mesylate; iw - PMHx: 13:24 Bladder CA; Atrial Fib; COPD; Myocardial infarction; Hypertension; Diabetes - IDDM; iw - PSHx: 13:24 Cholecystectomy; iw - Immunization history:: Adult Immunizations unknown. - Social history:: Smoking status: unknown. - Family history:: not pertinent. - Hospitalizations: : No recent hospitalization is reported. Screenin:17 [facility] ED Fall Risk Assessment (Adult) Score/Fall Risk Level 3 or more points = High nj1 Risk Oriented to surroundings, Maintained a safe environment, Educated pt \T\ family on fall prevention, incl call for assistance when getting out of bed, Hourly rounding (assess needs \T\ fall precautionary measures) done, Remained w/in arm's length of patient and in sight while toileting, Offered frequent toileting (1:1 observation), Utilized family, sitter, or virtual hanger as indicated. Abuse screen: Denies threats or abuse. Denies injuries from another. Nutritional screening: No deficits noted. Tuberculosis screening: No symptoms or risk factors identified. Assessment: 14:14 General: Appears in no apparent distress. comfortable, Behavior is calm, cooperative, nj1 appropriate for age. Pain: Complains of pain in right scapular area. Neuro: Level of Consciousness is awake, alert, obeys commands. Cardiovascular: Patient's skin is warm and dry. Rhythm is Tachy. Respiratory: Airway is patent Respiratory effort is even, unlabored. Musculoskeletal: Reports pain in right scapular area. 15:15 Reassessment: Patient appears in no apparent distress at this time. Patient and/or nj1 family updated on plan of care and expected duration. Pain level reassessed. Patient is alert, oriented x 3, equal unlabored respirations, skin warm/dry/pink. 16:00 Reassessment: Patient appears in no apparent distress at this time. Pt resting/sleeping.nj1 17:30 Reassessment: Patient appears in no apparent distress at this time. Patient and/or nj1 family updated on plan of care and expected duration. Pain level reassessed. Patient is alert, oriented x 3, equal unlabored respirations, skin warm/dry/pink. Patient denies pain at this time. 18:10 Reassessment: Patient appears in no apparent distress at this time. Patient and/or nj1 family updated on plan of care and expected duration. Pain level reassessed. Patient is alert, oriented x 3, equal unlabored respirations, skin warm/dry/pink. Patient denies pain at this time. Patient states feeling better. 20:01 General: attempted to call report, nurse in the middle of admission will call back in vc1 10 minutes. Vital Signs: 14:11 BP 101 / 63; Pulse 152; Resp 17; Temp 97.7(O); Pulse Ox 97% on R/A; nj1 14:42 BP 116 / 73; Pulse 130; rn 14:43 BP 116 / 73; Pulse 132; Resp 19; Pulse Ox 98% ; nj1 15:15 BP 160 / 70; Pulse 125; Resp 14; Pulse Ox 95% on R/A; nj1 16:00 BP 127 / 98; Pulse 129; Resp 19; Pulse Ox 97% ; nj1 17:30 BP 157 / 129; Pulse 125; Resp 18; Pulse Ox 98% ; nj1 18:13 BP 188 / 166; Pulse 94; nj1 18:18 BP 135 / 79; Pulse 107; nj1 18:23 BP 125 / 55; Pulse 105; nj1 19:30 BP 120 / 63; Pulse 79; Resp 20; Pulse Ox 100% ; la4 20:00 BP 127 / 50; Pulse 81; Resp 20; Pulse Ox 98% on R/A; la4 Vitals: 20:00 Cardiac Rhythm Assessment Irregular Atrial fibrillation. la4 Morrow Coma Score: 20:00 Eye Response: spontaneous(4). Motor Response: obeys commands(6). Verbal Response: la4 confused(4). Total: 14. ED Course: 13:15 Patient arrived in ED. bd 13:16 Luis Enriquez MD is Attending Physician. rn 13:24 Triage completed. iw 13:24 Arm band placed on. iw 13:29 CT Traumagram (Head C Spine CAP wo con) In Process Unspecified. EDMS 13:42 Karla Pulido, [place] is Primary Nurse. nj1 14:04 XRAY Hip RIGHT 2 view In Process Unspecified. EDMS 14:04 XRAY Elbow LEFT 3 view In Process Unspecified. EDMS 14:04 Elbow Right 3 View In Process Unspecified. EDMS 14:15 Notified ED physician of other Dr Enriquez aware of heart rate. No new orders received at [facility] this time. 14:17 Patient has correct armband on for positive identification. Bed in low position. Call [facility] light in reach. Side rails up X 1. Adult w/ patient. Provided Education on: call light, fall precautions. 14:24 Initial lab(s) drawn, by me, sent to lab. EKG done, by ED staff, reviewed by Luis Enriquez MD. Inserted saline lock: 20 gauge in right forearm, using aseptic technique. Blood collected. 16:28 Dwayne Douglas is Hospitalizing Provider. rn 19:00 Report given to Jimmy HASSAN. nj1 19:45 Primary Nurse role handed off by Karla Pulido RN la4 19:45 Royal Menjivar, RN is Primary Nurse. la4 20:32 No provider procedures requiring assistance completed. Patient admitted, IV remains in la4 place. Administered Medications: 14:30 Drug: NS 0.9% IV 500 ml IV at bolus once Route: IV; Rate: bolus; Site: right forearm; nj1 15:10 Follow up: IV Status: Completed infusion; IV Intake: 500ml nj1 14:30 Drug: Magnesium Sulfate IVPB 1 grams IVPB once over 1 hrs Route: IVPB; Infused Over: 1 nj1 hrs; Site: right forearm; 15:30 Follow up: Response: No adverse reaction; IV Status: Completed infusion; IV Intake: nj1 100ml 15:15 Drug: Metoprolol PO 25 mg PO once Route: PO; nj1 16:00 Follow up: Response: No adverse reaction nj1 15:17 Drug: fentaNYL (PF) IVP 50 mcg IVP once Route: IVP; Site: right forearm; nj1 16:00 Follow up: Response: No adverse reaction; Pain is decreased nj1 16:19 Drug: Metoprolol PO 25 mg PO once Route: PO; nj1 18:29 Follow up: Response: No adverse reaction nj1 18:13 Drug: Metoprolol IVP 5 mg IVP every 5 minutes; Hold for SBP < 100 or HR < 60. x3 Route: nj1 IVP; Site: right forearm; Medication: 20:32 VIS not applicable for this client. la4 Intake: 15:10 IV: 500ml; Total: 500ml. nj1 15:30 IV: 100ml; Total: 600ml. nj1 Outcome: 16:28 Decision to Hospitalize by Provider. rn 20:35 Admitted to Tele accompanied by nurse, via wheelchair, with chart, la4 20:35 Condition: stable 20:35 Instructed on the need for admit, 20:48 Patient left the ED. [email or web address] Signatures: Dispatcher [employer] EDMS Bea Leon Irene, RN RN iw Nieto, Roman, MD MD rn Martinez, Eric em1 Tammi Snell RN RN vc1 Breneman, Mary Beth, RN RN mb9 Karla Pulido RN RN nj1 Royal Menjivar RN RN la4 Corrections: (The following items were deleted from the chart) 13:25 13:23 Chief complaint: EMS states: fall from bed, pt does not remember, c/o hp pain and iw elbow pain A\T\OX 3 on arrival , HR was 48-148 bpm iw 14:14 14:11 BP 101 / 63; Pulse 152bpm; Resp 17bpm; Pulse Ox 97% RA; nj1 nj1
[2023-08-04] MEDS ORDERED: METOPROLOL TARTRATE 5 MG/5 ML INJ IV PRN (16:53)
--- NOTE | 2023-08-04 17:47 | P.HP ---
Certification for Inpatient Patient admitted to: Observation With expected LOS: <2 Midnights Practitioner: I am a practitioner with admitting privileges, knowledge of patient current condition, hospital course, and medical plan of care. Services: Services provided to patient in accordance with Admission requirements found in Title 42 Section 412.3 of the Code of Federal Regulations Patient History Date of Service: 08/04/23 Reason for admission: Fall, rapid atrial fibrillation. History of Present Illness: 88-year-old man with a history of chronic atrial fibrillation, hypertension diabetes and COPD presented was brought to the emergency department after a fall at home. Patient states that she tripped on a stand after she got up from bed. She denied any preceding dizziness or palpitation. Fall was accidental. Patient noted to be in rapid atrial fibrillation with heart rate up to 150. EKG demonstrated atrial flutter/atrial fibrillation. Patient reported her metopro lol and Xarelto was discontinued. Hip x-ray done in the emergency department shows no fracture or significantly. CT chest abdomen pelvis demonstrates right subpleural mass suggestive of malignancy versus hematoma, 2.3 cm right adrenal nodule also suggestive of metastasis. Initial troponin is negative. Patient is hospitalized for further management. Allergies amoxicillin trihydrate [From Amoxil] Allergy (Mild, Verified 10/12/20 08:58) Hives/Rash codeine Allergy (Mild, Verified 10/12/20 08:58) Hives/Rash iodine Allergy (Mild, Verified 10/12/20 08:58) Hives sulfamethoxazole [From Bactrim] Allergy (Mild, Verified 10/12/20 08:58) Hives/Rash trimethoprim [From Bactrim] Allergy (Mild, Verified 10/12/20 08:58) Hives/Rash alatrofloxacin mesylate [From Trovan] Allergy (Unknown, Verified 10/12/20 08:58) unknown pseudoephedrine HCl [From Actifed] Allergy (Unknown, Verified 10/12/20 08:58) unknown triprolidine HCl [From Actifed] Allergy (Unknown, Verified 10/12/20 08:58) unknown trovafloxacin mesylate [From Trovan] Allergy (Unknown, Verified 10/12/20 08:58) unknown adhesive tape Allergy (Verified 10/12/20 08:58) Rash Penicillins Allergy (Verified 10/12/20 08:58) Itching pentazocine lactate [From Talwin] Allergy (Verified 10/12/20 08:58) Hives Home Medications: Aspirin [Aspirin EC 81 MG] 1 tab PO DAILY 06/27/22 Atorvastatin Calcium [Lipitor*] 1 tab PO BID 06/27/22 Insulin 70/30 NPH/Reg Human [Novolin *] 25 units SQ BID 06/27/22 Metformin HCl 1 tab PO BID 06/27/22 Metoprolol Tartrate 2 tab PO DAILY 06/27/22 Ramipril 1 tab PO DAILY 06/27/22 Venlafaxine HCl *Xr* [Effexor XR] 1 tab PO DAILY 06/27/22 Albuterol Inhaler [Ventolin Inhaler*] 2 puff IH Q6H PRN 30 Days #1 inh 06/28/22 Doxycycline Hyclate [Vibramycin] 100 mg PO BID 7 Days #14 cap 06/28/22 predniSONE [Deltasone*] 10 mg PO BID 5 Days #10 tab 06/28/22 - Past Medical/Surgical History Diabetic: Yes -: HTN -: DM -: Depression -: Atrial fibrillation Chronic anti coagulation therapy -: COPD -: Cholecystectomy -: Left Thoracotomy x3 secondary to fungal infection Psychosocial/ Personal History: Patient is - Family History Father -: Heart disease - Social History Alcohol use: No CD- Drugs: No Caffeine use: Yes Review of Systems Other: Except as documented, all other systems reviewed and negative. Physical Examination - Physical Exam General: Alert, In no apparent distress, Oriented x3, Other (Frail-appearing) HEENT: Mucous membr. moist/pink Neck: Supple, JVD not distended Respiratory: Clear to auscultation bilaterally, Normal air movement Cardiovascular: No edema, Normal S1 S2, Irregular heart rate/rhythm Capillary refill: <2 Seconds Gastrointestinal: Normal bowel sounds, Soft and benign, Non-distended, No tenderness Musculoskeletal: No swelling, No tenderness Integumentary: No rashes, No cyanosis Neurological: Normal speech, Normal strength at 5/5 x4 extr, Cranial nerves 3-12 intact Lymphatics: No axilla or inguinal lymphadenopathy - Studies Laboratory Data (last 24 hrs) 08/04/23 08/04/23 08/04/23 15:17 14:20 14:20 WBC 12.80 H Hgb 16.4 H Hct 48.5 H Plt Count 447 H PT 11.1 INR 1.01 APTT 33.2 Sodium 138 Potassium 4.3 BUN 17 Creatinine 0.96 Glucose 262 H Assessment and Plan - Problems (Diagnosis) (1) Rapid atrial fibrillation Current Visit: Yes Status: Acute (2) Fall Current Visit: Yes Status: Acute (3) Adrenal mass Current Visit: Yes Status: Acute (4) Lung mass Current Visit: No Status: Acute (5) Diabetes mellitus type 2 in nonobese Current Visit: Yes Status: Acute - Plan Place patient under observation. Rapid atrial fibrillation History of chronic A-fib Patient was noncompliant with her rate control medications and anticoagulation. Resume metoprolol at 25 mg twice a day Eliquis. Continue to trend troponin. Fall Patient reports accidental fall. She denied any prodrome symptoms and denies passing out. PT consult. Lung mass/adrenal mass Patient with right subpleural mass Patient will need percutaneous biopsy Pulmonary consult. Diabetes mellitus type 2 Insulin sliding scale for glucose management. Resume Novolin 70/30, hold metformin. CODE STATUS: Patient wishes to be DNR. I advised her to discuss her advanced directive with her son and have them documented. DVT prophylaxis: Eliquis. - Advance Directives Does patient have a Living Will: No Does patient have a Durable POA for Healthcare: No
[2023-08-04 18:05] LABS: Thyroid Stimulating Hormone 1.79 uIU/mL (0.358-3.740)
[2023-08-04] MEDS ORDERED: GLUCAGON 1 MG/VIAL IM PRN ×2 (18:14→21:16)
[2023-08-04] MEDS ORDERED: D50W 25 GM/50 ML SYRINGE IV PRN ×2 (18:14→21:16)
[2023-08-04] MEDS ORDERED: METOPROLOL TARTRATE 5 MG/5 ML INJ IV ONE (18:23)
[2023-08-04] MEDS: INSULIN 70/30 100 UNITS/ML SQ SCH (21:00)
[2023-08-04] MEDS ORDERED: D10W 125 ML IV PRN (21:33)
[2023-08-04 21:44] VITALS: BMI 24.5
[2023-08-04] MEDS: METOPROLOL TAR 25 MG TAB PO SCH (21:48)
[2023-08-04] MEDS: APIXABAN 2.5 MG TABLET PO SCH (21:48)
[2023-08-04] MEDS: INSULIN REGULAR (HUMAN) 100 UNIT/ML SQ SCH (21:53)
[2023-08-05] MEDS ORDERED: DIPHENHYDRAMINE 25 MG TAB/CAP PO ONE (00:46)
[2023-08-05 03:14] LABS: Hematocrit 46.1 % (36.0-45.0); MCV 91.5 fL (80-100); MPV 7.8 fL (7.6-11.3); Platelets 435 thou/uL (152-406); RBC Red Blood Cell Count 5.04 M/uL (3.86-4.86)
[2023-08-05 03:34] LABS: Magnesium 2.3 mg/dL (1.6-2.4); Phosphorus 2.9 mg/dL (2.5-4.9); Potassium 3.5 mEq/L (3.5-5.1)
[2023-08-05] MEDS: METOPROLOL TAR 25 MG TAB PO SCH ×2 (06:51→17:20)
[2023-08-05] MEDS ORDERED: INFLUENZA VACCINE (for 6+ mo) 0.5 ML DOSE IMVAC ONE (08:00)
--- NOTE | 2023-08-05 08:59 | P.PN ---
Date of Service: 08/05/23 Subjective: Did well overnight, complains of mild pain to right hip area, not having palpitations or chest discomfort/shortness of breath ROS: 10 point ROS as noted above, otherwise negative Physical exam GEN: Alert, oriented, NAD HEENT: Normal conjunctiva, sclera anicteric CV: A-fib, rate controlled, no edema Pulm: Nonlabored respirations on room air ABD: Soft, nontender, nondistended MSK: No joint tenderness Integumentary: No rashes Neuro: Normal speech, normal affect Vitals reviewed Problem List Chronic atrial fibrillation with rapid ventricular response on chronic anticoagulation Fall Lung mass/adrenal mass Diabetes mellitus type 2insulin-dependent Leukocytosis Chronic atrial fibrillation with rapid ventricular response on chronic anticoagulation Metoprolol and Eliquis resumed Still in A-fib but now rate controlled Fall Mechanical fall, has been ambulatory since, no fractures on imaging PT consult possible discharge later today or tomorrow Lung mass/adrenal mass Concern for malignancy, discussed with patient Pulmonology consult in place Likely would benefit with outpatient evaluation/biopsy Diabetes mellitus type 2insulin-dependent ACHS Accu-Chek, sliding scale insulin Continue home meds Leukocytosis No clear signs of infection at this time, ROS is otherwise negative Possibly reactive Hemoglobin/hematocrit also elevated possibly dehydrated Continue gentle IV fluids VTE: Continue Eliquis Code: DNR Dispo: 24 to 48 hours Time Spent Managing Pts Care (In Minutes): 35 <Jamarcus Francisco - Last Filed: 08/05/23 08:55> Patient seen and examined on rounds this morning. Plan of care discussed with LEPIDOPTERIST Maryam. Agree with plan as noted above with the following additions/corrections: afib better controlled this morning. patient and son at bedside, states were taken off metoprolol ~10 months ago by PCP, unsure why they have not seen a virtualization architect since in hospital ~1 year ago echoa ordered cardiology consulted PT consulted <Christoph Enriquez - Last Filed: 08/05/23 16:33>
[2023-08-05] MEDS ORDERED: POTASSIUM 25 MEQ EFFERV TAB PO ONE (09:00)
[2023-08-05] MEDS: ATORVASTATIN 10 MG TAB PO SCH (09:00)
[2023-08-05] MEDS: APIXABAN 2.5 MG TABLET PO SCH ×2 (09:06→20:47)
[2023-08-05] MEDS: INSULIN REGULAR (HUMAN) 100 UNIT/ML SQ SCH ×4 (09:06→20:47)
[2023-08-05] MEDS: NA CHLORIDE 0.9% 1,000 ML IV SCH ×2 (09:07→22:20)
[2023-08-05] MEDS: INSULIN 70/30 100 UNITS/ML SQ SCH ×2 (09:07→20:47)
[2023-08-05] MEDS ORDERED: NA CHLORIDE 0.9% 1,000 ML ONE (09:15)
[2023-08-05] MEDS: ACETAMINOPHEN 325 MG TABLET PO PRN (14:43)
[2023-08-05] MEDS ORDERED: AMIODARONE HCL 150 MG in D5W 100 ML IV STA (15:12)
[2023-08-05] MEDS ORDERED: AMIODARONE HCL 900 MG in Dextrose 5%-Water 482 ML IV SCH (15:15)
--- NOTE | 2023-08-05 17:21 | CON ---
Date of Consultation: 08/05/2023 Reason For Consultation: Atrial fibrillation with rapid ventricular response. History Of Present Illness: This is an 88-year-old female with history of diabetes, hypertension, at [facility] fibrillation, presented after fall, was found to have an atrial fibrillation with rapid ventricu lar response, heart rate is in 150s. On metoprolol, heart rate improved, but not at goal yet. Past Medical History: As outlined above in the HPI. Medications: Refer to reconciliation sheet for detailed list. Allergies: AMOXICILLIN, CODEINE, IODINE, AND SULFA. Family History: No premature coronary artery disease or cancer. Social History: She does not smoke or drink. Does not use any drugs. Review of Systems: All systems reviewed and they were negative except as mentioned in the HPI. Physical Examination: Vital Signs: Reviewed. Head and Neck: Pupils are equal, reactive to light. Intact eye movements. No JVD. No cervical lym phadenopathy. Neck is supple. Thyroid is not enlarged. Lungs: Clear to auscultation bilaterally. No rhonchi, wheezing, or crackles. No accessory muscle u se. Heart: Regular rate and rhythm. No extra sounds. Abdomen: Soft, nontender. Bowel sounds positive. No organomegaly. No masses or hernia. No rigidi ty or rebound. Extremities: No clubbing, cyanosis. Intact pulses. Skin: No rash or nodule. Neurologic: Alert, awake, oriented x3. No acute focal deficits appreciated. Investigation: Labs were reviewed. Assessment And Recommendations: 1.Atrial fibrillation with rapid ventricular response. Start amiodarone drip 150 mg over 10 minutes , then 1 mg/minute for 6 hours and then 0.5 mg/minute for 16 hours and then switch to oral. Also she will need a stroke prevention. Continue apixaban at 2.5 mg twice a day. 2.Hypertension. Blood pressure is controlled. 3.Renal failure, mild elevated creatinine, and it is improving. Continue to monitor. SR/MODL Voice ID: [id number] Report ID: [id number]
[2023-08-05 23:37] VITALS: O2SAT 92
[2023-08-06 03:36] LABS: Absolute Lymphocytes (CBC) 3.6 K/uL (0.7-4.9); Hematocrit 39.2 % (36.0-45.0); MCV 90.7 fL (80-100); MPV 7.6 fL (7.6-11.3); Platelets 370 thou/uL (152-406); RBC Red Blood Cell Count 4.33 M/uL (3.86-4.86)
[2023-08-06 03:58] LABS: Magnesium 1.6 mg/dL (1.6-2.4); Phosphorus 2.7 mg/dL (2.5-4.9); Potassium 3.8 mEq/L (3.5-5.1)
[2023-08-06] MEDS ORDERED: POTASSIUM CL SA 10 MEQ TAB PO ONE (06:00)
[2023-08-06] MEDS: METOPROLOL TAR 25 MG TAB PO SCH (06:42)
--- NOTE | 2023-08-06 07:06 | ECHO ---
HEIGHT: 5 ft 2 in WEIGHT: 134 lb 0 oz DATE OF STUDY: 08/05/[address]: Dianne Gomez NP 2-DIMENSIONAL: YES M.MODE: YES DOPPLER: YES COLOR FLOW: YES TDS: PORTABLE: DEFINITY: BUBBLE STUDY: DIAGNOSIS: PERSISTENT ATRIAL FIBRILLLATION WITH RAPID VENTRICULAR RESPONSE CARDIAC HISTORY: CATHERIZATION: SURGERY: PROSTHETIC VALVE: PACEMAKER: MEASUREMENTS (cm) DIASTOLIC (NORMALS) SYSTOLIC (NORMALS) IVSd 0.8 (0.6-1.2) LA Diam 2.7 (1.9-4.0) LVEF 61% LVIDd 4.3 (3.5-5.7) LVIDs 2.9 (2.0-3.5) %FS 38% LVPWd 1.0 (0.6-1.2) Ao Diam 2.5 (2.0-3.7) 2 DIMENSIONAL ASSESSMENT: RIGHT ATRIUM: NORMAL LEFT ATRIUM: NORMAL RIGHT VENTRICLE: NORMAL LEFT VENTRICLE: NORMAL TRICUSPID VALVE: MILD TRICUSPID REGURGITATION MITRAL VALVE: MILD MITRAL REGURGITATION PULMONIC VALVE: NORMAL AORTIC VALVE: MILD AORTIC INSUFFICIENCY PERICARDIAL EFFUSION: NONE AORTIC ROOT: NORMAL LEFT VENTRICULAR WALL MOTION: ATRIAL FIBRILLATION DOPPLER/COLOR FLOW: SEE BELOW COMMENTS: 1. NORMAL LEFT VENTRICULAR EJECTION FRACTION 50-60% (ATRIAL FIBRILLATION) 2. MILD MITRAL REGURGITATION 3. MILD AORTIC INSUFFICIENCY 4. MILD TRICUSPID REGURGITATION TECHNOLOGIST: NANCIE HARDY
[2023-08-06] MEDS: INSULIN REGULAR (HUMAN) 100 UNIT/ML SQ SCH ×2 (07:30→13:30)
[2023-08-06] MEDS ORDERED: POTASSIUM 25 MEQ EFFERV TAB PO ONE (07:42)
[2023-08-06] MEDS ORDERED: VENLAFAXINE HCL XR 75 MG CAP PO SCH (09:00)
[2023-08-06] MEDS ORDERED: MAGNESIUM SULFATE 1 gm IVPB 1 GM/100 ML BAG IV ONE (09:00)
[2023-08-06] MEDS: INSULIN 70/30 100 UNITS/ML SQ SCH (09:00)
[2023-08-06] MEDS: ATORVASTATIN 10 MG TAB PO SCH (09:42)
[2023-08-06] MEDS: APIXABAN 2.5 MG TABLET PO SCH (09:42)
--- NOTE | 2023-08-06 10:12 | P.PN ---
Date of Service: 08/06/23 Subjective: Did well overnight, no more palpitations ROS: 10 point ROS as noted above, otherwise negative Physical exam GEN: Alert, oriented, NAD HEENT: Normal conjunctiva, sclera anicteric CV: NSR, no edema Pulm: Nonlabored respirations on room air ABD: Soft, nontender, nondistended MSK: No joint tenderness Integumentary: No rashes Neuro: Normal speech, normal affect Vitals reviewed Problem List Chronic atrial fibrillation with rapid ventricular response on chronic anticoagulation Fall Lung mass/adrenal mass Diabetes mellitus type 2insulin-dependent Leukocytosis Chronic atrial fibrillation with rapid ventricular response on chronic anticoagulation Went back in to afib RVR yesterday evening cardiology started IV amiodarone Due to switch to oral amiodarine at 1400 Now in NSR Fall Mechanical fall, has been ambulatory since, no fractures on imaging PT family declined PT eval Lung mass/adrenal mass Concern for malignancy, discussed with patient Pulmonology consult in place Likely would benefit with outpatient evaluation/biopsy Diabetes mellitus type 2insulin-dependent ACHS Accu-Chek, sliding scale insulin Continue home meds Leukocytosis improving with IVF no clear sign of infection VTE: Continue Eliquis Code: DNR Dispo: 24 to 48 hours Time Spent Managing Pts Care (In Minutes): 35
[2023-08-06 10:54] VITALS: BP 102/63; TEMP 97.2
--- NOTE | 2023-08-06 11:50 | P.CNS ---
Date of Consult: 08/06/23 Reason for Consult: Pleural mass Chief Complaint: Fall, rapid atrial fibrillation. History of Present Illness: Patient is 88 years of age admitted with a fall apparently she slipped from a stool and fell there is no history of any weakness stroke patient was in rapid A-fib patient has a history of A-fib she currently denies any pulmonary complaints incidentally CT scan of the chest did show some predominantly pleural-based lesions/patient denies any pulmonary complaints cording to the knees she has a history of recurrent falls Allergies amoxicillin trihydrate [From Amoxil] Allergy (Mild, Verified 10/12/20 08:58) Hives/Rash codeine Allergy (Mild, Verified 10/12/20 08:58) Hives/Rash iodine Allergy (Mild, Verified 10/12/20 08:58) Hives sulfamethoxazole [From Bactrim] Allergy (Mild, Verified 10/12/20 08:58) Hives/Rash trimethoprim [From Bactrim] Allergy (Mild, Verified 10/12/20 08:58) Hives/Rash alatrofloxacin mesylate [From Trovan] Allergy (Unknown, Verified 10/12/20 08:58) unknown pseudoephedrine HCl [From Actifed] Allergy (Unknown, Verified 10/12/20 08:58) unknown triprolidine HCl [From Actifed] Allergy (Unknown, Verified 10/12/20 08:58) unknown trovafloxacin mesylate [From Trovan] Allergy (Unknown, Verified 10/12/20 08:58) unknown adhesive tape Allergy (Verified 10/12/20 08:58) Rash Penicillins Allergy (Verified 10/12/20 08:58) Itching pentazocine lactate [From Talwin] Allergy (Verified 10/12/20 08:58) Hives Home Medications: Aspirin [Aspirin EC 81 MG] 1 tab PO DAILY 06/27/22 Atorvastatin Calcium [Lipitor*] 1 tab PO BID 06/27/22 Metformin HCl 2 tab PO DAILY 06/27/22 Venlafaxine HCl *Xr* [Effexor XR] 1 tab PO DAILY 06/27/22 Insulin Glargine,Hum.rec.anlog [Lantus Solostar] See Protocol SQ 08/04/23 - Past Medical/Surgical History Diabetic: Yes -: HTN -: DM -: Depression -: Atrial fibrillation Chronic anti coagulation therapy -: COPD -: Cholecystectomy -: Left Thoracotomy x3 secondary to fungal infection Psychosocial/ Personal History: Patient is - Family History Father Medical History: Heart disease - Social History Smoking Status: Unknown if ever smoked Alcohol use: No CD- Drugs: No Caffeine use: Yes Place of Residence: Home Review of Systems 10-point ROS is otherwise unremarkable Physical Examination Temp Pulse Resp BP Pulse Ox 97.2 F 60 16 102/63 95 08/06/23 08:00 08/06/23 08:00 08/06/23 08:00 08/06/23 08:00 08/06/23 08:00 General: Alert, Oriented x3 Respiratory: Clear to auscultation bilaterally Cardiovascular: Irregular heart rate/rhythm Gastrointestinal: Normal bowel sounds, Soft and benign Musculoskeletal: No clubbing, No swelling - Problems (1) Abnormal CT scan of lung Current Visit: Yes Status: Acute Plan: Patient is 88 years of age evaluated by me for abnormal CT scan she seems to have 2 predominant pleural-based lesion continue to secondary falls patient needs a follow-up CT scan in about a month possible rebiopsy cussed with the patient was chemistries reviewed white count is declined as there is no evidence of any fractures and is on amiodarone cording to the knees she has had recurrent falls
[2023-08-06] MEDS ORDERED: AMIODARONE HCL 200 MG TAB PO ONE (13:59)
--- NOTE | 2023-08-06 15:03 | P.DS ---
Admission Date: 08/04/23 Discharge Date: 08/06/23 Disposition: ROUTINE DISCHARGE Discharge Condition: GOOD Reason for Admission: Fall, rapid atrial fibrillation. Consultations: Cardiology Pulmonology Procedures: CT Chest abd pelvis FINDINGS: CT HEAD: No intracranial hemorrhage, mass effect, or edema. No evidence of acute territorial infarct. No midline shift or abnormal fluid collection. Periv entricular and deep white matter hypodensities are nonspecific, but suggest chronic small vessel ischemic changes. The ventricles are normal in caliber and configuration for age. Basal cisterns are patent. Mastoid aircells and paranasal sinuses are clear. No acute skull fracture. CT CERVICAL SPINE: No acute cervical spine fracture or subluxation. Vertebral body heights are well maintained. Facet joints are normal in alignment. No hyperattenuating canal hematoma. Prevertebral and paraspinous soft tissues are unremarkable. CT CHEST: Three subpleural irregular crescentic masses on the right. At the right apex, the mass measures 3.9 cm in greatest axial extent, and 1.9 cm in thickness. In the lateral right upper lobe, the mass measures 4.1 cm in greatest craniocaudal extent, and 1.7 cm in thickness. In the right lower lobe posteriorly, the mass measures 3.1 cm in greatest axial extent, and 1.5 cm in thickness. All of these masses demonstrate adjacent parenchymal reticular opacities, and underlying rib periosteal reactions or early erosions. A 5 millimeter right middle lobe nodule is incidentally noted on axial image 37. No pneumothorax, pulmonary contusion or pleural fluid collection. No mediastinal hematoma and the aorta and pulmonary arteries are unremarkable. Mildly prominent mediastinal lymph nodes, largest measuring 1.3 cm in short axis in the pretracheal zone. Evaluation for hilar adenopathy is limited in the absence of IV contrast. . No displaced rib fracture or other significant bony finding. CT ABDOMEN/ PELVIS: No evidence of traumatic injury to solid abdominal viscera. Ovoid solid nodule involving the right adrenal gland measuring 2.3 cm is new since the 06/26/2022 CT of the chest. Atrophic changes of the left kidney with cyst containing layering mineralization again seen. Multiple right renal cystic lesions well characterized. Gallbladder and biliary tree are unremarkable. No bowel injury or significant finding. No free air, free fluid or abnormal fat stranding. No urinary bladder abnormality. No significant bony finding. IMPRESSION: No evidence of acute traumatic findings. Crescentic subpleural masses in the right hemithorax, measuring between 3.1 to 4.1 cm in greatest dimension at the base, and between 1.5-1.9 cm in thickness, with underlying rib erosions. These are new or progressive since the most recent chest CT. Findings may relate to metastatic deposits or mesenteric hematoma. Solid 2.3 cm nodule involving the right adrenal gland is new since 06/26/2022 as well, concerning for a metastatic deposit. Other incidental findings as above. Brief History of Present Illness: 88-year-old man with a history of chronic atrial fibrillation, hypertension diabetes and COPD presented was brought to the emergency department after a fall at home. Patient states that she tripped on a stand after she got up from bed. She denied any preceding dizziness or palpitation. Fall was accidental. Patient noted to be in rapid atrial fibrillation with heart rate up to 150. EKG demonstrated atrial flutter/atrial fibrillation. Patient reported her m etoprolol and Xarelto was discontinued. Hip x-ray done in the emergency department shows no fracture or significantly. CT chest abdomen pelvis demonstrates right subpleural mass suggestive of malignancy versus hematoma, 2.3 cm right adrenal nodule also suggestive of metastasis. Initial troponin is negative. Patient is hospitalized for further management. Hospital Course: Problem List Chronic atrial fibrillation with rapid ventricular response on chronic anticoagulation Fall Lung mass/adrenal mass Diabetes mellitus type 2insulin-dependent Leukocytosis Patient was admitted to the hospital for atrial fibrillation with rapid ventricular response, during her ER evaluation she was found to have incidental lung masses/adrenal mass present. These masses were discussed with her and her family at length, recommendation is for outpatient evaluation/possible biopsy. In regards to her atrial fibrillation she was initially given oral metoprolol which did provide some rate control although yesterday in the afternoon she went back into A-fib with rapid ventricular response, cardiology placed her on amiodarone IV which she has been given, she is now in normal sinus rhythm feeling at her baseline, she has been transitioned to oral amiodarone and given a dose this evening. Case discussed further with cardiology who recommends continuation of amiodarone 200 mg twice daily and initiation of Eliquis 2.5 mg twice daily for stroke prevention as well as follow-up in the cardiology clinic in 1 week. Patient be discharged back home where she stays with her family who help care for her. Of note her family declined PT evaluation as they have PT set up outpatient with her PCP. She will be discharged with a new prescription for amiodarone 200 mg p.o. twice daily as well as Eliquis 2.[address] findings of lung masses and adrenal mass again discussed with patient and family recommendation for outpatient evaluation including possible biopsy, patient and family verbalized understanding. Vital Signs/Physical Exam: Temp Pulse Resp BP Pulse Ox 97.2 F 60 16 102/63 95 08/06/23 08:00 08/06/23 08:00 08/06/23 08:00 08/06/23 08:00 08/06/23 08:00 General: Alert, In no apparent distress, Oriented x3 HEENT: Atraumatic, PERRLA Neck: Supple Respiratory: Clear to auscultation bilaterally, Normal air movement Cardiovascular: Regular rate/rhythm, Normal S1 S2 Gastrointestinal: Normal bowel sounds, No tenderness Musculoskeletal: No tenderness Integumentary: No rashes Neurological: Normal speech, Normal affect Laboratory Data at Discharge: WBC 12.90 thou/uL (4.3-10.9) H 08/06/23 03:13 Hgb 13.2 g/dL (12.0-15.0) D 08/06/23 03:13 Hct 39.2 % (36.0-45.0) 08/06/23 03:13 Plt Count 370 thou/uL (152-406) 08/06/23 03:13 PT 11.1 SECONDS (9.5-12.5) 08/04/23 14:20 INR 1.01 08/04/23 14:20 APTT 33.2 SECONDS (24.3-36.9) 08/04/23 14:20 Sodium 140 mEq/L (136-145) 08/06/23 03:13 Potassium 3.8 mEq/L (3.5-5.1) 08/06/23 03:13 BUN 19 mg/dL (7-18) H 08/06/23 03:13 Creatinine 0.93 mg/dL (0.55-1.02) 08/06/23 03:13 Glucose 177 mg/dL (74-106) H 08/06/23 03:13 Phosphorus 2.7 mg/dL (2.5-4.9) 08/06/23 03:13 Magnesium 1.6 mg/dL (1.6-2.4) 08/06/23 03:13 Triglycerides 149 mg/dL (<150) 08/05/23 02:54 Cholesterol 135 mg/dL (<200) 08/05/23 02:54 HDL Cholesterol 52 mg/dL (40-60) 08/05/23 02:54 Cholesterol/HDL Ratio 2.60 08/05/23 02:54 Home Medications: Aspirin [Aspirin EC 81 MG] 1 tab PO DAILY 06/27/22 Atorvastatin Calcium [Lipitor*] 1 tab PO BID 06/27/22 Metformin HCl 2 tab PO DAILY 06/27/22 Venlafaxine HCl *Xr* [Effexor XR] 1 tab PO DAILY 06/27/22 Insulin Glargine,Hum.rec.anlog [Lantus Solostar] See Protocol SQ 08/04/23 Amiodarone HCl [Cordarone*] 200 mg PO BID #60 tab 08/06/23 Apixaban [Eliquis] 2.5 mg PO BID #60 tablet 08/06/23 New Medications: Amiodarone HCl [Cordarone*] 200 mg PO BID #60 tab Apixaban [Eliquis] 2.5 mg PO BID #60 tablet Physician Discharge Instructions: Patient was admitted to the hospital for atrial fibrillation with rapid ventricular response, during her ER evaluation she was found to have incidental lung masses/adrenal mass present. These masses were discussed with her and her family at length, recommendation is for outpatient evaluation/possible biopsy. In regards to her atrial fibrillation she was initially given oral metoprolol which did provide some rate control although yesterday in the afternoon she went back into A-fib with rapid ventricular response, cardiology placed her on amiodarone IV which she has been given, she is now in normal sinus rhythm feeling at her baseline, she has been transitioned to oral amiodarone and given a dose this evening. Case discussed further with cardiology who recommends continuation of amiodarone 200 mg twice daily and initiation of Eliquis 2.5 mg twice daily for stroke prevention as well as follow-up in the cardiology clinic in 1 week for possible titration of amiodarone dose. Patient be discharged back home where she stays with her family who help care for her. Of note her family declined PT evaluation as they have PT set up outpatient with her PCP. She will be discharged with a new prescription for amiodarone 200 mg p.o. twice daily as well as Eliquis 2.[address] findings of lung masses and adrenal mass again discussed with patient and family recommendation for outpatient evaluation including possible biopsy, patient and family verbalized understanding Diet: AHA Activity: Fall precautions Followup: Edmond Salmon MD [ACTIVE - CAN ADMIT] - 1-2 Weeks Bin Ochoa DO [Primary Care Provider] - 1-2 Weeks Travis Bauman MD [ACTIVE - CAN ADMIT] - 1 Week Time spent managing pt's care (in minutes): 35
[2023-08-06] MEDS ORDERED: HYDROCODONE/APAP 5/325 MG TAB PO ONE (15:24)
[2023-08-06] MEDS ORDERED: TRAMADOL HCL 50 MG TAB PO ONE (15:24)
[2023-08-06] MEDS: ACETAMINOPHEN 325 MG TABLET PO PRN (15:46)
== END 2023-08-06 16:00 | disposition home or self-care (01) | DRG 310 ==
LOC: ER 13:09 → ERHOLD 16:43 → 2ND 19:59
PROVIDERS: ADMIT Internal Medicine; ATTEND Hospitalist
DX: I48.19 Other persistent atrial fibrillation (principal); I48.92 Unspecified atrial flutter; I10 Essential (primary) hypertension; E27.9 Disorder of adrenal gland, unspecified; N19 Unspecified kidney failure; E11.9 Type 2 diabetes mellitus without complications; J44.9 Chronic obstructive pulmonary disease, unspecified; I25.2 Old myocardial infarction; D72.829 Elevated white blood cell count, unspecified; T45.516A Underdosing of anticoagulants, initial encounter; R91.8 Other nonspecific abnormal finding of lung field; Z88.1 Allergy status to other antibiotic agents; Z88.5 Allergy status to narcotic agent; Z88.0 Allergy status to penicillin; Z66 Do not resuscitate; Z79.4 Long term (current) use of insulin; Z88.8 Allergy status to other drugs, medicaments and biological substances; Z90.49 Acquired absence of other specified parts of digestive tract; Z79.52 Long term (current) use of systemic steroids; Z79.82 Long term (current) use of aspirin; Z79.01 Long term (current) use of anticoagulants; Z85.51 Personal history of malignant neoplasm of bladder; Z91.148 Patient's other noncompliance with medication regimen for other reason; Z91.128 Patient's intentional underdosing of medication regimen for other reason; Z79.899 Other long term (current) drug therapy; W01.0XXA Fall on same level from slipping, tripping and stumbling without subsequent striking against object, initial encounter; Y93.89 Activity, other specified; Y99.9 Unspecified external cause status; Y92.013 Bedroom of single-family (private) house as the place of occurrence of the external cause
CPT/HCPCS: 36415; 70450; 71250; 72125; 80048; 80061; 82947; 83735; 83880; 84100; 84439; 84443; 84484; 85025; 85610; 85730; 93005; 93306; 96365; 96375; 97116; 97161; 99285; J0282; J1815; J3010; J3475; J7030; J7040; J7060

== ENCOUNTER 2023-08-07 11:45 | Inpatient (IN) | payer OTHER ==
--- OUTSIDE RECORDS SUMMARY | 2023-08-07 11:47 | XMS REPORT | Continuity of Care Document ---
:1935 Author Organization [facility] t Address [address] [address] Care Team Providers Name Role Phone Bin [...] Department ID 2023-07-08 Outpatient Ochoa, STLMLC [facility] [id number] Common 10:01:01 Bin [id number] [facility] 2023-06-25 Outpatient Ochoa, STLMLC [facility] [id number] Common 08:38:01 Bin [id number] [facility] 2023-06-10 Outpatient Ochoa, STLMLC [facility] [id number] Common 08:12:01 Bin [id number] [facility] 2023-04-17 Outpatient Ochoa, STLMLC [facility] [id number] Common 15:09:01 Bin [id number] [facility] 2023-04-11 Outpatient Ochoa, STLMLC [facility] [id number] Common 10:03:00 Bin [id number] [facility] 2023-04-09 Outpatient Ochoa, STLMLC [facility] [id number] Common 11:10:01 Bin [id number] [facility] 2023-04-07 Outpatient Ochoa, STLMLC [facility] [id number] Common 09:45:02 Bin [id number] [facility] 2023-04-03 Outpatient Ochoa, STLMLC [facility] [id number] Common 14:03:01 Bin [id number] [facility] Results This patient has no known results.
[2023-08-07 12:28] LABS: Hematocrit 39.6 % (36.0-45.0); RBC Red Blood Cell Count 4.28 M/uL (3.86-4.86)
[2023-08-07 12:29] LABS: Absolute Lymphocytes (CBC) 2.1 K/uL (0.7-4.9); Lymphocytes % 14.8 % (15.3-44.8); MCV 92.4 fL (80-100); MPV 7.7 fL (7.6-11.3); Platelets 349 thou/uL (152-406)
[2023-08-07 13:26] LABS: Magnesium 1.9 mg/dL (1.6-2.4); Potassium 4.4 mEq/L (3.5-5.1); Troponin High Sensitivity 40.3 pg/mL (<58.9)
--- NOTE | 2023-08-07 13:31 | RAD REPORT ---
EXAM DESCRIPTION: Emelit Single View08/07/2023 1:03 pm CLINICAL HISTORY: DYSPNEA COMPARISON: Chest Single View dated 06/26/2022; Chest Single View dated 11/21/2021; Chest Single View dated 11/14/2021; Chest Single View dated 06/05/2017 TECHNIQUE: Portable AP view of the chest. FINDINGS: Developing right infrahilar and other subtle patchy right lung opacities. Less pronounced hazy left basilar opacities. Postsurgical changes again seen on the left. No pneumothorax. Suggestio n of small right pleural effusion. The cardiomediastinal contours are unremarkable. IMPRESSION: Predominantly central/basilar opacities with suggestion of small right pleural effusion. Findings may reflect pulmonary edema versus early multifocal airspace disease.
--- NOTE | 2023-08-07 13:39 | ER ---
Nurse's Notes [facility] Name: Yarelis Payton Age: 88 yrs Sex: Female : 1935 Arrival Date: 08/07/2023 Time: 11:[address] Private MD: Diagnosis: Heart failure, unspecified;Shortness of breath Presentation: 08/07 12:15 Chief complaint: EMS states: SOB at home, was 89% on RA, gave a breathing treatment, pt iw feeling better. Coronavirus screen: At this time, the client does not indicate any symptoms associated with coronavirus-19. Ebola Screen: Patient negative for fever greater than or equal to 101.5 degrees Fahrenheit, and additional compatible Ebola Virus Disease symptoms Patient denies exposure to infectious person. Patient denies travel to an Ebola-affected area in the 21 days before illness onset. No symptoms or risks identified at this time. Initial Sepsis Screen: Does the patient meet any 2 criteria? No. Patient's initial sepsis screen is negative. Does the patient have a suspected source of infection? No. Patient's initial sepsis screen is negative. Risk Assessment: Do you want to hurt yourself or someone else? Patient reports no desire to harm self or others. Onset of symptoms was August 07, 2023. 12:15 Method Of Arrival: EMS: [facility] iw 12:15 Acuity: FROY 3 iw Historical: - Allergies: 12:00 Bactrim; eh3 12:00 Codeine; eh3 12:00 Iodine; eh3 12:00 PENICILLINS; eh3 12:00 Sudafed; eh3 12:00 Talwin; eh3 12:00 trovafloxacin mesylate; eh3 - PMHx: 12:00 Atrial Fib; Bladder CA; COPD; Diabetes - IDDM; Hypertension; Myocardial infarction; eh3 - PSHx: 12:00 Cholecystectomy; eh3 - Immunization history:: Adult Immunizations up to date. - Social history:: Smoking status: unknown. Screenin:00 [facility] Fall Risk Assessment (Adult) Score/Fall Risk Level 0 - 2 = Low Risk. Abuse eh3 screen: Denies threats or abuse. Denies injuries from another. Nutritional screening: No deficits noted. Tuberculosis screening: No symptoms or risk factors identified. Assessment: 12:00 General: Appears in no apparent distress. comfortable, Behavior is cooperative, eh3 appropriate for age. Pain: Denies pain. Neuro: Level of Consciousness is awake, alert, obeys commands, Oriented to person, place, time, situation. Cardiovascular: Capillary refill < 3 seconds Patient's skin is warm and dry. Rhythm is sinus rhythm. Cardiovascular: Edema is 2+ to left midcalf, left ankle, left foot, right midcalf, right ankle and right foot. Respiratory: Airway is patent Respiratory effort is even, labored, Respiratory pattern is regular, symmetrical. GI: Abdomen is round non-distended. Derm: Skin is pink, warm \T\ dry. Musculoskeletal: Circulation, motion, and sensation intact. 13:00 Reassessment: Patient appears in no apparent distress at this time. Patient and/or 3 family updated on plan of care and expected duration. Pain level reassessed. Patient is alert, oriented x 3, equal unlabored respirations, skin warm/dry/pink. 14:00 Reassessment: Patient appears in no apparent distress at this time. Patient and/or 3 family updated on plan of care and expected duration. Pain level reassessed. Patient is alert, oriented x 3, equal unlabored respirations, skin warm/dry/pink. 15:00 Reassessment: Patient appears in no apparent distress at this time. Patient and/or 3 family updated on plan of care and expected duration. Pain level reassessed. Patient is alert, oriented x 3, equal unlabored respirations, skin warm/dry/pink. 16:00 Reassessment: Patient appears in no apparent distress at this time. Patient and/or 3 family updated on plan of care and expected duration. Pain level reassessed. Patient is alert, oriented x 3, equal unlabored respirations, skin warm/dry/pink. 17:00 Reassessment: Patient appears in no apparent distress at this time. Patient and/or 3 family updated on plan of care and expected duration. Pain level reassessed. Patient is alert, oriented x 3, equal unlabored respirations, skin warm/dry/pink. 17:19 Reassessment: Nurse to nurse report received by nurse Sykes on 2nd floor. [facility] Vital Signs: 12:01 BP 136 / 62; Pulse 83; Resp 18; Temp 97.6(IR); Pulse Ox 98% on R/A; eh3 13:00 BP 146 / 52; Pulse 79; Resp 20; Pulse Ox 98% on R/A; eh3 14:00 BP 111 / 50; Pulse 78; Resp 19; Pulse Ox 95% on R/A; eh3 15:00 BP 146 / 64; Pulse 80; Resp 20; Pulse Ox 98% on 10 lpm Nebulizer Mask; eh3 16:00 BP 125 / 50; Pulse 87; Resp 20; Pulse Ox 96% on R/A; eh3 17:00 BP 137 / 50; Pulse 85; Resp 20; Pulse Ox 96% ; eh3 ED Course: 11:51 Patient arrived in ED. eh3 11:52 Luz Maria Caldwell, RN is Primary Nurse. eh3 11:55 Jaya Beltrán DO is Attending Physician. ms3 12:00 Patient has correct armband on for positive identification. Bed in low position. Call eh3 light in reach. Side rails up X2. Provided Education on: use of call carcamo. Client placed on continuous cardiac and pulse oximetry monitoring. NIBP monitoring applied. 12:00 Arm band placed on. eh3 12:15 Triage completed. iw 12:30 Inserted saline lock: 20 gauge in right forearm, using aseptic technique. ld1 13:05 XRAY Chest (1 view) In Process Unspecified. EDMS 13:38 Christoph Enriquez MD is Hospitalizing Provider. ms3 14:[address] In Process Unspecified. EDMS 17:52 No provider procedures requiring assistance completed. Patient admitted, IV remains in eh3 place. Administered Medications: 14:20 Drug: Furosemide IVP 40 mg IVP once; give over 2 minutes Route: IVP; Site: right eh3 antecubital; 15:00 Follow up: Response: No adverse reaction eh3 14:20 Drug: MethylPrednisoLONE IVP 125 mg IVP once Route: IVP; Site: right antecubital; eh3 14:50 Follow up: Response: No adverse reaction eh3 14:50 Drug: Albuterol Inhalation 2.5 mg Inhalation once Route: Inhalation; eh3 15:30 Follow up: Response: No adverse reaction eh3 14:50 Drug: Ipratropium Inhalation Aerosol 0.5 mg Inhalation once Route: Inhalation; eh3 15:30 Follow up: Response: No adverse reaction eh3 Medication: 17:52 VIS not applicable for this client. eh3 Outcome: 13:39 Decision to Hospitalize by Provider. ms3 17:30 Admitted to Med/surg accompanied by tech, via stretcher, room 217, with chart, Report eh3 called to nurse Sykes 17:30 Condition: stable 17:30 Instructed on the need for admit, 17:54 Patient left the ED. iw Signatures: Dispatcher [employer] Adilene Mendez, [place] RN iw Jaya Beltrán, DO ms3 Sarah Beltrán RN RN ld1 Luz Maria Caldwell, RN RN 3
--- NOTE | 2023-08-07 13:39 | EDPHYS ---
Physician Documentation [facility] Name: Yarelis Payton Age: 88 yrs Sex: Female : 1935 Arrival Date: 08/07/2023 Time: 11:[address] Private MD: ED Physician Jaya Beltrán HPI: 08/07 12:47 This 88 yrs old Female presents to ER via EMS with complaints of Breathing Difficulty. ms3 12:47 88-year-old female presents to the emergency department for shortness of breath that ms3 began this morning. Patient states she was recently discharged from the hospital last night after falling and having shortness of breath. Patient states her breathing has improved since arrival to the emergency department. Patient denies any alleviating or inciting factors. Historical: - Allergies: 12:00 Bactrim; eh3 12:00 Codeine; eh3 12:00 Iodine; eh3 12:00 PENICILLINS; eh3 12:00 Sudafed; eh3 12:00 Talwin; eh3 12:00 trovafloxacin mesylate; eh3 - PMHx: 12:00 Atrial Fib; Bladder CA; COPD; Diabetes - IDDM; Hypertension; Myocardial infarction; eh3 - PSHx: 12:00 Cholecystectomy; eh3 - Immunization history:: Adult Immunizations up to date. - Social history:: Smoking status: unknown. ROS: 12:47 Constitutional: Negative for fever, and chills. Neck: Negative for injury, pain, and ms3 swelling, Cardiovascular: Negative for chest pain, and palpitations. 12:47 MS/Extremity: Negative for injury and deformity, Skin: Negative for injury, rash, and discoloration, 12:47 Respiratory: Positive for shortness of breath, 12:47 All other systems are negative, Exam: 12:47 Constitutional: This is a well developed, well nourished patient who is awake, alert, ms3 and in no acute distress. Head/Face: Normocephalic, atraumatic. Eyes: Pupils equal round and reactive to light, extra-ocular motions intact. Lids and lashes normal. Conjunctiva and sclera are non-icteric and not injected. Periorbital areas with no swelling, redness, or edema. Chest/axilla: Normal chest wall appearance and motion. Nontender with no deformity. Cardiovascular: Regular rate and rhythm with a normal S1 and S2. No gallops, murmurs, or rubs. Normal PMI, no JVD. No pulse deficits. Respiratory: Lungs have equal breath sounds bilaterally, clear to auscultation and percussion. No rales, rhonchi or wheezes noted. No increased work of breathing, no retractions or nasal flaring. Abdomen/GI: Soft, non-tender, with normal bowel sounds. No distension or tympany. No guarding or rebound. No evidence of tenderness throughout. Skin: Warm, dry with normal turgor. Normal color with no rashes, no lesions, and no evidence of cellulitis. MS/ Extremity: Pulses equal, no cyanosis. Neurovascular intact. Full, normal range of motion. 13:43 ECG was reviewed by the Attending Physician. ms3 Vital Signs: 12:01 BP 136 / 62; Pulse 83; Resp 18; Temp 97.6(IR); Pulse Ox 98% on R/A; eh3 13:00 BP 146 / 52; Pulse 79; Resp 20; Pulse Ox 98% on R/A; eh3 14:00 BP 111 / 50; Pulse 78; Resp 19; Pulse Ox 95% on R/A; eh3 15:00 BP 146 / 64; Pulse 80; Resp 20; Pulse Ox 98% on 10 lpm Nebulizer Mask; eh3 16:00 BP 125 / 50; Pulse 87; Resp 20; Pulse Ox 96% on R/A; eh3 17:00 BP 137 / 50; Pulse 85; Resp 20; Pulse Ox 96% ; eh3 MDM: 12:03 Patient medically screened. ms3 12:47 Differential diagnosis: CHF exacerbation, Myocardial Infarction pneumonia, pulmonary ms3 edema. 13:39 Data reviewed: vital signs, nurses notes, lab test result(s), radiologic studies, and ms3 as a result, I will admit patient. Consideration of Admission/Observation Patient was admitted/placed on observation. Management of patient was discussed with the following: Hospitalist: Jamarcus Francisco NP on behalf of Dr Enriquez. I considered the following discharge prescriptions or medication management in the emergency department Medications were administered in the Emergency Department. See MAR. Independent interpretation of the following test(s) in the Emergency Department EKG: See my EKG interpretation above X-Ray: My interpretation is CXR images reviewed reveals pulmonary edema. 13:43 Counseling: I had a detailed discussion with the patient and/or guardian regarding the ms3 historical points, exam findings, and any diagnostic results supporting the discharge/admit diagnosis, lab results, radiology results, the need for further work-up and treatment in the hospital. ED course: . 08/07 12:03 Order name: Basic Metabolic Panel; Complete Time: 13:34 ms3 08/07 12:03 Order name: CBC with Diff; Complete Time: 13:34 ms3 08/07 12:03 Order name: Magnesium; Complete Time: 13:34 ms3 08/07 12:03 Order name: NT PRO-BNP; Complete Time: 13:34 ms3 08/07 12:03 Order name: Troponin HS; Complete Time: 13:34 ms3 08/07 16:48 Order name: Glucose, Ancillary Testing; Complete Time: 16:53 EDMS 08/07 17:24 Order name: Glucose 3 08/07 17:36 Order name: Glucose, Ancillary Testing EDMS 08/07 12:03 Order name: XRAY Chest (1 view); Complete Time: 13:34 ms3 08/07 13:47 Order name: Chest Wo Con CT; Complete Time: 15:26 la1 08/07 12:03 Order name: EKG; Complete Time: 12:04 ms3 08/07 12:03 Order name: Cardiac monitoring; Complete Time: 12:05 ms3 08/07 12:03 Order name: EKG - Nurse/Tech; Complete Time: 12:38 ms3 08/07 12:03 Order name: IV Saline Lock; Complete Time: 12:30 ms3 08/07 12:03 Order name: Labs collected and sent; Complete Time: 12:26 ms3 08/07 12:03 Order name: O2 Per Protocol; Complete Time: 12:06 ms3 08/07 12:03 Order name: O2 Sat Monitoring; Complete Time: 12:06 ms3 08/07 12:33 Order name: Labs - recollect needed: LT GREEN; Complete Time: 12:55 bc6 EC:43 Rate is 78 beats/min. Rhythm is regular. Left axis deviation noted. VT interval is ms3 normal. QRS interval is normal. Clinical impression: NSR w/ Non-specific ST/T Changes. Interpreted by me. Reviewed by me. Administered Medications: 14:20 Drug: Furosemide IVP 40 mg IVP once; give over 2 minutes Route: IVP; Site: right 3 antecubital; 15:00 Follow up: Response: No adverse reaction 3 14:20 Drug: MethylPrednisoLONE IVP 125 mg IVP once Route: IVP; Site: right antecubital; 3 14:50 Follow up: Response: No adverse reaction eh3 14:50 Drug: Albuterol Inhalation 2.5 mg Inhalation once Route: Inhalation; eh3 15:30 Follow up: Response: No adverse reaction eh3 14:50 Drug: Ipratropium Inhalation Aerosol 0.5 mg Inhalation once Route: Inhalation; eh3 15:30 Follow up: Response: No adverse reaction eh3 Disposition Summary: 08/07/23 13:39 Hospitalization Ordered Notes: Hospitalization Status: Inpatient Admission ms3 Provider: Christoph Enriquez ms3 Location: Telemetry/MedSurg (Inpatient) ms3 Condition: Stable ms3 Problem: new ms3 Symptoms: are unchanged ms3 Bed/Room Type: Standard ms3 Room Assignment: 411(08/07/23 16:51) 6 Diagnosis - Heart failure, unspecified ms3 - Shortness of breath ms3 Forms: - Medication Reconciliation Form ms3 - SBAR form ms3 - Leadership Thank You Letter ms3 Signatures: Dispatcher [employer] Jamarcus Eli, POPPY GRACE-Catherine1 Jaya Beltrán DO DO ms3 Luz Maria Caldwell RN RN 3 Genevieve Christian bc6 Corrections: (The following items were deleted from the chart) 16:51 13:39 ms3 6
[2023-08-07] MEDS ORDERED: FUROSEMIDE 40 MG/4 ML VIAL ONE (14:06)
--- NOTE | 2023-08-07 14:30 | P.HP ---
Certification for Inpatient Patient admitted to: Observation With expected LOS: <2 Midnights Patient will require the following post-hospital care: None Practitioner: I am a practitioner with admitting privileges, knowledge of patient current condition, hospital course, and medical plan of care. Services: Services provided to patient in accordance with Admission requirements found in Title 42 Section 412.3 of the Code of Federal Regulations Patient History Date of Service: 08/07/23 Reason for admission: Dyspnea, COPD exacerbation History of Present Illness: 88-year-old female with a history of chronic atrial fibrillation, hypertension, diabetes and COPD presented was brought to the emergency department for shortness of breath. She was discharged yesterday from the hospital for a fall, afib rvr. This morning when she woke up she felt short of breath, EMS was called and gave her a nebulizer treatment which improved her symptoms. She was brought to the ER for further evaluation. In the ER she was evaluated her labs were significant for Blood sugar 272 white blood cell count 14.4 BNP 3501 troponin 40.3 chest x-ray shows predominantly central/basilar opacities with suggestion of small right pleural effusion. Findings may reflect pulmonary edema versus early multifocal airspace disease. CT chest without contrast ordered and pending. On exam patient has expiratory wheezing to be admitted under observation with dyspnea, suspected COPD exacerbation. Allergies amoxicillin trihydrate [From Amoxil] Allergy (Mild, Verified 10/12/20 08:58) Hives/Rash codeine Allergy (Mild, Verified 10/12/20 08:58) Hives/Rash iodine Allergy (Mild, Verified 10/12/20 08:58) Hives sulfamethoxazole [From Bactrim] Allergy (Mild, Verified 10/12/20 08:58) Hives/Rash trimethoprim [From Bactrim] Allergy (Mild, Verified 10/12/20 08:58) Hives/Rash alatrofloxacin mesylate [From Trovan] Allergy (Unknown, Verified 10/12/20 08:58) unknown pseudoephedrine HCl [From Actifed] Allergy (Unknown, Verified 10/12/20 08:58) unknown triprolidine HCl [From Actifed] Allergy (Unknown, Verified 10/12/20 08:58) unknown trovafloxacin mesylate [From Trovan] Allergy (Unknown, Verified 10/12/20 08:58) unknown adhesive tape Allergy (Verified 10/12/20 08:58) Rash Penicillins Allergy (Verified 10/12/20 08:58) Itching pentazocine lactate [From Talwin] Allergy (Verified 10/12/20 08:58) Hives Home Medications: Aspirin [Aspirin EC 81 MG] 1 tab PO DAILY 06/27/22 Atorvastatin Calcium [Lipitor*] 1 tab PO BID 06/27/22 Metformin HCl 2 tab PO DAILY 06/27/22 Venlafaxine HCl *Xr* [Effexor XR] 1 tab PO DAILY 06/27/22 Insulin Glargine,Hum.rec.anlog [Lantus Solostar] See Protocol SQ 08/04/23 Amiodarone HCl [Cordarone*] 200 mg PO BID #60 tab 08/06/23 Apixaban [Eliquis] 2.5 mg PO BID #60 tablet 08/06/23 traMADol HCL [Ultram*] 50 mg PO Q8H PRN #15 tab 08/06/23 - Past Medical/Surgical History Diabetic: Yes -: HTN -: DM -: Depression -: Atrial fibrillation Chronic anti coagulation therapy -: COPD -: Cholecystectomy -: Left Thoracotomy x3 secondary to fungal infection Psychosocial/ Personal History: Patient is - Family History Father -: Heart disease - Social History Smoking Status: Former smoker (family smokes in house) Alcohol use: No CD- Drugs: No Caffeine use: Yes Place of Residence: Home Review of Systems 10-point ROS is otherwise unremarkable Respiratory: Cough, Shortness of Breath Physical Examination - Physical Exam General: Alert, In no apparent distress, Oriented x3 HEENT: Atraumatic, PERRLA Neck: Supple, 2+ carotid pulse no bruit, No LAD Respiratory: Diminished, Expiratory wheezes Cardiovascular: Regular rate/rhythm, Normal S1 S2 Capillary refill: <2 Seconds Gastrointestinal: Normal bowel sounds, No tenderness Musculoskeletal: No tenderness Integumentary: No rashes Neurological: Normal speech, Normal strength at 5/5 x4 extr, Normal tone, Normal affect - Studies Laboratory Data (last 24 hrs) 08/07/23 08/07/23 12:45 12:21 WBC 14.40 H Hgb 13.2 Hct 39.6 Plt Count 349 Sodium 138 Potassium 4.4 BUN 15 Creatinine 0.94 Glucose 272 H Magnesium 1.9 Assessment and Plan - Plan Assessment: Dyspnea, COPD with exacerbation, small right pleural effusion Known Lung masses/adrenal mass Atrial fibrillation on chronic anticoagulation 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 Gentle diuresis with IV Lasix Recent echocardiogram with normal EF Known Lung masses/adrenal mass Discussed with patient/family during previous admission Outpatient work-up Atrial fibrillation on chronic anticoagulation Continue amiodarone, Eliquis In sinus rhythm currently Diabetes mellitus type 2 hyperglycemia ACHS Accu-Chek, sliding scale insulin Chronic right upper extremity pain As needed Tylenol/tramadol Hypertension Continue home medications DVT PPX: Continue Eliquis Code status: Full Discharge Plan: Home Plan to discharge in: 24 Hours - Advance Directives Does patient have a Living Will: No Does patient have a Durable POA for Healthcare: No - Code Status/Comfort Care Code Status Assessed: Yes (Full code) Critical Care: No Time Spent Managing Pts Care (In Minutes): 55
[2023-08-07] MEDS ORDERED: ALBUTEROL 2.5 MG/3 ML NEB SOL ONE ×2 (14:36→14:58)
[2023-08-07] MEDS ORDERED: METHYLPREDNISOLONE 125 MG INJ ONE (14:36)
[2023-08-07] MEDS ORDERED: IPRATROPIUM BROM 0.5MG/2.5ML ONE ×2 (14:36→14:58)
--- NOTE | 2023-08-07 15:15 | RAD REPORT ---
EXAM DESCRIPTION: CT - Thorax Wo Con - 08/07/2023 2:05 pm CLINICAL HISTORY: Pneumonia vs chf, dyspnea COMPARISON: Thorax Wo Con dated 06/26/2022; Head C Spine Cap Wo Con dated 08/04/2023 TECHNIQUE: Axial thin cut images of the chest were obtained without IV contrast. Multiplanar reforma ts were generated and reviewed. All CT scans are performed using dose optimization technique as appropriate and may include automated exposure control or mA/KV adjustment according to patient size. FINDINGS: No new lung parenchymal masses. New moderate right and small left layering pleural effusio ns with underlying atelectasis. Stable right pleural masses at the right apex, peripheral right upper lobe, and posterolateral right lower lobe,, with adjacent reticular opacities and underlying rib ero sions. Mildly displaced posterior right ninth rib fracture emboli underlying the right lower lobe ple ural mass. No pneumothorax. Grossly stable prominent mediastinal and possibly right hilar lymph nodes. No significant aortic or p ulmonary artery findings. Assessment is limited in the absence of IV contrast. No chest wall mass or abnormal axillary lymphadenopathy. Evaluation of the solid abdominal structures reveals a stable right adrenal 2.5 cm nodule. Expansile lesion with cortical remodeling involving the upper aspect of the sternal body is stable an d nonspecific. IMPRESSION: Interval development of right moderate and small left layering pleural effusions. Medias tinal and possibly right hilar prominent lymph nodes are grossly stable within limits of noncontrast evaluation. Grossly stable right pleural masses, again concerning for metastatic lesions or mesothelioma. New posterior right ninth rib mildly displaced fracture, likely pathologic, as the underlies the righ t lower lobe lung mass.
[2023-08-07] MEDS ORDERED: ALBUTEROL 2.5 MG/3 ML NEB SOL NEB PRN (16:18)
[2023-08-07] MEDS ORDERED: IPRATROPIUM BROM 0.5MG/2.5ML NEB PRN (16:18)
[2023-08-07] MEDS ORDERED: INSULIN REGULAR (HUMAN) 100 UNIT/ML SQ SCH (16:30)
[2023-08-07] MEDS: FUROSEMIDE 20 MG/ 2ML VIAL IV SCH (16:39)
[2023-08-07] MEDS ORDERED: FUROSEMIDE 20 MG/ 2ML VIAL ONE (16:46)
[2023-08-07] MEDS ORDERED: INSULIN REGULAR (HUMAN) 100 UNIT/ML ONE (16:58)
[2023-08-07] MEDS ORDERED: DULERA 200/5 (MOMETASONE/FORMOTEROL) INHALER IH SCH (21:00)
[2023-08-07] MEDS: INSULIN REGULAR (HUMAN) 100 UNIT/ML SQ SCH (21:00)
[2023-08-07] MEDS: predniSONE 10 MG TAB PO SCH (22:25)
[2023-08-07] MEDS: AMIODARONE HCL 200 MG TAB PO SCH (22:25)
[2023-08-07] MEDS: APIXABAN 2.5 MG TABLET PO SCH (22:25)
[2023-08-07] MEDS ORDERED: INSULIN GLARGINE 100 UNIT/ML SQ ONE (23:42)
[2023-08-08 07:08] LABS: Hematocrit 38.6 % (36.0-45.0); Lymphocytes % 7.7 % (15.3-44.8); MCV 90.9 fL (80-100); MPV 7.8 fL (7.6-11.3); Platelets 364 thou/uL (152-406); RBC Red Blood Cell Count 4.25 M/uL (3.86-4.86)
[2023-08-08 07:23] LABS: Magnesium 1.9 mg/dL (1.6-2.4); Potassium 3.9 mEq/L (3.5-5.1)
[2023-08-08] MEDS ORDERED: INFLUENZA VACCINE (for 6+ mo) 0.5 ML DOSE IMVAC ONE (08:00)
[2023-08-08 09:03] LABS: Blood Morphology Comment NOT SEEN (NOT SEEN); Platelet Estimate ADEQ; White Blood Cell Scan OK (OK)
--- NOTE | 2023-08-08 09:34 | P.PN ---
Date of Service: 08/08/23 Interval development of right moderate and small left layering pleural effusions. Mediastinal and possibly right hilar prominent lymph nodes are grossly stable within limits of noncontrast evaluation. Grossly stable right pleural masses, again concerning for metastatic lesions or mesothelioma. New posterior right ninth rib mildly displaced fracture, likely pathologic, as the underlies the right lower lobe lung mass Subjective: Improvement in shortness of breath, is complaining of right-sided lung/chest pain worse with deep breath/movement ROS: 10 point ROS as noted above, otherwise negative Physical exam GEN: Alert, oriented, NAD HEENT: Normal conjunctiva, sclera anicteric CV: Regular rate and rhythm, no edema Pulm: Nonlabored respirations on room air, breath sounds diminished ABD: Soft, nontender, nondistended MSK: No joint tenderness Integumentary: No rashes Neuro: Normal speech, normal affect Vitals reviewed Problem List Dyspnea, COPD with exacerbation Right moderate and small left pleural effusions Pathologic right ninth rib mildly displaced fracture Known Lung masses/adrenal mass Atrial fibrillation on chronic anticoagulation Diabetes mellitus type 2 hyperglycemia Chronic right upper extremity pain Hypertension Plan: Dyspnea, COPD with exacerbation Right moderate and small left pleural effusions Pathologic right ninth rib mildly displaced fracture incentive spirometry As needed pain medications Continue steroids, as needed nebulizer treatments, ICS. Gentle diuresis with IV Lasix Recent echocardiogram with normal EF Known Lung masses/adrenal mass Discussed with patient/family during previous admission Outpatient work-up Atrial fibrillation on chronic anticoagulation Continue amiodarone, Eliquis In sinus rhythm currently Diabetes mellitus type 2 hyperglycemia Blood sugar elevated after receiving steroids for COPD exacerbation Insulin increased to aggressive sliding scale ACHS Accu-Chek, sliding scale insulin Chronic right upper extremity pain As needed Tylenol/tramadol Hypertension Continue home medications DVT PPX: Continue Eliquis Code status: Full Discharge Plan: Home Plan to discharge in: 24 Hours Time Spent Managing Pts Care (In Minutes): 35 <Jamarcus Francisco - Last Filed: 08/08/23 09:35> Patient seen and examined on rounds this afternoon. Doing well, feels she is breathing better reports ongoing pains for several months of R Shoulder. CT yesterday noted mild pleural effusions, suspect secondary to IV fluid carries of amiodarone and recent afib with RVR also with pulmonary masses, now with pathological rib fracture continue diuresis, monitor renal function switch to prednisone 10mg bid for suspected component of COPD exacerbation nebs PRN Discussed and updated son at bedside this afternoon ~330pm. He expressed frustration with lack of updates / information getting to him. I explained tests and bloodwork take some time to result, and evaluating how the patient responds to treatment prior to updating family members. She has been doing well and improving, and no significant updates this morning from yesterday when he was informed of results in the ED. Explained we have been rounding throughout the day and rounding a 2nd time to check on her and updating families. Still several hours left in the day and actively following up on patients and calling families at this time. Expressed frustration and concern that patient is "here for COPD and only getting lasix". I informed son that her symptoms are primarily due to fluid overload and majority of treatment is lasix. There is concern for a component of COPD at play, so she is getting prednisone and has nebs ordered PRN. She is improving. Son expressed ongoing frustrations and requested transfer to [facility]. I explained this would be lateral transfer and may be denied or take several days. Patient is improving and would like discharge in ~1-2 days if continued on this trajectory. She does not have an accepting physician / no continuity of care there. shift supervisor rn contacted at ~4pm to initiate transfer to [facility] per family request. <Christoph Enriquez - Last Filed: 08/08/23 18:14>
[2023-08-08] MEDS: INSULIN REGULAR (HUMAN) 100 UNIT/ML SQ SCH ×3 (10:13→16:25)
[2023-08-08] MEDS: AMIODARONE HCL 200 MG TAB PO SCH ×2 (10:14→20:55)
[2023-08-08] MEDS: predniSONE 10 MG TAB PO SCH (10:14)
[2023-08-08] MEDS: FUROSEMIDE 20 MG/ 2ML VIAL IV SCH ×2 (10:14→16:25)
[2023-08-08] MEDS: APIXABAN 2.5 MG TABLET PO SCH ×2 (10:14→20:55)
[2023-08-08] MEDS ORDERED: GLUCAGON 1 MG/VIAL IM PRN (11:25)
[2023-08-08] MEDS ORDERED: D50W 25 GM/50 ML SYRINGE IV PRN (11:25)
[2023-08-08] MEDS ORDERED: INSULIN REGULAR (HUMAN) 100 UNIT/ML IV ONE (11:26)
[2023-08-08] MEDS ORDERED: D10W 125 ML IV PRN (11:31)
[2023-08-08] MEDS ORDERED: MORPHINE 2 MG/ML SYR IV ONE (19:13)
[2023-08-08] MEDS ORDERED: PROMETHAZINE INJ 25 MG/ML AMP IV ONE (19:49)
[2023-08-08] MEDS ORDERED: LORazepam 2 MG/ML VIAL IV ONE (20:46)
[2023-08-08] MEDS ORDERED: LORazepam 2 MG/ML VIAL ONE (21:09)
[2023-08-09] MEDS: INSULIN REGULAR (HUMAN) 100 UNIT/ML SQ SCH ×5 (00:31→19:36)
[2023-08-09] MEDS: INSULIN GLARGINE 100 UNIT/ML SQ SCH (09:00)
[2023-08-09 09:25] LABS: Absolute Lymphocytes (CBC) 3.3 K/uL (0.7-4.9); Lymphocytes % 18.9 % (15.3-44.8); MCV 91.6 fL (80-100); MPV 7.9 fL (7.6-11.3); Platelets 381 thou/uL (152-406); RBC Red Blood Cell Count 3.93 M/uL (3.86-4.86)
[2023-08-09 09:37] LABS: Magnesium 2.2 mg/dL (1.6-2.4)
--- NOTE | 2023-08-09 10:56 | P.PN ---
Date of Service: 08/09/23 Subjective: Improvement in shortness of breath Became confused/agitated/aggressive overnight requiring sedation with ativan Drowsy this morning Discussed POC with family ROS: 10 point ROS as noted above, otherwise negative Physical exam GEN: Alert, oriented, NAD HEENT: Normal conjunctiva, sclera anicteric CV: Regular rate and rhythm, no edema Pulm: Nonlabored respirations on room air, breath sounds diminished ABD: Soft, nontender, nondistended MSK: No joint tenderness Integumentary: No rashes Neuro: Normal speech, normal affect Vitals reviewed Problem List Dyspnea, COPD with exacerbation Right moderate and small left pleural effusions Pathologic right ninth rib mildly displaced fracture Metabolic encephalopathy Known Lung masses/adrenal mass Atrial fibrillation on chronic anticoagulation Diabetes mellitus type 2 hyperglycemia Chronic right upper extremity pain Hypertension Plan: Dyspnea, COPD with exacerbation Right moderate and small left pleural effusions Pathologic right ninth rib mildly displaced fracture Metabolic encephalopathy Developed agitation/delerium last night, steroids DC's Family interested in discussion with hospice services incentive spirometry As needed pain medications Steroids discontinued, as needed nebulizer treatments switch to PO lasix today Recent echocardiogram with normal EF Known Lung masses/adrenal mass Discussed with patient/family during previous admission Outpatient work-up, considering hospice Atrial fibrillation on chronic anticoagulation Continue amiodarone, Eliquis In sinus rhythm currently Diabetes mellitus type 2 hyperglycemia Blood sugar elevated after receiving steroids for COPD exacerbation Insulin increased to aggressive sliding scale Steroids DC'd continued long acting insulin ACHS Accu-Chek, sliding scale insulin Chronic right upper extremity pain As needed Tylenol/tramadol Hypertension Continue home medications DVT PPX: Continue Eliquis Code status: Full Discharge Plan: Home Plan to discharge in: 48 hours Time Spent Managing Pts Care (In Minutes): 35 <Jamarcus Francisco - Last Filed: 08/09/23 10:53> Patient seen and examined on rounds this morning. Plan of care discussed with [employer]ER Maryam. 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 Recent CT head noted chronic ischemic vascular changes Medication as needed to prevent harm to herself DC steroids Restart patient's Effexor, possibly some withdrawal effects Discussed with family extensively regarding pulmonary nodules/lesions, pathologic fracture 7 states given her multiple comorbidities, age, dementia that they will likely not pursuing any further work-up/treatment of these lesions We will discuss with family and get back to me, hospice consult to discuss with son on Friday per his request, for information to see if this is what they would want to proceed with <Christoph Enriquez - Last Filed: 08/09/23 15:06>
[2023-08-09] MEDS: APIXABAN 2.5 MG TABLET PO SCH ×2 (10:58→20:37)
[2023-08-09] MEDS: AMIODARONE HCL 200 MG TAB PO SCH ×2 (10:58→20:37)
[2023-08-09] MEDS: VENLAFAXINE HCL 75 MG TABLET PO SCH ×2 (10:58→20:37)
[2023-08-09] MEDS: FUROSEMIDE 20 MG/ 2ML VIAL IV SCH ×2 (10:59→16:54)
--- NOTE | 2023-08-09 14:15 | EKG ---
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
[2023-08-10 06:45] LABS: Hematocrit 36.5 % (36.0-45.0); RBC Red Blood Cell Count 3.95 M/uL (3.86-4.86)
[2023-08-10 06:46] LABS: Absolute Lymphocytes (CBC) 2.3 K/uL (0.7-4.9); Lymphocytes % 19.8 % (15.3-44.8); MCV 92.2 fL (80-100); MPV 7.6 fL (7.6-11.3); Platelets 356 thou/uL (152-406)
[2023-08-10 07:02] LABS: Albumin 2.4 g/dL (3.4-5.0); Bilirubin Total 0.6 mg/dL (0.2-1.0); Magnesium 2.1 mg/dL (1.6-2.4); Potassium 4.1 mEq/L (3.5-5.1); Protein, Total 6.2 g/dL (6.4-8.2)
[2023-08-10] MEDS: VENLAFAXINE HCL 75 MG TABLET PO SCH ×2 (07:28→21:03)
[2023-08-10] MEDS: AMIODARONE HCL 200 MG TAB PO SCH ×2 (07:29→21:03)
[2023-08-10] MEDS: FUROSEMIDE 20 MG/ 2ML VIAL IV SCH ×2 (07:29→17:00)
[2023-08-10] MEDS: APIXABAN 2.5 MG TABLET PO SCH ×2 (07:29→21:03)
[2023-08-10] MEDS: INSULIN REGULAR (HUMAN) 100 UNIT/ML SQ SCH ×4 (08:48→21:04)
[2023-08-10] MEDS: INSULIN GLARGINE 100 UNIT/ML SQ SCH (08:48)
--- NOTE | 2023-08-10 10:06 | P.PN ---
Date of Service: 08/10/23 Subjective: Improvement in shortness of breath Doing much better as far as agitation/delirium today No acute events overnight ROS: 10 point ROS as noted above, otherwise negative Physical exam GEN: Alert, oriented, NAD HEENT: Normal conjunctiva, sclera anicteric CV: Regular rate and rhythm, no edema Pulm: Nonlabored respirations on room air, breath sounds diminished ABD: Soft, nontender, nondistended MSK: No joint tenderness Integumentary: No rashes Neuro: Normal speech, normal affect Vitals reviewed Problem List Dyspnea, COPD with exacerbation Right moderate and small left pleural effusions Pathologic right ninth rib mildly displaced fracture Metabolic encephalopathy Known Lung masses/adrenal mass Atrial fibrillation on chronic anticoagulation Diabetes mellitus type 2 with hyperglycemia Chronic right upper extremity pain Hypertension Plan: Dyspnea, COPD with exacerbation Right moderate and small left pleural effusions Pathologic right ninth rib mildly displaced fracture Metabolic encephalopathy Developed agitation/delerium 08/08 evening-improved, steroids DC's Family interested in discussion with hospice services incentive spirometry As needed pain medications Steroids discontinued, as needed nebulizer treatments switched to PO lasix Recent echocardiogram with normal EF Known Lung masses/adrenal mass Discussed with patient/family during previous admission Outpatient work-up, considering hospice Atrial fibrillation on chronic anticoagulation Continue amiodarone, Eliquis In sinus rhythm currently Diabetes mellitus type 2 with hyperglycemia Blood sugar elevated after receiving steroids for COPD exacerbation Insulin increased to aggressive sliding scale Steroids DC'd continued long acting insulin BGL improved ACHS Accu-Chek, sliding scale insulin Chronic right upper extremity pain As needed Tylenol/tramadol Hypertension Continue home medications DVT PPX: Continue Eliquis Code status: Full Discharge Plan: Home Plan to discharge in: 24-48 hours check services clerk consult for hospice consultation with family Time Spent Managing Pts Care (In Minutes): 35
[2023-08-10 13:41] VITALS: BMI 24.4
[2023-08-10] MEDS: TRAMADOL HCL 50 MG TAB PO PRN (18:29)
[2023-08-11 03:29] LABS: Absolute Lymphocytes (CBC) 3.7 K/uL (0.7-4.9); Hematocrit 38.3 % (36.0-45.0); Lymphocytes % 29.5 % (15.3-44.8); MCV 91.3 fL (80-100); MPV 7.8 fL (7.6-11.3); Platelets 345 thou/uL (152-406); RBC Red Blood Cell Count 4.19 M/uL (3.86-4.86)
[2023-08-11 03:41] LABS: Albumin 2.4 g/dL (3.4-5.0); Bilirubin Total 0.6 mg/dL (0.2-1.0); Magnesium 2.1 mg/dL (1.6-2.4); Potassium 3.7 mEq/L (3.5-5.1)
[2023-08-11] MEDS: INSULIN REGULAR (HUMAN) 100 UNIT/ML SQ SCH ×4 (07:30→19:09)
--- NOTE | 2023-08-11 08:06 | P.CNS ---
Date of Consult: 08/11/23 Reason for Consult: abnormal CT scan Chief Complaint: Recent fall A-fib History of Present Illness: Patient is 88 years of age with a history of A-fib apparently she fell from a stool at the bedside scheduled with A-fib currently doing better she denies any chest pain cough shortness of breath. Patient is a former smoker quit a long time ago there is no exposure to asbestos has multiple densities along the pleural rib cage on the right side Allergies amoxicillin trihydrate [From Amoxil] Allergy (Mild, Verified 10/12/20 08:58) Hives/Rash codeine Allergy (Mild, Verified 10/12/20 08:58) Hives/Rash iodine Allergy (Mild, Verified 10/12/20 08:58) Hives sulfamethoxazole [From Bactrim] Allergy (Mild, Verified 10/12/20 08:58) Hives/Rash trimethoprim [From Bactrim] Allergy (Mild, Verified 10/12/20 08:58) Hives/Rash alatrofloxacin mesylate [From Trovan] Allergy (Unknown, Verified 10/12/20 08:58) unknown pseudoephedrine HCl [From Actifed] Allergy (Unknown, Verified 10/12/20 08:58) unknown triprolidine HCl [From Actifed] Allergy (Unknown, Verified 10/12/20 08:58) unknown trovafloxacin mesylate [From Trovan] Allergy (Unknown, Verified 10/12/20 08:58) unknown adhesive tape Allergy (Verified 10/12/20 08:58) Rash Penicillins Allergy (Verified 10/12/20 08:58) Itching pentazocine lactate [From Talwin] Allergy (Verified 10/12/20 08:58) Hives Home Medications: Aspirin [Aspirin EC 81 MG] 1 tab PO DAILY 06/27/22 Atorvastatin Calcium [Lipitor*] 1 tab PO BID 06/27/22 Metformin HCl 2 tab PO DAILY 06/27/22 Venlafaxine HCl *Xr* [Effexor XR] 1 tab PO DAILY 06/27/22 Insulin Glargine,Hum.rec.anlog [Lantus Solostar] See Protocol SQ 08/04/23 Amiodarone HCl [Cordarone*] 200 mg PO BID #60 tab 08/06/23 Apixaban [Eliquis] 2.5 mg PO BID #60 tablet 08/06/23 traMADol HCL [Ultram*] 50 mg PO Q8H PRN #15 tab 08/06/23 - Past Medical/Surgical History Diabetic: Yes -: HTN -: DM -: Depression -: Atrial fibrillation Chronic anti coagulation therapy -: COPD -: Cholecystectomy -: Left Thoracotomy x3 secondary to fungal infection Psychosocial/ Personal History: Patient is - Family History Father Medical History: Heart disease - Social History Smoking Status: Unknown if ever smoked Alcohol use: No CD- Drugs: No Caffeine use: Yes Place of Residence: Home Review of Systems Musculoskeletal: Other (painRight arm) Physical Examination Temp Pulse Resp BP Pulse Ox 97.8 F 64 16 116/54 L 91 08/11/23 04:00 08/11/23 04:00 08/11/23 04:00 08/11/23 04:00 08/11/23 04:00 General: Alert, Oriented x3 Neck: Supple Respiratory: Clear to auscultation bilaterally Cardiovascular: No edema, Regular rate/rhythm, Normal S1 S2 - Problems (1) Abnormal CT scan of lung Current Visit: No Status: Acute Plan: Patient is 88 years of age with a history of COPD A-fib admitted with a fall. She has multiple pleural masses probably chronic in addition she also has a fracture will need to follow-up with a repeat CAT scan in a month. Patient may need a biopsy chemistry CT scan reviewed mild white count is mildly elevated/scan report Interval development of right moderate and small left layering pleural effusions. Mediastinal and possibly right hilar prominent lymph nodes are grossly stable within limits of noncontrast evaluation. Grossly stable right pleural masses, again concerning for metastatic lesions or mesothelioma. New posterior right ninth rib mildly displaced fracture, likely pathologic, as the underlies the right lower
[2023-08-11] MEDS: APIXABAN 2.5 MG TABLET PO SCH ×2 (08:36→19:55)
[2023-08-11] MEDS: VENLAFAXINE HCL 75 MG TABLET PO SCH ×2 (08:36→19:55)
[2023-08-11] MEDS: AMIODARONE HCL 200 MG TAB PO SCH ×2 (08:36→19:55)
[2023-08-11] MEDS: INSULIN GLARGINE 100 UNIT/ML SQ SCH (08:48)
[2023-08-11] MEDS: FUROSEMIDE 20 MG/ 2ML VIAL IV SCH (08:50)
[2023-08-11] MEDS ORDERED: POTASSIUM CL SA 10 MEQ TAB PO ONE (09:00)
--- NOTE | 2023-08-11 13:16 | RAD REPORT ---
EXAM DESCRIPTION: RAD - Chest Pa And Lat (2 Views) - 08/11/2023 1:08 pm CLINICAL HISTORY: Shortness of breath, Pleural effusions Chest pain. COMPARISON: Chest Single View dated 08/07/2023; Chest Single View dated 06/26/2022; Chest Single View dated 11/21/2021; Chest Single View dated 11/14/2021; Thorax Wo Con dated 08/07/2023 FINDINGS: The lungs are diffusely emphysematous. Small amount of right pleural fluid is present. Rig ht apical pleural thickening measuring 2 cm is again noted. The heart is mildly prominent in size. No displaced fractures. Aortic atherosclerosis. IMPRESSION: Prominent diffuse COPD. 2 cm right apical opacity is present which is nonspecific. Recommend follow-up CT chest in 3 months t o monitor this region.
--- NOTE | 2023-08-11 16:44 | P.PN ---
Date of Service: 08/11/23 Subjective: Improvement in shortness of breath Doing much better as far as agitation/delirium today No acute events overnight ROS: 10 point ROS as noted above, otherwise negative Physical exam GEN: Alert, oriented, NAD HEENT: Normal conjunctiva, sclera anicteric CV: Regular rate and rhythm, no edema Pulm: Nonlabored respirations on room air, breath sounds diminished ABD: Soft, nontender, nondistended MSK: No joint tenderness Integumentary: No rashes Neuro: Normal speech, normal affect Vitals reviewed Problem List Dyspnea, COPD with exacerbation Right moderate and small left pleural effusions Pathologic right ninth rib mildly displaced fracture Metabolic encephalopathy Known Lung masses/adrenal mass Atrial fibrillation on chronic anticoagulation Diabetes mellitus type 2 with hyperglycemia Chronic right upper extremity pain Hypertension Plan: Dyspnea, COPD with exacerbation Right moderate and small left pleural effusions Pathologic right ninth rib mildly displaced fracture Metabolic encephalopathy Developed agitation/delerium 08/08 evening-improved, steroids DC's Family had discussion with hospice services, not interested at this time incentive spirometry As needed pain medications Steroids discontinued, as needed nebulizer treatments switched to PO lasix Recent echocardiogram with normal EF Known Lung masses/adrenal mass Discussed with patient/family during previous admission Outpatient work-up, considering hospice Atrial fibrillation on chronic anticoagulation Continue amiodaroneLaura Currently on amiodarione 200mg BID from recent admission recommend close follow up with cardiology for possible titration of dose In sinus rhythm currently Diabetes mellitus type 2 with hyperglycemia Blood sugar elevated after receiving steroids for COPD exacerbation insulin down to mild sliding scale Steroids DC'd continued long acting insulin BGL improved ACHS Accu-Chek, sliding scale insulin Chronic right upper extremity pain As needed Tylenol/tramadol Hypertension Continue home medications DVT PPX: Continue Eliquis Code status: Full Discharge Plan: Home Plan to discharge in: 24 Time Spent Managing Pts Care (In Minutes): 35
[2023-08-11] MEDS: TRAMADOL HCL 50 MG TAB PO PRN (23:35)
[2023-08-12 00:38] VITALS: O2SAT 94
[2023-08-12 06:57] LABS: Absolute Lymphocytes (CBC) 2.8 K/uL (0.7-4.9); Hematocrit 38.5 % (36.0-45.0); Lymphocytes % 26.7 % (15.3-44.8); MCV 91.4 fL (80-100); MPV 7.5 fL (7.6-11.3); Platelets 373 thou/uL (152-406); RBC Red Blood Cell Count 4.21 M/uL (3.86-4.86)
[2023-08-12 07:16] LABS: Albumin 2.4 g/dL (3.4-5.0); Bilirubin Total 0.7 mg/dL (0.2-1.0); Magnesium 2.2 mg/dL (1.6-2.4); Potassium 4.3 mEq/L (3.5-5.1); Protein, Total 6.2 g/dL (6.4-8.2)
[2023-08-12] MEDS: APIXABAN 2.5 MG TABLET PO SCH (08:34)
[2023-08-12] MEDS: VENLAFAXINE HCL 75 MG TABLET PO SCH (08:35)
[2023-08-12] MEDS: TRAMADOL HCL 50 MG TAB PO PRN (08:35)
[2023-08-12] MEDS: AMIODARONE HCL 200 MG TAB PO SCH (08:35)
[2023-08-12] MEDS: INSULIN GLARGINE 100 UNIT/ML SQ SCH (08:36)
[2023-08-12] MEDS: INSULIN REGULAR (HUMAN) 100 UNIT/ML SQ SCH ×2 (08:36→12:23)
[2023-08-12] MEDS ORDERED: FUROSEMIDE 20 MG TABLET PO SCH (09:00)
--- NOTE | 2023-08-12 13:17 | P.DS ---
Admission Date: 08/09/23 Discharge Date: 08/12/23 Disposition: ROUTINE DISCHARGE Discharge Condition: FAIR Reason for Admission: Recent fall A-fib Brief History of Present Illness: 88-year-old female with a history of chronic atrial fibrillation, hypertension, diabetes and COPD presented was brought to the emergency department for shortness of breath. She was discharged from the hospital day prior after admission for fall and afib rvr. Patient reported sudden onset shortness of breath, EMS was called and gave her a nebulizer treatment which improved her symptoms. She was brought to the ER for further evaluation. In the ER, her labs were significant for Blood sugar 272 white blood cell count 14.4 BNP 3501 troponin 40.3 chest x-ray shows predominantly central/basilar opacities with suggestion of small right pleural effusion. Pulmonary edema versus early multifocal airspace disease suspected. CT chest without contrast ordered and pending. On exam patient has expiratory wheezing to be admitted under observation with dyspnea, suspected COPD exacerbation. Hospital Course: Diagnosis COPD with exacerbation Right moderate and small left pleural effusions Pathologic right ninth rib mildly displaced fracture Metabolic encephalopathy Known Lung masses/adrenal mass Atrial fibrillation on chronic anticoagulation Diabetes mellitus type 2 with hyperglycemia Chronic right upper extremity pain Hypertension Plan: Dyspnea, COPD with exacerbation Right moderate and small left pleural effusions Pathologic right ninth rib mildly displaced fracture Metabolic encephalopathy Patient treated for COPD exacerbation with nebs, steroids. Altered mental status resolved. Family had discussion with hospice services, not interested at this time incentive spirometry Patient was briefly treated with Lasix. Respiratory status improved. She was stable on room. Recent echocardiogram showed normal EF Known Lung masses/adrenal mass Discussed with patient/family during previous admission Outpatient work-up. Atrial fibrillation on chronic anticoagulation Continued amiodaroneLaura Currently on amiodarione 200mg BID Sinus rhythm during the hospital stay. Diabetes mellitus type 2 with hyperglycemia Patient developed steroid-induced hyperglycemia which subsequently improved after steroids was discontinued Blood sugar managed with ACHS Accu-Chek, sliding scale insulin. Home diabetes regimen resumed on discharge. Chronic right upper extremity pain As needed Tylenol/tramadol Hypertension Continued home medications Vital Signs/Physical Exam: Temp Pulse Resp BP Pulse Ox 97 F 67 16 122/74 94 08/12/23 08:00 08/12/23 08:00 08/12/23 09:35 08/12/23 08:34 08/12/23 08:00 General: Alert, In no apparent distress, Oriented x3 HEENT: Mucous membr. moist/pink Neck: JVD not distended Respiratory: Clear to auscultation bilaterally, Normal air movement Cardiovascular: No edema, Regular rate/rhythm, Normal S1 S2 Gastrointestinal: Soft and benign, Non-distended Musculoskeletal: No swelling Integumentary: No rashes Neurological: Normal strength at 5/5 x4 extr Laboratory Data at Discharge: WBC 10.60 thou/uL (4.3-10.9) 08/12/23 06:20 Hgb 12.9 g/dL (12.0-15.0) 08/12/23 06:20 Hct 38.5 % (36.0-45.0) 08/12/23 06:20 Plt Count 373 thou/uL (152-406) 08/12/23 06:20 Sodium 134 mEq/L (136-145) L 08/12/23 06:20 Potassium 4.3 mEq/L (3.5-5.1) D 08/12/23 06:20 BUN 13 mg/dL (7-18) 08/12/23 06:20 Creatinine 0.88 mg/dL (0.55-1.02) 08/12/23 06:20 Glucose 226 mg/dL (74-106) H 08/12/23 06:20 Phosphorus Cancelled 08/11/23 02:45 Magnesium 2.2 mg/dL (1.6-2.4) 08/12/23 06:20 Total Bilirubin 0.7 mg/dL (0.2-1.0) 08/12/23 06:20 AST 12 U/L (15-37) L 08/12/23 06:20 ALT 15 U/L (13-56) 08/12/23 06:20 Alkaline Phosphatase 93 U/L (45-117) 08/12/23 06:20 Home Medications: Aspirin [Aspirin EC 81 MG] 1 tab PO DAILY 06/27/22 Atorvastatin Calcium [Lipitor*] 1 tab PO BID 06/27/22 Metformin HCl 2 tab PO DAILY 06/27/22 Venlafaxine HCl *Xr* [Effexor XR] 1 tab PO DAILY 06/27/22 Insulin Glargine,Hum.rec.anlog [Lantus Solostar] See Protocol SQ 08/04/23 Amiodarone HCl [Cordarone*] 200 mg PO BID #60 tab 08/06/23 Apixaban [Eliquis *] 2.5 mg PO BID #60 tablet 08/06/23 traMADol HCL [Ultram*] 50 mg PO Q8H PRN #15 tab 08/06/23 Albuterol Neb [Proventil 0.083% Neb Soln] 2.5 mg NEB [id number] PRN #120 amp 08/12/23 Furosemide [Lasix] 20 mg PO DAILY #30 tab 08/12/23 Ipratropium Neb [Atrovent*] 0.5 mg NEB [id number] PRN #120 amp 08/12/23 Nebulizer 1 each MC TID #1 ea 08/12/23 New Medications: Ipratropium Neb [Atrovent*] 0.5 mg NEB [id number] PRN #120 amp PRN Reason: Wheezing Albuterol Neb [Proventil 0.083% Neb Soln] 2.5 mg NEB [id number] PRN #120 amp PRN Reason: Shortness Of Breath Furosemide [Lasix] 20 mg PO DAILY #30 tab Nebulizer 1 each MC TID #1 ea Physician Discharge Instructions: PROBLEM: COPD EXACERBATION GOAL: Clear understanding of disease process INSTRUCTIONS: FOLLOW UP WITH PRIMARY PHYSICIAN IN 1 WEEK. FOLLOW UP WITH WORKERS COMPENSATION PARALEGAL IN 1-2 WEEKS TAKE MEDICATIONS DIRECTED RETURN TO NEAREST ER FOR ANY EMERGENCY DIABETIC HEART HEALTHY DIET Diet: AHA Activity: Fall precautions DME DME: Date Ordered: Name of Company: [employer] Services Needed: None Name of Company: Date or Referral: IMMUNIZATION Influenza Vaccine Indicated: Yes Influenza Vaccine Given: Date Given: Pneumonia Vaccine Indicated: No Pneumonia Vaccine Given: Date Given: Diet: AHA Activity: Fall precautions Followup: NONE,NONE [Primary Care Provider] - 1-2 Weeks Time spent managing pt's care (in minutes): 36
[2023-08-12 13:19] VITALS: BP 124/57; TEMP 97.5
== END 2023-08-12 17:05 | disposition home or self-care (01) | DRG 190 ==
LOC: ER 11:45 → ERHOLD 14:12 → 4TH 17:02 → OBSVTOIN 08-09 10:52
PROVIDERS: ADMIT Hospitalist; ATTEND Internal Medicine
DX: J44.1 Chronic obstructive pulmonary disease with (acute) exacerbation (principal); G93.41 Metabolic encephalopathy; M84.48XA Pathological fracture, other site, initial encounter for fracture; F05 Delirium due to known physiological condition; F03.911 Unspecified dementia, unspecified severity, with agitation; I10 Essential (primary) hypertension; I48.91 Unspecified atrial fibrillation; E27.9 Disorder of adrenal gland, unspecified; E11.65 Type 2 diabetes mellitus with hyperglycemia; M79.601 Pain in right arm; G89.29 Other chronic pain; T38.0X5A Adverse effect of glucocorticoids and synthetic analogues, initial encounter; I25.2 Old myocardial infarction; R91.8 Other nonspecific abnormal finding of lung field; Z88.1 Allergy status to other antibiotic agents; Z88.5 Allergy status to narcotic agent; Z88.8 Allergy status to other drugs, medicaments and biological substances; Z79.4 Long term (current) use of insulin; Z88.0 Allergy status to penicillin; Z85.51 Personal history of malignant neoplasm of bladder; Z79.84 Long term (current) use of oral hypoglycemic drugs; Z90.49 Acquired absence of other specified parts of digestive tract; Z79.82 Long term (current) use of aspirin; Z79.01 Long term (current) use of anticoagulants; Z87.891 Personal history of nicotine dependence; Z79.899 Other long term (current) drug therapy
CPT/HCPCS: 36415; 71045; 71046; 71250; 80048; 80053; 82947; 83735; 83880; 84145; 84484; 85025; 93005; 94010; 96374; 96375; 99285; G0378; J1815; J1940; J2270; J2550; J2930; J3535; J7512; J7613; J7644

== ENCOUNTER 2023-08-20 22:29 | Emergency (ER) | payer OTHER ==
--- OUTSIDE RECORDS SUMMARY | 2023-08-20 22:31 | XMS REPORT | Continuity of Care Document ---
:1935 Author Organization [facility] t Address [address] [place] [address] [place] [id number] Care Team Providers Name Role Phone PCP, PATIENT DOES NOT HAVE A Primary Care Physician Unavaila Bin Yanez Attending Clinician Unavailable Alyse Quintanilla CNP Attending Clinician ALYSE QUINTANILLA Attending Clinician Unavailable ALYSE QUINTANILLA Admitting Clinician Unavailable Payers Payer Name Policy Type Policy Number Effective Date Expiration Date S ource Problems This patient has no known problems. Allergies, Adverse Reactions, Alerts Allergy Allergy Status Severity Reaction(s) Onset Inactive Treating Comm ents Source Name Type Date Date Clinician Codeine Propensi Active Anaphylaxis 2022-09 Un guy ty to 1-15 ity of adverse 00:00: [place] reaction 00 [facility] Iodine Propensi Active Rash 2022-09 Univers ty to 1-15 ity of adverse 00:00: [place] reaction 00 [facility] IODINE DRUG Active Rash 2022-09 Univers INGREDI 1-15 ity of 00:00: [place] 00 [facility] CODEINE DRUG Active Anaphylaxis 2022-09 Univ ers INGREDI 1-15 ity of 00:00: [place] 00 [facility] NO KNOWN Drug Active Univers ALLERGIE Class ity of [facility] Social History Social Habit Start Date Stop Date Quantity Comments Source Sexual orientation [facility] Sex Assigned At [birth year] Uni [facility] 00:00:00 00:00:00 [facility] Smoking Status Start Date Stop Date Source Tobacco smoking consumption Univ [facility] [place] [facility] unknown Branch Medications This patient has no known medications. Vital Signs Vital Name Observation Time Observation Value Comments Source Systolic blood 2023-08-14 03:50:23 132 mm[Hg] Univer sity of pressure [facility] Diastolic blood 2023-08-14 03:50:23 66 mm[Hg] Unive [facility] Heart rate 2023-08-14 03:50:23 71 /min [facility] Respiratory rate 2023-08-14 03:50:23 16 /min [facility] Oxygen saturation in 2023-08-14 03:50:23 97 /min [facility] Arterial blood by [facility] Pulse oximetry [place] Body temperature 2023-08-13 22:23:00 36.72 Shirley [facility] Body weight 2023-08-13 22:19:00 58.968 kg [facility] Procedures Procedure Date / Time Performed Performing Clinician Sour e XR CHEST 1 VW 2023-08-14 00:50:00 Alyse Quintanilla [facility] XR SHOULDER 2+ VW 2023-08-14 00:50:[address] [facility] CONSENT/REFUSAL FOR 2023-08-13 21:42:53 Doctor Unassigned, No Un [facility] DIAGNOSIS AND Name Medical Branch TREATMENT Encounters Start End Encounter Admission Attending Care Care Encounter Source Date/Time Date/Time Type Type Clinicians Facility Department ID 2023-07-08 Outpatient Ochoa, STLMLC STLMLC [id number] Common 10:01:01 [facility]ly [facility] [id number] [facility] 2023-06-25 Outpatient Ochoa, STLMLC STLMLC [id number] Common 08:38:[id number] [facility] 2023-06-10 Outpatient Ochoa, STLMLC STLMLC [id number] Common 08:12:[id number] [facility] 2023-04-17 Outpatient Ochoa, STLMLC STLMLC [id number] Common 15:09:01 [facility]ly [facility] [address] [facility] 2023-04-11 Outpatient Ochoa, STLMLC STLMLC [id number] Common 10:03:[id number] [facility] 2023-04-09 [facility] [id number] Common 11:10:[id number] [facility] 2023-04-07 [facility] [id number] Common 09:45:[id number] [facility] 2023-04-03 [facility] [id number] Common 14:03:[id number] [facility] 2023-08-13 2023-08-13 Emergency Patel, TRAUMA [id number] Univers 16:23:00 21:51:00 Alyse KILMICHAEL [id number] [id number] [id number] [address] 2023-08-13 2023-08-13 Emergency X ALYSE QUINTANILLA [facility] ERT [id number] Univers 16:23:00 21:51:00 ALYSE QUINTANILLA ity [facility] Results This patient has no known results.
[2023-08-20] MEDS ORDERED: NA CHLORIDE 0.9% 250 ML ONE (23:39)
[2023-08-20] MEDS ORDERED: PIPERACIL/TAZO 3.375 GM VIAL IV ONE (23:39)
[2023-08-20] MEDS ORDERED: NA CHLORIDE 0.9% 100 ML ONE (23:39)
[2023-08-20] MEDS ORDERED: NA CHLORIDE 0.9% 1,000 ML ONE (23:39)
[2023-08-20] MEDS ORDERED: VANCOMYCIN 1 GM/VIAL ONE (23:39)
[2023-08-20] MEDS ORDERED: Levofloxacin 750mg IV 750 MG/150 ML BAG IV ONE (23:52)
[2023-08-20 23:54] LABS: Protime INR 1.38
[2023-08-20 23:55] LABS: Absolute Lymphocytes (CBC) 2.4 K/uL (0.7-4.9); Hematocrit 42.6 % (36.0-45.0); MCV 91.3 fL (80-100); MPV 7.3 fL (7.6-11.3); Platelets 559 thou/uL (152-406); RBC Red Blood Cell Count 4.66 M/uL (3.86-4.86)
[2023-08-20 23:58] LABS: Albumin 2.9 g/dL (3.4-5.0); Bilirubin Total 0.6 mg/dL (0.2-1.0); C-Reactive Protein 38.6 mg/L (<3.00); Potassium 3.7 mEq/L (3.5-5.1); Protein, Total 7.2 g/dL (6.4-8.2)
[2023-08-21 01:09] LABS: Specific Gravity 1.018 (1.005-1.030); Urine Bacteria <20 /HPF (<20); Urine Bilirubin 1+ (Negative); Urine Blood Negative (Negative); Urine Clarity Turbid (Clear); Urine Color Yellow (Yellow); Urine Glucose TRACE (Negative); Urine Mucus 1+ /HPF (None Seen); Urine Protein 1+ (Negative); Urine RBC <5 /HPF (None Seen); Urine Urobilinogen Normal (Normal)
--- NOTE | 2023-08-21 03:34 | ER ---
Nurse's Notes [facility] Name: Yarelis Payton Age: 88 yrs Sex: Female : 1935 Arrival Date: 08/20/2023 Time: 22:29 Bed 6 Private MD: Diagnosis: Right pulmonary mass, cachexia, COPD chronic, physical debility, acute metabolic encephalopathy, syncopal episode at home;Dehydration;Acute renal insufficiency, sepsis, physical debility Presentation: 08/20 22:49 Chief complaint: EMS states: Initially we were called out for back pain. Family reports jb4 pt has been feeling unwell and not acting like herself since 4pm has been feeling weak and tired. She was A\\T\\Ox4 until we started coming to the hospital now she will not talk to us at all. BGL was 214. Coronavirus screen: At this time, the client does not indicate any symptoms associated with coronavirus-19. Ebola Screen: No symptoms or risks identified at this time. Initial Sepsis Screen: Does the patient meet any 2 criteria? Altered Mental Status. Yes Does the patient have a suspected source of infection? No. Patient's initial sepsis screen is negative. Risk Assessment: Do you want to hurt yourself or someone else? Patient reports no desire to harm self or others. Onset of symptoms was August 20, 2023 at 16:00. Transition of care: patient was not received from another setting of care. 22:49 Method Of Arrival: EMS: [facility] jb4 22:49 Acuity: FROY 3 jb4 Historical: - Allergies: 22:56 Bactrim; jb4 22:56 Codeine; jb4 22:56 Iodine; jb4 22:56 PENICILLINS; jb4 22:56 Sudafed; jb4 22:56 Talwin; jb4 22:56 trovafloxacin mesylate; jb4 - PMHx: 22:56 Atrial Fib; Diabetes - IDDM; COPD; Hypertension; Bladder CA; Myocardial infarction; jb4 - PSHx: 22:56 Cholecystectomy; jb4 - Family history:: not pertinent. Screenin/23 00:00 [facility] ED Fall Risk Assessment (Adult) History of falling in the last 3 months, jb4 including since admission No falls in past 3 months (0 pts) Confusion or Disorientation Yes (5 pts) Score/Fall Risk Level 3 or more points = High Risk Oriented to surroundings, Maintained a safe environment. Abuse screen: Denies threats or abuse. Nutritional screening: No deficits noted. Tuberculosis screening: No symptoms or risk factors identified. Assessment: 08/20 23:00 General: Appears in no apparent distress. comfortable, Behavior is calm, cooperative. jb4 Pain: Unable to use pain scale. Patient is disoriented. Neuro: Level of Consciousness is awake, confused, Oriented to person. Cardiovascular: Patient's skin is warm and dry. Respiratory: Airway is patent Respiratory effort is even, unlabored, Respiratory pattern is regular, symmetrical. GI: No signs and/or symptoms were reported involving the gastrointestinal system. : No signs and/or symptoms were reported regarding the genitourinary system. EENT: No signs and/or symptoms were reported regarding the EENT system. Derm: Skin is intact, Skin is pink, warm \\T\\ dry. Musculoskeletal: Circulation, motion, and sensation intact. Range of motion: intact in all extremities. 08/21 00:29 Reassessment: Patient appears in no apparent distress at this time. No changes from jb4 previously documented assessment. Patient and/or family updated on plan of care and expected duration. Pain level reassessed. 00:31 : Swelling was noted to the genitalia when trying to straight cath pt. jb4 01:00 Reassessment: Patient appears in no apparent distress at this time. Patient and/or jb4 family updated on plan of care and expected duration. Pain level reassessed. Patient is alert, oriented x 3, equal unlabored respirations, skin warm/dry/pink. 01:25 Reassessment: Pt states she cannot have Iodine due to Diabetes diagnoses, "I use to jb4 take it as a kid but was told not to due to my diabetes.". 02:30 Reassessment: Patient appears in no apparent distress at this time. Patient and/or jb4 family updated on plan of care and expected duration. Pain level reassessed. Patient is alert, oriented x 3, equal unlabored respirations, skin warm/dry/pink. 03:30 Reassessment: Patient appears in no apparent distress at this time. Patient and/or jb4 family updated on plan of care and expected duration. Pain level reassessed. Patient is alert, oriented x 3, equal unlabored respirations, skin warm/dry/pink. 03:57 Derm: Family reports pt spends most of her time on her back. Pt positioned to her Right jb4 side. Decubitus located on sacrum is stage I. 03:59 Reassessment: Nikolai Payton, Son ([phone]). jb4 05:16 Reassessment: Pt resting in bed with eyes closed, respirations are even and unlabored jb4 with no s/s of pain or distress noted. 06:00 Reassessment: Patient appears in no apparent distress at this time. No changes from jb4 previously documented assessment. Patient and/or family updated on plan of care and expected duration. Pain level reassessed. 07:09 Reassessment: Pt back to A\\T\\Ox1. Being transferred by EMS. jb4 Vital Signs: 08/20 22:49 BP 148 / 51; Pulse 62; Resp 16; Pulse Ox 96% on R/A; jb4 08/21 00:15 BP 142 / 66; Pulse 61; Resp 16; Temp 97.9(O); Pulse Ox 95% on R/A; jb4 01:36 BP 130 / 45; Pulse 64; Resp 16; Pulse Ox 96% on R/A; jb4 03:30 BP 133 / 55; Pulse 79; Resp 21; Pulse Ox 99% on R/A; jb4 03:58 Weight 37 kg (M); Height 5 ft. 4 in. (R); jb4 05:00 BP 124 / 49; Pulse 69; Resp 18; Pulse Ox 95% on R/A; jb4 05:41 BP 132 / 60; Pulse 64; Resp 16; Pulse Ox 93% on R/A; jb4 06:45 BP 143 / 82; Pulse 66; Resp 16; Pulse Ox 94% on R/A; jb4 03:58 Body Mass Index 14.00 (37.00 kg, 162.56 cm) jb4 ED Course: 08/20 22:30 Patient arrived in ED. jj6 22:40 Dennis Lopez MD is Attending Physician. sp4 22:49 Roman Baron, [place] is Primary Nurse. jb4 22:55 Triage completed. jb4 22:56 Arm band placed on right wrist. jb4 23:19 Chest Single View XRAY In Process Unspecified. EDMS 23:22 CT Head Brain wo Cont In Process Unspecified. EDMS 23:25 Inserted saline lock: 20 gauge in right forearm, using aseptic technique. Blood rv collected. 23:40 Inserted saline lock: 20 gauge in left antecubital area, using aseptic technique. Blood rv collected. 08/21 00:00 Patient has correct armband on for positive identification. Bed in low position. Call jb4 light in reach. Side rails up X 1. Client placed on continuous cardiac and pulse oximetry monitoring. NIBP monitoring applied. 04:50 Initiated transfer to [facility], spoke with Aditi. wm 05:41 Pt accepted for transfer to [facility] RM: [id number] by Apurva Bess \\T\\ 0533 per Aditi Castillo. wm 06:15 LJ accepted for transport with NIDA \\T\\ 0630. wm 07:11 No provider procedures requiring assistance completed. Patient transferred, IV remains jb4 in place. Administered Medications: 08/20 23:35 Not Given (allergy to PCN): piperacillin-tazobactam3.375 grams IVPB once over 60 mins; jb4 (mix in NS 100 mL) 23:46 Drug: levofloxacin IVPB 750 mg 150 ml IVPB once over 90 mins Volume: 150 ml; Route: jb4 IVPB; Infused Over: 90 mins; Site: right forearm; 23:48 Drug: NS 0.9% IV 1000 ml IV at 125 ml/hr continuous Route: IV; Rate: 125 ml/hr; Site: jb4 right forearm; 08/21 00:28 Drug: vancoMYCIN IVPB 1 grams IVPB once over 2 hrs Route: IVPB; Infused Over: 2 hrs; jb4 Site: left antecubital; 04:01 Drug: Ondansetron IVP 4 mg IVP once; over 2 minutes Route: IVP; Site: right hand; jb4 05:53 Drug: NS 0.9% IV 500 ml IV at bolus once {Note: Rate changed per ER provider..} Route: jb4 IV; Rate: 250 ml/hr; Site: right hand; 07:08 Not Given (Pt leaving by EMS. ): [id number] mg IM once jb4 Outcome: 03:34 ER care complete, transfer ordered by MD. lowery 07:11 Transferred by ground EMS to [facility], Transfer form completed. jb4 X-rays sent w/ patient. 07:11 Condition: stable 07:11 Discharge instructions given to family, Instructed on the need for transfer, Demonstrated understanding of instructions, 07:12 Patient left the ED. jb4 Signatures: Dispatcher [employer] Roman Car, RN RN jb4 Emiliano Duong, RN RN Abi Espinosa Jennifer jj6 Dennis Lopez MD MD sp4 Corrections: (The following items were deleted from the chart) 03:59 00:15 BP 142 / 66; Pulse 61bpm; Resp 16bpm; Pulse Ox 95% RA; jb4 jb4 03:59 03:58 37 kg Measured; jb4 jb4 04:57 04:50 Initiated transfer to [facility], spoke with wm potter
--- NOTE | 2023-08-21 03:35 | EDPHYS ---
Physician Documentation [facility] Name: Yarelis Payton Age: 88 yrs Sex: Female : 1935 Arrival Date: 08/20/2023 Time: 22:29 Bed 6 Private MD: ED Physician Dennis Lopez HPI: 08/20 22:40 This 88 yrs old Female presents to ER via Unassigned with complaints of sp4 Syncope. 08/21 03:23 Patient is frail 88-year-old female brought in by EMS for altered mental status and sp4 generalized weakness. Patient reportedly had syncopal episode at home. Patient has history of multiple medical illness. Patient's family reports that patient has been declining for the past 3 days with generalized weakness and difficulty with getting up nonverbal status, and also precipitating syncopal episode at home today. . Patient was admitted here from 08/09/2023 to 08/12/2023. Patient has history of atrial fibrillation, hypertension, diabetes, COPD, and metabolic encephalopathy. Patient was managed for COPD exacerbation, right left pleural effusions, pathologic rib fracture on the right side, metabolic encephalopathy, lung mass and adrenal mass, atrial fibrillation, chronic anticoagulation, diabetes type 2 with hyperglycemia, right upper extremity pain, hypertension. Patient was managed with amiodarone, Eliquis, steroids, breathing treatments. Patient's medications include aspirin 81 mg daily, atorvastatin twice a day, metformin twice a day, venlafaxine daily, insulin glargine, amiodarone twice daily, apixaban twice daily, tramadol every 8 hours as needed, albuterol every 6 hours as needed, furosemide 20 mg daily, ipratropium neb as needed, hospice was discussed with hospitalist and family and family over the patient was not interested in hospice. . 03:34 Patient's family reports that patient has worsening mental status changes, pulmonary sp4 mass recent diagnosis by CT chest, also generalized weakness that is progressively worse. Family of the patient desires transfer to [facility] for additional assessment also consultation with cardiac specialist. Patient's primary MD has advised family that patient should be sent to [facility] for further evaluation.. . Historical: - Allergies: 08/20 22:56 Bactrim; jb4 22:56 Codeine; jb4 22:56 Iodine; jb4 22:56 PENICILLINS; jb4 22:56 Sudafed; jb4 22:56 Talwin; jb4 22:56 trovafloxacin mesylate; jb4 - PMHx: 22:56 Atrial Fib; Diabetes - IDDM; COPD; Hypertension; Bladder CA; Myocardial infarction; jb4 - PSHx: 22:56 Cholecystectomy; jb4 - Family history:: not pertinent. ROS: 08/21 03:23 Constitutional: Positive generalized weakness positive mental status changes. Positive sp4 syncope All other systems are negative, Unable to obtain ROS due to altered mental status, Exam: 03:23 Constitutional: This is a well developed, well nourished patient who is awake, alert, sp4 and in no acute distress. Patient is frail elderly female signs of dehydration, cachexia, on arrival not able to provide any history, denied any pain. Head/Face: Normocephalic, atraumatic. Eyes: Pupils equal round and reactive to light, extra-ocular motions intact. Lids and lashes normal. Conjunctiva and sclera are not injected. Cornea within normal limits. Periorbital areas with no swelling, redness, or edema. ENT: Nares patent. No nasal discharge, no septal abnormalities noted. Tympanic membranes are normal and external auditory canals are clear. Oropharynx with no redness, swelling, or masses, exudates, or evidence of obstruction, uvula midline. Mucous membranes moist. Neck: Trachea midline, no thyromegaly or masses palpated, and no cervical lymphadenopathy. Supple, full range of motion without nuchal rigidity, or vertebral point tenderness. Chest/axilla: Normal chest wall appearance and motion. Nontender with no deformity. No lesions are appreciated. Cardiovascular: Regular rate and rhythm with a normal S1 and S2. No gallops, murmurs, or rubs. Normal PMI, no JVD. No pulse deficits. Respiratory: Lungs have equal breath sounds bilaterally, clear to auscultation and percussion. No rales, rhonchi or wheezes noted. No increased work of breathing, no retractions or nasal flaring. Abdomen/GI: Soft, non-tender, with normal bowel sounds. No distension or tympany. No guarding or rebound. No evidence of tenderness throughout. Back: No spinal tenderness. No costovertebral tenderness. Skin: Warm, dry with normal turgor. Normal color with no rashes, no lesions, and no evidence of cellulitis. MS/ Extremity: Pulses equal, no cyanosis. Neurovascular intact. Full, normal range of motion. Neuro: Awake , alert and oriented to self and others, signs of moderate dementia, grossly no neurologic deficits, able to cooperate with exam answers, follows basic commands 03:35 ECG was reviewed by the Attending Physician. EKG at 2307 reveals normal sinus rhythm at sp4 the rate of 60. No ST elevation or depression, no ectopy Vital Signs: 08/20 22:49 BP 148 / 51; Pulse 62; Resp 16; Pulse Ox 96% on R/A; jb4 08/21 00:15 BP 142 / 66; Pulse 61; Resp 16; Temp 97.9(O); Pulse Ox 95% on R/A; jb4 01:36 BP 130 / 45; Pulse 64; Resp 16; Pulse Ox 96% on R/A; jb4 03:30 BP 133 / 55; Pulse 79; Resp 21; Pulse Ox 99% on R/A; jb4 03:58 Weight 37 kg (M); Height 5 ft. 4 in. (R); jb4 05:00 BP 124 / 49; Pulse 69; Resp 18; Pulse Ox 95% on R/A; jb4 05:41 BP 132 / 60; Pulse 64; Resp 16; Pulse Ox 93% on R/A; jb4 06:45 BP 143 / 82; Pulse 66; Resp 16; Pulse Ox 94% on R/A; jb4 03:58 Body Mass Index 14.00 (37.00 kg, 162.56 cm) jb4 MDM: 08/20 22:43 Patient medically screened. sp4 08/21 03:23 ED course: Chest x-ray - CLINICAL HISTORY:88 years Female, DYSPNEA Comparison: None sp4 IMPRESSION: Chronic lung changes. No focal consolidation. Possible right lung base nodule measuring 1.7 cm. Bibasilar atelectasis or scarring. No pleural effusion. No pneumothorax. Cardiomediastinal silhouette is within normal limits. No acute osseous abnormality. Osteopenia. Electronically signed by: John Phillips DO 08/20/2023 11:24 PM. ED course: CT head today -- COMPARISON: None. FINDINGS: There is diffuse atrophy throughout the brain parenchyma. Mild periventricular white matter changes. Mild ex vacuo dilatation of the ventricular system. There is no intra-axial or extra-axial bleed. There is no mass or mass effect. The visualized paranasal sinuses and mastoid air cells are patent. No acute fracture is identified. IMPRESSION: No acute intracranial abnormality identified. Mild chronic age-related and chronic microvascular ischemic changes.. ED course: 08/07/2023 -review of CT Chest - FINDINGS: No new lung parenchymal masses. New moderate right and small left layering pleural effusions with underlying atelectasis. Stable right pleural masses at the right apex, peripheral right upper lobe, and posterolateral right lower lobe,, with adjacent reticular opacities and underlying rib erosions. Mildly displaced posterior right ninth rib fracture emboli underlying the right lower lobe pleural mass. No pneumothorax. Grossly stable prominent mediastinal and possibly right hilar lymph nodes. No significant aortic or pulmonary artery findings. Assessment is limited in the absence of IV contrast. No chest wall mass or abnormal axillary lymphadenopathy. Evaluation of the solid abdominal structures reveals a stable right adrenal 2.5 cm nodule. Expansile lesion with cortical remodeling involving the upper aspect of the sternal body is stable and nonspecific. IMPRESSION: Interval development of right moderate and small left layering pleural effusions. Mediastinal and possibly right hilar prominent lymph nodes are grossly stable within limits of noncontrast evaluation. Grossly stable right pleural masses, again concerning for metastatic lesions or mesothelioma. New posterior right ninth rib mildly displaced fracture, likely pathologic, as the underlies the right lower lobe lung mass. . 03:35 Differential Diagnosis: cardiac arrhythmia, cerebrovascular accident, drug effect, sp4 emotional response, GI bleed, idiopathic syncope, seizure, sepsis, transient ischemic attack, vasovagal episode. Data reviewed: vital signs, nurses notes, EMS record, old medical records, lab test result(s), EKG, radiologic studies, CT scan, plain films. Consideration of Admission/Observation Escalation of care including admission/observation considered. Management of patient was discussed with the following: Supervisor Beam Department: Hospitalist at [facility]. 03:44 ED course: Labs revealed dehydration with elevated creatinine and elevated white count,.sp4 05:31 ED course: Patient was accepted by Dr. Mixon at [facility]. sp4 08/20 22:41 Order name: Blood Culture Adult (2) sp4 08/20 22:41 Order name: CBC with Diff; Complete Time: 01:49 sp4 08/20 22:41 Order name: CMP; Complete Time: :49 sp4 08/20 22:41 Order name: Lactate w/ 2H reflex if indic.; Complete Time: :49 sp4 08/20 22:41 Order name: Protime (+inr); Complete Time: 01:49 sp4 08/20 22:41 Order name: Ptt, Activated; Complete Time: :49 sp4 08/20 22:41 Order name: Urinalysis w/ reflexes; Complete Time: 01:49 sp4 08/20 22:43 Order name: CRP; Complete Time: : sp4 08/20 22:43 Order name: Procalcitonin; Complete Time: : 4 08/21 03:51 Order name: Influenza Screen (a \T\ B); Complete Time: 05:19 sp4 08/21 03:51 Order name: COVID-19 SARS RT PCR; Complete Time: 05:19 4 08/21 04:02 Order name: Glucose, Ancillary Testing; Complete Time: 04:27 EDMS 08/20 22:41 Order name: Chest Single View XRAY sp4 08/20 22:42 Order name: CT Head Brain wo Cont sp4 08/20 22:41 Order name: EKG; Complete Time: 22:42 sp4 08/20 22:41 Order name: Accucheck; Complete Time: 23:23 sp4 08/20 22:41 Order name: Cardiac monitoring; Complete Time: 23:09 4 08/20 22:41 Order name: Cath; Complete Time: 00:13 sp4 08/20 22:41 Order name: EKG - Nurse/Tech; Complete Time: 23:09 sp4 08/20 22:41 Order name: IV Saline Lock - Large Bore; Complete Time: 23:48 sp4 08/20 22:41 Order name: Labs collected and sent; Complete Time: 23:48 sp4 08/20 22:41 Order name: O2 Per Protocol; Complete Time: 23:09 sp4 08/20 22:41 Order name: O2 Sat Monitoring; Complete Time: 23:09 sp4 08/20 22:41 Order name: Vital Signs; Complete Time: 23:09 sp4 EC:35 Rate is 60 beats/min. Rhythm is regular, Normal Sinus Rhythm. Left axis deviation sp4 noted. MT interval is normal. QRS interval is normal. QT interval is normal. No ST changes noted. Clinical impression: No evidence of ischemia. Interpreted by me. Reviewed by me. Administered Medications: 08/20 23:35 Not Given (allergy to PCN): piperacillin-tazobactam3.375 grams IVPB once over 60 mins; jb4 (mix in NS 100 mL) 23:46 Drug: levofloxacin IVPB 750 mg 150 ml IVPB once over 90 mins Volume: 150 ml; Route: jb4 IVPB; Infused Over: 90 mins; Site: right forearm; 23:48 Drug: NS 0.9% IV 1000 ml IV at 125 ml/hr continuous Route: IV; Rate: 125 ml/hr; Site: jb4 right forearm; 08/21 00:28 Drug: vancoMYCIN IVPB 1 grams IVPB once over 2 hrs Route: IVPB; Infused Over: 2 hrs; jb4 Site: left antecubital; 04:01 Drug: Ondansetron IVP 4 mg IVP once; over 2 minutes Route: IVP; Site: right hand; jb4 05:53 Drug: NS 0.9% IV 500 ml IV at bolus once {Note: Rate changed per ER provider..} Route: jb4 IV; Rate: 250 ml/hr; Site: right hand; 07:08 Not Given (Pt leaving by EMS. ): [id number] mg IM once jb4 Disposition Summary: 08/21/23 03:34 Transfer Ordered Notes: Transfer Location: [facility] sp4 Reason: Higher level of care sp4 Condition: Stable sp4 Problem: new sp4 Symptoms: have improved sp4 Accepting Physician: [facility] accepting hospitalist (08/21/23 07:12) jb4 Diagnosis - Right pulmonary mass, cachexia, COPD chronic, physical debility, acute metabolic sp4 encephalopathy, syncopal episode at home - Dehydration sp4 - Acute renal insufficiency, sepsis, physical debility sp4 Forms: - Medication Reconciliation Form sp4 - SBAR form sp4 Signatures: Dispatcher [employer] Roman Car RN RN jb4 Dennis Lopez MD MD sp4 Corrections: (The following items were deleted from the chart) 03:48 03:34 [facility] accepting hospitalist sp4 sp4 07:12 03:48 [facility] accepting [facility] hospitalist sp4 jb4
[2023-08-21] MEDS ORDERED: ONDANSETRON 4 MG/2 ML VIAL ONE (03:58)
[2023-08-21 07:37] VITALS: TEMP 97.9
[2023-08-21 07:46] VITALS: BP 143/82; O2SAT 94
--- NOTE | 2023-08-22 15:45 | RAD REPORT ---
EXAM DESCRIPTION: RAD - Chest Single View - 08/20/2023 11:17 pm CLINICAL HISTORY: 8 years Female, DYSPNEA COMPARISON: None IMPRESSION: Chronic lung changes. No focal consolidation. Possible right lung base nodule measuring 1.7 cm. Bibasilar atelectasis or scarring. No pleural effusion. No pneumothorax. Cardiomediastinal silhouette is within normal limits. No acute osseous abnormality. Osteopenia. Electronically signed by: John Phillips DO 08/20/2023 11:24 PM SECURITY SHIFT MANAGER Due to temporary technical issues with the PACS/Fluency reporting system, reports are being signed by the in house radiologists without review as a courtesy to insure prompt reporting. The interpreting radiologist is fully responsible for the content of the report.
--- NOTE | 2023-08-22 17:12 | RAD REPORT ---
EXAM DESCRIPTION: CT - Head Brain Wo Cont - 08/21/2023 6:53 am CLINICAL HISTORY: CONFUSED. TECHNIQUE: Noncontrast CT through the head was performed. Axial, coronal, and sagittal reconstructio ns were created and sent to PACS. This exam was performed according to our departmental dose-optimiza tion program which includes use of Automated Exposure Control, adjustment of the mA and/or kV accordi ng to patient size and/or use of iterative reconstruction technique. COMPARISON: None. FINDINGS: There is diffuse atrophy throughout the brain parenchyma. Mild periventricular white matte r changes. Mild ex vacuo dilatation of the ventricular system. There is no intra-axial or extra-axial bleed. There is no mass or mass effect. The visualized paranasal sinuses and mastoid air cells are patent. No acute fracture is identified. IMPRESSION: No acute intracranial abnormality identified. Mild chronic age-related and chronic micro vascular ischemic changes. Electronically signed by: Leonila Dubois MD 08/20/2023 11:31 PM INVESTMENT ANALYST Due to temporary technical issues with the PACS/Fluency reporting system, reports are being signed by the in house radiologists without review as a courtesy to insure prompt reporting. The interpreting radiologist is fully responsible for the content of the report.
--- NOTE | 2023-08-25 16:59 | EKG ---
Test Date: 2023-08-20 Test Time: 23:07:28 Cloud Security Architect: OMAIRA MEASUREMENT RESULTS: Intervals: Rate: 60 WI: 158 QRSD: 112 QT: 404 QTc: 404 [place]: P: 85 WI: 158 QRS: -62 T: 117 INTERPRETIVE STATEMENTS: Normal sinus rhythm Left axis deviation Pulmonary disease pattern Incomplete left bundle branch block Nonspecific ST and T wave abnormality Abnormal ECG Compared to ECG 08/07/2023 12:34:02 Left-axis deviation now present Left bundle-branch block now present ST (T wave) deviation now present Myocardial infarct finding no longer present Electronically Signed On 08-25-23 16:53:46 STATION EXAMINER by Travis Bauman
== END 2023-08-21 07:12 | disposition short-term general hospital (02) ==
LOC: ER 22:29
DX: A41.9 Sepsis, unspecified organism (principal); R55 Syncope and collapse; E86.0 Dehydration; G93.41 Metabolic encephalopathy; J44.9 Chronic obstructive pulmonary disease, unspecified; N28.9 Disorder of kidney and ureter, unspecified; R64 Cachexia; I48.91 Unspecified atrial fibrillation; J98.4 Other disorders of lung; R53.81 Other malaise; I25.2 Old myocardial infarction; E11.9 Type 2 diabetes mellitus without complications; Z88.0 Allergy status to penicillin; Z88.5 Allergy status to narcotic agent; Z88.8 Allergy status to other drugs, medicaments and biological substances
CPT/HCPCS: 93005; 87040 ×2; 85025; 81001; 36415; 85610; 82947; 83605; 85730; 80053; 84145; 87635; 86140; 87804 ×2; 70450; 71045; 99285; J2543; J2405; J7050; J7030